=== PATIENT | female | born 1950 | race Caucasian/White ===

== ENCOUNTER 2018-01-14 08:15 | Day surgery (SDC) | payer MEDICARE, OTHER, SELFPAY ==
[2018-01-14 08:36] VITALS: BP 149/60; PULSE 51; RESP 16; TEMP 36.8; O2SAT 99; BMI 34.7
--- NOTE | 2018-01-14 09:30 | COLBX_PTH ---
PATIENT: GREG FELIX LOC: EN U#:[id number] AGE/SX: 67/F ROOM: RE01/14/[address]: Dr. Robert Tran MD : 1950 BED: DIS: 01/14/2018 SPEC #: [id number] RECD: 01/14/18 14:20 STATUS: ALICIA JAZZY #: [id number] HECTOR: 01/14/18 09:[address]: Robert Tran DEPT: SURGICAL PATHOLOGY RECD BY: Sigifredo Haque ENTERED: 01/14/18 14:47 SP TYPE: COLON BX OTHR DR: Dr. Terrence Rizo III, MD Tissues: POLYP Procedures: Surgery Specimen Level IV HEADER OPERATION: Colonoscopy (MAC) PRE-OP DIAGNOSIS: Personal history of colon polyps TISSUE SUBMITTED: Polyp at hepatic flexure MICROSCOPIC DIAGNOSIS Polyp at hepatic flexure, biopsy: Fragments of hyperplastic polyp. AM:lang 8/7/18 MICROSCOPIC DESCRIPTION Slides are reviewed. GROSS DESCRIPTION Received in fixative is one container labeled with the patient's name and designated polyp hepatic flexure. The specimen consists of two irregular fragments of light gardner soft tissue that in aggregate measure 1 x 0.7 x 0.1 cm. The specimen is totally submitted in one cassette. / AM:lang 01/14/18 TC:5 CPT: 94207
--- NOTE | 2018-01-14 09:53 | PCM.OPRPT ---
Problem List (1) Personal history of colonic polyps Status: Acute Report of Operation Date of Procedure: 01/14/18 Pre-Operative Diagnosis: Personal history of colonic polyps Post-Operative Diagnosis: Same Surgery/Procedure Performed:: Colonoscopy with snare polypectomy 11733 Type of Anesthesia:: MAC Anesthesiologist: Waqas Fox Description of Procedure: Patient brought in the endoscopy suite. Placed on the left lateral decubitus position. She was given graded anesthesia. Scope was inserted into the rectum and directed to the sigmoid colon, descending colon, transverse colon, ascending colon, to the cecum without difficulty operative findings: 1. Cecum: Normal appearance no mass lesions normal ileocecal valve. 2. Ascending colon: Normal appearance no mass lesions. 3. Transverse colon: Normal appearance no mass lesions. At the hepatic flexure a small polyp was identified was removed with snare cautery technique brought back to the channel of the scope. 4. Descending colon: Normal appearance no mass lesions. 5. Sigmoid colon: Normal appearance There is moderate amount of diverticular disease identified. 6. Rectum: Normal appearance no mass lesions internal hemorrhoids was identified. Patient will need another colonoscopy in 3 years - Admit VTE Documentation VTE Present on Admission: No VTE Mechan Device Prophylaxis: None VTE Pharm Prophylaxis ordered?: No Reason prophylaxis not ordered:: Treatment Not Indicated
[2018-01-14 09:56] VITALS: BP 108/67; BP 149/60; PULSE 72; RESP 18; TEMP 36.1; O2SAT 96
[2018-01-14 10:00] VITALS: BP 124/54; BP 149/60; PULSE 75; RESP 18; O2SAT 98
[2018-01-14 10:05] VITALS: BP 137/56; BP 149/60; PULSE 95; RESP 18; O2SAT 98
[2018-01-14 10:10] VITALS: BP 143/65; BP 149/60; PULSE 96; RESP 18; TEMP 36.1; O2SAT 96
[2018-01-14 10:46] VITALS: BP 149/60
== END 2018-01-14 10:50 | disposition home or self-care (01) ==
LOC: EN 08:16 → AC 08:18
PROVIDERS: Family Provider Family Medicine; PCP Family Medicine; Visit Provider Surgery
PROC: 0DJD8ZZ Inspection of Lower Intestinal Tract, Via Natural or Artificial Opening Endoscopic (ICD-10-PCS; CPT 45378; principal; 2018-01-14 09:25)
DX: K63.5 Polyp of colon (principal); K57.30 Diverticulosis of large intestine without perforation or abscess without bleeding; K64.8 Other hemorrhoids; I10 Essential (primary) hypertension; E78.5 Hyperlipidemia, unspecified; I25.10 Atherosclerotic heart disease of native coronary artery without angina pectoris; Z87.891 Personal history of nicotine dependence; Z93.1 Gastrostomy status; Z86.010 Personal history of colon polyps
CPT/HCPCS: 45385; 88305; J7120

== ENCOUNTER → 2018-02-02 09:15 | Outpatient (CLI) | payer MEDICARE, OTHER, SELFPAY ==
--- NOTE | 2018-02-02 | IMM_PTH ---
PATIENT: GREG FELIX LOC: [facility] U#:[id number] AGE/SX: 75/F ROOM: RE02/02/[address]: Dr. Robert Tran MD : 1950 BED: DIS: SPEC #: [id number] RECD: 02/05/18 12:57 STATUS: ALICIA REBerna #: [id number] HECTOR: 02/02/18 00:[address]: Robert Tran DEPT: IMMUNOHISTOCHEMISTRY RECD BY: Shelly Burns ENTERED: 02/05/18 13:00 SP TYPE: IMMUNO OTHR DR: Dr. Terrence Rizo III, MD Tissues: Skin of leg, NOS Procedures: Vimentin (add) MELAN-A (add) P40 (add) S-100 (add) PHYSICIAN & INSTITUTION [place] [id number] SPECIMEN INFORMATION: Tissue Source: Left leg skin lesion Clinical Info: Left leg skin lesion Specimen Number: [id number] #2 CPT code: 90379, 32738 x3 METHODOLOGY: Deparaffinized sections of prefer/formalin-fixed tissue or PAP/DQ stained slides are incubated with monoclonal/polyclonal antibodies/oligonucleotide probes. Localization is made via biotin free immunoperoxidase method. Appropriate controls are performed and reacted as expected. Results on target cell population are indicated in the following table: RESULTS: ANTIBODY / CLONE RESULT Block 2 S-100 (4C4.9) positive Melan A (A103) positive Vimentin (V9) positive P40 (BC28) negative These tests were developed and their performance characteristics determined by [facility]. They may not have been cleared or approved by the U.S. Food and Drug Administration. The FDA has determined that such clearance or approval is not necessary. INTERPRETATION: Left leg skin lesion, excision: Malignant melanoma, superficial spreading type. AM:lang 02/06/18
--- NOTE | 2018-02-02 09:15 | LES_PTH ---
PATIENT: GREG FELIX LOC: [facility] U#:[id number] AGE/SX: 75/F ROOM: RE02/02/[address]: Dr. Robert Tran MD : 1950 BED: DIS: SPEC #: [id number] RECD: 02/02/18 11:25 STATUS: ALICIA JAZZY #: [id number] HECTOR: 02/02/18 09:[address]: Robert Tran DEPT: SURGICAL PATHOLOGY RECD BY: Bereket Mejia ENTERED: 02/04/18 13:38 SP TYPE: Lesion OTHR DR: Dr. Terrence Rizo III, MD Tissues: Skin of leg, NOS Procedures: Gen Path Consultation (on slides) Surgery Specimen Level IV HEADER OPERATION: Excision of left leg skin lesion PRE-OP DIAGNOSIS: Neoplasm of uncertain behavior of skin TISSUE SUBMITTED: Left leg skin lesion MICROSCOPIC DIAGNOSIS Left leg skin lesion, excisional biopsy: Malignant melanoma, superficial spreading type. See Comment. AM:lang 02/08/18 COMMENT MALIGNANT MELANOMA SYNOPTIC REPORT: Histologic type ? superficial spreading type. Level of invasion ? Ifeanyi?s level II Tumor thickness ? 0.9mm. Mitotic rate ? 2/mm? Ulceration ? not present Regression ? not present Tumor infiltrating lymphocytes ? present, brisk Lymph-vascular invasion - not identified. Peripheral margins ? negative. Deep margin ? negative. Pathologic stage ? pT1a Nx Mx. Immunohistochemistry ([id number]) supports the diagnosis. This case was reviewed in consultation with Dr. Marco A Narvaez of [employer]. Please see the complete consultative report in EMR. MICROSCOPIC DESCRIPTION Slides are reviewed. GROSS DESCRIPTION Received in fixative is one container labeled with the patient's name and designated left leg skin lesion. The specimen consists of an ellipse of light gardner excised skin measuring 3.5 x 2.3 cm and a depth of excision measuring 1.5 cm. The cutaneous surface contains an irregular hyperpigmented lesion measuring 1 x 1 x 0.1 cm. No orientation is provided. The specimen is inked in black ink, serially sectioned and totally submitted in three cassettes. / AM:lang 02/04/18 TC:0 CPT: 71121
== END ==
PROVIDERS: Family Provider Family Medicine; PCP Family Medicine; Visit Provider Surgery
DX: L98.8 Other specified disorders of the skin and subcutaneous tissue (principal)
CPT/HCPCS: 88305; 88325; 88341

== ENCOUNTER 2019-07-09 12:32 | Emergency (ER) | payer MEDICARE, OTHER, SELFPAY ==
[2019-07-09 12:33] VITALS: BP 153/75; PULSE 63; RESP 16; TEMP 36.7; O2SAT 96; BMI 37.9
--- NOTE | 2019-07-09 12:47 | RAD_ITS ---
STUDY: X-RAY - LEFT HAND, ATTENTION LEFT THUMB. REASON FOR EXAM: Female, 69 years old. Stubbed left thumb against door; pain for 4 weeks TECHNIQUE: 3 view(s) of the finger were obtained. COMPARISON: None. FINDINGS: Normal metacarpal head. Normal metacarpophalangeal joint. Normal proximal phalanx. Normal distal phalanx. Normal distal interphalangeal joint. Soft tissue swelling. RAD/Finger(s) Min 2 Views IMPRESSION: Soft tissue swelling. Electronically Signed: Samson Montejo, at 13:50 EST , Service support ,
--- NOTE | 2019-07-09 14:03 | ED.VISSUMM ---
- ER Visit Summary Date of Service: 07/09/19 Chief Complaint: [Left thumb injury] History of Present Illness: The patient is a 69 F [presents the emergency department with pain in her left thumb that she has had for about 4 to 6 weeks. Patient states that she got up in the middle the night and accidentally stubbed the thumb into the door. Patient's had pain and discomfort ever since that time. Patient complains of pain with bending and flexing the thumb. Patient is right-hand dominant. Patient has history of GERD, hypertension, and high cholesterol.] Physical Examination: [Left hand-patient has tenderness to palpation over the IP joint of the left thumb as well as the MCP joint. Patient has popping when she tries to flex the IP joint. There is a grinding sensation noted. There is no obvious deformity. No erythema or warmth noted. Neurovascularly intact.] Test Results: [X-rays of the left thumb obtained showed some soft tissue swelling but no fractures. She had some degenerative changes noted.] Emergency Department Course and Treatment: [She was given a thumb spica splint.] Treatment Plan: [Patient will be referred to orthopedics for follow-up. Patient advised use ibuprofen or Tylenol for discomfort.] Disposition: [Discharged home in stable condition] Impression: [Left thumb sprain] This note was generated with [employer] dictation software. It may contain incorrect words, spelling, and punctuation that were not noted in review of the chart prior to signing ED Disposition - Plan for ED Patient: Referrals: Terrence Rizo III, MD [Primary Care Provider] -
--- NOTE | 2019-07-09 14:05 | ED.DEP ---
ED Disposition - Plan for ED Patient: Instructions: Sprain Finger Referrals: Terrence Rizo III, MD [Primary Care Provider] - Mayo Ramirez MD [STAFF PHYSICIAN] - 5-7 Days
[2019-07-09 14:22] VITALS: RESP 17
== END 2019-07-09 14:23 | disposition home or self-care (01) ==
LOC: ED 13:00
PROVIDERS: Emergency Provider Emergency Medicine; PCP Family Medicine
DX: S63.602A Unspecified sprain of left thumb, initial encounter (principal); W23.0XXA Caught, crushed, jammed, or pinched between moving objects, initial encounter; Y93.9 Activity, unspecified; Y92.89 Other specified places as the place of occurrence of the external cause; Y99.9 Unspecified external cause status; E78.00 Pure hypercholesterolemia, unspecified; I10 Essential (primary) hypertension; K21.9 Gastro-esophageal reflux disease without esophagitis
CPT/HCPCS: 73140; 99283

== ENCOUNTER 2019-10-15 12:33 | Emergency (ER) | payer MEDICARE, OTHER, SELFPAY ==
[2019-10-15 12:34] VITALS: BP 159/90; PULSE 58; RESP 17; TEMP 36.3; O2SAT 95; BMI 37.2
--- NOTE | 2019-10-15 13:02 | EKG12_ITS ---
Test Reason : Blood Pressure : / mmHG Vent. Rate : 050 BPM Atrial Rate : 050 BPM P-R Int : 200 ms QRS Dur : 096 ms QT Int : 530 ms P-R-T Axes : 027 026 032 degrees QTc Int : 483 ms Sinus bradycardia Otherwise normal ECG Confirmed by JESSICA STOKES ([id number]), general expeditor ADAM BARRERA ([id number]) on 10/20/2019 2:48:40 PM Referred By: VALE Confirmed By:JESSICA STOKES
--- NOTE | 2019-10-15 13:21 | NURSING ---
[facility] , DIPAK PNEUMONIA, HYPOXIA, COPD
[2019-10-15 13:22] LABS: Absolute Lymphocyte Count 1.07 X10^3/uL (0.83-4.51); Absolute Neutrophil Count 6.3 X10^3/uL (2.0-7.7); Basophil# 0.07 X10^3/uL; Basophil% 0.8 % (0-1); Eosinophil# 0.09 X10^3/uL; Eosinophils% 1.1 % (0-5); Hemoglobin 12.1 g/dL (12.0-15.0); Lymphocyte # 1.07 X10^3/ul (4.0); Lymphocyte % 12.8 % (19-41); Mean Corp Hgb Conc 32.7 g/dL (32-36); Mean Corpuscular Hgb 29.2 pg (27.0-32.0); Mean Corpuscular Volume 89.2 fL (81-99); Mean Platelet Vol. 10.1 fl (6.2-12.0); Monocyte# 0.78 X10^3/uL; Monocyte% 9.3 % (0-10); NRBC Flagged by Analyzer 0 % (0-5); Neutrophil # 6.32 X10^3/uL (2.7-7.7); Neutrophil % 75.6 % (47-70); Platelet Count 180 K/mm3 (150-450); RBC Distribution Width CV 12.5 % (11.6-14.6); RBC Distribution Width SD 41.1 fl (35.1-43.9); Red Blood Count 4.15 M/mm3 (4.2-5.4); White Blood Count 8.4 K/mm3 (4.4-11.0)
[2019-10-15] MEDS: 0.9% Normal Saline 1,000 ML 1000 ML IV (13:26)
[2019-10-15 13:35] VITALS: BP 119/56; BP 137/58; BP 143/92; PULSE 60; PULSE 89; PULSE 90
[2019-10-15 13:48] LABS: ALB/GLOB Ratio 0.9 RATIO (0.9-2.4); AST(SGOT) 15 U/L (15-37); Alanine Aminotransfer ALT/SGPT 15 U/L (13-56); Albumin, Serum 3.5 g/dL (3.2-5.0); Alkaline Phosphatase 138 U/L (45-117); Anion Gap 8 (5-15); BUN 19 mg/dL (7-18); BUN/Creat Ratio 14.4 RATIO (10-20); Calcium,Total 9.1 mg/dL (8.5-10.1); Chloride 106 mmol/L (98-107); Creatinine, Serum 1.32 mg/dL (0.55-1.02); EST Glomerular Filtration Rate 42 mL/min (>60); Est Glom Filt Rate - Afr Amer 51 mL/min (>60); Estimated Creatinine Clearance 32.34 ml/min; Globulin 4.1 g/dL (2.2-4.2); Glucose 116 mg/dL (74-106); Potassium 4.4 mmol/L (3.5-5.1); Protein, Total 7.6 g/dL (6.4-8.2); Sodium Level 138 mmol/L (136-145); Thyroid Stim Hormone (TSH) 0.85 uIU/mL (0.358-3.74)
[2019-10-15 15:23] LABS: Mucous, Urine 0 SEEN /hpf (<or=2+)
[2019-10-15 15:56] LABS: Color, Urine Yellow (Yellow); Glucose, Dipstick Normal (Normal); Ketone-Dipstick Negative (Negative); Leukocyte Esterase-Dipstick 500 /ul (Negative); Nitrite-Dipstick Negative (Negative); Occult Blood-Urine 150 /ul (Negative); Protein-Dipstick 30 mg/dl (Negative); Urine Bilirubin Dipstick Negative (Negative); Urine Clarity Sl. Cloudy (Clear); Urine Urobilinogen Normal (Normal)
[2019-10-15 16:05] VITALS: BP 157/41; PULSE 97; RESP 16; O2SAT 95
[2019-10-15 16:06] LABS: Bacteria RARE /hpf (None Seen); Red Blood Cells-Urine 0-5 SEEN /hpf (0-5); Renal Epithelial Cells 0-5 SEEN /hpf (0-5); Squamous Epithelial Cells - UA 0-5 SEEN /hpf (5-10); White Blood Cells 5-10 SEEN /hpf (0-5)
[2019-10-15] MEDS: Ondansetron 4 MG/2 ML Vial IV (16:08)
--- NOTE | 2019-10-15 16:13 | ED.DCSUM_ITS ---
- ER Visit Summary Date of Service: 10/15/19 Chief Complaint: Dehydration and weakness History of Present Illness: The patient is a [address] Terrence Rizo iii and Dr. Tran. Patient has a history of dementia and is a poor informant. Her reports that she has had diarrhea on and off for the past 2 weeks. She is had 1 episode today. No blood in her stools or black tarry stools. She has not been one sick. Has not been camping out of the country. No possible food exposure. They do drink well water, but he does as well and he is not ill. No recent antibiotics. also reports the patient had poor p.o. intake for the past 2 days and does not meet drink much fluids. She was seen by Dr. Terrence Rizo in the office this morning and her blood pressure and heart rate were low. He asked that they hold her amlodipine and carvedilol. Come to the emergency department to obtain IV fluids and a work-up. Patient denies any fever chills. She denies any abdominal pain, nausea, or vomiting. She does admit to generalized weakness. Physical Examination: Vitals: Stable. Afebrile. General: Well-nourished and well-developed. Head: Normocephalic atraumatic. Neck: Supple, no lymphadenopathy. No JVD. Nontender. Cardiovascular: Regular rate and rhythm. No murmurs. Respiratory: No respiratory distress. Clear to auscultation bilaterally. Abdominal: Soft, nontender, nondistended, normal bowel sounds. No guarding, rebound, or peritoneal signs. Back: Nontender. Extremities: Nontender, no edema. Skin: Normal color, no rash. Neurologic: Alert and oriented ?3. Cranial nerves II through XII are intact. Normal strength and sensation. Psych: Normal affect. Test Results: CBC shows segmented neutrophils 76 lymphocytes 13. Chem-7 shows a glucose of 116, BUN 19, creatinine 1.32. Her creatinine in 2016 was 0.53?1.44. LFTs show an alk phos of 138. TSH is normal. Troponin is negative. EKG is sinus bradycardia at [address] changes. Is unchanged from 2016. Urinalysis shows 5-10 white blood cells with 1+ bacteria. Emergency Department Course and Treatment: Patient was given a liter of normal saline. She was given Zofran IV and Cipro p.o. She is resting more comfortabl y. Treatment Plan: I did attempt to get a hold of Dr. Terrence Rizo without success. She will be instructed to hold her carvedilol as I do suspect that the bradycardia is causing some of the weakness and lightheadedness. She was discussed with Dr. Gt Rizo and he feels that she needs to have a full medical work-up that rules out an infectious cause of her diarrhea prior to seeing surgery. She is instructed to follow-up Dr. Tran in 1 week if not improving. The patient's urine was sent for culture. She will be placed on 3 days of Cipro in hopes that this also helps her diarrhea if it is infectious in etiology. Return to the emergency department for any worsening symptoms. Disposition: To home in improved and stable condition. Impression: 1. Dehydration. 2. Acute kidney injury. 3. Orthostatic hypotension. 4. Bradycardia on carvedilol. 5. UTI. This note was generated with [employer] dictation software. It may contain incorrect words, spelling, and punctuation that were not noted in review of the chart prior to signing ED Disposition - Plan for ED Patient: Instructions: ED Dehydration Adult, ED Vomiting and Diarrhea Nonspecific Adult Prescriptions: Ciprofloxacin [Cipro] 250 mg PO BID #6 tablet Ondansetron [Zofran Odt] 4 mg PO Q8H PRN PRN #10 tablet PRN Reason: Nausea Referrals: Terrence Rizo III, MD [Primary Care Provider] - 3-5 Days Robert Tran MD [STAFF PHYSICIAN] - 1-2 Weeks
[2019-10-15 16:19] VITALS: BP 161/65; PULSE 68; RESP 18; O2SAT 97
[2019-10-15] MEDS: Ciprofloxacin 250 MG Tablet PO (16:33)
== END 2019-10-15 16:51 | disposition home or self-care (01) ==
LOC: ED 13:56
PROVIDERS: Emergency Provider Emergency Medicine; PCP Family Medicine
DX: E86.0 Dehydration (principal); N17.9 Acute kidney failure, unspecified; N39.0 Urinary tract infection, site not specified; I95.1 Orthostatic hypotension; F03.90 Unspecified dementia, unspecified severity, without behavioral disturbance, psychotic disturbance, mood disturbance, and anxiety; R00.1 Bradycardia, unspecified
CPT/HCPCS: 80053; 81001; 84443; 84484; 85025; 87086; 87088; 93005; 96361; 96374; 99285; J7030; A4216; J2405

== ENCOUNTER 2021-01-16 16:08 | Emergency (ER) | payer MEDICARE, OTHER, SELFPAY ==
[2021-01-16 16:10] VITALS: BP 119/94; PULSE 72; RESP 16; TEMP 36.7; O2SAT 96; BMI 36.7
[2021-01-16 16:12] VITALS: BP 119/94; PULSE 73; RESP 16; O2SAT 96
--- NOTE | 2021-01-16 16:36 | EX.ED.DYSGE1 ---
HPI History of Present Illness Chief Complaint: General Illness Narrative Narrative: 70-year-old female presenting with concern for dehydration. She states that she has decreased p.o. intake which is chronic. She admits to not drinking as much as she should. When I asked why she does not she states she just does not feel like it. Patient does have dementia and her states that he tries to get her to drink more water however he cannot get her to do this. Patient does have a history of this as well as decreased p.o. intake and was previously seen by Dr. Darrius montenegro. Patient's states that she had a feeding tube at [facility] and recovered but has not followed up in some time. Patient states that she is not lightheaded, nauseous, dizzy. She denies abdominal pain but does admit to some diarrhea. The diarrhea started today. Patient's states that he called their daughter who is been a medical imaging specialist for 20 years and stated that she sounded dehydrated and that she should come to the ER. [facility] Medical History CAD (coronary artery disease) Celiac artery stenosis COPD (chronic obstructive pulmonary disease) Diverticulosis of colon Fatty liver Former smoker Hyperlipidemia Hypertension Osteoarthritis of knees, bilateral Thoracoabdominal aneurysm with rupture Home Medications omeprazole 20 mg PO BID 09/08/15 [History Last Taken 10/31/16 08:00] carvedilol 6.25 mg PO BIDCM 10/03/15 [History Last Taken 01/14/18 04:00] atorvastatin 40 mg PO DAILY 10/30/16 [History Last Taken Unknown] tiotropium bromide 2 puff INHALATION DAILY 10/30/16 [History Last Taken 10/31/16 08:00] albuterol sulfate 90 mcg/actuation breath activated powder inhaler 2 puff INHALATION Q6H PRN 01/11/18 [History Last Taken Unknown] cetirizine 10 mg capsule 10 mg PO DAILY 01/11/18 [History Last Taken Unknown] sertraline 50 mg PO DAILY 01/11/18 [History Last Taken Unknown] donepezil 5 mg PO QHS 07/09/19 [History Last Taken Unknown] ciprofloxacin HCl 250 mg PO BID #6 tab 10/15/19 [Rx Last Taken Unknown] ondansetron 4 mg PO Q8H PRN PRN #10 tab 10/15/19 [Rx Last Taken Unknown] amlodipine 5 mg PO DAILY 01/16/21 [History Last Taken Unknown] tiotropium bromide [Spiriva with HandiHaler] 1 cap INHALATION DAILY 01/16/21 [History Last Taken Unknown] Allergy/AdvReac Type Severity Reaction Status Date / Time No Known Allergies Allergy Verified 01/16/21 16:09 Family History Mother Liver disease Father Alzheimer disease Aunt Colon cancer Breast cancer Surgical History History of blepharoplasty History of colonoscopy (~10/2016) History of esophagogastroduodenoscopy (EGD) History of nasal septoplasty History of total bilateral knee replacement Status post insertion of percutaneous endoscopic gastrostomy (PEG) tube Social History Smoking Status: Former smoker ROS ROS ED Constitutional Constitutional ED: Denies fever(s), subjective or sweats Eyes Eyes: Denies blurry vision or diplopia ENT ENT ED: Denies rhinorrhea or sore throat Cardiovascular Cardiovascular: Denies chest pain or palpitations Respiratory/Chest Respiratory/Chest: Denies cough, dyspnea or dyspnea on exertion Gastrointestinal Gastrointestinal: Denies abdominal pain, nausea or vomiting Genitourinary Genitourinary ED: Denies dysuria or urinary frequency Musculoskeletal Musculoskeletal: Denies myalgias or neck pain Integumentary Denies Abrasions or rash Neurologic Neurologic: Denies headache(s) or paresthesias EXAM Physical Exam Const Vital Signs: 01/16/21 16:10 01/16/21 16:12 01/16/21 16:22 Temperature 98.1 F Temperature Source Temporal Pulse Rate 72 73 Respiratory Rate 16 16 Respiratory Effort Normal Non-Labored Blood Pressure 119/94 H 119/94 H Blood Pressure Mean 102 102 Pulse Ox 96 96 Oxygen Delivery Method Room Air Room Air 01/16/21 18:43 01/16/21 19:18 Temperature Temperature Source Pulse Rate 64 62 Respiratory Rate 18 16 Respiratory Effort Blood Pressure 177/56 H 163/60 H Blood Pressure Mean 96 Pulse Ox 97 97 Oxygen Delivery Method Room Air Positive well nourished General Appearance ED: NAD; Negative for pallor HEENT Reports moist mucous membranes Negative for trauma Eyes PERRL and EOMs intact bilaterally Resp normal respiratory effort and clear to auscultation bilaterally Cardio regular rate and regular rhythm GI normal to inspection, nondistended, normoactive bowel sounds Extremity normal to inspection General Extremety ED: Negative for edema or tenderness General Extremity: Negative for edema Neuro CN's II-XII intact bilaterally and no sensory deficits noted Sensorium / Orientation: alert Motor Exam: strength 5/5 throughout Psych mental status grossly normal Attitude: No agitated Mood & Affect: Negative for anxious Skin no rashes or lesions noted and no wounds General Skin Exam: Negative for jaundice or pallor MDM MDM MDM Narrative Medical decision making narrative: Patient's lab work is unremarkable. Her creatinine is 1.17 which is improved over her previous. Electrolytes are normal. Urinalysis is negative for infection. Patient was given IV fluids and feels comfortable at this time. I will discharge her home to follow-up with her PCP. Impression: 1. Generalized weakness 2. Decreased p.o. intake Lab Data Attestation: I reviewed the patient's lab results. Labs: Laboratory Results - last 24 hr 01/16/21 01/16/21 01/16/21 16:40 16:40 18:42 WBC 8.0 RBC 3.85 L Hgb 11.5 L Hct 34.9 L MCV 90.6 MCH 29.9 MCHC 33.0 RDW Std Deviation 41.8 RDW Coeff of [place] 12.7 Plt Count 196 MPV 10.1 Immature Gran % (Auto) 0.400 Neut % (Auto) 74.2 H Lymph % (Auto) 12.2 L Dickens % (Auto) 10.8 H Eos % (Auto) 1.6 Baso % (Auto) 0.8 Absolute Neuts (auto) 5.9 Absolute Lymphs (auto) 0.97 Nucleated RBC % 0 Sodium 138 Potassium 3.9 Chloride 106 Carbon Dioxide 24.0 Anion Gap 8 BUN 23 H Creatinine 1.17 H Estim Creat Clear Calc 35.95 Est GFR (MDRD) Af Amer 58 L Est GFR (MDRD) Non-Af 48 L BUN/Creatinine Ratio 19.7 Glucose 109 H Calcium 9.1 Urine Color Yellow Urine Clarity Sl. Cloudy Urine pH 5.0 Ur Specific [place] 1.020 Urine Protein 30 H Urine Glucose (UA) Normal Urine Ketones Negative Urine Occult Blood 250 H Urine Nitrite Negative Urine Bilirubin Negative Urine Urobilinogen Normal Ur Leukocyte Esterase 500 H Urine RBC 10-25 SEEN Urine WBC 50-100 SEEN Ur Squamous Epith Cells 0-5 SEEN Amorphous Sediment 1+ URATE Urine Bacteria 0 SEEN Urine Mucus 0 SEEN Radiography Diagnostic Testing: Radiology Impression Chest X-Ray 01/16/21 16:42 IMPRESSION: No acute radiographic abnormalities. Electronically Signed: Hank Eubanks MD at 17:08 EDT Tel , Service support , Discharge Plan Triage Chief Complaint: General Illness ED Provider: Keo Gandara Dx/Rx/DC Orders Instructions: ED Weakness (Uncertain Cause) Prescriptions: No Action cetirizine [All Day Allergy (cetirizine)] 10 mg capsule 10 mg PO DAILY RF: 0 albuterol sulfate 90 mcg/actuation aerosol powdr breath activated 2 puff INHALATION Q6H PRN (Reason: Sob &/Or Wheezing) RF: 0 omeprazole 10 MG capsule 20 mg PO BID RF: 0 carvedilol 12.5 MG tablet 6.25 mg PO BIDCM RF: 0 tiotropium bromide 1 PUFF inhaler 2 puff INHALATION DAILY RF: 0 atorvastatin 40 MG tablet 40 mg PO DAILY RF: 0 sertraline 50 MG tablet 50 mg PO DAILY RF: 0 donepezil 5 MG tablet 5 mg PO QHS RF: 0 ondansetron 4 MG tablet 4 mg PO Q8H PRN PRN (Reason: Nausea) Qty: 10 RF: 0 ciprofloxacin HCl 250 MG tablet 250 mg PO BID Qty: 6 RF: 0 amlodipine 5 mg tablet 5 mg PO DAILY RF: 0 Spiriva with HandiHaler 18 mcg Capsule, W/Inhalation Device 1 cap INHALATION DAILY RF: 0 Primary Care Provider: Palomo Garsia Referrals: Palomo Garsia MD [Primary Care Provider] - Disposition Disposition: Home, Self Care Discharge Date/Time: 01/16/21 19:19
--- NOTE | 2021-01-16 16:42 | RAD_ITS ---
INDICATION: weakness EXAMINATION/TECHNIQUE: X-RAY - XR Chest 1 View COMPARISON: 09/24/2015. FINDINGS: The lungs are clear. The cardiomediastinal silhouette is unremarkable. Multiple mediastinal clips. No pleural effusion or pneumothorax. Degenerative changes of the thoracic spine. RAD/Chest 1 View (Portable) IMPRESSION: No acute radiographic abnormalities. Electronically Signed: Hank Eubanks MD at 17:08 EDT Tel , Service support ,
[2021-01-16 16:50] LABS: Absolute Lymphocyte Count 0.97 X10^3/uL (0.83-4.51); Absolute Neutrophil Count 5.9 X10^3/uL (2.0-7.7); Basophil# 0.06 X10^3/uL; Basophil% 0.8 % (0-1); Eosinophil# 0.13 X10^3/uL; Eosinophils% 1.6 % (0-5); Hematocrit 34.9 % (37-47); Hemoglobin 11.5 g/dL (12.0-15.0); Lymphocyte # 0.97 X10^3/ul (0.83-4.51); Lymphocyte % 12.2 % (19-41); Mean Corpuscular Hgb 29.9 pg (27.0-32.0); Mean Corpuscular Volume 90.6 fL (81-99); Mean Platelet Vol. 10.1 fl (6.2-12.0); Monocyte# 0.86 X10^3/uL; Monocyte% 10.8 % (0-10); NRBC Flagged by Analyzer 0 % (0-5); Neutrophil # 5.93 X10^3/uL (2.7-7.7); Neutrophil % 74.2 % (47-70); Platelet Count 196 K/mm3 (150-450); RBC Distribution Width CV 12.7 % (11.6-14.6); RBC Distribution Width SD 41.8 fl (35.1-43.9); Red Blood Count 3.85 M/mm3 (4.2-5.4)
[2021-01-16] MEDS: 0.9% Normal Saline 1,000 ML 1000 ML IV (16:53)
[2021-01-16 17:05] LABS: Anion Gap 8 (5-15); BUN 23 mg/dL (7-18); BUN/Creat Ratio 19.7 RATIO (10-20); Calcium,Total 9.1 mg/dL (8.5-10.1); Chloride 106 mmol/L (98-107); Creatinine, Serum 1.17 mg/dL (0.55-1.02); EST Glomerular Filtration Rate 48 mL/min (>60); Est Glom Filt Rate - Afr Amer 58 mL/min (>60); Estimated Creatinine Clearance 35.95 ml/min; Glucose 109 mg/dL (74-106); Potassium 3.9 mmol/L (3.5-5.1); Sodium Level 138 mmol/L (136-145)
[2021-01-16 18:43] VITALS: BP 177/56; PULSE 64; RESP 18; O2SAT 97
[2021-01-16 18:49] LABS: Bacteria 0 SEEN /hpf (None Seen); Mucous, Urine 0 SEEN /hpf (<or=2+)
[2021-01-16 18:52] LABS: Color, Urine Yellow (Yellow); Glucose, Dipstick Normal (Normal); Ketone-Dipstick Negative (Negative); Leukocyte Esterase-Dipstick 500 /ul (Negative); Nitrite-Dipstick Negative (Negative); Occult Blood-Urine 250 /ul (Negative); Protein-Dipstick 30 mg/dl (Negative); Urine Bilirubin Dipstick Negative (Negative); Urine Clarity Sl. Cloudy (Clear); Urine Urobilinogen Normal (Normal)
[2021-01-16 18:58] LABS: Amorphous Sediment 1+ URATE; Red Blood Cells-Urine 10-25 SEEN /hpf (0-5); Squamous Epithelial Cells - UA 0-5 SEEN /hpf (5-10); White Blood Cells 50-100 SEEN /hpf (0-5)
[2021-01-16 19:18] VITALS: BP 163/60; PULSE 62; RESP 16; O2SAT 97
== END 2021-01-16 19:19 | disposition home or self-care (01) ==
PROVIDERS: Emergency Provider Student in an Organized Health Care Education/Training Program; PCP Family Medicine
DX: R53.1 Weakness (principal); F03.90 Unspecified dementia, unspecified severity, without behavioral disturbance, psychotic disturbance, mood disturbance, and anxiety; E78.5 Hyperlipidemia, unspecified; I10 Essential (primary) hypertension; I25.10 Atherosclerotic heart disease of native coronary artery without angina pectoris; J44.9 Chronic obstructive pulmonary disease, unspecified; I77.4 Celiac artery compression syndrome; K57.30 Diverticulosis of large intestine without perforation or abscess without bleeding; K76.0 Fatty (change of) liver, not elsewhere classified; M17.0 Bilateral primary osteoarthritis of knee; Z79.899 Other long term (current) drug therapy; Z87.891 Personal history of nicotine dependence
CPT/HCPCS: 71045; 80048; 81001; 85025; 99283; J7030; A4216

== ENCOUNTER 2022-01-18 10:28 | Inpatient (IN) | payer MEDICARE, OTHER, SELFPAY ==
[2022-01-18] VITALS (11 sets, daily range): BP systolic 110–184; BP diastolic 40–74; PULSE 67–76; RESP 18–28; TEMP 36.1–36.9; O2SAT 93–100; BMI 35.9; BMI 35.2
--- NOTE | 2022-01-18 10:46 | EKG12_ITS ---
Test Reason : SHORTNESS OF BREATH Blood Pressure : / mmHG Vent. Rate : 070 BPM Atrial Rate : 070 BPM P-R Int : 178 ms QRS Dur : 098 ms QT Int : 446 ms P-R-T Axes : 033 038 016 degrees QTc Int : 481 ms Normal sinus rhythm Nonspecific ST abnormality Abnormal ECG Confirmed by ELMER MOSQUERA, MOSHE ([id number]), greeting card editor KAMALA BAE ([id number]) on 01/20/2022 2:13:07 PM Referred By: MOHIT Confirmed By:CARLENE PAYNE MD
--- NOTE | 2022-01-18 10:47 | EX.ED.DYSGE1 ---
HPI History of Present Illness Chief Complaint: Shortness of Breath Informant: patient and spouse/S.O. Onset/Context/Timing Onset: Days Context: Gradual Onset Timing: Continuous Current Severity: Mild Maximum Severity: Mild Narrative Narrative: 71-year-old female extensive past medical history of CAD, COPD she had a surgery years ago for an aneurysm repair that was 10 hours involving both the abdomen and chest. She did develop a postop fistula. She had a long recovery. Basically 5+ days ago her primary care physician started on a new diet pill called Contrave. Patient had constipation. She has had nausea without vomiting. She denies any fever or chills. No dysuria no chest pain. The initially listed shortness of breath as her primary complaint she states she is always short of breath its not new or different. She has a history of COPD. She and her think she may be dehydrated. Prior similar symptoms: Yes Recent Illness/Hospitalization: No PFSH PFS Medical History (Updated 01/18/22 @ 12:[address] Viraj Abarca MD) CAD (coronary artery disease) Celiac artery stenosis COPD (chronic obstructive pulmonary disease) Diverticulosis of colon Fatty liver Former smoker Hyperlipidemia Hypertension Osteoarthritis of knees, bilateral Thoracoabdominal aneurysm with rupture Home Medications omeprazole 10 mg capsule,delayed release 20 mg PO BID 09/08/15 [History Last Taken 10/31/16 08:00] carvedilol 12.5 mg tablet 6.25 mg PO BIDCM 10/03/15 [History Last Taken 01/14/18 04:00] atorvastatin 40 mg tablet 40 mg PO DAILY 10/30/16 [History Last Taken Unknown] tiotropium bromide 18 mcg capsule with inhalation device 2 puff inhalation DAILY 10/30/16 [History Last Taken 10/31/16 08:00] albuterol sulfate 90 mcg/actuation breath activated powder inhaler 2 puff inhalation Q6H PRN Sob &/Or Wheezing 01/11/18 [History Last Taken Unknown] cetirizine 10 mg capsule (All Day Allergy (cetirizine)) 10 mg PO DAILY 01/11/18 [History Last Taken Unknown] sertraline 50 mg tablet 50 mg PO DAILY 01/11/18 [History Last Taken Unknown] donepezil 5 mg tablet 5 mg PO QHS 07/09/19 [History Last Taken Unknown] amlodipine 5 mg tablet 5 mg PO DAILY 01/16/21 [History Last Taken Unknown] tiotropium bromide 18 mcg capsule with inhalation device (Spiriva with HandiHaler) 1 cap inhalation DAILY 01/16/21 [History Last Taken Unknown] naltrexone 8 mg-bupropion 90 mg tablet,extended release (Contrave) 2 tab PO BID 01/18/22 [History Last Taken Unknown] Allergy/AdvReac Type Severity Reaction Status Date / Time No Known Allergies Allergy Verified 01/18/22 10:32 Family History Mother Liver disease Father Alzheimer disease Aunt Colon cancer Breast cancer Surgical History History of blepharoplasty History of colonoscopy (~10/2016) History of esophagogastroduodenoscopy (EGD) History of nasal septoplasty History of total bilateral knee replacement Status post insertion of percutaneous endoscopic gastrostomy (PEG) tube Social History Smoking Status: Former smoker ROS ROS ED ROS Narrative Constipation. Nausea. General malaise. Review of Systems ROS Unobtainable: Denies due to encephalopathy Constitutional Constitutional ED: Denies chills or fever(s) Eyes Eyes: Denies blurry vision ENT ENT ED: Denies ear pain Cardiovascular Cardiovascular: Denies chest pain Respiratory/Chest Respiratory/Chest: Denies cough Gastrointestinal Gastrointestinal: Reports abdominal pain, constipation and nausea; Denies diarrhea, melena or vomiting Genitourinary Genitourinary ED: Denies dysuria or hematuria Musculoskeletal Musculoskeletal: Denies arthralgias Integumentary Denies abscess Psychiatric Psychiatric: Denies anxiety Endocrine Endocrinology: Denies cold intolerance Hematologic/Lymphatic Hematologic/Lymphatic: Reports none Allergic/Immunologic Allergic/Immunologic ED: Denies mouth swelling or tongue swelling EXAM Physical Exam Narrative Exam Narrative: 71 female no acute distress. Vital signs are stable afebrile. Pulse ox 93% on room air no signs hypoxia. She is in no distress. at bedside. H EENT exam dry mucous membranes. Otherwise unremarkable. Neck nontender no JVD. No lymphadenopathy. Lungs clear to auscultation bilaterally. Heart regular rate and rhythm rate about 75 no murmur. Chest wall nontender. Abdomen soft nondistended normal bowel sounds no peritoneal signs. She is a well-healed prior scar that starts in her right lower abdomen spirals off around her left flank up into her left upper back. Moving all 4 extremities. Calves are nontender without edema. Back nontender. Neurologically she is awake and alert with no focal motor deficits. Const Vital Signs: 01/18/22 10:29 01/18/22 10:42 01/18/22 12:08 Temperature 96.9 F L Temperature Source Temporal Pulse Rate 76 74 Respiratory Rate 20 H 28 H Respiratory Effort Normal Respiratory Depth Normal Respiratory Pattern Normal Blood Pressure 110/56 L 153/58 H Blood Pressure Mean 74 89 Pulse Ox 93 98 Oxygen Delivery Method Room Air Room Air Room Air Positive well nourished, well developed and obese; Negative for cachectic, contractures or unkempt General Appearance ED: well developed and NAD; Negative for unkempt, cachectic, contractures, cyanotic or diaphoretic Nutritional Appearance: obese; Negative for cachectic HEENT Reports dry mucous membranes; Denies moist mucous membranes Negative for trauma Mouth ED: Yes dry mucous membranes Mouth: dry mucous membranes Eyes PERRL and EOMs intact bilaterally General Eye ED: Negative for pale conjunctiva or scleral icterus Neck no lymphadenopathy, supple and no JVD Lymph Lymphatic: Negative for other Chest Wall inspection of chest normal and palpation of chest normal Resp normal respiratory effort and clear to auscultation bilaterally Effort and Inspection: Negative for retractions Auscultation: Negative for rales, rhonchi or wheezes Cardio regular rate, regular rhythm, S1 normal heart sound, S2 normal heart sound and no murmurs Rate: Negative for bradycardia Rhythm: Negative for abnormal rhythm GI normal to inspection, nondistended, normoactive bowel sounds, non-tender, non-distended and no masses Inspection: Negative for abdominal distention Auscultation: normoactive bowel sounds Palpation: soft; Negative for tender or guarding Back/Spine no CVA tenderness General Back: Negative for CVA tenderness Cervical Spine: Negative for cervical spine tenderness Thoracic Spine / Upper Back: Negative for thoracic spinal tenderness Lumbar Spine / Lower Back: Negative for lumbar spinal tenderness Extremity normal to inspection General Extremety ED: Negative for edema or tenderness General Extremity: Negative for edema Neuro oriented x3 and CN's II-XII intact bilaterally Sensorium / Orientation: alert; Negative for orientation impaired, lethargic or stuporous Motor Exam: strength 5/5 throughout; Negative for general weakness Psych mental status grossly normal Appearance: Negative for unkempt Attitude: No agitated Mood & Affect: Negative for depressed Skin no rashes or lesions noted and no wounds Lesions: No lesion noted Rashes: No rashes noted Trauma: Negative for abrasion Wounds: Negative for wounds noted MDM MDM MDM Narrative Medical decision making narrative: 71-year-old who has not felt well since she started a new diet medication called Contrave. Her stopped it 3 days ago. She had constipation which they were able to get to resolve. They feel she may be dehydrated. Exam is consistent with dehydration. Screening labs are being obtained. Repeat exam patient is doing well. I think she is a combination of dehydration and a UTI with acute kidney injury. She will be started on IV Rocephin. Urine culture sent. She is received a liter of fluid and I will give her a second. I have the hospitalist on page for admission. Lab Data Attestation: I reviewed the patient's lab results. Lab results narrative: CBC shows a white count of 14.9. H&H of 13 and 40. Platelets 179. Chest x-ray unremarkable. Electrolytes show a gap of 12 BUN 37 creatinine 2.06 consistent with dehydration. Glucose of 187. Liver enzymes unremarkable. Lipase 11. Urinalysis consistent with UTI with 25-50 white cells, 25-50 red cells and 1+ bacteria. Culture be sent. She will be started on IV Rocephin. Labs: Laboratory Results - last 24 hr 01/18/22 01/18/22 01/18/22 10:40 10:40 12:04 WBC 14.9 H RBC 4.50 Hgb 13.3 Hct 40.3 MCV 89.6 MCH 29.6 MCHC 33.0 RDW Std Deviation 43.7 RDW Coeff of [place] 13.3 Plt Count 179 MPV 10.6 Immature Gran % (Auto) 0.700 Neut % (Auto) 86.3 H Lymph % (Auto) 5.7 L [place] % (Auto) 6.3 Eos % (Auto) 0.7 Baso % (Auto) 0.3 Absolute Neuts (auto) 12.9 H Absolute Lymphs (auto) 0.85 Nucleated RBC % 0 Sodium 136 Potassium 3.9 Chloride 104 Carbon Dioxide 20.0 L Anion Gap 12 BUN 37 H Creatinine 2.06 H Estim Creat Clear Calc 21.00 Est GFR (MDRD) Af Amer 30 L Est GFR (MDRD) Non-Af 25 L BUN/Creatinine Ratio 18.0 Glucose 187 H Calcium 9.9 Total Bilirubin 1.20 H AST 25 ALT 21 Alkaline Phosphatase 107 Total Protein 7.8 Albumin 3.3 Globulin 4.5 H Albumin/Globulin Ratio 0.7 L Lipase 11 L Urine Color Yellow Urine Clarity Sl. Cloudy Urine pH 5.0 Ur Specific [place] 1.025 Urine Protein 100 H Urine Glucose (UA) Normal Urine Ketones 5 H Urine Occult Blood 250 H Urine Nitrite Negative Urine Bilirubin 1 H Urine Urobilinogen Normal Ur Leukocyte Esterase 500 H Urine RBC 25-50 SEEN Urine WBC 25-50 SEEN Ur Squamous Epith Cells 0-5 SEEN Urine Bacteria 1+ Hyaline Casts 5-10 SEEN Fine Granular Casts 0-5 SEEN Urine Mucus 0 SEEN Radiography Chest X-Ray - ED: 1 View, Read by ED Physician, Heart, Lungs, Mediastinum, Bony Structures, No Acute Disease and Chronic Changes Diagnostic Testing: Clinical Impression(s) from Imaging Studies Chest X-Ray 01/18/22 11:00 IMPRESSION: Hiatal hernia. Stable examination. Electronically Signed: Samson Montejo MD at 11:12 EDT , X-ray, portable, single view interpreted by myself and radiologist shows no acute abnormality. OUnchanged from prior chest x-ray Rhythm Strip Rhythm Strip: Sinus Rhythm Rate: 70 Ectopy: None EKG Initial EKG: Attestation: I personally reviewed and interpreted this EKG as follows: Interpretation: Sinus Rhythm and No Acute Injury Pattern Comments: Normal sinus rhythm rate of 70. No acute signs of GA or ischemia. Discharge Plan Triage Chief Complaint: Shortness of Breath ED Provider: Viraj Abarca Dx/Rx/DC Orders Clinical Impression: Weakness, Acute dehydration, Acute kidney injury, Acute UTI, Leukocytosis Prescriptions: No Action cetirizine [All Day Allergy (cetirizine)] 10 mg capsule 10 mg PO DAILY albuterol sulfate 90 mcg/actuation aerosol powdr breath activated 2 puff INHALATION Q6H PRN (Reason: Sob &/Or Wheezing) omeprazole 10 MG capsule 20 mg PO BID Label Comments: PT DOES NOT HAVE A LIST AND CAN NOT VERIFY MEDS carvedilol 12.5 MG tablet 6.25 mg PO BIDCM tiotropium bromide 1 PUFF inhaler 2 puff INHALATION DAILY atorvastatin 40 MG tablet 40 mg PO DAILY Label Comments: sertraline 50 MG tablet 50 mg PO DAILY Label Comments: take 1 tablet by mouth once daily donepezil 5 MG tablet 5 mg PO QHS amlodipine 5 mg tablet 5 mg PO DAILY Label Comments: TAKE 1 TABLET BY MOUTH AT BEDTIME Spiriva with HandiHaler 18 mcg Capsule, W/Inhalation Device 1 cap INHALATION DAILY Contrave 8-90 mg Tablet Extended Release 2 tab PO BID Primary Care Provider: Palomo Garsia Referrals: Palomo Garsia MD [Primary Care Provider] - Disposition Disposition: Acute Care Hospital [facility]
[2022-01-18] MEDS: 0.9% Normal Saline 1,000 ML 1000 ML IV (10:59)
[2022-01-18] MEDS: Ondansetron 4 MG/2 ML Vial IV ×2 (10:59→16:58)
--- NOTE | 2022-01-18 11:00 | RAD_ITS ---
STUDY: X-RAY CHEST REASON FOR EXAM: Female, 71 years old. [place] TECHNIQUE: Single AP portable view of the chest. COMPARISON: Comparison is made with prior study dated 01/16/2021. FINDINGS: EKG electrodes are seen. The lungs are clear and expanded. There is no demonstrated pleural abnormality. There is borderline cardiomegaly. Normal mediastinum and pradip. Normal visualized pulmonary arteries. There is atherosclerotic calcification of the aortic arch with tortuosity. There are degenerative changes of the visualized thoracic spine. Healed left rib fractures. There is degenerative osteoarthritis of the bilateral shoulders. Hiatal hernia. Surgical clips are seen in the epigastric region. RAD/Chest 1 View (Portable) IMPRESSION: Hiatal hernia. Stable examination. Electronically Signed: Samson Montejo MD at 11:12 EDT ,
[2022-01-18 11:04] LABS: Absolute Lymphocyte Count 0.85 X10^3/uL (0.83-4.51); Absolute Neutrophil Count 12.9 X10^3/uL (2.0-7.7); Basophil# 0.05 X10^3/uL; Basophil% 0.3 % (0-1); Eosinophil# 0.11 X10^3/uL; Eosinophils% 0.7 % (0-5); Hematocrit 40.3 % (37-47); Hemoglobin 13.3 g/dL (12.0-15.0); Lymphocyte # 0.85 X10^3/ul (0.83-4.51); Lymphocyte % 5.7 % (19-41); Mean Corpuscular Hgb 29.6 pg (27.0-32.0); Mean Corpuscular Volume 89.6 fL (81-99); Mean Platelet Vol. 10.6 fl (6.2-12.0); Monocyte# 0.94 X10^3/uL; Monocyte% 6.3 % (0-10); NRBC Flagged by Analyzer 0 % (0-5); Neutrophil # 12.86 X10^3/uL (2.7-7.7); Neutrophil % 86.3 % (47-70); Platelet Count 179 K/mm3 (150-450); RBC Distribution Width CV 13.3 % (11.6-14.6); RBC Distribution Width SD 43.7 fl (35.1-43.9); White Blood Count 14.9 K/mm3 (4.4-11.0)
[2022-01-18 11:22] LABS: ALB/GLOB Ratio 0.7 RATIO (0.9-2.4); AST(SGOT) 25 U/L (15-37); Alanine Aminotransfer ALT/SGPT 21 U/L (13-56); Albumin, Serum 3.3 g/dL (3.2-5.0); Alkaline Phosphatase 107 U/L (45-117); Anion Gap 12 (5-15); BUN 37 mg/dL (7-18); Calcium,Total 9.9 mg/dL (8.5-10.1); Chloride 104 mmol/L (98-107); Creatinine, Serum 2.06 mg/dL (0.55-1.02); EST Glomerular Filtration Rate 25 mL/min (>60); Est Glom Filt Rate - Afr Amer 30 mL/min (>60); Globulin 4.5 g/dL (2.2-4.2); Glucose 187 mg/dL (74-106); Lipase 11 U/L (73-393); Potassium 3.9 mmol/L (3.5-5.1); Protein, Total 7.8 g/dL (6.4-8.2); Sodium Level 136 mmol/L (136-145)
[2022-01-18 12:09] LABS: Mucous, Urine 0 SEEN /hpf (<or=2+)
[2022-01-18 12:17] LABS: Color, Urine Yellow (Yellow); Glucose, Dipstick Normal (Normal); Ketone-Dipstick 5 mg/dl (Negative); Leukocyte Esterase-Dipstick 500 /ul (Negative); Nitrite-Dipstick Negative (Negative); Occult Blood-Urine 250 /ul (Negative); Protein-Dipstick 100 mg/dl (Negative); Specific Gravity, Urine 1.025 (1.002-1.030); Urine Clarity Sl. Cloudy (Clear); Urine Urobilinogen Normal (Normal)
[2022-01-18 12:18] LABS: Urine Bilirubin Dipstick 1 mg/dL (Negative)
[2022-01-18 12:27] LABS: Bacteria 1+ /hpf (None Seen); Red Blood Cells-Urine 25-50 SEEN /hpf (0-5); Squamous Epithelial Cells - UA 0-5 SEEN /hpf (5-10); White Blood Cells 25-50 SEEN /hpf (0-5)
[2022-01-18 12:28] LABS: Fine Granular Cast- Urine 0-5 SEEN /lpf (0-5); Hyaline Cast 5-10 SEEN /lpf (0-5)
[2022-01-18] MEDS: 0.9% Normal Saline 1,000 ML 999 ML IV (12:55)
[2022-01-18] MEDS: Ceftriaxone 1 GM/50 ML BAG IV (12:55)
--- NOTE | 2022-01-18 13:33 | PCM.HP.STD ---
HPI - General General Date of Admission: 01/18/22 Date of Service: 01/18/22 Chief Complaint: Generalized weakness HPI Narrative GREG FELIX, is a 71 F with past medical history signal for dyslipidemia hypertension who presented with progressive generalized weakness. History was mainly provided by the patient who was with her during the interview. Per patient's patient was recently started on weight loss medication Contrave (naltrexone?bupropion). Patient does have a gradually been increased. 3 days prior to the admission patient noticed increasing generalized weakness as well as patient being constipated he discontinued the medication. On the morning of her presentation patient could hardly move did complain of some abdominal discomfort and nausea but no vomiting. Was brought to the emergency department found to be dehydrated with acute kidney injury. Urinalysis also came back abnormal. Admitted to regular nursing floor for subsequent management [facility] Medical History CAD (coronary artery disease) Celiac artery stenosis COPD (chronic obstructive pulmonary disease) Diverticulosis of colon Fatty liver Former smoker Hyperlipidemia Hypertension Osteoarthritis of knees, bilateral Thoracoabdominal aneurysm with rupture Home Medications omeprazole 10 mg capsule,delayed release 20 mg PO BID 09/08/15 [History Last Taken 10/31/16 08:00] carvedilol 12.5 mg tablet 6.25 mg PO BIDCM 10/03/15 [History Last Taken 01/14/18 04:00] atorvastatin 40 mg tablet 40 mg PO DAILY 10/30/16 [History Last Taken Unknown] tiotropium bromide 18 mcg capsule with inhalation device 2 puff inhalation DAILY 10/30/16 [History Last Taken 10/31/16 08:00] albuterol sulfate 90 mcg/actuation breath activated powder inhaler 2 puff inhalation Q6H PRN Sob &/Or Wheezing 01/11/18 [History Last Taken Unknown] cetirizine 10 mg capsule (All Day Allergy (cetirizine)) 10 mg PO DAILY 01/11/18 [History Last Taken Unknown] sertraline 50 mg tablet 50 mg PO DAILY 01/11/18 [History Last Taken Unknown] donepezil 5 mg tablet 5 mg PO QHS 07/09/19 [History Last Taken Unknown] amlodipine 5 mg tablet 5 mg PO DAILY 01/16/21 [History Last Taken Unknown] tiotropium bromide 18 mcg capsule with inhalation device (Spiriva with HandiHaler) 1 cap inhalation DAILY 01/16/21 [History Last Taken Unknown] naltrexone 8 mg-bupropion 90 mg tablet,extended release (Contrave) 2 tab PO BID 01/18/22 [History Last Taken Unknown] Allergy/AdvReac Type Severity Reaction Status Date / Time No Known Allergies Allergy Verified 01/18/22 10:32 Family History Mother Liver disease Father Alzheimer disease Aunt Colon cancer Breast cancer Surgical History History of blepharoplasty History of colonoscopy (~10/2016) History of esophagogastroduodenoscopy (EGD) History of nasal septoplasty History of total bilateral knee replacement Status post insertion of percutaneous endoscopic gastrostomy (PEG) tube Social History Smoking Status: Former smoker ROS ROS Narrative GENERAL: Generalized weakness HEENT: denies headache, sinus congestion, RESPIRATORY: denies cough, sputum production, CARDIAC: denies chest pain, palpitations, orthopnea, PND GASTROINTESTINAL: Nausea and constipation GENITOURINARY: denies dysuria, urgency, frequency, heamaturia EXTREMITY: denies swelling MUSCULOSKELETAL: denies current joint pain or tenderness NEUROLOGIC: denies focal numbness, weakness, tingling HEMATOLOGIC: denies easy bruising and/or hemorrhage INTEGUMENT: denies rashes PSYCHIATRIC: denies suicidal or homicidal ideation Vital Signs Vital Signs Vital Signs: 01/18/22 10:29 01/18/22 10:42 01/18/22 12:08 Temperature 96.9 F L Temperature Source Temporal Pulse Rate 76 74 Respiratory Rate 20 H 28 H Respiratory Effort Normal Respiratory Depth Normal Respiratory Pattern Normal Blood Pressure 110/56 L 153/58 H Blood Pressure Mean 74 89 Pulse Ox 93 98 Oxygen Delivery Method Room Air Room Air Room Air 01/18/22 12:56 Temperature 98.1 F Temperature Source Oral Pulse Rate 67 Respiratory Rate 19 H Respiratory Effort Respiratory Depth Respiratory Pattern Blood Pressure 147/51 H Blood Pressure Mean 83 Pulse Ox 96 Oxygen Delivery Method Room Air Weight Weight: 94.8 kg Body Mass Index (BMI) 35.9 Physical Exam Narrative GENERAL: cooperative appears ill looking HEENT: Atraumatic; EYES; Anicteric, Normal Conjunctiva NECK; supple, normal thyroid, RESPIRATORY: Diminished to auscultation CARDIOVASCULAR: Regular S1 S2, GI: soft, normoactive bowel sounds, : No Renal angle tenderness; EXTREMITIES: No edema, no clubbing, MUSCULOSKELETAL: no muscle wasting NEURO: Awake; no lateralizing signs. SKIN: No Rash PSYCH; Flat affect Results Lab / Micro Data Result Diagrams: 01/18/22 10:40 01/18/22 10:40 Labs: Laboratory Results - last 24 hr 01/18/22 10:40: WBC 14.9 H, RBC 4.50, Hgb 13.3, Hct 40.3, MCV 89.6, MCH 29.6, MCHC 33.0, RDW Std Deviation 43.7, RDW Coeff of [place] 13.3, Plt Count 179, MPV 10.6, Immature Gran % (Auto) 0.700, Neut % (Auto) 86.3 H, Lymph % (Auto) 5.7 L, [place] % (Auto) 6.3, Eos % (Auto) 0.7, Baso % (Auto) 0.3, Absolute Neuts (auto) 12.9 H, Absolute Lymphs (auto) 0.85, Nucleated RBC % 0 01/18/22 10:40: Sodium 136, Potassium 3.9, Chloride 104, Carbon Dioxide 20.0 L, Anion Gap 12, BUN 37 H, Creatinine 2.06 H, Estim Creat Clear Calc 21.00, Est GFR (MDRD) Af Amer 30 L, Est GFR (MDRD) Non-Af 25 L, BUN/Creatinine Ratio 18.0, Glucose 187 H, Calcium 9.9, Total Bilirubin 1.20 H, AST 25, ALT 21, Alkaline Phosphatase 107, Total Protein 7.8, Albumin 3.3, Globulin 4.5 H, Albumin/Globulin Ratio 0.7 L, Lipase 11 L 01/18/22 12:04: Urine Color Yellow, Urine Clarity Sl. Cloudy, Urine pH 5.0, Ur Specific [place] 1.025, Urine Protein 100 H, Urine Glucose (UA) Normal, Urine Ketones 5 H, Urine Occult Blood 250 H, Urine Nitrite Negative, Urine Bilirubin 1 H, Urine Urobilinogen Normal, Ur Leukocyte Esterase 500 H, Urine RBC 25-50 SEEN, Urine WBC 25-50 SEEN, Ur Squamous Epith Cells 0-5 SEEN, Urine Bacteria 1+, Hyaline Casts 5-10 SEEN, Fine Granular Casts 0-5 SEEN, Urine Mucus 0 SEEN Rhythm Strip Rhythm Strip: Sinus Rhythm Rate: 70 Ectopy: None Radiology Impression Chest X-Ray 01/18/22 11:00 IMPRESSION: Hiatal hernia. Stable examination. Electronically Signed: Samson Montejo MD at 11:12 EDT , Assessment & Plan Assessment/Plan (1) Weakness: (2) Acute dehydration: (3) Acute kidney injury: (4) Acute UTI: PLAN: Plan Patient is a 71-year-old lady admitted with progressive generalized weakness 1. Acute cystitis ? Patient has been admitted to regular nursing floor started on Rocephin cultures sent with plans to adjust antibiotic therapy based on culture result 2. Acute kidney injury ? Secondary to dehydration from decreased oral intake. Creatinine from 01/16/2021 was 1.17 patient creatinine on admission was 2.06 started on IV fluids ordered renal duplex to rule out obstructive uropathy. Response to therapy being monitored with daily BMPs 3. Hypertension - Blood pressure controlled, home medications continued with dose adjustment as needed 4. Dyslipidemia -Patient is on statin therapy, continued at home dose 5. GERD ? Patient is on PPI 6. COPD from previous tobacco use ? Currently not in exacerbation did continue patient home bronchodilator regimen 7. Class I obesity with BMI of 35.3. Patient had recently been started on Contrave which she did not tolerate subsequently discontinued by patient's 8. Nonalcoholic fatty liver disease ? We will continue to monitor 9. History of thoracoabdominal aortic aneurysm ? Patient underwent repair at [facility] 10. DVT prophylaxis ? ID Lovenox Advance planning; did discuss with the patient and family regarding advanced directives as well as CODE STATUS. Did explain the various scenarios involved ( FULL CODE, DNR CCA, DNR CCA with no intubation, and DNR CC and what each meant) patient elected to be DNR CCA no intubation. Order was placed. Time spent on discussion 18 minutes. Charges/Coding Visit Charges Inpatient E&M: 59189 Init Hosp L3 Procedures Hospitalists Procedures: 44783 Advncd Care Plan 30 Min
[2022-01-18] MEDS: proMETHazine 25 MG/ML Syringe 12.5 MG IM (15:03)
[2022-01-18] MEDS: 0.9% Normal Saline 1,000 ML 150 ML IV ×2 (16:01→22:11)
[2022-01-18] MEDS: Pantoprazole Sodium 20 MG Tablet PO (22:06)
[2022-01-18] MEDS: Atorvastatin Calcium 40 MG Tablet PO (22:06)
[2022-01-18] MEDS: Donepezil HCl 5 MG Tablet PO (22:06)
[2022-01-18] MEDS: Metoclopramide 10 MG/2 ML Vial 5 MG IV (22:06)
[2022-01-18] MEDS: Carvedilol 6.25 MG Tablet PO (23:36)
[2022-01-19] VITALS (8 sets, daily range): BP systolic 147–165; BP diastolic 43–66; PULSE 66–99; RESP 16–20; TEMP 36.6–37.4; O2SAT 94–97
[2022-01-19] MEDS: 0.9% Normal Saline 1,000 ML 150 ML IV ×2 (04:56→12:24)
[2022-01-19 06:28] LABS: Anion Gap 8 (5-15); BUN 30 mg/dL (7-18); BUN/Creat Ratio 25.4 RATIO (10-20); Calcium,Total 8.5 mg/dL (8.5-10.1); Chloride 113 mmol/L (98-107); Creatinine, Serum 1.18 mg/dL (0.55-1.02); EST Glomerular Filtration Rate 48 mL/min (>60); Est Glom Filt Rate - Afr Amer 58 mL/min (>60); Estimated Creatinine Clearance 36.67 ml/min; Glucose 108 mg/dL (74-106); Magnesium 1.7 mg/dL (1.6-2.6); Potassium 3.6 mmol/L (3.5-5.1); Sodium Level 139 mmol/L (136-145)
[2022-01-19] MEDS: Ipratropium 0.5 MG/2.5 ML SOLUTION INHALATION ×3 (07:06→19:09)
[2022-01-19 07:24] LABS: Absolute Lymphocyte Count 0.64 X10^3/uL (0.83-4.51); Absolute Neutrophil Count 9.2 X10^3/uL (2.0-7.7); Basophil# 0.02 X10^3/uL; Basophil% 0.2 % (0-1); Eosinophil# 0.02 X10^3/uL; Eosinophils% 0.2 % (0-5); Hematocrit 34.6 % (37-47); Hemoglobin 11.2 g/dL (12.0-15.0); Lymphocyte # 0.64 X10^3/ul (0.83-4.51); Mean Corp Hgb Conc 32.4 g/dL (32-36); Mean Corpuscular Hgb 29.3 pg (27.0-32.0); Mean Corpuscular Volume 90.6 fL (81-99); Mean Platelet Vol. 10.1 fl (6.2-12.0); Monocyte# 0.57 X10^3/uL; Monocyte% 5.4 % (0-10); NRBC Flagged by Analyzer 0 % (0-5); Neutrophil # 9.22 X10^3/uL (2.7-7.7); Neutrophil % 86.5 % (47-70); Platelet Count 132 K/mm3 (150-450); RBC Distribution Width CV 13.4 % (11.6-14.6); Red Blood Count 3.82 M/mm3 (4.2-5.4); White Blood Count 10.7 K/mm3 (4.4-11.0)
--- NOTE | 2022-01-19 08:09 | PCM.PN.HOSP ---
Subjective Subjective And admitted with dehydration and acute cystitis. Started on broad-spectrum antibiotic therapy and IV fluids admitted to regular nursing floor. Seen this a.m. patient improving clinically Objective Data Objective Data Vital Signs: Vital Signs Temp Pulse Resp BP Pulse Ox O2 Del Method 97.9 F 69 16 152/66 H 97 Room Air 01/19/22 06:30 01/19/22 06:30 01/19/22 06:30 01/19/22 06:30 01/19/22 06:30 01/19/22 06:30 Oxygen Delivery Method Room Air Weight: 93.213 kg Body Mass Index (BMI) 35.2 Intake & Output: Intake and Output for Last 24 Hours 01/17/22 01/18/22 01/19/22 23:59 23:59 23:59 Intake Total 3000 / 3000 1000 / 1000 Balance 3000 / 3000 1000 / 1000 Lab / Micro Data Result Diagrams: 01/19/22 07:15 01/19/22 05:15 Labs: Laboratory Results - last 24 hr 01/18/22 10:40: WBC 14.9 H, RBC 4.50, Hgb 13.3, Hct 40.3, MCV 89.6, MCH 29.6, MCHC 33.0, RDW Std Deviation 43.7, RDW Coeff of Columba 13.3, Plt Count 179, MPV 10.6, Immature Gran % (Auto) 0.700, Neut % (Auto) 86.3 H, Lymph % (Auto) 5.7 L, [place] % (Auto) 6.3, Eos % (Auto) 0.7, Baso % (Auto) 0.3, Absolute Neuts (auto) 12.9 H, Absolute Lymphs (auto) 0.85, Nucleated RBC % 0 01/18/22 10:40: Sodium 136, Potassium 3.9, Chloride 104, Carbon Dioxide 20.0 L, Anion Gap 12, BUN 37 H, Creatinine 2.06 H, Estim Creat Clear Calc 21.00, Est GFR (MDRD) Af Amer 30 L, Est GFR (MDRD) Non-Af 25 L, BUN/Creatinine Ratio 18.0, Glucose 187 H, Calcium 9.9, Total Bilirubin 1.20 H, AST 25, ALT 21, Alkaline Phosphatase 107, Total Protein 7.8, Albumin 3.3, Globulin 4.5 H, Albumin/Globulin Ratio 0.7 L, Lipase 11 L 01/18/22 12:04: Urine Color Yellow, Urine Clarity Sl. Cloudy, Urine pH 5.0, Ur Specific [place] 1.025, Urine Protein 100 H, Urine Glucose (UA) Normal, Urine Ketones 5 H, Urine Occult Blood 250 H, Urine Nitrite Negative, Urine Bilirubin 1 H, Urine Urobilinogen Normal, Ur Leukocyte Esterase 500 H, Urine RBC 25-50 SEEN, Urine WBC 25-50 SEEN, Ur Squamous Epith Cells 0-5 SEEN, Urine Bacteria 1+, Hyaline Casts 5-10 SEEN, Fine Granular Casts 0-5 SEEN, Urine Mucus 0 SEEN 01/19/22 05:15: Sodium 139, Potassium 3.6, Chloride 113 H, Carbon Dioxide 18.0 L, Anion Gap 8, BUN 30 H, Creatinine 1.18 H, Estim Creat Clear Calc 36.67, Est GFR (MDRD) Af Amer 58 L, Est GFR (MDRD) Non-Af 48 L, BUN/Creatinine Ratio 25.4 H, Glucose 108 H, Calcium 8.5, Magnesium 1.7 01/19/22 07:15: WBC 10.7, RBC 3.82 L, Hgb 11.2 L, Hct 34.6 L, MCV 90.6, MCH 29.3, MCHC 32.4, RDW Std Deviation 45.0 H, RDW Coeff of Columba 13.4, Plt Count 132 L, MPV 10.1, Immature Gran % (Auto) 1.700 H, Neut % (Auto) 86.5 H, Lymph % (Auto) 6.0 L, Hamilton % (Auto) 5.4, Eos % (Auto) 0.2, Baso % (Auto) 0.2, Absolute Neuts (auto) 9.2 H, Absolute Lymphs (auto) 0.64 L, Nucleated RBC % 0 Radiography Diagnostic Testing: Radiology Impression Chest X-Ray 01/18/22 11:00 IMPRESSION: Hiatal hernia. Stable examination. Electronically Signed: Samson Montejo MD at 11:12 EDT , Rhythm Strip Rhythm Strip: Sinus Rhythm Rate: 70 Ectopy: None Physical Exam Narrative GENERAL: cooperative appears ill looking HEENT: Atraumatic; EYES; Anicteric, Normal Conjunctiva NECK; supple, normal thyroid, RESPIRATORY: Diminished to auscultation CARDIOVASCULAR: Regular S1 S2, GI: soft, normoactive bowel sounds, : No Renal angle tenderness; EXTREMITIES: No edema, no clubbing, MUSCULOSKELETAL: no muscle wasting NEURO: Awake; no lateralizing signs. SKIN: No Rash PSYCH; Flat affect Assessment & Plan Assessment/Plan (1) Weakness: (2) Acute dehydration: (3) Acute kidney injury: (4) Acute UTI: PLAN: Plan Patient is a 71-year-old lady admitted with progressive generalized weakness 1. Acute cystitis ? Patient has been admitted to regular nursing floor started on Rocephin cultures sent with plans to adjust antibiotic therapy based on culture result ? 01/19/2022 patient remains on Rocephin pending receipt of culture result 2. Acute kidney injury ? Secondary to dehydration from decreased oral intake. Creatinine from 01/16/2021 was 1.17 patient creatinine on admission was 2.06 started on IV fluids ordered renal duplex to rule out obstructive uropathy. Response to therapy being monitored with daily BMPs ? 01/19/2022 creatinine down to 1.18 3. Hypertension - Blood pressure controlled, home medications continued with dose adjustment as needed 4. Dyslipidemia -Patient is on statin therapy, continued at home dose 5. GERD ? Patient is on PPI 6. COPD from previous tobacco use ? Currently not in exacerbation did continue patient home bronchodilator regimen 7. Class I obesity with BMI of 35.3. ? Patient had recently been started on Contrave which she did not tolerate subsequently discontinued by patient's 8. Nonalcoholic fatty liver disease ? We will continue to monitor 9. History of thoracoabdominal aortic aneurysm ? Patient underwent repair at [facility] 10. DVT prophylaxis ? [place] Lovenox 11. Physical deconditioning - Requested for PT OT eval and clinical social work therapist to assist with discharge planning Charges/Coding Visit Charges Inpatient E&M: 98895 Subs Hosp L2
[2022-01-19] MEDS: Pantoprazole Sodium 20 MG Tablet PO ×2 (09:39→21:36)
[2022-01-19] MEDS: Sertraline 50 MG Tablet PO (09:39)
[2022-01-19] MEDS: amLODIPine 5 MG Tablet PO (09:39)
[2022-01-19] MEDS: Loratadine 10 MG Tablet PO (09:39)
[2022-01-19] MEDS: Ceftriaxone 1 GM/50 ML BAG IV (09:39)
[2022-01-19] MEDS: Enoxaparin 30 MG/0.3 ML Syringe SC (09:39)
[2022-01-19] MEDS: Carvedilol 6.25 MG Tablet PO ×2 (09:39→18:24)
[2022-01-19] MEDS: 0.9% Saline Lock 10 ML Syringe IV (10:31)
[2022-01-19] MEDS: Ondansetron 4 MG/2 ML Vial IV (10:31)
--- NOTE | 2022-01-19 10:55 | CASEMGMT ---
RN CM Face to Face with patient for initial transition planning/care coordination assessment. RN CM introduced self and role at [facility]. Patient lying in bed, alert and oriented, . Patient willing to participate in assessment and is able to answer all questions appropriately. Care providers, pharmacy, and demographics verified. Patient wishes to discharge home, denies need for home health at this time. Patient states she has no further needs or concerns at this time. CM to follow for discharge planning needs that may arise. PCP: Ady Specialists: none Preferred Pharmacy: [facility] Insurance: [facility] [place] Prescription Benefit: yes Living Will/HPOA: yes, Hermilo Suggs LNOK: , daughter Living Arrangements: Patient lives with in a mobile home with ramp to enter. Patient is independent with self care, assists with motel front desk clerk. Transportation: DME/HHC: Patient has shower chair, walker, wheelchair, and crutches at home. [place] has had HHC in the past but could not recall agency. Patient has been to [place] in the past. Disposition Plan: Patient to discharge home with family support and follow-up plans in place. Jacqui ARRIETA, RN, CM
[2022-01-19] MEDS: Atorvastatin Calcium 40 MG Tablet PO (21:36)
[2022-01-19] MEDS: Donepezil HCl 5 MG Tablet PO (21:36)
[2022-01-20 05:56] VITALS: BP 148/45; PULSE 66; RESP 18; TEMP 36.9; O2SAT 96
[2022-01-20 06:50] LABS: Absolute Lymphocyte Count 0.47 X10^3/uL (0.83-4.51); Absolute Neutrophil Count 7.6 X10^3/uL (2.0-7.7); Basophil# 0.03 X10^3/uL; Basophil% 0.3 % (0-1); Eosinophil# 0.07 X10^3/uL; Eosinophils% 0.8 % (0-5); Hematocrit 30.9 % (37-47); Hemoglobin 10.3 g/dL (12.0-15.0); Lymphocyte # 0.47 X10^3/ul (0.83-4.51); Lymphocyte % 5.3 % (19-41); Mean Corp Hgb Conc 33.3 g/dL (32-36); Mean Corpuscular Hgb 30.5 pg (27.0-32.0); Mean Corpuscular Volume 91.4 fL (81-99); Mean Platelet Vol. 10.7 fl (6.2-12.0); Monocyte# 0.47 X10^3/uL; Monocyte% 5.3 % (0-10); NRBC Flagged by Analyzer 0 % (0-5); Neutrophil % 86.3 % (47-70); POSITIVE DIFFERENTIAL YES; Platelet Count 142 K/mm3 (150-450); RBC Distribution Width CV 13.5 % (11.6-14.6); RBC Distribution Width SD 45.4 fl (35.1-43.9); Red Blood Count 3.38 M/mm3 (4.2-5.4); White Blood Count 8.8 K/mm3 (4.4-11.0)
[2022-01-20 06:53] LABS: Differential Indicated SCAN CRITERIA MET
[2022-01-20 07:13] VITALS: PULSE 61; RESP 20
[2022-01-20] MEDS: Ipratropium 0.5 MG/2.5 ML SOLUTION INHALATION ×2 (07:13→18:57)
[2022-01-20 07:14] LABS: Anion Gap 7 (5-15); BUN 19 mg/dL (7-18); BUN/Creat Ratio 19.1 RATIO (10-20); Calcium,Total 8.3 mg/dL (8.5-10.1); Chloride 111 mmol/L (98-107); EST Glomerular Filtration Rate 58 mL/min (>60); Est Glom Filt Rate - Afr Amer 70 mL/min (>60); Estimated Creatinine Clearance 43.27 ml/min; Glucose 106 mg/dL (74-106); Potassium 3.4 mmol/L (3.5-5.1); Sodium Level 139 mmol/L (136-145)
[2022-01-20 07:51] LABS: Red Cell Morphology NORM C+C NORMAL (NORM C&C)
[2022-01-20 07:52] LABS: Platelet Estimate SLT DEC (ADEQ)
--- NOTE | 2022-01-20 07:53 | PN.HOSP_ITS ---
Subjective Subjective Patient creatinine back to baseline. Urine cultures mixed organisms thought to be contaminant. Patient however complains of nausea this a.m. Plan is for possible assessment for discharge once nausea resolves Objective Data Objective Data Vital Signs: Vital Signs Temp Pulse Resp BP Pulse Ox O2 Del Method 98.5 F 66 18 148/45 H 96 Room Air 01/20/22 05:56 01/20/22 05:56 01/20/22 05:56 01/20/22 05:56 01/20/22 05:56 01/20/22 05:56 Oxygen Delivery Method Room Air Weight: 93.213 kg Body Mass Index (BMI) 35.2 Intake & Output: Intake and Output for Last 24 Hours 01/18/22 01/19/22 01/20/22 23:59 23:59 23:59 Intake Total 3000 / 3000 3450 / 3450 Balance 3000 / 3000 3450 / 3450 Lab / Micro Data Result Diagrams: 01/20/22 05:25 01/20/22 05:25 Labs: Laboratory Results - last 24 hr 01/20/22 05:25: WBC 8.8, RBC 3.38 L, Hgb 10.3 L, Hct 30.9 L, MCV 91.4, MCH 30.5, MCHC 33.3, RDW Std Deviation 45.4 H, RDW Coeff of Columba 13.5, Plt Count 142 L, MPV 10.7, Immature Gran % (Auto) 2.000 H, Neut % (Auto) 86.3 H, Lymph % (Auto) 5.3 L , [place] % (Auto) 5.3, Eos % (Auto) 0.8, Baso % (Auto) 0.3, Absolute Neuts (auto) 7.6, Absolute Lymphs (auto) 0.47 L, Nucleated RBC % 0, Differential Comment , Platelet Estimate SLT DEC, RBC Morphology NORM C+C 01/20/22 05:25: Sodium 139, Potassium 3.4 L, Chloride 111 H, Carbon Dioxide 21.0, Anion Gap 7, BUN 19 H, Creatinine 1.00, Estim Creat Clear Calc 43.27, Est GFR (MDRD) Af Amer 70, Est GFR (MDRD) Non-Af 58 L, BUN/Creatinine Ratio 19.1, Glucose 106, Calcium 8.3 L Micro: Microbiology 01/18/22 12:04 Urine, Clean Catch Urine Culture - Final Mixed Gram Pos & Gram Neg Org Rhythm Strip Rhythm Strip: Sinus Rhythm Rate: 70 Ectopy: None Physical Exam Narrative GENERAL: cooperative HEENT: Atraumatic; EYES; Anicteric, Normal Conjunctiva NECK; supple, normal thyroid, RESPIRATORY: Diminished to auscultation CARDIOVASCULAR: Regular S1 S2, GI: soft, normoactive bowel sounds, : No Renal angle tenderness; EXTREMITIES: No edema, no clubbing, MUSCULOSKELETAL: no muscle wasting NEURO: Awake; no lateralizing signs. SKIN: No Rash PSYCH; Flat affect Assessment & Plan Assessment/Plan (1) Weakness: (2) Acute dehydration: (3) Acute kidney injury: (4) Acute UTI: PLAN: Plan Patient is a 71-year-old lady admitted with progressive generalized weakness 1. Acute cystitis ? Patient has been admitted to regular nursing floor started on Rocephin cultures sent with plans to adjust antibiotic therapy based on culture result ? 01/19/2022 patient remains on Rocephin pending receipt of culture result -05/30/2022; urine cultures positive Mixed Gram Pos & Gram Neg Org. 2. Acute kidney injury ? Secondary to dehydration from decreased oral intake. Creatinine from 01/16/2021 was 1.17 patient creatinine on admission was 2.06 started on IV fluids ordered renal duplex to rule out obstructive uropathy. Response to therapy being monitored with daily BMPs ? 01/19/2022 creatinine down to 1.18 ? 01/20/2022; creatinine down to 1.0 3. Hypertension - Blood pressure controlled, home medications continued with dose adjustment as needed 4. Dyslipidemia -Patient is on statin therapy, continued at home dose 5. GERD ? Patient is on PPI 6. COPD from previous tobacco use ? Currently not in exacerbation did continue patient home bronchodilator regimen 7. Class I obesity with BMI of 35.3. ? Patient had recently been started on Contrave which she did not tolerate subs equently discontinued by patient's 8. Nonalcoholic fatty liver disease ? We will continue to monitor 9. History of thoracoabdominal aortic aneurysm ? Patient underwent repair at [facility] 10. DVT prophylaxis ? [place] Lovenox 11. Physical deconditioning - Requested for PT OT eval and social welfare research worker to assist with discharge planning 12. Hypokalemia ? Corrected per protocol Charges/Coding Visit Charges Inpatient E&M: 85208 Subs Hosp L2
[2022-01-20] MEDS: Pantoprazole Sodium 20 MG Tablet PO ×2 (08:33→20:20)
[2022-01-20] MEDS: Enoxaparin 30 MG/0.3 ML Syringe SC (08:33)
[2022-01-20] MEDS: Carvedilol 6.25 MG Tablet PO ×2 (08:33→16:42)
[2022-01-20] MEDS: Loratadine 10 MG Tablet PO (08:33)
[2022-01-20] MEDS: amLODIPine 5 MG Tablet PO (08:33)
[2022-01-20] MEDS: Sertraline 50 MG Tablet PO (08:34)
--- NOTE | 2022-01-20 09:37 | NURSING ---
pt out at desk and refusing to take pt home d/t shes very sick still and i cant take care of her at home like this cm aware and consult made with therapy to see if recommend ecf.
--- NOTE | 2022-01-20 09:44 | CASEMGMT ---
Discharge Suit Attendant Lena junior/c spoke to the . D/c administration assistant provided a list of SNF providers including quality and resource use data and consistent with the pt's preferred geographic region, medical needs, and insurance network. Lena Benavidez Discharge Suit Attendant
--- NOTE | 2022-01-20 10:07 | CASEMGMT ---
Per discharge rn patient's said he cannot care for patient at home. D/c capacity planning manager, Lena provided patient's with a list of SNF providers including quality and resource use data and consistent with the patient?s preferred geographic region, medical needs, and insurance network. Therapy was ordered and will evaluate patient. Carolina from PT said patient is weak and would benefit from SNF. SW went back to patient's room and spoke with both patient and her . They would like [facility]. SW notified Lena d/c capacity planning manager who has left a message for [facility]. Await return call. Marianela Barros CERTIFIED PESTICIDE APPLICATOR ECTOR
--- NOTE | 2022-01-20 10:46 | TREXTCAR_ITS ---
Diet Diet Order/Speech Therapy: 01/18/22 14:06 Diet: Regular - General Food consistency:: Regular Liquid Consistency:: Regular/Thin Therapies Physical Therapy: Eval and Treat Occupational Therapy: Eval and Treat Problem/Diagnosis (1) Weakness: Status: Acute Code(s): R53.1 - Weakness (2) Acute dehydration: Status: Acute Code(s): E86.0 - Dehydration (3) Acute kidney injury: Status: Acute Code(s): N17.9 - Acute kidney failure, unspecified (4) Acute UTI: Status: Acute Code(s): N39.0 - Urinary tract infection, site not specified Plan Patient is a 71-year-old lady admitted with progressive generalized weakness 1. Acute cystitis ? Patient has been admitted to regular nursing floor started on Rocephin cultures sent with plans to adjust antibiotic therapy based on culture result ? 01/19/2022 patient remains on Rocephin pending receipt of culture result -05/30/2022; urine cultures positive Mixed Gram Pos & Gram Neg Org. 2. Acute kidney injury ? Secondary to dehydration from decreased oral intake. Creatinine from 01/16/2021 was 1.17 patient creatinine on admission was 2.06 started on IV fluids ordered renal duplex to rule out obstructive uropathy. Response to therapy being monitored with daily BMPs ? 01/19/2022 creatinine down to 1.18 ? 01/20/2022; creatinine down to 1.0 3. Hypertension - Blood pressure controlled, home medications continued with dose adjustment as needed 4. Dyslipidemia -Patient is on statin therapy, continued at home dose 5. GERD ? Patient is on PPI 6. COPD from previous tobacco use ? Currently not in exacerbation did continue patient home bronchodilator regimen 7. Class I obesity with BMI of 35.3. ? Patient had recently been started on Contrave which she did not tolerate subsequently discontinued by patient's 8. Nonalcoholic fatty liver disease ? We will continue to monitor 9. History of thoracoabdominal aortic aneurysm ? Patient underwent repair at [facility] 10. DVT prophylaxis ? [place] Lovenox 11. Physical deconditioning - Requested for PT OT eval and elementary school social worker to assist with discharge planning 12. Hypokalemia ? Corrected per protocol Allergies/Procedures Done in Hospital Allergies No Known Allergies Allergy (Verified 01/18/22 10:32) Procedures: None Type of Care/Length of Stay Estimated LOS: Convalescent Care Less Than 30 days Type of Care Needed: Skilled Rehab Potential: Good Prognosis: Good Additional Orders/Day of Discharge Day of Discharge: 01/20/22 Dietary and Speech Recommendations Dietitian Recommendations/Changes: Continue Regular diet Discharge Plan Admission Admit Date/Time: 01/18/22 12:46 Attending Provider: Aniket Estrada Primary Care Provider: Palomo Garsia Discharge Orders/Prescriptions Prescriptions: Continued cetirizine [All Day Allergy (cetirizine)] 10 mg capsule 10 mg PO DAILY albuterol sulfate 90 mcg/actuation aerosol powdr breath activated 2 puff INHALATION Q6H PRN (Reason: Sob &/Or Wheezing) omeprazole 10 MG capsule 20 mg PO BID Label Comments: PT DOES NOT HAVE A LIST AND CAN NOT VERIFY MEDS carvedilol 12.5 MG tablet 6.25 mg PO BIDCM tiotropium bromide 1 PUFF inhaler 2 puff INHALATION DAILY atorvastatin 40 MG tablet 40 mg PO DAILY Label Comments: sertraline 50 MG tablet 50 mg PO DAILY Label Comments: take 1 tablet by mouth once daily donepezil 5 MG tablet 5 mg PO QHS amlodipine 5 mg tablet 5 mg PO DAILY Label Comments: TAKE 1 TABLET BY MOUTH AT BEDTIME Spiriva with HandiHaler 18 mcg Capsule, W/Inhalation Device 1 cap INHALATION DAILY Discontinued Contrave 8-90 mg Tablet Extended Release 2 tab PO BID Referrals / Follow Up: Palomo Garsia MD [Primary Care Provider] - Within 2 Weeks Disposition Disposition (needs filled in before D/C Order can be placed): Group Home Facility
--- NOTE | 2022-01-20 10:48 | CASEMGMT ---
Discharge Internal Affairs Commander Lena d/damion preschool assistant principal left a voicemail to Vickie. Lena sent referral via email to Vickie at [place]. Will follow up. Plan: [facility], Waiting acceptance. Lena Benavidez Discharge Internal Affairs Commander
[2022-01-20 10:50] VITALS: BP 138/54; PULSE 65; RESP 16; TEMP 37; O2SAT 96
[2022-01-20] MEDS: Ondansetron 4 MG/2 ML Vial IV (10:50)
[2022-01-20] MEDS: Ceftriaxone 1 GM/50 ML BAG IV (10:50)
[2022-01-20] MEDS: 0.9% Saline Lock 10 ML Syringe IV (10:50)
--- NOTE | 2022-01-20 10:55 | PCM.DC.SUM ---
Providers Date of Admission: 01/18/22 Date of Discharge: 01/20/22 Primary Care Physician: Dr. Palomo Garsia MD Reason For Visit: SUNSHINE, UTI Diagnosis Discharge Diagnosis (1) Weakness: Status: Acute Code(s): R53.1 - Weakness (2) Acute dehydration: Status: Acute Code(s): E86.0 - Dehydration (3) Acute kidney injury: Status: Acute Code(s): N17.9 - Acute kidney failure, unspecified (4) Acute UTI: Status: Acute Code(s): N39.0 - Urinary tract infection, site not specified Medications at Discharge Home Medications omeprazole 10 mg capsule,delayed release 20 mg PO BID 09/08/15 carvedilol 12.5 mg tablet 6.25 mg PO BIDCM 10/03/15 atorvastatin 40 mg tablet 40 mg PO DAILY 10/30/16 tiotropium bromide 18 mcg capsule with inhalation device 2 puff inhalation DAILY 10/30/16 albuterol sulfate 90 mcg/actuation breath activated powder inhaler 2 puff inhalation Q6H PRN Sob &/Or Wheezing 01/11/18 cetirizine 10 mg capsule (All Day Allergy (cetirizine)) 10 mg PO DAILY 01/11/18 sertraline 50 mg tablet 50 mg PO DAILY 01/11/18 donepezil 5 mg tablet 5 mg PO QHS 07/09/19 amlodipine 5 mg tablet 5 mg PO DAILY 01/16/21 tiotropium bromide 18 mcg capsule with inhalation device (Spiriva with HandiHaler) 1 cap inhalation DAILY 01/16/21 Hospital Course Summary of Care Provided Minutes Spent on Discharge: 35 Hospital Course: Patient is a 71-year-old lady admitted with progressive generalized weakness 1. Acute cystitis ? Patient has been admitted to regular nursing floor started on Rocephin cultures sent with plans to adjust antibiotic therapy based on culture result ? 01/19/2022 patient remains on Rocephin pending receipt of culture result -05/30/2022; urine cultures positive Mixed Gram Pos & Gram Neg Org. did receive a total of 3 days of IV Rocephin 2. Acute kidney injury ? Secondary to dehydration from decreased oral intake. Creatinine from 01/16/2021 was 1.17 patient creatinine on admission was 2.06 started on IV fluids ordered renal duplex to rule out obstructive uropathy. Response to therapy being monitored with daily BMPs ? 01/19/2022 creatinine down to 1.18 ? 01/20/2022; creatinine down to 1.0 3. Hypertension - Blood pressure controlled, home medications continued with dose adjustment as needed 4. Dyslipidemia -Patient is on statin therapy, continued at home dose 5. GERD ? Patient is on PPI 6. COPD from previous tobacco use ? Currently not in exacerbation did continue patient home bronchodilator regimen 7. Class I obesity with BMI of 35.3. ? Patient had recently been started on Contrave which she did not tolerate subsequently discontinued by patient's 8. Nonalcoholic fatty liver disease ? We will continue to monitor 9. History of thoracoabdominal aortic aneurysm ? Patient underwent repair at [facility] 10. DVT prophylaxis ? [place] Lovenox 11. Physical deconditioning - Requested for PT OT eval and elementary school social worker to assist with discharge planning 12. Hypokalemia ? Corrected per protocol Physical Exam Narrative GENERAL: cooperative HEENT: Atraumatic; EYES; Anicteric, Normal Conjunctiva NECK; supple, normal thyroid, RESPIRATORY: Diminished to auscultation CARDIOVASCULAR: Regular S1 S2, GI: soft, normoactive bowel sounds, : No Renal angle tenderness; EXTREMITIES: No edema, no clubbing, MUSCULOSKELETAL: no muscle wasting NEURO: Awake; no lateralizing signs. SKIN: No Rash PSYCH; Flat affect Weight / BMI Weight Weight: 93.213 kg Body Mass Index (BMI) 35.2 ABG / Lab / Microbiology Data Result Diagrams: 01/20/22 05:25 01/20/22 05:25 Laboratory: Laboratory Results - last 24 hr 01/20/22 05:25: WBC 8.8, RBC 3.38 L, Hgb 10.3 L, Hct 30.9 L, MCV 91.4, MCH 30.5, MCHC 33.3, RDW Std Deviation 45.4 H, RDW Coeff of [place]a 13.5, Plt Count 142 L, MPV 10.7, Immature Gran % (Auto) 2.000 H, Neut % (Auto) 86.3 H, Lymph % (Auto) 5.3 L, [place] % (Auto) 5.3, Eos % (Auto) 0.8, Baso % (Auto) 0.3, Absolute Neuts (auto) 7.6, Absolute Lymphs (auto) 0.47 L, Nucleated RBC % 0, Differential Comment , Platelet Estimate SLT DEC, RBC Morphology NORM C+C 01/20/22 05:25: Sodium 139, Potassium 3.4 L, Chloride 111 H, Carbon Dioxide 21.0, Anion Gap 7, BUN 19 H, Creatinine 1.00, Estim Creat Clear Calc 43.27, Est GFR (MDRD) Af Amer 70, Est GFR (MDRD) Non-Af 58 L, BUN/Creatinine Ratio 19.1, Glucose 106, Calcium 8.3 L Microbiology: Microbiology 01/18/22 12:04 Urine, Clean Catch Urine Culture - Final Mixed Gram Pos & Gram Neg Org D/C Instructions Discharge Diet: No restrictions Discharge Activity: Return to Normal Activity Call your doctor if you observe: Fever of 101 or Higher, Shortness of breath, Fainting spells and Chest pain Meaningful Use Info Meaningful Use Diagnoses (Choose all that apply): None applicable Discharge Plan Admission Admit Date/Time: 01/18/22 12:46 Attending Provider: Aniket Estrada Primary Care Provider: Palomo Garsia Discharge Orders/Prescriptions Prescriptions: Continued cetirizine [All Day Allergy (cetirizine)] 10 mg capsule 10 mg PO DAILY albuterol sulfate 90 mcg/actuation aerosol powdr breath activated 2 puff INHALATION Q6H PRN (Reason: Sob &/Or Wheezing) omeprazole 10 MG capsule 20 mg PO BID Label Comments: PT DOES NOT HAVE A LIST AND CAN NOT VERIFY MEDS carvedilol 12.5 MG tablet 6.25 mg PO BIDCM tiotropium bromide 1 PUFF inhaler 2 puff INHALATION DAILY atorvastatin 40 MG tablet 40 mg PO DAILY Label Comments: sertraline 50 MG tablet 50 mg PO DAILY Label Comments: take 1 tablet by mouth once daily donepezil 5 MG tablet 5 mg PO QHS amlodipine 5 mg tablet 5 mg PO DAILY Label Comments: TAKE 1 TABLET BY MOUTH AT BEDTIME Spiriva with HandiHaler 18 mcg Capsule, W/Inhalation Device 1 cap INHALATION DAILY Discontinued Contrave 8-90 mg Tablet Extended Release 2 tab PO BID Referrals / Follow Up: Palomo Garsia MD [Primary Care Provider] - Within 2 Weeks Disposition Disposition (needs filled in before D/C Order can be placed): Detention Facility Charges/Coding Visit Charges Inpatient E&M: 30875 Disch Hosp
--- NOTE | 2022-01-20 12:53 | CASEMGMT ---
Discharge Compliance Professional Lena reached out to Vickie at [place] in regards to referral. Vickie took my name and number and asked to call me back. Will continue to follow up. Plan: [facility], Waiting Acceptance Lena Benavidez Discharge Compliance Professional
--- NOTE | 2022-01-20 13:56 | CASEMGMT ---
Discharge Marine Electronics Technician Lena called Haylee at [facility]. Beds are available. Lena sent referral. Will follow up. Plan: [facility], Waiting Acceptance Lena Benavidez Discharge Marine Electronics Technician
[2022-01-20 14:00] VITALS: BP 149/45; PULSE 62; RESP 16; TEMP 36.7; O2SAT 97
[2022-01-20] MEDS: proMETHazine 25 MG/ML Syringe 12.5 MG IM (14:16)
--- NOTE | 2022-01-20 14:19 | CASEMGMT ---
Discharge Hot Oiler Lena reached out to Vickie again at [facility]. She is unavailable. Damian answered phone and took my name and number. Will keep following up. Plan: [facility], Waiting Acceptance Lena Benavidez Discharge Hot Oiler
--- NOTE | 2022-01-20 14:46 | CASEMGMT ---
Discharge Pharmaceutical Salesperson Maria Elena with [facility] called. [facility] can accept patient. Patient can go to [facility] when medically ready. LEELA Bear notified. Plan: [facility] Benavidez Discharge Pharmaceutical Salesperson
--- NOTE | 2022-01-20 15:06 | CASEMGMT ---
Addendum entered by Marianela Barros 01/20/22 15:37: Patient's discharge has been canceled. Lena d/c planning specialist notified [place]. LEELA also notified patient's . Marianela BARNEY Original Note: SW notified patient and her that [facility] an accept her today. LEELA sent orders to [place] [facility]. Await COVID test. LEELA completed a convalescent on [facility]. Plan: d/c to [place] [facility] under skilled level of care on a convalescent stay. Physicians will transport patient. Marianela BARNEY
--- NOTE | 2022-01-20 15:40 | CASEMGMT ---
Addendum entered by Lena Benavidez 01/20/22 15:42: Maria Elena reached out please send d/c orders when patient is medically ready to [phone] Maria Elena is requesting to Please include covid vaccination status and most recent test result Lena Benavidez Discharge Tetryl Dissolver Operator Original Note: Discharge Tetryl Dissolver Operator Haley reached out to Maria Elena with [facility] to notify her discharge was canceled and to get the best fax number for the weekend. Lena has not gotten an answer. Plan: [facility] Benav[facility]z Discharge Tetryl Dissolver Operator
[2022-01-20 18:58] VITALS: PULSE 59; RESP 18; O2SAT 94
[2022-01-20 20:20] VITALS: BP 136/62; PULSE 62; RESP 18; TEMP 36.6; O2SAT 97
[2022-01-20] MEDS: Atorvastatin Calcium 40 MG Tablet PO (20:20)
[2022-01-20] MEDS: Donepezil HCl 5 MG Tablet PO (20:20)
[2022-01-21 02:50] VITALS: BP 156/50; PULSE 65; RESP 18; TEMP 36.3; O2SAT 94
[2022-01-21 06:05] LABS: Absolute Lymphocyte Count 0.56 X10^3/uL (0.83-4.51); Absolute Neutrophil Count 7.4 X10^3/uL (2.0-7.7); Basophil# 0.02 X10^3/uL; Basophil% 0.2 % (0-1); Eosinophils% 1.1 % (0-5); Hematocrit 29.9 % (37-47); Lymphocyte # 0.56 X10^3/ul (0.83-4.51); Lymphocyte % 6.4 % (19-41); Mean Corp Hgb Conc 33.4 g/dL (32-36); Mean Corpuscular Hgb 30.2 pg (27.0-32.0); Mean Corpuscular Volume 90.3 fL (81-99); Mean Platelet Vol. 10.1 fl (6.2-12.0); NRBC Flagged by Analyzer 0.2 % (0-5); Neutrophil # 7.36 X10^3/uL (2.7-7.7); Neutrophil % 83.7 % (47-70); POSITIVE DIFFERENTIAL YES; Platelet Count 157 K/mm3 (150-450); RBC Distribution Width CV 13.2 % (11.6-14.6); RBC Distribution Width SD 43.6 fl (35.1-43.9); Red Blood Count 3.31 M/mm3 (4.2-5.4); White Blood Count 8.8 K/mm3 (4.4-11.0)
[2022-01-21 06:24] LABS: Differential Indicated SCAN CRITERIA MET
[2022-01-21 06:26] LABS: Differential Comment SCANNED
[2022-01-21 07:02] LABS: Anion Gap 5 (5-15); BUN 18 mg/dL (7-18); BUN/Creat Ratio 18.8 RATIO (10-20); Calcium,Total 8.7 mg/dL (8.5-10.1); Chloride 110 mmol/L (98-107); Creatinine, Serum 0.96 mg/dL (0.55-1.02); EST Glomerular Filtration Rate 60 mL/min (>60); Est Glom Filt Rate - Afr Amer 73 mL/min (>60); Estimated Creatinine Clearance 45.07 ml/min; Glucose 103 mg/dL (74-106); Potassium 3.2 mmol/L (3.5-5.1); Sodium Level 139 mmol/L (136-145)
[2022-01-21 07:25] VITALS: O2SAT 95
[2022-01-21 09:13] VITALS: BP 173/70; PULSE 60; RESP 16; TEMP 37.5; O2SAT 94
[2022-01-21] MEDS: Carvedilol 6.25 MG Tablet PO ×2 (09:28→17:18)
[2022-01-21] MEDS: amLODIPine 5 MG Tablet PO (09:28)
[2022-01-21] MEDS: Loratadine 10 MG Tablet PO (09:28)
[2022-01-21] MEDS: Pantoprazole Sodium 20 MG Tablet PO (09:28)
[2022-01-21] MEDS: Enoxaparin 30 MG/0.3 ML Syringe SC (09:29)
[2022-01-21] MEDS: Sertraline 50 MG Tablet PO (09:29)
[2022-01-21] MEDS: Ceftriaxone 1 GM/50 ML BAG IV (09:29)
[2022-01-21] MEDS: Ipratropium 0.5 MG/2.5 ML SOLUTION INHALATION (10:52)
[2022-01-21 11:12] VITALS: PULSE 61; RESP 19
[2022-01-21] MEDS: Potassium Chloride Oral Tablet 20 MEQ PO (11:41)
--- NOTE | 2022-01-21 15:10 | TREXTCAR_ITS ---
Diet Diet Order/Speech Therapy: 01/18/22 14:06 Diet: Regular - General Food consistency:: Regular Liquid Consistency:: Regular/Thin Routine Orders/Code Status Routine Lab Work: BMP (on 01/23/22) Code Status: DNRCC-A (no intubation) Therapies Weight Bearing: Full weight bearing Physical Therapy: Eval and Treat Occupational Therapy: Eval and Treat Problem/Diagnosis (1) Weakness: Status: Acute Code(s): R53.1 - Weakness (2) Acute dehydration: Status: Acute Code(s): E86.0 - Dehydration (3) Acute kidney injury: Status: Acute Code(s): N17.9 - Acute kidney failure, unspecified (4) Acute UTI: Status: Acute Code(s): N39.0 - Urinary tract infection, site not specified Comment: Culture grew out mixed gram-positive and gram-negative organisms (5) Hypertension: Status: Chronic Code(s): I10 - Essential (primary) hypertension (6) Hyperlipidemia: Status: Chronic Code(s): E78.5 - Hyperlipidemia, unspecified (7) CAD (coronary artery disease): Status: Chronic Code(s): I25.10 - Atherosclerotic heart disease of [place] coronary artery without angina pectoris (8) Hypokalemia: Status: Acute Code(s): E87.6 - Hypokalemia Allergies/Procedures Done in Hospital Allergies No Known Allergies Allergy (Verified 01/18/22 10:32) Procedures: None Type of Care/Length of Stay Estimated LOS: Convalescent Care Less Than 30 days Type of Care Needed: Skilled Rehab Potential: Good Prognosis: Good Additional Orders/Day of Discharge H&P will serve as current which was dated: 01/18/22 Day of Discharge: 01/21/22 Dietary and Speech Recommendations Dietitian Recommendations/Changes: Continue Regular diet Discharge Plan Admission Admit Date/Time: 01/18/22 12:46 Primary Reason for Your Visit: Acute kidney injury, acute cystitis Attending Provider: Palomo Brady Primary Care Provider: Palomo Garsia Consulting Providers: Aniket Estrada Discharge Orders/Prescriptions Prescriptions: New cephalexin 500 mg capsule 500 mg PO BID Qty: 6 0RF Rx Instructions: start 01/22/22-use for three days Continued cetirizine [All Day Allergy (cetirizine)] 10 mg capsule 10 mg PO DAILY albuterol sulfate 90 mcg/actuation aerosol powdr breath activated 2 puff INHALATION Q6H PRN (Reason: Sob &/Or Wheezing) omeprazole 10 MG capsule 20 mg PO BID Label Comments: PT DOES NOT HAVE A LIST AND CAN NOT VERIFY MEDS carvedilol 12.5 MG tablet 6.25 mg PO BIDCM tiotropium bromide 1 PUFF inhaler 2 puff INHALATION DAILY atorvastatin 40 MG tablet 40 mg PO DAILY Label Comments: sertraline 50 MG tablet 50 mg PO DAILY Label Comments: take 1 tablet by mouth once daily donepezil 5 MG tablet 5 mg PO QHS amlodipine 5 mg tablet 5 mg PO DAILY Label Comments: TAKE 1 TABLET BY MOUTH AT BEDTIME Spiriva with HandiHaler 18 mcg Capsule, W/Inhalation Device 1 cap INHALATION DAILY Discontinued Contrave 8-90 mg Tablet Extended Release 2 tab PO BID Referrals / Follow Up: Palomo Garsia MD [Primary Care Provider] - Within 2 Weeks Disposition Disposition (needs filled in before D/C Order can be placed[facility]
[2022-01-21 15:25] VITALS: BP 154/49; PULSE 56; RESP 16; TEMP 36.7; O2SAT 95
--- NOTE | 2022-01-21 15:25 | DS.PCM_ITS ---
Providers Date of Admission: 01/18/22 Date of Discharge: 01/21/22 Primary Care Physician: Dr. Palomo Garsia MD Reason For Visit: SUNSHINE, UTI Diagnosis Discharge Diagnosis (1) Weakness: Status: Acute Code(s): R53.1 - Weakness (2) Acute dehydration: Status: Acute Code(s): E86.0 - Dehydration (3) Acute kidney injury: Status: Acute Code(s): N17.9 - Acute kidney failure, unspecified (4) Acute UTI: Status: Acute Code(s): N39.0 - Urinary tract infection, site not specified (5) Hypertension: Status: Chronic Code(s): I10 - Essential (primary) hypertension (6) Hyperlipidemia: Status: Chronic Code(s): E78.5 - Hyperlipidemia, unspecified (7) CAD (coronary artery disease): Status: Chronic Code(s): I25.10 - Atherosclerotic heart disease of [place] coronary artery without angina pectoris (8) Hypokalemia: Status: Acute Code(s): E87.6 - Hypokalemia Plan Diagnosis: #1 acute cystitis #2 acute kidney injury #3 essential hypertension #4 hyperlipidemia #5 GERD #6 COPD Medications at Discharge Home Medications omeprazole 10 mg capsule,delayed release 20 mg PO BID 09/08/15 carvedilol 12.5 mg tablet 6.25 mg PO BIDCM 10/03/15 atorvastatin 40 mg tablet 40 mg PO DAILY 10/30/16 tiotropium bromide 18 mcg capsule with inhalation device 2 puff inhalation DAILY 10/30/16 albuterol sulfate 90 mcg/actuation breath activated powder inhaler 2 puff inha lation Q6H PRN Sob &/Or Wheezing 01/11/18 cetirizine 10 mg capsule (All Day Allergy (cetirizine)) 10 mg PO DAILY 01/11/18 sertraline 50 mg tablet 50 mg PO DAILY 01/11/18 donepezil 5 mg tablet 5 mg PO QHS 07/09/19 amlodipine 5 mg tablet 5 mg PO DAILY 01/16/21 tiotropium bromide 18 mcg capsule with inhalation device (Spiriva with HandiHaler) 1 cap inhalation DAILY 01/16/21 cephalexin 500 mg capsule 500 mg PO BID #6 caps 01/21/22 Hospital Course Operations None Procedures None Summary of Care Provided Minutes Spent on Discharge: 31 Hospital Course: This 71-year-old white female was seen in the emergency room at [facility] after being brought in by squad with chief complaint of generalized weakness and nausea. Patient has started a new medication for weight loss recently and felt that the medication had caused the nausea. Work- up in the emergency room included labs which showed an elevated white blood cell count of 14.9, BUN was elevated at 37 and creatinine was elevated at 2.6. Patient was felt to be dehydrated. Patient's urinalysis showed 25-50 white cells with +1 bacteria and 25-50 red cells. Patient was given IV Rocephin, IV fluid, and she was admitted to PCU. Patient was seen by PT and OT, urine culture resulted in showing mixed organisms of the exact cause of the cystitis was unknown. Patient was felt to benefit from short-term placement in a [place] [facility] facility and she agreed with the plan. On 01/21/2022, patient was seen and examined: On examination she appeared her stated age, she does not appear to be in any distress. Vital signs as documented. Skin warm and dry and without overt rashes. Neck without JVD, thyroid appears normal, trachea is midline, neck is supple. Lungs clear, normal air movement was noted. Heart exam notable for regular rhythm, normal sounds and absence of murmurs, rubs or gallops. Abdomen unremarkable and without evidence of organomegaly, masses, or abdominal aortic enlargement, bowel sounds are present in all 4 quadrants, no abdominal tenderness was noted. Extremities nonedematous, no cyanosis was noted, no clubbing was noted. Neuro: Cranial nerves II through XII are grossly intact, no focal motor deficits were noted, sensation to light touch and pinprick is intact, motor exam 5/5 throughout. Psych: Patient is alert and oriented x3, she does not appear anxious or depressed, she does not appear agitated. Patient appears stable condition for discharge to a [place] [facility] facility on 01/21/2022. Weight / BMI Weight Weight: 93.213 kg Body Mass Index (BMI) 35.2 ABG / Lab / Microbiology Data Result Diagrams: 01/21/22 05:40 01/21/22 05:40 Laboratory: Laboratory Results - last 24 hr 01/21/22 05:40: WBC 8.8, RBC 3.31 L, Hgb 10.0 L, Hct 29.9 L, MCV 90.3, MCH 30.2, MCHC 33.4, RDW Std Deviation 43.6, RDW Coeff of [place] 13.2, Plt Count 157, MPV 10.1, Immature Gran % (Auto) 0.600, Neut % (Auto) 83.7 H, Lymph % (Auto) 6.4 L, [place] % (Auto) 8.0, Eos % (Auto) 1.1, Baso % (Auto) 0.2, Absolute Neuts (auto) 7.4, Absolute Lymphs (auto) 0.56 L, Nucleated RBC % 0.2, Differential Comment SCANNED 01/21/22 05:40: Sodium 139, Potassium 3.2 L, Chloride 110 H, Carbon Dioxide 24.0, Anion Gap 5, BUN 18, Creatinine 0.96, Estim Creat Clear Calc 45.07, Est GFR (MDRD) Af Amer 73, Est GFR (MDRD) Non-Af 60, BUN/Creatinine Ratio 18.8, Glucose 103, Calcium 8.7 Microbiology: Microbiology 01/20/22 15:15 Nasal Secretion SARS-CoV-2 Antigen (Rapid) - Final 01/18/22 12:04 Urine, Clean Catch Urine Culture - Final Mixed Gram Pos & Gram Neg Org D/C Instructions Discharge Diet: No restrictions Call your doctor if you observe: Fever of 101 or Higher, Shortness of breath, Fainting spells and Chest pain Meaningful Use Info Meaningful Use Diagnoses (Choose all that apply): None applicable Discharge Plan Admission Admit Date/Time: 01/18/22 12:46 Primary Reason for Your Visit: Acute kidney injury, acute cystitis Attending Provider: Palomo Brady Primary Care Provider: Palomo Garsia Consulting Providers: Aniket Estrada Discharge Orders/Prescriptions Prescriptions: New cephalexin 500 mg capsule 500 mg PO BID Qty: 6 0RF Rx Instructions: start 01/22/22-use for three days Continued cetirizine [All Day Allergy (cetirizine)] 10 mg capsule 10 mg PO DAILY albuterol sulfate 90 mcg/actuation aerosol powdr breath activated 2 puff INHALATION Q6H PRN (Reason: Sob &/Or Wheezing) omeprazole 10 MG capsule 20 mg PO BID Label Comments: PT DOES NOT HAVE A LIST AND CAN NOT VERIFY MEDS carvedilol 12.5 MG tablet 6.25 mg PO BIDCM tiotropium bromide 1 PUFF inhaler 2 puff INHALATION DAILY atorvastatin 40 MG tablet 40 mg PO DAILY Label Comments: sertraline 50 MG tablet 50 mg PO DAILY Label Comments: take 1 tablet by mouth once daily donepezil 5 MG tablet 5 mg PO QHS amlodipine 5 mg tablet 5 mg PO DAILY Label Comments: TAKE 1 TABLET BY MOUTH AT BEDTIME Spiriva with HandiHaler 18 mcg Capsule, W/Inhalation Device 1 cap INHALATION DAILY Discontinued Contrave 8-90 mg Tablet Extended Release 2 tab PO BID Referrals / Follow Up: Palomo Garsia MD [Primary Care Provider] - Within 2 Weeks Disposition Disposition (needs filled in before D/C Order can be placed): [facility] Charges/Coding Visit Charges Inpatient E&M: 12359 Disch Hosp
--- NOTE | 2022-01-21 18:11 | NURSING ---
Report called to [facility].
--- NOTE | 2022-01-21 18:55 | CASEMGMT ---
Social Work Note Pt to discharge to [facility]. SW completed [facility] and faxed to [facility]. Jacqui Luna ANALYTICS ANALYST, LEAD TECHNOLOGIST IN CYTOGENETICS
== END 2022-01-21 20:10 | disposition skilled nursing facility (03) | DRG 683 ==
LOC: ED 12:59 → PCU 13:18
PROVIDERS: Admitting Provider Internal Medicine; Emergency Provider Emergency Medicine; PCP Family Medicine; Visit Provider Internal Medicine
DX: N17.9 Acute kidney failure, unspecified (principal); N30.00 Acute cystitis without hematuria; E66.9 Obesity, unspecified; K76.0 Fatty (change of) liver, not elsewhere classified; J44.9 Chronic obstructive pulmonary disease, unspecified; E78.5 Hyperlipidemia, unspecified; I10 Essential (primary) hypertension; E86.0 Dehydration; I25.10 Atherosclerotic heart disease of native coronary artery without angina pectoris; K21.9 Gastro-esophageal reflux disease without esophagitis; E87.6 Hypokalemia; Z87.891 Personal history of nicotine dependence; Z66 Do not resuscitate; Z51.5 Encounter for palliative care; Z68.35 Body mass index [BMI] 35.0-35.9, adult
CPT/HCPCS: 36415; 71045; 80048; 80053; 81001; 83690; 83735; 85025; 87086; 87088; 87426; 93005; 94640; 97162; 97530; 99285; J7030; A4216; J2405

== ENCOUNTER 2023-08-11 09:56 | Inpatient (IN) | payer MEDICARE, OTHER, SELFPAY ==
[2023-08-11] VITALS (9 sets, daily range): BP systolic 121–160; BP diastolic 34–60; PULSE 53–68; RESP 16–22; TEMP 36.7–37.7; O2SAT 94–96; BMI 30.9; BMI 36.7
--- NOTE | 2023-08-11 10:30 | EKG12_ITS ---
Test Reason : WEAKNESS Blood Pressure : / mmHG Vent. Rate : 061 BPM Atrial Rate : 061 BPM P-R Int : 178 ms QRS Dur : 108 ms QT Int : 496 ms P-R-T Axes : 058 062 031 degrees QTc Int : 499 ms Normal sinus rhythm Nonspecific ST abnormality Prolonged QT Abnormal ECG Confirmed by Pete Abdi ([id number]), industrial editor STEPHENIE ZARAGOZA ([id number]) on 08/13/2023 10:27:35 AM Referred By: Confirmed By:Pete Abdi
--- NOTE | 2023-08-11 10:32 | EDS_ITS ---
HPI History of Present Illness Chief Complaint: Weakness Informant: patient and spouse/S.O. Onset/Context/Timing Onset: Today and Yesterday Context: Gradual Onset Timing: Continuous Current Severity: Moderate Maximum Severity: Moderate Narrative Narrative: 73-year-old female history of dementia, CAD, hypertension, COPD with a prior AAA repair years ago. Has just had generalized weakness for the last 2 to 3 days. Today she had to get out of bed and was too weak and kind of slid to the floor. Denies any injuries or pain. said she had very little p.o. intake in the last 24 hours maybe 1 boost. Low-grade fever. No vomiting or diarrhea. No dysuria. No cough. Prior similar symptoms: No Recent Illness/Hospitalization: No PFSH PFS Medical History (Updated 08/11/23 @ 12:[address] Viraj Abarca MD) CAD (coronary artery disease) Celiac artery stenosis COPD (chronic obstructive pulmonary disease) Diverticulosis of colon Fatty liver Former smoker Hyperlipidemia Hypertension Osteoarthritis of knees, bilateral Thoracoabdominal aneurysm with rupture Home Medications atorvastatin 40 mg tablet 40 mg PO QHS CHOLESTEROL 10/30/16 [History Last Taken Unknown] albuterol sulfate 90 mcg/actuation breath activated powder inhaler 2 puff inhalation Q6H PRN Sob &/Or Wheezing 01/11/18 [History Last Taken Unknown] sertraline 50 mg tablet 50 mg PO DAILY 01/11/18 [History Last Taken Unknown] donepezil 5 mg tablet 5 mg PO QHS 07/09/19 [History Last Taken Unknown] amlodipine 5 mg tablet 5 mg PO QHS BLOOD PRESSURE 01/16/21 [History Last Taken Unknown] carvedilol 6.25 mg tablet 6.25 mg PO BID BLOOD PRESSURE 08/11/23 [History Last Taken Unknown] omeprazole 20 mg capsule,delayed release 20 mg PO BID ACID REFLUX 08/11/23 [History Last Taken Unknown] tiotropium bromide 2.5 mcg/actuation mist for inhalation (Spiriva Respimat) 2 inh inhalation DAILY SOB 08/11/23 [History Last Taken Unknown] Allergy/AdvReac Type Severity Reaction Status Date / Time No Known Allergies Allergy Verified 08/11/23 09:57 Family History Mother Liver disease Father Alzheimer disease Aunt Colon cancer Breast cancer Surgical History History of blepharoplasty History of colonoscopy (~10/2016) History of esophagogastroduodenoscopy (EGD) History of nasal septoplasty History of total bilateral knee replacement Status post insertion of percutaneous endoscopic gastrostomy (PEG) tube Social History Smoking Status: Former smoker ROS ROS ED ROS Narrative Low-grade fever. Generalized weakness. Review of Systems ROS Unobtainable: Denies due to encephalopathy Constitutional Constitutional ED: Reports fever(s) and subjective; Denies chills Eyes Eyes: Denies blurry vision ENT ENT ED: Denies ear pain Cardiovascular Cardiovascular: Denies chest pain Respiratory/Chest Respiratory/Chest: Denies cough, dyspnea or dyspnea on exertion Gastrointestinal Gastrointestinal: Denies abdominal pain, constipation, diarrhea, melena, nausea or vomiting Genitourinary Genitourinary ED: Denies dysuria or hematuria Musculoskeletal Musculoskeletal: Denies arthralgias Integumentary Denies abscess Neurologic Neurologic: Denies headache(s) Psychiatric Psychiatric: Denies anxiety Endocrine Endocrinology: Denies cold intolerance Hematologic/Lymphatic Hematologic/Lymphatic: Reports none Allergic/Immunologic Allergic/Immunologic ED: Denies mouth swelling, tongue swelling or urticaria EXAM Physical Exam Narrative Exam Narrative: Well-appearing 73-year-old female. Vital signs stable temperature 99.2 orally. Pulse ox 94% on room air no signs hypoxia. H EENT exam pupils round react to light. No trauma. No facial droop. Dry mucous membranes. Neck nontender no lymphadenopathy. Lungs clear to auscultation bilaterally. Heart regular rhythm rate about 70 no murmur. Chest wall nontender. Abdomen soft nontender. Back nontender. Moving all 4 extremities. Nontender no edema. She is awake and alert. Answering questions. Following commands. 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 Bilateral equal symmetrical dorsi and plantarflexion. present in room and gives most of the history due to her history of dementia. Const Vital Signs: 08/11/23 09:57 08/11/23 10:06 08/11/23 10:40 Temperature 99.2 F H Temperature Source Oral Pulse Rate 68 Respiratory Rate 16 Respiratory Effort Normal Non-Labored Respiratory Pattern Normal Blood Pressure 144/48 H Blood Pressure Mean 80 Pulse Ox 94 Oxygen Delivery Method Room Air Room Air 08/11/23 11:54 08/11/23 13:12 Temperature 98.3 F 99.8 F H Temperature Source Oral Oral Pulse Rate 68 62 Respiratory Rate 22 H 16 Respiratory Effort Respiratory Pattern Blood Pressure 160/50 H 153/60 H Blood Pressure Mean 86 91 Pulse Ox 94 Oxygen Delivery Method Room Air Positive well nourished and well developed; Negative for cachectic, contractures or unkempt General Appearance ED: well developed and NAD; Negative for unkempt, cachectic, contractures, cyanotic, diaphoretic or pallor Nutritional Appearance: Negative for cachectic HEENT Reports dry mucous membranes; Denies moist mucous membranes Negative for trauma or tenderness Mouth ED: Yes dry mucous membranes Mouth: dry mucous membranes Eyes PERRL and EOMs intact bilaterally General Eye ED: Negative for pale conjunctiva or scleral icterus Neck no lymphadenopathy, supple and no JVD General: Negative for tenderness Lymph Lymphatic: Negative for other Chest Wall inspection of chest normal and palpation of chest normal Chest: Negative for other Resp normal respiratory effort and clear to auscultation bilaterally Effort and Inspection: Negative for retractions Auscultation: Negative for rales, rhonchi or wheezes Cardio regular rate, regular rhythm, S1 normal heart sound, S2 normal heart sound and no murmurs Rate: Negative for bradycardia or tachycardic Rhythm: Negative for abnormal rhythm GI normal to inspection, nondistended, normoactive bowel sounds, non-tender, non- distended and no masses Inspection: Negative for abdominal distention Auscultation: normoactive bowel sounds Palpation: soft; Negative for tender, guarding or rebound tenderness present Back/Spine no CVA tenderness General Back: Negative for CVA tenderness Cervical Spine: Negative for cervical spine tenderness Thoracic Spine / Upper Back: Negative for thoracic spinal tenderness or paraspinal muscle tenderness Lumbar Spine / Lower Back: Negative for lumbar spinal tenderness Extremity normal to inspection General Extremety ED: Negative for edema or tenderness General Extremity: Negative for edema Neuro No oriented x3 and CN's II-XII intact bilaterally Sensorium / Orientation: alert and orientation impaired; Negative for lethargic or stuporous Motor Exam: strength 5/5 throughout Psych mental status grossly normal Appearance: Negative for unkempt Attitude: No agitated Mood & Affect: Negative for depressed, anxious or tearful Skin no rashes or lesions noted and no wounds General Skin Exam: Negative for jaundice or pallor Lesions: No lesion noted Rashes: No rashes noted Trauma: Negative for abrasion Wounds: Negative for wounds noted MDM MDM MDM Narrative Medical decision making narrative: 73-year-old female from home with generalized weakness. Today was too weak to stand and, lowered herself to the floor while getting out of bed. Clinically looks dehydrated. She has a low-grade fever of 99 to orally. Infectious workup. May also have dehydration and/or electrolyte abnormalities. Repeat exam unchanged. Patient is generally weak. Has trouble getting up. When she fell at home she could not get off the floor according her . She has had some nausea with treated with Zofran. Otherwise exam is unchanged. There is no signs of trauma to her head. I will speak to the hospitalist about admission. History & Record Review Discussion w/independent historian: Patient Additional record(s) reviewed:: Prior inpatient record, Prior outpatient record, Prior ED visit, Prior labs and No prior records Lab Data Attestation: I reviewed the patient's lab results. Lab results narrative: CBC shows a white count of 14.5. H&H 11.7 and 35.9. Platelets 192. Electrolytes show sodium 135. Gap 6. BUN of 23 and creatinine 1.3. Glucose 163. Lactic acid is normal at 1.2. Urinalysis shows no acute abnormality. No nitrates. No white cells. 5-10 red cells. No bacteria. COVID, flu and RSV all negative. Blood cultures pending. Labs: Laboratory Results - last 24 hr 08/11/23 08/11/23 10:35 10:49 WBC 14.5 H RBC 3.96 L Hgb 11.7 L Hct 35.9 L MCV 90.7 MCH 29.5 MCHC 32.6 RDW Std Deviation 42.5 RDW Coeff of [place] 12.9 Plt Count 192 MPV 10.0 Immature Gran % (Auto) 0.600 Neut % (Auto) 81.3 H Lymph % (Auto) 2.2 L [place] % (Auto) 8.6 Eos % (Auto) 7.0 H Baso % (Auto) 0.3 Absolute Neuts (auto) 11.8 H Absolute Lymphs (auto) 0.32 L Nucleated RBC % 0 Differential Comment SCANNED Sodium 135 L Potassium 4.2 Chloride 105 Carbon Dioxide 24.0 Anion Gap 6 BUN 23 H Creatinine 1.32 H Estim Creat Clear Calc 38.07 Est GFR (MDRD) Af Amer 50 L Est GFR (MDRD) Non-Af 42 L BUN/Creatinine Ratio 17.4 Glucose 163 H Lactic Acid 1.2 Calcium 9.2 Urine Color Yellow Urine Clarity Clear Urine pH 6.0 Ur Specific [place] 1.015 Urine Protein 500 H Urine Glucose (UA) Normal Urine Ketones 5 H Urine Occult Blood 150 H Urine Nitrite Negative Urine Bilirubin Negative Urine Urobilinogen 1 H Ur Leukocyte Esterase Negative Urine RBC 5-10 SEEN Urine WBC 0 SEEN Ur Squamous Epith Cells 0 SEEN Urine Bacteria 0 SEEN Urine Mucus 0 SEEN Radiography Chest X-Ray - ED: 1 View, Read by ED Physician, Normal, Heart, Lungs, Mediastinum, Bony Structures, No Acute Disease and Chronic Changes Diagnostic Testing: Clinical Impression(s) from Imaging Studies Chest X-Ray 08/11/23 11:05 IMPRESSION: No acute cardiopulmonary abnormality. Aneurysm of the aortic arch. Stable hiatal hernia. Electronically Signed: Tutu Ann MD at 11:40 EST , Chest x-ray, portable, single view interpreted by myself shows no acute abnormality. Normal cardiac silhouette. Normal lung galindo. Prominent aortic arch. Also read by the radiologist. Suspect aortic arch aneurysm. Rhythm Strip Rhythm Strip: Sinus Rhythm Rate: 61 Ectopy: None EKG Initial EKG: Attestation: I personally reviewed and interpreted this EKG as follows: Interpretation: Sinus Rhythm and No Acute Injury Pattern Comments: Normal sinus rhythm rate of 61 no acute signs of DE or ischemia. No dysrhythmia. Discharge Plan Dx/Rx/DC Orders Clinical Impression: Low grade fever, Generalized weakness, Fall, Leukocytosis Disposition Disposition: Acute Care [facility]
[2023-08-11 10:50] LABS: Absolute Lymphocyte Count 0.32 X10^3/uL (0.83-4.51); Absolute Neutrophil Count 11.8 X10^3/uL (2.0-7.7); Basophil# 0.05 X10^3/uL; Basophil% 0.3 % (0-1); Eosinophil# 1.01 X10^3/uL; Hematocrit 35.9 % (37-47); Hemoglobin 11.7 g/dL (12.0-15.0); Lymphocyte # 0.32 X10^3/ul (0.83-4.51); Lymphocyte % 2.2 % (19-41); Mean Corp Hgb Conc 32.6 g/dL (32-36); Mean Corpuscular Hgb 29.5 pg (27.0-32.0); Mean Corpuscular Volume 90.7 fL (81-99); Monocyte# 1.25 X10^3/uL; Monocyte% 8.6 % (0-10); NRBC Flagged by Analyzer 0 % (0-5); Neutrophil # 11.77 X10^3/uL (2.7-7.7); Neutrophil % 81.3 % (47-70); POSITIVE DIFFERENTIAL YES; POSITIVE MORPHOLOGY YES; Platelet Count 192 K/mm3 (150-450); RBC Distribution Width CV 12.9 % (11.6-14.6); RBC Distribution Width SD 42.5 fl (35.1-43.9); Red Blood Count 3.96 M/mm3 (4.2-5.4); White Blood Count 14.5 K/mm3 (4.4-11.0)
[2023-08-11 10:56] LABS: Differential Indicated SCAN CRITERIA MET
[2023-08-11] MEDS: 0.9% Normal Saline (1000mL) 1,000 ML 999 ML IV (10:57)
[2023-08-11 10:59] LABS: Bacteria 0 SEEN /hpf (None Seen); Mucous, Urine 0 SEEN /hpf (<or=2+); Squamous Epithelial Cells - UA 0 SEEN /hpf (5-10); White Blood Cells 0 SEEN /hpf (0-5)
--- NOTE | 2023-08-11 11:05 | RAD_ITS ---
EXAM: XR CHEST, 1 VIEW CLINICAL INDICATION: chest pain TECHNIQUE: Frontal view of the chest. COMPARISON: XR Chest dated 01/18/2022 FINDINGS: LUNGS AND PLEURAL SPACES: Normal. No consolidation or edema. No pneumothorax. No effusion. HEART: Normal heart size. MEDIASTINUM: Stable moderate size hiatal hernia. BONES/JOINTS: No acute abnormality. VASCULATURE: Prominence of the aortic knob again seen suggestive of underlying aneurysm. RAD/Chest 1 View (Portable) IMPRESSION: No acute cardiopulmonary abnormality. Aneurysm of the aortic arch. Stable hiatal hernia. Electronically Signed: Tutu Ann MD at 11:40 EST ,
[2023-08-11 11:06] LABS: Anion Gap 6 (5-15); BUN 23 mg/dL (7-18); BUN/Creat Ratio 17.4 RATIO (10-20); Calcium,Total 9.2 mg/dL (8.5-10.1); Chloride 105 mmol/L (98-107); Creatinine, Serum 1.32 mg/dL (0.55-1.02); EST Glomerular Filtration Rate 42 mL/min (>60); Est Glom Filt Rate - Afr Amer 50 mL/min (>60); Estimated Creatinine Clearance 38.07 ml/min; Glucose 163 mg/dL (74-106); Potassium 4.2 mmol/L (3.5-5.1); Sodium Level 135 mmol/L (136-145)
[2023-08-11 11:10] LABS: Lactic Acid 1.2 mmol/L (0.4-1.9)
[2023-08-11 11:10] LABS: Color, Urine Yellow (Yellow); Glucose, Dipstick Normal (Normal); Ketone-Dipstick 5 mg/dl (Negative); Leukocyte Esterase-Dipstick Negative /ul (Negative); Nitrite-Dipstick Negative (Negative); Occult Blood-Urine 150 /ul (Negative); Protein-Dipstick 500 mg/dl (Negative); Specific Gravity, Urine 1.015 (1.002-1.030); Urine Bilirubin Dipstick Negative (Negative); Urine Clarity Clear (Clear); Urine Urobilinogen 1 mg/dl (Normal)
[2023-08-11 11:20] LABS: Differential Comment SCANNED
[2023-08-11 11:25] LABS: Red Blood Cells-Urine 5-10 SEEN /hpf (0-5)
[2023-08-11] MEDS: Acetaminophen 500 MG Tablet 1000 MG PO (13:18)
[2023-08-11] MEDS: Ondansetron 4 MG/2 ML Vial IV (13:18)
--- OUTSIDE RECORDS SUMMARY | 2023-08-11 13:59 | XMS RPT_ITS | CCD ---
Author Name Unknown Address [address] [place] [address] Organization [facility] Care Team Providers Care Chief Crna Name Role Phone Den MOSQUERA, Devika Unavailable Katie Abdullahi MD Primary Care Provider KATIE ABDULLAHI Referring Unavailable KATIE ABDULLAHI Primary Care Unavailable KATIE ABDULLAHI Referring Unavailable KATIE ABDULLAHI Primary Care Unavailable KATIE ABDULLAHI Primary Care Unavailable AVEL BUSTOS Attending Unavailable KATIE ABDULLAHI Primary Care Unavailable SELF Referring Unavailable KATIE ABDULLAHI Attending Unavailable KATIE ABDULLAHI Primary Care Unavailable KATIE ABDULLAHI Primary Care Unavailable KATIE ABDULLAHI Primary Care Unavailable Medications Current Medications Medication Drug Class(es) Dates Sig (Normalized) Sig (Original) molnupiravir (LAGEVRIO, EUA,) 200 mg capsule (1 source) Start: 05-25-2023 End: 05-30-2023 take 4 capsules by mouth twice daily molnupiravir (LAGEVRIO, EUA,) 200 mg capsule Take 4 capsules by mouth two times a day for 5 days. 40 capsule 0 05/25/2023 05/30/2023 Active Completed/Discontinued Medications Medication Drug Class(es) Dates Sig (Normalized) Sig (Original) acetaminophen 325 mg oral tablet (12 sources) Start: 10-20-2015 End: 01-16-2023 take 325-650 mg by mouth every six hours as needed acetaminophen (TYLENOL) 325 mg tablet Take 1-2 tablets by mouth every 6 hours as needed for Pain. 0 10/20/2015 01/16/2023 Discontinued (Course of therapy completed) other (Uterine Cancer) Paternal Grandmother Diabetes Maternal Grandmother Breast Cancer Maternal Aunt Colon Cancer Paternal Aunt Patient Allergies ALLERGIES No Known Allergies Current Medications Current Outpatient Medications on File Prior to Visit Medication Sig amLODIPine (NORVASC) 5 mg tablet TAKE 1 TABLET BY MOUTH ONCE DAILY AT BEDTIME carvedilol (COREG) 6.25 mg tablet TAKE 1 TABLET BY MOUTH TWICE DAILY WITH MEALS tiotropium bromide (SPIRIVA RESPIMAT) 2.5 mcg/actuation inhaler INHALE 2 PUFFS INSTRUCTED ONCE DAILY omeprazole (PRILOSEC) 20 mg capsule Take 1 capsule by mouth twice daily. albuterol HFA (PROVENTIL HFA) 90 mcg/actuation inhaler Inhale 2 Puffs as instructed every 4 hours as needed (for shortness of breath and wheezing.). donepezil (ARICEPT) 5 mg tablet Take 1 tablet by mouth daily at bedtime. atorvastatin (LIPITOR) 40 mg tablet Take 1 tablet by mouth once daily. sertraline (ZOLOFT) 50 mg tablet Take 1 tablet by mouth once daily. naproxen (NAPROSYN) 500 mg tablet Take 1 tablet by mouth twice daily as needed. Take with food. triamcinolone (KENALOG) 0.025 % cream Apply 1 application to affected area twice daily. (Patient not taking: Reported on 06/27/2019 ) Cetirizine (ZYRTEC) 10 mg cap Take by mouth once daily. (Patient not taking: Reported on 12/22/2020 ) acetaminophen (TYLENOL) 325 mg tablet Take 1-2 tablets by mouth every 6 hours as needed for Pain. No current facility-administered medications on file prior to visit. Social History Social History Tobacco Use Smoking status: Former Smoker Packs/day: 1.00 Years: 44.00 Pack years: 44.00 Types: Cigarettes Smokeless tobacco: Never Used Tobacco comment: Quit smoking Substance Use Topics Alcohol use: No Comment: 4-5 beers per week - stopped as of 06/2015 Drug use: No EXAM: BP 126/62 (BP Site: Left Arm, BP Position: Sitting, BP Cuff Size: Large Adult) Pulse 64 Resp 16 Wt 96.6 kg (213 lb) BMI 37.14 kg/m General Appearance: Well appearing, alert, in no acute distress, well-hydrated, well nourished and Obese. Lungs: Lungs clear to auscultation. No wheezing, rhonchi, rales.. Heart: RRR without murmur, gallop, or rubs. No ectopy. Musculoskeletal: right sided rib/abdominal pain. Feel this is related to fall and bruised muscles. Health Maintenance List HEPATITIS C SCREENING Never done - Declined SHINGRIX VACCINE(2 of 3) due on 05/24/2016 DTAP,TDAP,TD(2 - Td or Tdap) due on 05/05/2019 ADVANCE DIRECTIVE DISCUSSION Never done - Scanned into chart COVID-19 VACCINE(4 - Booster for Moderna series) due on 10/02/2021 LDL CHOLESTEROL due on 12/22/2021 - Completed MAMMOGRAM due on 12/29/2021 - Ordered SERUM CREATININE due on 12/22/2021 HEMOGLOBIN/HEMATOCRIT due on 12/22/2021 ANNUAL PCP TEAM CHRONIC DISEASE VISIT due on 06/24/2022 BP CONTROLLED (<130/80) due on 06/24/2022 DIABETES SCREEN due on 12/23/2023 LIPID SCREEN due on 12/22/2025 BONE DENSITY Completed SPIROMETRY Completed INFLUENZA Completed PNEUMOCOCCAL: 65+ Completed COLORECTAL CANCER SCREENING Discontinued Data reviewed Appointment on 12/14/2021 Component Date Value Protein, Total 12/14/2021 7.1 Albumin 12/14/2021 4.2 Calcium, Total 12/14/2021 9.7 Bilirubin, Total 12/14/2021 0.4 Alkaline Phosphatase 12/14/2021 113 AST 12/14/2021 16 ALT 12/14/2021 14 Glucose 12/14/2021 111 (A) BUN 12/14/2021 20 Creatinine 12/14/2021 1.38 (A) Sodium 12/14/2021 135 (A) Potassium 12/14/2021 4.6 Chloride 12/14/2021 100 CO2 12/14/2021 22 Anion Gap 12/14/2021 13 Estimated Glomerular Joseph* 12/14/2021 40 (A) WBC 12/14/2021 6.59 RBC 12/14/2021 4.14 Hemoglobin 12/14/2021 12.3 Hematocrit 12/14/2021 37.4 MCV 12/14/2021 90.3 MCH 12/14/2021 29.7 MCHC 12/14/2021 32.9 RDW-CV 12/14/2021 13.3 Platelet Count 12/14/2021 209 MPV 12/14/2021 10.3 Neut% 12/14/2021 61.0 Abs Neut 12/14/2021 4.02 Lymph% 12/14/2021 23.8 Abs Lymph 12/14/2021 1.57 Benson% 12/14/2021 10.2 Abs Benson 12/14/2021 0.67 Eosin% 12/14/2021 3.3 Abs Eosin 12/14/2021 0.22 Baso% 12/14/2021 1.4 Abs Baso 12/14/2021 0.09 Immature Gran % 12/14/2021 0.3 Abs Immature Gran 12/14/2021 <0.03 NRBC 12/14/2021 0.0 Absolute nRBC 12/14/2021 <0.01 Diff Type 12/14/2021 Auto Cholesterol, Total 12/14/2021 179 Triglyceride 12/14/2021 121 HDL Cholesterol 12/14/2021 58 Non HDL Cholesterol 12/14/2021 121 Fasting Time 12/14/2021 12 VLDL Cholesterol 12/14/2021 24 TC:HDL Ratio 12/14/2021 3.09 LDL Cholesterol 12/14/2021 97 LDL:HDL Ratio 12/14/2021 1.67 ASSESSMENT/PLAN: 1. Essential hypertension with goal blood pressure less than 130/80 - ICD9: 401.9, ICD10: I10 (primary diagnosis) - good control - Continue current medication(s) - Recommended regular aerobic exercise. - Recommend home blood pressure monitoring, to bring results in on next visit - Goal of BP <130/80 2. Hyperlipidemia LDL goal <70 - ICD9: 272.4, ICD10: E78.5 - good control - Continue current medication. - ATORVASTATIN 40 MG TABLET 3. Hypertensive kidney disease with stage 3 chronic kidney disease, unspecified whether stage 3a or3b CKD (HCC) - ICD9: 403.90, 585.3, ICD10: I12.9, N18.30 - good control - Continue current medication(s) - Recommended regular aerobic exercise. - Recommend home blood pressure monitoring, to bring results in on next visit - Goal of BP <130/80 4. Recurrent major depressive disorder, in partial remission (HCC) - ICD9: 296.35, ICD10: F33.41 - Stable - Continue current medication regimen. - SERTRALINE 50 MG TABLET 5. Mild dementia (HCC) - ICD9: 294.20, ICD10: F03.90 - Stable - Continue current medication regimen. 6. GERD without esophagitis - ICD9: 530.81, ICD10: K21.9 7. Pulmonary emphysema, unspecified emphysema type (HCC) - ICD9: 492.8, ICD10: J43.9 - Stable - Continue current medication regimen. 8. Muscle cramps - ICD9: 729.82, ICD10: R25.2 - Use heating pad 9. Obesity, Class II, BMI 35-39.9 - ICD9: 278.00, ICD10: E66.9 - Start Contrave - F/u in 3 months - NALTREXONE 8 MG-BUPROPION 90 MG TABLET,EXTENDED RELEASE 10. Encounter for screening mammogram for malignant neoplasm of breast - ICD9: V76.12, ICD10: Z12.31 - Pt to schedule Mammogram - FRANKLIN SCREENING 3 mo f/u on weight. I agree with the Chief Complaint, ROS, and Past Histories independently gathered by the clinical office support specialist and the remaining scribed note accurately describes my personal service to the patient. Medical Decision Making: Problems: Moderate: 2+ stable chronic illnesses Risk: Moderate: Drug management Medical Decision Making Level: 4 - Moderate Katie Abdullahi MD The documentation for this note was completed by Doris Delgado Ma acting as scribe for Katie Abdullahi MD. December 22, 2021 9:44 AM. 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 Small right pleural effusion. 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 Rm. Assessment: on room air. CXR 10/17 - small left pleural effusion, Trace right pleural effusion is noted. mild bibasilar atelectasis. Plan: monitor. encourage ambulation. no diuresis as down 5.4 kg and post op Hypernatremia Severe protein-calorie malnutrition 10/14/2015 03/13/2016 Overview: History: Nutrition consult 10/12: weight loss >7.5% over 3 months; mild fat loss; moderate muscle loss; functional capacity regressed; potential micronutrient deficiency revealed in skin; wound dehiscence; ? surgical wound infection; anorexia; 10/13- poor oral intake, c/o nausea, abd pain/discomfort. KUB reviewed. possibly failure to thrive. Assessment: poor appetite since surgery in Jul per . appetite improved with addition of reglan with meals (has refused last 4 doses of reglan). B12 nml Plan: - continue regular diet for more food choices. supplements per patient preference; zone bar once daily; magic cup once daily; snacks higher in kcal and protein per patient preference; patient would likely benefit from enteral nutrition. Ensure clear added - continue bowel regimen, enc ambulation/oob - reglan tid with meals - labs ordered to check B levels as recom per Geriatric psych. Slow transit constipation 10/12/20152015 Overview: History: h/o constipation with nausea 10/13 c/o poor PO intake, nausea, abd pain/discomfort. + BS all 4 quads. KUB - multiple loops of nondilated air-filled bowel. Residual contrast is again seen throughout the colon and within several colonic diverticula. cottonseed enema given Assessment: + BS, +BM 10/19 Plan: - Bowel regimen - daily supp, colace, senna, miralax, prn lactulose. - cotton seed enema 10/14/2015 with results - encourage ambulation/oob Acute renal failure 10/11/2015 03/13/2016 Overview: History: Baseline 0.6-0.7 prior to recent admission Assessment: BUN 8, SCr 1.20 Plan: Renal evaluated. Renal dose meds. avoid nephrotoxic agents. Prevent hypotension. hold diuretics - was hypernatremic post op Wound dehiscence 10/06/2015 07/17/2016 Overview: History: 3 areas of wound dehiscence Wound culture growing GPCs - No Leukocytosis, tmax 37.1; Bld clt x1 possible contaminant. Treated with IV Zosyn and Vancomycin since 10/03. Assessment: s/p 10/15/15- by Plastic surgery: Excisional debridement left abdominal wound including skin and subcutaneous tissue 18cm x 6cm x 4cm Placement of negative pressure dressing abdomen 18cm x 6cm x 4cm Excisional debridement left lower quadrant wound 3cm x 1cm and 1cm x .5cm including skin and subcutaneous tissue\ 10/18/2015- wound VAC dsg changed by plastics today. Then dsg changes by floor RN. - tissue culture- no fungus; Anaerobe culture reviewed, negative at day 3; tissue clt & stain- Rare Staphylococcus epidermidis Plan: Plastic recom: LUQ - Cont NPWT at 75mmHg, bridge connection off the main wound, change M/W/F and irrigate with at least 1L NSS at change. LLQ/Groin - irrigate bid. Pack wet to moist bid with nss soaked amd gauze. dsd Nutrition following. F/u plastic surgery 3 weeks after d/c - Irene MOSQUERA ID signed off on 10/15 Troponin level elevated 09/15/2015 01/31/20 16 Overview: Have been higher in past marquez in Jul of this year No Chest pain and no sign of ischemia on EKG Last Trend 0.074 Cardiology consulted on 09/12, was seen by cardiothoracic surgery on 09/11, - no surgical intervention recommended 09/14/2015 ECHO - EF 65%.. No WMA. 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 10/19/2015- SBP 130s- 140s. 10/20/2015 BP 117- 140/50s- 60s Plan: - ASA, HR and BP control. Coreg 6.25 mg bid- uptitrate accordingly. - ECHO 10/10 - EF 55%, no pericardial effusion SUMMARY 08/12/2015 06/22/2021 Overview: Readmission on 10/05 for wound dehiscence LVEF: 55% RVF: Normal Cards: Den PMH/PSH: copd, ex-smoker, cad (60% RCA), htn, hpl, lung nodule Surgery: 08/03/2015 Repair of type 2 thoracoabdominal aortic aneurysm utilizing a 30-mm Gelweave graft along with a 28-mm Gelweave graft with a separate 10-mm branch to the left renal artery, cannulation of the left common femoral artery with an 8-mm graft, left atrial femoral bypass, moderate hypothermia, spinal drainage, intrathecal papaverine. Was discharged from [facility] on 08/14/15 to SNF. Was readmitted to from 09/12/15- 09/16/15 Surgery/Procedure Date: 10/15/2015 by Surgeon: Dr. Temi Bonilla Excisional debridement left abdominal wound including skin and subcutaneous tissue 18cm x 6cm x 4cm Placement of negative pressure dressing abdomen 18cm x 6cm x 4cm Excisional debridement left lower quadrant wound 3cm x 1cm and 1cm x .5cm including skin and subcutaneous tissue A/P: - s/p repair of TAAA - ASA, HR & BP management - Wound dehiscence - s/p 5/6 wound debridement & VAC. ID followed - No ATB at this time. - HTN SBP trending upwards (150s), continue Norvasc, Hydralazine weaned off, Coreg to 6.25 mg bid - SUNSHINE - SCr 1.20 - continue without diuretics. Renal evaluated post op. - Hypernatremia- Na 139- stable, D5W prn, monitor NA. improved oral intake - Pleural effusion- Chest was marked 10/11, no thoracentesis at that time per Dr Rm. monitor. CXR improved - Nausea- denies. po intake improving daily, reglan tid with meals. KUB 10/14- multiple loops of nondilated air-filled bowel, Residual contrast. +BS, +BM - Urinary retention, howard replaced 10/13. dc'd 10/17, voiding well. no residual urine after bladder scanned. + UTI- prelim UC +Ecoli, No ATBx tx indicated for positive urine culture, asymptomatic bacteriuria that likely represents colonization and not infection - mild cognitive impairment, no dementia- Eileen psych following. B12 wnl Dispo -from [place], [place]. PT recom SNF. CM following. DC to [facility] 10/20/2015- [facility] with wound VAC Hypervolemia 08/07/2015 01/31/2016 Overview: History: post-op FVO Assessment: up 3.4 Plan: increase to 40 IV TID, fluid restrict, monitor uop and renal function Thrombocytopenia 08/06/2015 08/07/2015 Overview: 08/06/2015 No signs of bleeding. Will need transfusion to discontinue spinal drain. Atelectasis 08/04/2015 07/17/2016 Overview: History: s/p TAAA repair Assessment: BIlateral atelectasis and pleural effusions requiring 2L O2, 3.4 kg above preop weight Plan: BPH & diuresis; u/s 3/2 with insufficient fluid for tap. Acute kidney injury 08/04/2015 01/31/2016 Overview: History: Pre-op creatinine normal though Epic shows intermittent elevations in her history Assessment: Postop creatinine peaked at 3.53, non-oliguric with excellent response to diuretics, nephrology following. BUN/creat 56/1.7 today Plan: Increase lasix to 40 IV TID and follow trends Pain, postoperative, acute 08/03/201501/30 Overview: History: s/p TAA repair Assessment: uncontrolled Plan: Add oxycontin 20 mg BID; Continue tylenol, prn oxycodone and ultram Q8 Postprocedural hypotension 08/03/201508/07 Overview: A/P: MAP goal 80-90 to preserve perfusion to spinal cord Pre-op testing 08/02/2015 08/10/2015 Overview: Images from the original note were not included. [facility] PRE[facility] CHECKLIST Surgeon: Luis Rm M.D. Informed Consent Completed: Yes STS Score: unsupported CAD: Yes - CAD on Problem List: Yes Is intended procedure a CABG: Yes - is a beta jeanette ordered? Yes H & P completed: Yes PA/LAT: Completed CT: Completed MRI: N/A LE US: N/A Cath: Yes - reviewed: Yes Echo:Completed EKG: Completed EF %: 71 PI's: N/A Carotid: N/A Mapping: N/A Dental: full dentures PFT's: Completed Recent Labs 08/02/15 1007 WBC 7.84 HB 12.5 HCT 37.7 PLT 218 INR 0.9 CREAT 1.04 UA: Neg 08/02/15 HCG:N/A ABO/ABO Confirmed: Yes Blood ordered: No SA Swab: Yes - results: Pending Last Dose of Anticoagulation: Aspirin 81 mg 07/27/15 Op Note: N/A Pacemaker Check: N/A Consults: pulmonary DM: No Cardiac Surgical prep: N/A SIGNATURE: Sydney Sandhu CNP CHECKED BY: martine DATE of SERVICE: 08/02/2015 TIME of SERVICE: 5:47 PM RE 08/02/15 Thoracoabdominal aortic aneurysm 07/31/2012 08/12/2015 Overview: 08/03/2015 TAAA repair, SA drain L4-5. SA drain removed 08/06/15 A/P: ASA daily Aortic aneurysm and dissection 07/02/2012 0 07/17/2016 Lung nodule 06/17/2012 08/12/2015 Osteoarthrosis, unspecified whether generalized or localized, lower leg 07/11/2011 09/05/2011 Knee pain 04/27/2011 05/27/2012 Abnormality of gait 04/27/2011 05/27/2012 Osteoarthritis, knee 04/19/2010 07/11/2011 Knee internal derangement 05/05/20092011 Pure hyperglyceridemia 04/29/2007 6 Overview: History: Home dose of lipitor is 40mg, ldl 79 preop Assessment: resumed postop Plan: continue same Tobacco use disorder 04/29/2007 02/06/2013 documented as of this encounter (statuses as of 12/22/2021) [facility] of Past illness Narrative* Problem Noted Date Resolved Date 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 Small right pleural effusion. 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 Rm. Assessment: on room air. CXR 10/17 - small left pleural effusion, Trace right pleural effusion is noted. mild bibasilar atelectasis. Plan: monitor. encourage ambulation. no diuresis as down 5.4 kg and post op Hypernatremia Severe protein-calorie malnutrition 10/14/2015 03/13/2016 Overview: History: Nutrition consult 10/12: weight loss >7.5% over 3 months; mild fat loss; moderate muscle loss; functional capacity regressed; potential micronutrient deficiency revealed in skin; wound dehiscence; ? surgical wound infection; anorexia; 10/13- poor oral intake, c/o nausea, abd pain/discomfort. KUB reviewed. possibly failure to thrive. Assessment: poor appetite since surgery in Jul per . appetite improved with addition of reglan with meals (has refused last 4 doses of reglan). B12 nml Plan: - continue regular diet for more food choices. supplements per patient preference; zone bar once daily; magic cup once daily; snacks higher in kcal and protein per patient preference; patient would likely benefit from enteral nutrition. Ensure clear added - continue bowel regimen, enc ambulation/oob - reglan tid with meals - labs ordered to check B levels as recom per Geriatric psych. Slow transit constipation 10/12/20152015 Overview: History: h/o constipation with nausea 10/13 c/o poor PO intake, nausea, abd pain/discomfort. + BS all 4 quads. KUB - multiple loops of nondilated air-filled bowel. Residual contrast is again seen throughout the colon and within several colonic diverticula. cottonseed enema given Assessment: + BS, +BM 10/19 Plan: - Bowel regimen - daily supp, colace, senna, miralax, prn lactulose. - cotton seed enema 10/14/2015 with results - encourage ambulation/oob Acute renal failure 10/11/2015 03/13/2016 Overview: History: Baseline 0.6-0.7 prior to recent admission Assessment: BUN 8, SCr 1.20 Plan: Renal evaluated. Renal dose meds. avoid nephrotoxic agents. Prevent hypotension. hold diuretics - was hypernatremic post op Wound dehiscence 10/06/2015 07/17/2016 Overview: History: 3 areas of wound dehiscence Wound culture growing GPCs - No Leukocytosis, tmax 37.1; Bld clt x1 possible contaminant. Treated with IV Zosyn and Vancomycin since 10/03. Assessment: s/p 10/15/15- by Plastic surgery: Excisional debridement left abdominal wound including skin and subcutaneous tissue 18cm x 6cm x 4cm Placement of negative pressure dressing abdomen 18cm x 6cm x 4cm Excisional debridement left lower quadrant wound 3cm x 1cm and 1cm x .5cm including skin and subcutaneous tissue\ 10/18/2015- wound VAC dsg changed by plastics today. Then dsg changes by floor RN. - tissue culture- no fungus; Anaerobe culture reviewed, negative at day 3; tissue clt & stain- Rare Staphylococcus epidermidis Plan: Plastic recom: LUQ - Cont NPWT at 75mmHg, bridge connection off the main wound, change M/W/F and irrigate with at least 1L NSS at change. LLQ/Groin - irrigate bid. Pack wet to moist bid with nss soaked amd gauze. dsd Nutrition following. F/u plastic surgery 3 weeks after d/c - Irene MOSQUERA ID signed off on 10/15 Troponin level elevated 09/15/2015 01/31/20 16 Overview: Have been higher in past marquez in Jul of this year No Chest pain and no sign of ischemia on EKG Last Trend 0.074 Cardiology consulted on 09/12, was seen by cardiothoracic surgery on 09/11, - no surgical intervention recommended 09/14/2015 ECHO - EF 65%.. No WMA. 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 10/19/2015- SBP 130s- 140s. 10/20/2015 BP 117- 140/50s- 60s Plan: - ASA, HR and BP control. Coreg 6.25 mg bid- uptitrate accordingly. - ECHO 10/10 - EF 55%, no pericardial effusion SUMMARY 08/12/2015 06/22/2021 Overview: Readmission on 10/05 for wound dehiscence LVEF: 55% RVF: Normal Cards: Den PMH/PSH: copd, ex-smoker, cad (60% RCA), htn, hpl, lung nodule Surgery: 08/03/2015 Repair of type 2 thoracoabdominal aortic aneurysm utilizing a 30-mm Gelweave graft along with a 28-mm Gelweave graft with a separate 10-mm branch to the left renal artery, cannulation of the left common femoral artery with an 8-mm graft, left atrial femoral bypass, moderate hypothermia, spinal drainage, intrathecal papaverine. Was discharged from [facility] on 08/14/15 to SNF. Was readmitted to from 09/12/15- 09/16/15 Surgery/Procedure Date: 10/15/2015 by Surgeon: Dr. Temi Bonilla Excisional debridement left abdominal wound including skin and subcutaneous tissue 18cm x 6cm x 4cm Placement of negative pressure dressing abdomen 18cm x 6cm x 4cm Excisional debridement left lower quadrant wound 3cm x 1cm and 1cm x .5cm including skin and subcutaneous tissue A/P: - s/p repair of TAAA - ASA, HR & BP management - Wound dehiscence - s/p 5/6 wound debridement & VAC. ID followed - No ATB at this time. - HTN SBP trending upwards (150s), continue Norvasc, Hydralazine weaned off, Coreg to 6.25 mg bid - SUNSHINE - SCr 1.20 - continue without diuretics. Renal evaluated post op. - Hypernatremia- Na 139- stable, D5W prn, monitor NA. improved oral intake - Pleural effusion- Chest was marked 10/11, no thoracentesis at that time per Dr Rm. monitor. CXR improved - Nausea- denies. po intake improving daily, reglan tid with meals. KUB 10/14- multiple loops of nondilated air-filled bowel, Residual contrast. +BS, +BM - Urinary retention, howard replaced 10/13. dc'd 10/17, voiding well. no residual urine after bladder scanned. + UTI- prelim UC +Ecoli, No ATBx tx indicated for positive urine culture, asymptomatic bacteriuria that likely represents colonization and not infection - mild cognitive impairment, no dementia- Eileen psych following. B12 wnl Dispo -from [place], [place]. PT recom SNF. CM following. DC to [facility] 10/20/2015- [facility] with wound VAC Hypervolemia 08/07/2015 01/31/2016 Overview: History: post-op FVO Assessment: up 3.4 Plan: increase to 40 IV TID, fluid restrict, monitor uop and renal function Thrombocytopenia 08/06/2015 08/07/2015 Overview: 08/06/2015 No signs of bleeding. Will need transfusion to discontinue spinal drain. Atelectasis 08/04/2015 07/17/2016 Overview: History: s/p TAAA repair Assessment: BIlateral atelectasis and pleural effusions requiring 2L O2, 3.4 kg above preop weight Plan: BPH & diuresis; u/s 3/2 with insufficient fluid for tap. Acute kidney injury 08/04/2015 01/31/2016 Overview: History: Pre-op creatinine normal though Epic shows intermittent elevations in her history Assessment: Postop creatinine peaked at 3.53, non-oliguric with excellent response to diuretics, nephrology following. BUN/creat 56/1.7 today Plan: Increase lasix to 40 IV TID and follow trends Pain, postoperative, acute 08/03/201501/30 Overview: History: s/p TAA repair Assessment: uncontrolled Plan: Add oxycontin 20 mg BID; Continue tylenol, prn oxycodone and ultram Q8 Postprocedural hypotension 08/03/201508/07 Overview: A/P: MAP goal 80-90 to preserve perfusion to spinal cord Pre-op testing 08/02/2015 08/10/2015 Overview: Images from the original note were not included. [facility] Surgeon: Luis Rm M.D. Informed Consent Completed: Yes STS Score: unsupported CAD: Yes - CAD on Problem List: Yes Is intended procedure a CABG: Yes - is a beta jeanette ordered? Yes H & P completed: Yes PA/LAT: Completed CT: Completed MRI: N/A LE US: N/A Cath: Yes - reviewed: Yes Echo:Completed EKG: Completed EF %: 71 PI's: N/A Carotid: N/A Mapping: N/A Dental: full dentures PFT's: Completed Recent Labs 08/02/15 1007 WBC 7.84 HB 12.5 HCT 37.7 PLT 218 INR 0.9 CREAT 1.04 UA: Neg 08/02/15 HCG:N/A ABO/ABO Confirmed: Yes Blood ordered: No SA Swab: Yes - results: Pending Last Dose of Anticoagulation: Aspirin 81 mg 07/27/15 Op Note: N/A Pacemaker Check: N/A Consults: pulmonary DM: No Cardiac Surgical prep: N/A SIGNATURE: Sydney Sandhu CNP CHECKED BY: martine DATE of SERVICE: 08/02/2015 TIME of SERVICE: 5:47 PM RE 08/02/15 Thoracoabdominal aortic aneurysm 07/31/2012 08/12/2015 Overview: 08/03/2015 TAAA repair, SA drain L4-5. SA drain removed 08/06/15 A/P: ASA daily Aortic aneurysm and dissection 07/02/2012 0 07/17/2016 Lung nodule 06/17/2012 08/12/2015 Osteoarthrosis, unspecified whether generalized or localized, lower leg 07/11/2011 09/05/2011 Knee pain 04/27/2011 05/27/2012 Abnormality of gait 04/27/2011 05/27/2012 Osteoarthritis, knee 04/19/2010 07/11/2011 Knee internal derangement 05/05/20092011 Pure hyperglyceridemia 04/29/2007 6 Overview: History: Home dose of lipitor is 40mg, ldl 79 preop Assessment: resumed postop Plan: continue same Tobacco use disorder 04/29/2007 02/06/2013 documented as of this encounter (statuses as of 01/18/2022) [facility]07-30-2018 History of Past illness Narrative* Problem Noted Date Resolved Date 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 Small right pleural effusion. 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 Rm. Assessment: on room air. CXR 10/17 - small left pleural effusion, Trace right pleural effusion is noted. mild bibasilar atelectasis. Plan: monitor. encourage ambulation. no diuresis as down 5.4 kg and post op Hypernatremia Severe protein-calorie malnutrition 10/14/2015 03/13/2016 Overview: History: Nutrition consult 10/12: weight loss >7.5% over 3 months; mild fat loss; moderate muscle loss; functional capacity regressed; potential micronutrient deficiency revealed in skin; wound dehiscence; ? surgical wound infection; anorexia; 10/13- poor oral intake, c/o nausea, abd pain/discomfort. KUB reviewed. possibly failure to thrive. Assessment: poor appetite since surgery in Jul per . appetite improved with addition of reglan with meals (has refused last 4 doses of reglan). B12 nml Plan: - continue regular diet for more food choices. supplements per patient preference; zone bar once daily; magic cup once daily; snacks higher in kcal and protein per patient preference; patient would likely benefit from enteral nutrition. Ensure clear added - continue bowel regimen, enc ambulation/oob - reglan tid with meals - labs ordered to check B levels as recom per Geriatric psych. Slow transit constipation 10/12/20152015 Overview: History: h/o constipation with nausea 10/13 c/o poor PO intake, nausea, abd pain/discomfort. + BS all 4 quads. KUB - multiple loops of nondilated air-filled bowel. Residual contrast is again seen throughout the colon and within several colonic diverticula. cottonseed enema given Assessment: + BS, +BM 10/19 Plan: - Bowel regimen - daily supp, colace, senna, miralax, prn lactulose. - cotton seed enema 10/14/2015 with results - encourage ambulation/oob Acute renal failure 10/11/2015 03/13/2016 Overview: History: Baseline 0.6-0.7 prior to recent admission Assessment: BUN 8, SCr 1.20 Plan: Renal evaluated. Renal dose meds. avoid nephrotoxic agents. Prevent hypotension. hold diuretics - was hypernatremic post op Wound dehiscence 10/06/2015 07/17/2016 Overview: History: 3 areas of wound dehiscence Wound culture growing GPCs - No Leukocytosis, tmax 37.1; Bld clt x1 possible contaminant. Treated with IV Zosyn and Vancomycin since 10/03. Assessment: s/p 10/15/15- by Plastic surgery: Excisional debridement left abdominal wound including skin and subcutaneous tissue 18cm x 6cm x 4cm Placement of negative pressure dressing abdomen 18cm x 6cm x 4cm Excisional debridement left lower quadrant wound 3cm x 1cm and 1cm x .5cm including skin and subcutaneous tissue\ 10/18/2015- wound VAC dsg changed by plastics today. Then dsg changes by floor RN. - tissue culture- no fungus; Anaerobe culture reviewed, negative at day 3; tissue clt & stain- Rare Staphylococcus epidermidis Plan: Plastic recom: LUQ - Cont NPWT at 75mmHg, bridge connection off the main wound, change M/W/F and irrigate with at least 1L NSS at change. LLQ/Groin - irrigate bid. Pack wet to moist bid with nss soaked amd gauze. dsd Nutrition following. F/u plastic surgery 3 weeks after d/c - Irene MOSQUERA ID signed off on 10/15 Troponin level elevated 09/15/2015 01/31/20 16 Overview: Have been higher in past marquez in Jul of this year No Chest pain and no sign of ischemia on EKG Last Trend 0.074 Cardiology consulted on 09/12, was seen by cardiothoracic surgery on 09/11, - no surgical intervention recommended 09/14/2015 ECHO - EF 65%.. No WMA. 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 10/19/2015- SBP 130s- 140s. 10/20/2015 BP 117- 140/50s- 60s Plan: - ASA, HR and BP control. Coreg 6.25 mg bid- uptitrate accordingly. - ECHO 10/10 - EF 55%, no pericardial effusion SUMMARY 08/12/2015 06/22/2021 Overview: Readmission on 10/05 for wound dehiscence LVEF: 55% RVF: Normal Cards: Den PMH/PSH: copd, ex-smoker, cad (60% RCA), htn, hpl, lung nodule Surgery: 08/03/2015 Repair of type 2 thoracoabdominal aortic aneurysm utilizing a 30-mm Gelweave graft along with a 28-mm Gelweave graft with a separate 10-mm branch to the left renal artery, cannulation of the left common femoral artery with an 8-mm graft, left atrial femoral bypass, moderate hypothermia, spinal drainage, intrathecal papaverine. Was discharged from [facility] on 08/14/15 to SNF. Was readmitted to from 09/12/15- 09/16/15 Surgery/Procedure Date: 10/15/2015 by Surgeon: Dr. Temi Bonilla Excisional debridement left abdominal wound including skin and subcutaneous tissue 18cm x 6cm x 4cm Placement of negative pressure dressing abdomen 18cm x 6cm x 4cm Excisional debridement left lower quadrant wound 3cm x 1cm and 1cm x .5cm including skin and subcutaneous tissue A/P: - s/p repair of TAAA - ASA, HR & BP management - Wound dehiscence - s/p 5/6 wound debridement & VAC. ID followed - No ATB at this time. - HTN SBP trending upwards (150s), continue Norvasc, Hydralazine weaned off, Coreg to 6.25 mg bid - SUNSHINE - SCr 1.20 - continue without diuretics. Renal evaluated post op. - Hypernatremia- Na 139- stable, D5W prn, monitor NA. improved oral intake - Pleural effusion- Chest was marked 10/11, no thoracentesis at that time per Dr Rm. monitor. CXR improved - Nausea- denies. po intake improving daily, reglan tid with meals. KUB 10/14- multiple loops of nondilated air-filled bowel, Residual contrast. +BS, +BM - Urinary retention, howard replaced 10/13. dc'd 10/17, voiding well. no residual urine after bladder scanned. + UTI- prelim UC +Ecoli, No ATBx tx indicated for positive urine culture, asymptomatic bacteriuria that likely represents colonization and not infection - mild cognitive impairment, no dementia- Eileen psych following. B12 wnl Dispo -from [place], [place]. PT recom SNF. CM following. DC to SNF 10/20/2015- [facility] with wound VAC Hypervolemia 08/07/2015 01/31/2016 Overview: History: post-op FVO Assessment: up 3.4 Plan: increase to 40 IV TID, fluid restrict, monitor uop and renal function Thrombocytopenia 08/06/2015 08/07/2015 Overview: 08/06/2015 No signs of bleeding. Will need transfusion to discontinue spinal drain. Atelectasis 08/04/2015 07/17/2016 Overview: History: s/p TAAA repair Assessment: BIlateral atelectasis and pleural effusions requiring 2L O2, 3.4 kg above preop weight Plan: BPH & diuresis; u/s 3/2 with insufficient fluid for tap. Acute kidney injury 08/04/2015 01/31/2016 Overview: History: Pre-op creatinine normal though Epic shows intermittent elevations in her history Assessment: Postop creatinine peaked at 3.53, non-oliguric with excellent response to diuretics, nephrology following. BUN/creat 56/1.7 today Plan: Increase lasix to 40 IV TID and follow trends Pain, postoperative, acute 08/03/201501/30 Overview: History: s/p TAA repair Assessment: uncontrolled Plan: Add oxycontin 20 mg BID; Continue tylenol, prn oxycodone and ultram Q8 Postprocedural hypotension 08/03/201508/07 Overview: A/P: MAP goal 80-90 to preserve perfusion to spinal cord Pre-op testing 08/02/2015 08/10/2015 Overview: Images from the original note were not included. [facility] Surgeon: Luis Rm M.D. Informed Consent Completed: Yes STS Score: unsupported CAD: Yes - CAD on Problem List: Yes Is intended procedure a CABG: Yes - is a beta jeanette ordered? Yes H & P completed: Yes PA/LAT: Completed CT: Completed MRI: N/A LE US: N/A Cath: Yes - reviewed: Yes Echo:Completed EKG: Completed EF %: 71 PI's: N/A Carotid: N/A Mapping: N/A Dental: full dentures PFT's: Completed Recent Labs 08/02/15 1007 WBC 7.84 HB 12.5 HCT 37.7 PLT 218 INR 0.9 CREAT 1.04 UA: Neg 08/02/15 HCG:N/A ABO/ABO Confirmed: Yes Blood ordered: No SA Swab: Yes - results: Pending Last Dose of Anticoagulation: Aspirin 81 mg 07/27/15 Op Note: N/A Pacemaker Check: N/A Consults: pulmonary DM: No Cardiac Surgical prep: N/A SIGNATURE: Sydney Sandhu CNP CHECKED BY: martine DATE of SERVICE: 08/02/2015 TIME of SERVICE: 5:47 PM RE 08/02/15 Thoracoabdominal aortic aneurysm 07/31/2012 08/12/2015 Overview: 08/03/2015 TAAA repair, SA drain L4-5. SA drain removed 08/06/15 A/P: ASA daily Aortic aneurysm and dissection 07/02/2012 0 07/17/2016 Lung nodule 06/17/2012 08/12/2015 Osteoarthrosis, unspecified whether generalized or localized, lower leg 07/11/2011 09/05/2011 Knee pain 04/27/2011 05/27/2012 Abnormality of gait 04/27/2011 05/27/2012 Osteoarthritis, knee 04/19/2010 07/11/2011 Knee internal derangement 05/05/20092011 Pure hyperglyceridemia 04/29/2007 6 Overview: History: Home dose of lipitor is 40mg, ldl 79 preop Assessment: resumed postop Plan: continue same Tobacco use disorder 04/29/2007 02/06/2013 documented as of this encounter (statuses as of 02/03/2022) [facility] History of Past illness Narrative* Problem Noted Date Resolved Date 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 Small right pleural effusion. 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 Rm. Assessment: on room air. CXR 10/17 - small left pleural effusion, Trace right pleural effusion is noted. mild bibasilar atelectasis. Plan: monitor. encourage ambulation. no diuresis as down 5.4 kg and post op Hypernatremia Severe protein-calorie malnutrition 10/14/2015 03/13/2016 Overview: History: Nutrition consult 10/12: weight loss >7.5% over 3 months; mild fat loss; moderate muscle loss; functional capacity regressed; potential micronutrient deficiency revealed in skin; wound dehiscence; ? surgical wound infection; anorexia; 10/13- poor oral intake, c/o nausea, abd pain/discomfort. KUB reviewed. possibly failure to thrive. Assessment: poor appetite since surgery in Jul per . appetite improved with addition of reglan with meals (has refused last 4 doses of reglan). B12 nml Plan: - continue regular diet for more food choices. supplements per patient preference; zone bar once daily; magic cup once daily; snacks higher in kcal and protein per patient preference; patient would likely benefit from enteral nutrition. Ensure clear added - continue bowel regimen, enc ambulation/oob - reglan tid with meals - labs ordered to check B levels as recom per Geriatric psych. Slow transit constipation 10/12/20152015 Overview: History: h/o constipation with nausea 10/13 c/o poor PO intake, nausea, abd pain/discomfort. + BS all 4 quads. KUB - multiple loops of nondilated air-filled bowel. Residual contrast is again seen throughout the colon and within several colonic diverticula. cottonseed enema given Assessment: + BS, +BM 10/19 Plan: - Bowel regimen - daily supp, colace, senna, miralax, prn lactulose. - cotton seed enema 10/14/2015 with results - encourage ambulation/oob Acute renal failure 10/11/2015 03/13/2016 Overview: History: Baseline 0.6-0.7 prior to recent admission Assessment: BUN 8, SCr 1.20 Plan: Renal evaluated. Renal dose meds. avoid nephrotoxic agents. Prevent hypotension. hold diuretics - was hypernatremic post op Wound dehiscence 10/06/2015 07/17/2016 Overview: History: 3 areas of wound dehiscence Wound culture growing GPCs - No Leukocytosis, tmax 37.1; Bld clt x1 possible contaminant. Treated with IV Zosyn and Vancomycin since 10/03. Assessment: s/p 10/15/15- by Plastic surgery: Excisional debridement left abdominal wound including skin and subcutaneous tissue 18cm x 6cm x 4cm Placement of negative pressure dressing abdomen 18cm x 6cm x 4cm Excisional debridement left lower quadrant wound 3cm x 1cm and 1cm x .5cm including skin and subcutaneous tissue\ 10/18/2015- wound VAC dsg changed by plastics today. Then dsg changes by floor RN. - tissue culture- no fungus; Anaerobe culture reviewed, negative at day 3; tissue clt & stain- Rare Staphylococcus epidermidis Plan: Plastic recom: LUQ - Cont NPWT at 75mmHg, bridge connection off the main wound, change M/W/F and irrigate with at least 1L NSS at change. LLQ/Groin - irrigate bid. Pack wet to moist bid with nss soaked amd gauze. dsd Nutrition following. F/u plastic surgery 3 weeks after d/c - Irene MOSQUERA ID signed off on 10/15 Troponin level elevated 09/15/2015 01/31/20 16 Overview: Have been higher in past marquez in Jul of this year No Chest pain and no sign of ischemia on EKG Last Trend 0.074 Cardiology consulted on 09/12, was seen by cardiothoracic surgery on 09/11, - no surgical intervention recommended 09/14/2015 ECHO - EF 65%.. No WMA. 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 10/19/2015- SBP 130s- 140s. 10/20/2015 BP 117- 140/50s- 60s Plan: - ASA, HR and BP control. Coreg 6.25 mg bid- uptitrate accordingly. - ECHO 10/10 - EF 55%, no pericardial effusion SUMMARY 08/12/2015 06/22/2021 Overview: Readmission on 10/05 for wound dehiscence LVEF: 55% RVF: Normal Cards: Den PMH/PSH: copd, ex-smoker, cad (60% RCA), htn, hpl, lung nodule Surgery: 08/03/2015 Repair of type 2 thoracoabdominal aortic aneurysm utilizing a 30-mm Gelweave graft along with a 28-mm Gelweave graft with a separate 10-mm branch to the left renal artery, cannulation of the left common femoral artery with an 8-mm graft, left atrial femoral bypass, moderate hypothermia, spinal drainage, intrathecal papaverine. Was discharged from [facility] on 08/14/15 to SNF. Was readmitted to from 09/12/15- 09/16/15 Surgery/Procedure Date: 10/15/2015 by Surgeon: Dr. Temi Bonilla Excisional debridement left abdominal wound including skin and subcutaneous tissue 18cm x 6cm x 4cm Placement of negative pressure dressing abdomen 18cm x 6cm x 4cm Excisional debridement left lower quadrant wound 3cm x 1cm and 1cm x .5cm including skin and subcutaneous tissue A/P: - s/p repair of TAAA - ASA, HR & BP management - Wound dehiscence - s/p 5/6 wound debridement & VAC. ID followed - No ATB at this time. - HTN SBP trending upwards (150s), continue Norvasc, Hydralazine weaned off, Coreg to 6.25 mg bid - SUNSHINE - SCr 1.20 - continue without diuretics. Renal evaluated post op. - Hypernatremia- Na 139- stable, D5W prn, monitor NA. improved oral intake - Pleural effusion- Chest was marked 10/11, no thoracentesis at that time per Dr Rm. monitor. CXR improved - Nausea- denies. po intake improving daily, reglan tid with meals. KUB 10/14- multiple loops of nondilated air-filled bowel, Residual contrast. +BS, +BM - Urinary retention, howard replaced 10/13. dc'd 10/17, voiding well. no residual urine after bladder scanned. + UTI- prelim UC +Ecoli, No ATBx tx indicated for positive urine culture, asymptomatic bacteriuria that likely represents colonization and not infection - mild cognitive impairment, no dementia- Eileen psych following. B12 wnl Dispo -from [place], [place]. PT recom SNF. CM following. DC to [facility] 10/20/2015- [facility] with wound VAC Hypervolemia 08/07/2015 01/31/2016 Overview: History: post-op FVO Assessment: up 3.4 Plan: increase to 40 IV TID, fluid restrict, monitor uop and renal function Thrombocytopenia 08/06/2015 08/07/2015 Overview: 08/06/2015 No signs of bleeding. Will need transfusion to discontinue spinal drain. Atelectasis 08/04/2015 07/17/2016 Overview: History: s/p TAAA repair Assessment: BIlateral atelectasis and pleural effusions requiring 2L O2, 3.4 kg above preop weight Plan: BPH & diuresis; u/s 3/2 with insufficient fluid for tap. Acute kidney injury 08/04/2015 01/31/2016 Overview: History: Pre-op creatinine normal though Epic shows intermittent elevations in her history Assessment: Postop creatinine peaked at 3.53, non-oliguric with excellent response to diuretics, nephrology following. BUN/creat 56/1.7 today Plan: Increase lasix to 40 IV TID and follow trends Pain, postoperative, acute 08/03/201501/30 Overview: History: s/p TAA repair Assessment: uncontrolled Plan: Add oxycontin 20 mg BID; Continue tylenol, prn oxycodone and ultram Q8 Postprocedural hypotension 08/03/201508/07 Overview: A/P: MAP goal 80-90 to preserve perfusion to spinal cord Pre-op testing 08/02/2015 08/10/2015 Overview: Images from the original note were not included. [facility] Surgeon: Luis Rm M.D. Informed Consent Completed: Yes STS Score: unsupported CAD: Yes - CAD on Problem List: Yes Is intended procedure a CABG: Yes - is a beta jeanette ordered? Yes H & P completed: Yes PA/LAT: Completed CT: Completed MRI: N/A LE US: N/A Cath: Yes - reviewed: Yes Echo:Completed EKG: Completed EF %: 71 PI's: N/A Carotid: N/A Mapping: N/A Dental: full dentures PFT's: Completed Recent Labs 08/02/15 1007 WBC 7.84 HB 12.5 HCT 37.7 PLT 218 INR 0.9 CREAT 1.04 UA: Neg 08/02/15 HCG:N/A ABO/ABO Confirmed: Yes Blood ordered: No SA Swab: Yes - results: Pending Last Dose of Anticoagulation: Aspirin 81 mg 07/27/15 Op Note: N/A Pacemaker Check: N/A Consults: pulmonary DM: No Cardiac Surgical prep: N/A SIGNATURE: Sydney Sandhu CNP CHECKED BY: martine DATE of SERVICE: 08/02/2015 TIME of SERVICE: 5:47 PM RE 08/02/15 Thoracoabdominal aortic aneurysm 07/31/2012 08/12/2015 Overview: 08/03/2015 TAAA repair, SA drain L4-5. SA drain removed 08/06/15 A/P: ASA daily Aortic aneurysm and dissection 07/02/2012 0 07/17/2016 Lung nodule 06/17/2012 08/12/2015 Osteoarthrosis, unspecified whether generalized or localized, lower leg 07/11/2011 09/05/2011 Knee pain 04/27/2011 05/27/2012 Abnormality of gait 04/27/2011 05/27/2012 Osteoarthritis, knee 04/19/2010 07/11/2011 Knee internal derangement 05/05/20092011 Pure hyperglyceridemia 04/29/2007 6 Overview: History: Home dose of lipitor is 40mg, ldl 79 preop Assessment: resumed postop Plan: continue same Tobacco use disorder 04/29/2007 02/06/2013 documented as of this encounter (statuses as of 02/27/2022) [facility]2018 History of Past illness Narrative* Problem Noted Date Resolved Date 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 Small right pleural effusion. 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 Rm. Assessment: on room air. CXR 10/17 - small left pleural effusion, Trace right pleural effusion is noted. mild bibasilar atelectasis. Plan: monitor. encourage ambulation. no diuresis as down 5.4 kg and post op Hypernatremia Severe protein-calorie malnutrition 10/14/2015 03/13/2016 Overview: History: Nutrition consult 10/12: weight loss >7.5% over 3 months; mild fat loss; moderate muscle loss; functional capacity regressed; potential micronutrient deficiency revealed in skin; wound dehiscence; ? surgical wound infection; anorexia; 10/13- poor oral intake, c/o nausea, abd pain/discomfort. KUB reviewed. possibly failure to thrive. Assessment: poor appetite since surgery in Jul per . appetite improved with addition of reglan with meals (has refused last 4 doses of reglan). B12 nml Plan: - continue regular diet for more food choices. supplements per patient preference; zone bar once daily; magic cup once daily; snacks higher in kcal and protein per patient preference; patient would likely benefit from enteral nutrition. Ensure clear added - continue bowel regimen, enc ambulation/oob - reglan tid with meals - labs ordered to check B levels as recom per Geriatric psych. Slow transit constipation 10/12/20152015 Overview: History: h/o constipation with nausea 10/13 c/o poor PO intake, nausea, abd pain/discomfort. + BS all 4 quads. KUB - multiple loops of nondilated air-filled bowel. Residual contrast is again seen throughout the colon and within several colonic diverticula. cottonseed enema given Assessment: + BS, +BM 10/19 Plan: - Bowel regimen - daily supp, colace, senna, miralax, prn lactulose. - cotton seed enema 10/14/2015 with results - encourage ambulation/oob Acute renal failure 10/11/2015 03/13/2016 Overview: History: Baseline 0.6-0.7 prior to recent admission Assessment: BUN 8, SCr 1.20 Plan: Renal evaluated. Renal dose meds. avoid nephrotoxic agents. Prevent hypotension. hold diuretics - was hypernatremic post op Wound dehiscence 10/06/2015 07/17/2016 Overview: History: 3 areas of wound dehiscence Wound culture growing GPCs - No Leukocytosis, tmax 37.1; Bld clt x1 possible contaminant. Treated with IV Zosyn and Vancomycin since 10/03. Assessment: s/p 10/15/15- by Plastic surgery: Excisional debridement left abdominal wound including skin and subcutaneous tissue 18cm x 6cm x 4cm Placement of negative pressure dressing abdomen 18cm x 6cm x 4cm Excisional debridement left lower quadrant wound 3cm x 1cm and 1cm x .5cm including skin and subcutaneous tissue\ 10/18/2015- wound VAC dsg changed by plastics today. Then dsg changes by floor RN. - tissue culture- no fungus; Anaerobe culture reviewed, negative at day 3; tissue clt & stain- Rare Staphylococcus epidermidis Plan: Plastic recom: LUQ - Cont NPWT at 75mmHg, bridge connection off the main wound, change M/W/F and irrigate with at least 1L NSS at change. LLQ/Groin - irrigate bid. Pack wet to moist bid with nss soaked amd gauze. dsd Nutrition following. F/u plastic surgery 3 weeks after d/c - Irene MOSQUERA ID signed off on 10/15 Troponin level elevated 09/15/2015 01/31/20 16 Overview: Have been higher in past marquez in Jul of this year No Chest pain and no sign of ischemia on EKG Last Trend 0.074 Cardiology consulted on 09/12, was seen by cardiothoracic surgery on 09/11, - no surgical intervention recommended 09/14/2015 ECHO - EF 65%.. No WMA. 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 10/19/2015- SBP 130s- 140s. 10/20/2015 BP 117- 140/50s- 60s Plan: - ASA, HR and BP control. Coreg 6.25 mg bid- uptitrate accordingly. - ECHO 10/10 - EF 55%, no pericardial effusion SUMMARY 08/12/2015 06/22/2021 Overview: Readmission on 10/05 for wound dehiscence LVEF: 55% RVF: Normal Cards: Den PMH/PSH: copd, ex-smoker, cad (60% RCA), htn, hpl, lung nodule Surgery: 08/03/2015 Repair of type 2 thoracoabdominal aortic aneurysm utilizing a 30-mm Gelweave graft along with a 28-mm Gelweave graft with a separate 10-mm branch to the left renal artery, cannulation of the left common femoral artery with an 8-mm graft, left atrial femoral bypass, moderate hypothermia, spinal drainage, intrathecal papaverine. Was discharged from [facility] 08/14/15 to SNF. Was readmitted to from 09/12/15- 09/16/15 Surgery/Procedure Date: 10/15/2015 by Surgeon: Dr. Temi Bonilla Excisional debridement left abdominal wound including skin and subcutaneous tissue 18cm x 6cm x 4cm Placement of negative pressure dressing abdomen 18cm x 6cm x 4cm Excisional debridement left lower quadrant wound 3cm x 1cm and 1cm x .5cm including skin and subcutaneous tissue A/P: - s/p repair of TAAA - ASA, HR & BP management - Wound dehiscence - s/p 5/6 wound debridement & VAC. ID followed - No ATB at this time. - HTN SBP trending upwards (150s), continue Norvasc, Hydralazine weaned off, Coreg to 6.25 mg bid - SUNSHINE - SCr 1.20 - continue without diuretics. Renal evaluated post op. - Hypernatremia- Na 139- stable, D5W prn, monitor NA. improved oral intake - Pleural effusion- Chest was marked 10/11, no thoracentesis at that time per Dr Rm. monitor. CXR improved - Nausea- denies. po intake improving daily, reglan tid with meals. KUB 10/14- multiple loops of nondilated air-filled bowel, Residual contrast. +BS, +BM - Urinary retention, howard replaced 10/13. dc'd 10/17, voiding well. no residual urine after bladder scanned. + UTI- prelim UC +Ecoli, No ATBx tx indicated for positive urine culture, asymptomatic bacteriuria that likely represents colonization and not infection - mild cognitive impairment, no dementia- Eileen psych following. B12 wnl Dispo -from [place], [place]. PT recom SNF. CM following. DC to SNF 10/20/2015- [facility] with wound VAC Hypervolemia 08/07/2015 01/31/2016 Overview: History: post-op FVO Assessment: up 3.4 Plan: increase to 40 IV TID, fluid restrict, monitor uop and renal function Thrombocytopenia 08/06/2015 08/07/2015 Overview: 08/06/2015 No signs of bleeding. Will need transfusion to discontinue spinal drain. Atelectasis 08/04/2015 07/17/2016 Overview: History: s/p TAAA repair Assessment: BIlateral atelectasis and pleural effusions requiring 2L O2, 3.4 kg above preop weight Plan: BPH & diuresis; u/s 3/ with insufficient fluid for tap. Acute kidney injury 08/04/2015 01/31/2016 Overview: History: Pre-op creatinine normal though Epic shows intermittent elevations in her history Assessment: Postop creatinine peaked at 3.53, non-oliguric with excellent response to diuretics, nephrology following. BUN/creat 56/1.7 today Plan: Increase lasix to 40 IV TID and follow trends Pain, postoperative, acute 08/03/201501/30 Overview: History: s/p TAA repair Assessment: uncontrolled Plan: Add oxycontin 20 mg BID; Continue tylenol, prn oxycodone and ultram Q8 Postprocedural hypotension 08/03/201508/07 Overview: A/P: MAP goal 80-90 to preserve perfusion to spinal cord Pre-op testing 08/02/2015 08/10/2015 Overview: Images from the original note were not included. [facility] Surgeon: Luis Rm M.D. Informed Consent Completed: Yes STS Score: unsupported CAD: Yes - CAD on Problem List: Yes Is intended procedure a CABG: Yes - is a beta jeanette ordered? Yes H & P completed: Yes PA/LAT: Completed CT: Completed MRI: N/A LE US: N/A Cath: Yes - reviewed: Yes Echo:Completed EKG: Completed EF %: 71 PI's: N/A Carotid: N/A Mapping: N/A Dental: full dentures PFT's: Completed Recent Labs 08/02/15 1007 WBC 7.84 HB 12.5 HCT 37.7 PLT 218 INR 0.9 CREAT 1.04 UA: Neg 08/02/15 HCG:N/A ABO/ABO Confirmed: Yes Blood ordered: No SA Swab: Yes - results: Pending Last Dose of Anticoagulation: Aspirin 81 mg 07/27/15 Op Note: N/A Pacemaker Check: N/A Consults: pulmonary DM: No Cardiac Surgical prep: N/A SIGNATURE: Sydney Sandhu CNP CHECKED BY: martine DATE of SERVICE: 08/02/2015 TIME of SERVICE: 5:47 PM RE 2/22/16 Thoracoabdominal aortic aneurysm 07/31/2012 08/12/2015 Overview: 08/03/2015 TAAA repair, SA drain L4-5. SA drain removed 08/06/15 A/P: ASA daily Aortic aneurysm and dissection 07/02/2012 0 07/17/2016 Lung nodule 06/17/2012 08/12/2015 Osteoarthrosis, unspecified whether generalized or localized, lower leg 07/11/2011 09/05/2011 Knee pain 04/27/2011 05/27/2012 Abnormality of gait 04/27/2011 05/27/2012 Osteoarthritis, knee 04/19/2010 07/11/2011 Knee internal derangement 05/05/20092011 Pure hyperglyceridemia 04/29/2007 6 Overview: History: Home dose of lipitor is 40mg, ldl 79 preop Assessment: resumed postop Plan: continue same Tobacco use disorder 04/29/2007 02/06/2013 documented as of this encounter (statuses as of 02/27/2022) [facility]2018 History of Past illness Narrative* Problem Noted Date Resolved Date 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 Small right pleural effusion. 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 Rm. Assessment: on room air. CXR 10/17 - small left pleural effusion, Trace right pleural effusion is noted. mild bibasilar atelectasis. Plan: monitor. encourage ambulation. no diuresis as down 5.4 kg and post op Hypernatremia Severe protein-calorie malnutrition 10/14/2015 03/13/2016 Overview: History: Nutrition consult 10/12: weight loss >7.5% over 3 months; mild fat loss; moderate muscle loss; functional capacity regressed; potential micronutrient deficiency revealed in skin; wound dehiscence; ? surgical wound infection; anorexia; 10/13- poor oral intake, c/o nausea, abd pain/discomfort. KUB reviewed. possibly failure to thrive. Assessment: poor appetite since surgery in Jul per . appetite improved with addition of reglan with meals (has refused last 4 doses of reglan). B12 nml Plan: - continue regular diet for more food choices. supplements per patient preference; zone bar once daily; magic cup once daily; snacks higher in kcal and protein per patient preference; patient would likely benefit from enteral nutrition. Ensure clear added - continue bowel regimen, enc ambulation/oob - reglan tid with meals - labs ordered to check B levels as recom per Geriatric psych. Slow transit constipation 10/12/20152015 Overview: History: h/o constipation with nausea 10/13 c/o poor PO intake, nausea, abd pain/discomfort. + BS all 4 quads. KUB - multiple loops of nondilated air-filled bowel. Residual contrast is again seen throughout the colon and within several colonic diverticula. cottonseed enema given Assessment: + BS, +BM 10/19 Plan: - Bowel regimen - daily supp, colace, senna, miralax, prn lactulose. - cotton seed enema 10/14/2015 with results - encourage ambulation/oob Acute renal failure 10/11/2015 03/13/2016 Overview: History: Baseline 0.6-0.7 prior to recent admission Assessment: BUN 8, SCr 1.20 Plan: Renal evaluated. Renal dose meds. avoid nephrotoxic agents. Prevent hypotension. hold diuretics - was hypernatremic post op Wound dehiscence 10/06/2015 07/17/2016 Overview: History: 3 areas of wound dehiscence Wound culture growing GPCs - No Leukocytosis, tmax 37.1; Bld clt x1 possible contaminant. Treated with IV Zosyn and Vancomycin since 10/03. Assessment: s/p 10/15/15- by Plastic surgery: Excisional debridement left abdominal wound including skin and subcutaneous tissue 18cm x 6cm x 4cm Placement of negative pressure dressing abdomen 18cm x 6cm x 4cm Excisional debridement left lower quadrant wound 3cm x 1cm and 1cm x .5cm including skin and subcutaneous tissue\ 10/18/2015- wound VAC dsg changed by plastics today. Then dsg changes by floor RN. - tissue culture- no fungus; Anaerobe culture reviewed, negative at day 3; tissue clt & stain- Rare Staphylococcus epidermidis Plan: Plastic recom: LUQ - Cont NPWT at 75mmHg, bridge connection off the main wound, change M/W/F and irrigate with at least 1L NSS at change. LLQ/Groin - irrigate bid. Pack wet to moist bid with nss soaked amd gauze. dsd Nutrition following. F/u plastic surgery 3 weeks after d/c - Irene MOSQUERA ID signed off on 10/15 Troponin level elevated 09/15/2015 01/31/20 16 Overview: Have been higher in past marquez in Jul of this year No Chest pain and no sign of ischemia on EKG Last Trend 0.074 Cardiology consulted on 09/12, was seen by cardiothoracic surgery on 09/11, - no surgical intervention recommended 09/14/2015 ECHO - EF 65%.. No WMA. 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 10/19/2015- SBP 130s- 140s. 10/20/2015 BP 117- 140/50s- 60s Plan: - ASA, HR and BP control. Coreg 6.25 mg bid- uptitrate accordingly. - ECHO 10/10 - EF 55%, no pericardial effusion SUMMARY 08/12/2015 06/22/2021 Overview: Readmission on 10/05 for wound dehiscence LVEF: 55% RVF: Normal Cards: Den PMH/PSH: copd, ex-smoker, cad (60% RCA), htn, hpl, lung nodule Surgery: 08/03/2015 Repair of type 2 thoracoabdominal aortic aneurysm utilizing a 30-mm Gelweave graft along with a 28-mm Gelweave graft with a separate 10-mm branch to the left renal artery, cannulation of the left common femoral artery with an 8-mm graft, left atrial femoral bypass, moderate hypothermia, spinal drainage, intrathecal papaverine. Was discharged from [facility] on 08/14/15 to SNF. Was readmitted to from 09/12/15- 09/16/15 Surgery/Procedure Date: 10/15/2015 by Surgeon: Dr. Temi Bonilla Excisional debridement left abdominal wound including skin and subcutaneous tissue 18cm x 6cm x 4cm Placement of negative pressure dressing abdomen 18cm x 6cm x 4cm Excisional debridement left lower quadrant wound 3cm x 1cm and 1cm x .5cm including skin and subcutaneous tissue A/P: - s/p repair of TAAA - ASA, HR & BP management - Wound dehiscence - s/p 5/6 wound debridement & VAC. ID followed - No ATB at this time. - HTN SBP trending upwards (150s), continue Norvasc, Hydralazine weaned off, Coreg to 6.25 mg bid - SUNSHINE - SCr 1.20 - continue without diuretics. Renal evaluated post op. - Hypernatremia- Na 139- stable, D5W prn, monitor NA. improved oral intake - Pleural effusion- Chest was marked 10/11, no thoracentesis at that time per Dr Rm. monitor. CXR improved - Nausea- denies. po intake improving daily, reglan tid with meals. KUB 10/14- multiple loops of nondilated air-filled bowel, Residual contrast. +BS, +BM - Urinary retention, howard replaced 10/13. dc'd 10/17, voiding well. no residual urine after bladder scanned. + UTI- prelim UC +Ecoli, No ATBx tx indicated for positive urine culture, asymptomatic bacteriuria that likely represents colonization and not infection - mild cognitive impairment, no dementia- Eileen psych following. B12 wnl Dispo -from [place], [place]. PT recom SNF. CM following. DC to [facility] 10/20/2015- [facility] with wound VAC Hypervolemia 08/07/2015 01/31/2016 Overview: History: post-op FVO Assessment: up 3.4 Plan: increase to 40 IV TID, fluid restrict, monitor uop and renal function Thrombocytopenia 08/06/2015 08/07/2015 Overview: 08/06/2015 No signs of bleeding. Will need transfusion to discontinue spinal drain. Atelectasis 08/04/2015 07/17/2016 Overview: History: s/p TAAA repair Assessment: BIlateral atelectasis and pleural effusions requiring 2L O2, 3.4 kg above preop weight Plan: BPH & diuresis; u/s 3/2 with insufficient fluid for tap. Acute kidney injury 08/04/2015 01/31/2016 Overview: History: Pre-op creatinine normal though Epic shows intermittent elevations in her history Assessment: Postop creatinine peaked at 3.53, non-oliguric with excellent response to diuretics, nephrology following. BUN/creat 56/1.7 today Plan: Increase lasix to 40 IV TID and follow trends Pain, postoperative, acute 08/03/201501/30 Overview: History: s/p TAA repair Assessment: uncontrolled Plan: Add oxycontin 20 mg BID; Continue tylenol, prn oxycodone and ultram Q8 Postprocedural hypotension 08/03/201508/07 Overview: A/P: MAP goal 80-90 to preserve perfusion to spinal cord Pre-op testing 08/02/2015 08/10/2015 Overview: Images from the original note were not included. [facility] Surgeon: Luis Rm M.D. Informed Consent Completed: Yes STS Score: unsupported CAD: Yes - CAD on Problem List: Yes Is intended procedure a CABG: Yes - is a beta jeanette ordered? Yes H & P completed: Yes PA/LAT: Completed CT: Completed MRI: N/A LE US: N/A Cath: Yes - reviewed: Yes Echo:Completed EKG: Completed EF %: 71 PI's: N/A Carotid: N/A Mapping: N/A Dental: full dentures PFT's: Completed Recent Labs 08/02/15 1007 WBC 7.84 HB 12.5 HCT 37.7 PLT 218 INR 0.9 CREAT 1.04 UA: Neg 08/02/15 HCG:N/A ABO/ABO Confirmed: Yes Blood ordered: No SA Swab: Yes - results: Pending Last Dose of Anticoagulation: Aspirin 81 mg 07/27/15 Op Note: N/A Pacemaker Check: N/A Consults: pulmonary DM: No Cardiac Surgical prep: N/A SIGNATURE: Sydney Sandhu CNP CHECKED BY: martine DATE of SERVICE: 08/02/2015 TIME of SERVICE: 5:47 PM RE 08/02/15 Thoracoabdominal aortic aneurysm 07/31/2012 08/12/2015 Overview: 08/03/2015 TAAA repair, SA drain L4-5. SA drain removed 08/06/15 A/P: ASA daily Aortic aneurysm and dissection 07/02/2012 0 07/17/2016 Lung nodule 06/17/2012 08/12/2015 Osteoarthrosis, unspecified whether generalized or localized, lower leg 07/11/2011 09/05/2011 Knee pain 04/27/2011 05/27/2012 Abnormality of gait 04/27/2011 05/27/2012 Osteoarthritis, knee 04/19/2010 07/11/2011 Knee internal derangement 05/05/20092011 Pure hyperglyceridemia 04/29/2007 6 Overview: History: Home dose of lipitor is 40mg, ldl 79 preop Assessment: resumed postop Plan: continue same Tobacco use disorder 04/29/2007 02/06/2013 documented as of this encounter (statuses as of 04/21/2022) [facility] History of Past illness Narrative* Problem Noted Date Resolved Date 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 Small right pleural effusion. 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 Rm. Assessment: on room air. CXR 10/17 - small left pleural effusion, Trace right pleural effusion is noted. mild bibasilar atelectasis. Plan: monitor. encourage ambulation. no diuresis as down 5.4 kg and post op Hypernatremia Severe protein-calorie malnutrition 10/14/2015 03/13/2016 Overview: History: Nutrition consult 10/12: weight loss >7.5% over 3 months; mild fat loss; moderate muscle loss; functional capacity regressed; potential micronutrient deficiency revealed in skin; wound dehiscence; ? surgical wound infection; anorexia; 10/13- poor oral intake, c/o nausea, abd pain/discomfort. KUB reviewed. possibly failure to thrive. Assessment: poor appetite since surgery in Jul per . appetite improved with addition of reglan with meals (has refused last 4 doses of reglan). B12 nml Plan: - continue regular diet for more food choices. supplements per patient preference; zone bar once daily; magic cup once daily; snacks higher in kcal and protein per patient preference; patient would likely benefit from enteral nutrition. Ensure clear added - continue bowel regimen, enc ambulation/oob - reglan tid with meals - labs ordered to check B levels as recom per Geriatric psych. Slow transit constipation 10/12/20152015 Overview: History: h/o constipation with nausea 10/13 c/o poor PO intake, nausea, abd pain/discomfort. + BS all 4 quads. KUB - multiple loops of nondilated air-filled bowel. Residual contrast is again seen throughout the colon and within several colonic diverticula. cottonseed enema given Assessment: + BS, +BM 10/19 Plan: - Bowel regimen - daily supp, colace, senna, miralax, prn lactulose. - cotton seed enema 10/14/2015 with results - encourage ambulation/oob Acute renal failure 10/11/2015 03/13/2016 Overview: History: Baseline 0.6-0.7 prior to recent admission Assessment: BUN 8, SCr 1.20 Plan: Renal evaluated. Renal dose meds. avoid nephrotoxic agents. Prevent hypotension. hold diuretics - was hypernatremic post op Wound dehiscence 10/06/2015 07/17/2016 Overview: History: 3 areas of wound dehiscence Wound culture growing GPCs - No Leukocytosis, tmax 37.1; Bld clt x1 possible contaminant. Treated with IV Zosyn and Vancomycin since 10/03. Assessment: s/p 10/15/15- by Plastic surgery: Excisional debridement left abdominal wound including skin and subcutaneous tissue 18cm x 6cm x 4cm Placement of negative pressure dressing abdomen 18cm x 6cm x 4cm Excisional debridement left lower quadrant wound 3cm x 1cm and 1cm x .5cm including skin and subcutaneous tissue\ 10/18/2015- wound VAC dsg changed by plastics today. Then dsg changes by floor RN. - tissue culture- no fungus; Anaerobe culture reviewed, negative at day 3; tissue clt & stain- Rare Staphylococcus epidermidis Plan: Plastic recom: LUQ - Cont NPWT at 75mmHg, bridge connection off the main wound, change M/W/F and irrigate with at least 1L NSS at change. LLQ/Groin - irrigate bid. Pack wet to moist bid with nss soaked amd gauze. dsd Nutrition following. F/u plastic surgery 3 weeks after d/c - Irene MOSQUERA ID signed off on 10/15 Troponin level elevated 09/15/2015 01/31/20 16 Overview: Have been higher in past marquez in Jul of this year No Chest pain and no sign of ischemia on EKG Last Trend 0.074 Cardiology consulted on 09/12, was seen by cardiothoracic surgery on 09/11, - no surgical intervention recommended 09/14/2015 ECHO - EF 65%.. No WMA. 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 10/19/2015- SBP 130s- 140s. 10/20/2015 BP 117- 140/50s- 60s Plan: - ASA, HR and BP control. Coreg 6.25 mg bid- uptitrate accordingly. - ECHO 10/10 - EF 55%, no pericardial effusion SUMMARY 08/12/2015 06/22/2021 Overview: Readmission on 10/05 for wound dehiscence LVEF: 55% RVF: Normal Cards: Den PMH/PSH: copd, ex-smoker, cad (60% RCA), htn, hpl, lung nodule Surgery: 08/03/2015 Repair of type 2 thoracoabdominal aortic aneurysm utilizing a 30-mm Gelweave graft along with a 28-mm Gelweave graft with a separate 10-mm branch to the left renal artery, cannulation of the left common femoral artery with an 8-mm graft, left atrial femoral bypass, moderate hypothermia, spinal drainage, intrathecal papaverine. Was discharged from [facility] on 08/14/15 to SNF. Was readmitted to from 09/12/15- 09/16/15 Surgery/Procedure Date: 10/15/2015 by Surgeon: Dr. Temi Bonilla Excisional debridement left abdominal wound including skin and subcutaneous tissue 18cm x 6cm x 4cm Placement of negative pressure dressing abdomen 18cm x 6cm x 4cm Excisional debridement left lower quadrant wound 3cm x 1cm and 1cm x .5cm including skin and subcutaneous tissue A/P: - s/p repair of TAAA - ASA, HR & BP management - Wound dehiscence - s/p 5/6 wound debridement & VAC. ID followed - No ATB at this time. - HTN SBP trending upwards (150s), continue Norvasc, Hydralazine weaned off, Coreg to 6.25 mg bid - SUNSHINE - SCr 1.20 - continue without diuretics. Renal evaluated post op. - Hypernatremia- Na 139- stable, D5W prn, monitor NA. improved oral intake - Pleural effusion- Chest was marked 10/11, no thoracentesis at that time per Dr Rm. monitor. CXR improved - Nausea- denies. po intake improving daily, reglan tid with meals. KUB 10/14- multiple loops of nondilated air-filled bowel, Residual contrast. +BS, +BM - Urinary retention, howard replaced 10/13. dc'd 10/17, voiding well. no residual urine after bladder scanned. + UTI- prelim UC +Ecoli, No ATBx tx indicated for positive urine culture, asymptomatic bacteriuria that likely represents colonization and not infection - mild cognitive impairment, no dementia- Eileen psych following. B12 wnl Dispo -from [place], [place]. PT recom SNF. CM following. DC to SNF 10/20/2015- [facility] with wound VAC Hypervolemia 08/07/2015 01/31/2016 Overview: History: post-op FVO Assessment: up 3.4 Plan: increase to 40 IV TID, fluid restrict, monitor uop and renal function Thrombocytopenia 08/06/2015 08/07/2015 Overview: 08/06/2015 No signs of bleeding. Will need transfusion to discontinue spinal drain. Atelectasis 08/04/2015 07/17/2016 Overview: History: s/p TAAA repair Assessment: BIlateral atelectasis and pleural effusions requiring 2L O2, 3.4 kg above preop weight Plan: BPH & diuresis; u/s 3/2 with insufficient fluid for tap. Acute kidney injury 08/04/2015 01/31/2016 Overview: History: Pre-op creatinine normal though Epic shows intermittent elevations in her history Assessment: Postop creatinine peaked at 3.53, non-oliguric with excellent response to diuretics, nephrology following. BUN/creat 56/1.7 today Plan: Increase lasix to 40 IV TID and follow trends Pain, postoperative, acute 08/03/201501/30 Overview: History: s/p TAA repair Assessment: uncontrolled Plan: Add oxycontin 20 mg BID; Continue tylenol, prn oxycodone and ultram Q8 Postprocedural hypotension 08/03/201508/07 Overview: A/P: MAP goal 80-90 to preserve perfusion to spinal cord Pre-op testing 08/02/2015 08/10/2015 Overview: Images from the original note were not included. [facility] Surgeon: Luis Rm M.D. Informed Consent Completed: Yes STS Score: unsupported CAD: Yes - CAD on Problem List: Yes Is intended procedure a CABG: Yes - is a beta jeanette ordered? Yes H & P completed: Yes PA/LAT: Completed CT: Completed MRI: N/A LE US: N/A Cath: Yes - reviewed: Yes Echo:Completed EKG: Completed EF %: 71 PI's: N/A Carotid: N/A Mapping: N/A Dental: full dentures PFT's: Completed Recent Labs 08/02/15 1007 WBC 7.84 HB 12.5 HCT 37.7 PLT 218 INR 0.9 CREAT 1.04 UA: Neg 08/02/15 HCG:N/A ABO/ABO Confirmed: Yes Blood ordered: No SA Swab: Yes - results: Pending Last Dose of Anticoagulation: Aspirin 81 mg 07/27/15 Op Note: N/A Pacemaker Check: N/A Consults: pulmonary DM: No Cardiac Surgical prep: N/A SIGNATURE: Sydney Sandhu CNP CHECKED BY: martine DATE of SERVICE: 08/02/2015 TIME of SERVICE: 5:47 PM RE 08/02/15 Thoracoabdominal aortic aneurysm 07/31/2012 08/12/2015 Overview: 08/03/2015 TAAA repair, SA drain L4-5. SA drain removed 08/06/15 A/P: ASA daily Aortic aneurysm and dissection 07/02/2012 0 07/17/2016 Lung nodule 06/17/2012 08/12/2015 Osteoarthrosis, unspecified whether generalized or localized, lower leg 07/11/2011 09/05/2011 Knee pain 04/27/2011 05/27/2012 Abnormality of gait 04/27/2011 05/27/2012 Osteoarthritis, knee 04/19/2010 07/11/2011 Knee internal derangement 05/05/20092011 Pure hyperglyceridemia 04/29/2007 6 Overview: History: Home dose of lipitor is 40mg, ldl 79 preop Assessment: resumed postop Plan: continue same Tobacco use disorder 04/29/2007 02/06/2013 documented as of this encounter (statuses as of 07/07/2022) [facility]07-30-2018 History of Past illness Narrative* Problem Noted Date Resolved Date 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 Small right pleural effusion. 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 Rm. Assessment: on room air. CXR 10/17 - small left pleural effusion, Trace right pleural effusion is noted. mild bibasilar atelectasis. Plan: monitor. encourage ambulation. no diuresis as down 5.4 kg and post op Hypernatremia Severe protein-calorie malnutrition 10/14/2015 03/13/2016 Overview: History: Nutrition consult 10/12: weight loss >7.5% over 3 months; mild fat loss; moderate muscle loss; functional capacity regressed; potential micronutrient deficiency revealed in skin; wound dehiscence; ? surgical wound infection; anorexia; 10/13- poor oral intake, c/o nausea, abd pain/discomfort. KUB reviewed. possibly failure to thrive. Assessment: poor appetite since surgery in Jul per . appetite improved with addition of reglan with meals (has refused last 4 doses of reglan). B12 nml Plan: - continue regular diet for more food choices. supplements per patient preference; zone bar once daily; magic cup once daily; snacks higher in kcal and protein per patient preference; patient would likely benefit from enteral nutrition. Ensure clear added - continue bowel regimen, enc ambulation/oob - reglan tid with meals - labs ordered to check B levels as recom per Geriatric psych. Slow transit constipation 10/12/20152015 Overview: History: h/o constipation with nausea 10/13 c/o poor PO intake, nausea, abd pain/discomfort. + BS all 4 quads. KUB - multiple loops of nondilated air-filled bowel. Residual contrast is again seen throughout the colon and within several colonic diverticula. cottonseed enema given Assessment: + BS, +BM 10/19 Plan: - Bowel regimen - daily supp, colace, senna, miralax, prn lactulose. - cotton seed enema 10/14/2015 with results - encourage ambulation/oob Acute renal failure 10/11/2015 03/13/2016 Overview: History: Baseline 0.6-0.7 prior to recent admission Assessment: BUN 8, SCr 1.20 Plan: Renal evaluated. Renal dose meds. avoid nephrotoxic agents. Prevent hypotension. hold diuretics - was hypernatremic post op Wound dehiscence 10/06/2015 07/17/2016 Overview: History: 3 areas of wound dehiscence Wound culture growing GPCs - No Leukocytosis, tmax 37.1; Bld clt x1 possible contaminant. Treated with IV Zosyn and Vancomycin since 10/03. Assessment: s/p 10/15/15- by Plastic surgery: Excisional debridement left abdominal wound including skin and subcutaneous tissue 18cm x 6cm x 4cm Placement of negative pressure dressing abdomen 18cm x 6cm x 4cm Excisional debridement left lower quadrant wound 3cm x 1cm and 1cm x .5cm including skin and subcutaneous tissue\ 10/18/2015- wound VAC dsg changed by plastics today. Then dsg changes by floor RN. - tissue culture- no fungus; Anaerobe culture reviewed, negative at day 3; tissue clt & stain- Rare Staphylococcus epidermidis Plan: Plastic recom: LUQ - Cont NPWT at 75mmHg, bridge connection off the main wound, change M/W/F and irrigate with at least 1L NSS at change. LLQ/Groin - irrigate bid. Pack wet to moist bid with nss soaked amd gauze. dsd Nutrition following. F/u plastic surgery 3 weeks after d/c - Irene MOSQUERA ID signed off on 10/15 Troponin level elevated 09/15/2015 01/31/20 16 Overview: Have been higher in past marquez in Feb of this year No Chest pain and no sign of ischemia on EKG Last Trend 0.074 Cardiology consulted on 09/12, was seen by cardiothoracic surgery on 09/11, - no surgical intervention recommended 09/14/2015 ECHO - EF 65%.. No WMA. 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 10/19/2015- SBP 130s- 140s. 10/20/2015 BP 117- 140/50s- 60s Plan: - ASA, HR and BP control. Coreg 6.25 mg bid- uptitrate accordingly. - ECHO 10/10 - EF 55%, no pericardial effusion SUMMARY 08/12/2015 06/22/2021 Overview: Readmission on 10/05 for wound dehiscence LVEF: 55% RVF: Normal Cards: Den PMH/PSH: copd, ex-smoker, cad (60% RCA), htn, hpl, lung nodule Surgery: 08/03/2015 Repair of type 2 thoracoabdominal aortic aneurysm utilizing a 30-mm Gelweave graft along with a 28-mm Gelweave graft with a separate 10-mm branch to the left renal artery, cannulation of the left common femoral artery with an 8-mm graft, left atrial femoral bypass, moderate hypothermia, spinal drainage, intrathecal papaverine. Was discharged from [facility] on 08/14/15 to SNF. Was readmitted to from 09/12/15- 09/16/15 Surgery/Procedure Date: 10/15/2015 by Surgeon: Dr. Temi Bonilla Excisional debridement left abdominal wound including skin and subcutaneous tissue 18cm x 6cm x 4cm Placement of negative pressure dressing abdomen 18cm x 6cm x 4cm Excisional debridement left lower quadrant wound 3cm x 1cm and 1cm x .5cm including skin and subcutaneous tissue A/P: - s/p repair of TAAA - ASA, HR & BP management - Wound dehiscence - s/p 5/6 wound debridement & VAC. ID followed - No ATB at this time. - HTN SBP trending upwards (150s), continue Norvasc, Hydralazine weaned off, Coreg to 6.25 mg bid - SUNSHINE - SCr 1.20 - continue without diuretics. Renal evaluated post op. - Hypernatremia- Na 139- stable, D5W prn, monitor NA. improved oral intake - Pleural effusion- Chest was marked 10/11, no thoracentesis at that time per Dr Rm. monitor. CXR improved - Nausea- denies. po intake improving daily, reglan tid with meals. KUB 10/14- multiple loops of nondilated air-filled bowel, Residual contrast. +BS, +BM - Urinary retention, howard replaced 10/13. dc'd 10/17, voiding well. no residual urine after bladder scanned. + UTI- prelim UC +Ecoli, No ATBx tx indicated for positive urine culture, asymptomatic bacteriuria that likely represents colonization and not infection - mild cognitive impairment, no dementia- Eileen psych following. B12 wnl Dispo -from [place], [place]. PT recom SNF. CM following. DC to SNF 10/20/2015- [facility] with wound VAC Hypervolemia 08/07/2015 01/31/2016 Overview: History: post-op FVO Assessment: up 3.4 Plan: increase to 40 IV TID, fluid restrict, monitor uop and renal function Thrombocytopenia 08/06/2015 08/07/2015 Overview: 08/06/2015 No signs of bleeding. Will need transfusion to discontinue spinal drain. Atelectasis 08/04/2015 07/17/2016 Overview: History: s/p TAAA repair Assessment: BIlateral atelectasis and pleural effusions requiring 2L O2, 3.4 kg above preop weight Plan: BPH & diuresis; u/s / with insufficient fluid for tap. Acute kidney injury 08/04/2015 01/31/2016 Overview: History: Pre-op creatinine normal though Epic shows intermittent elevations in her history Assessment: Postop creatinine peaked at 3.53, non-oliguric with excellent response to diuretics, nephrology following. BUN/creat 56/1.7 today Plan: Increase lasix to 40 IV TID and follow trends Pain, postoperative, acute 08/03/201501/30 Overview: History: s/p TAA repair Assessment: uncontrolled Plan: Add oxycontin 20 mg BID; Continue tylenol, prn oxycodone and ultram Q8 Postprocedural hypotension 08/03/201508/07 Overview: A/P: MAP goal 80-90 to preserve perfusion to spinal cord Pre-op testing 08/02/2015 08/10/2015 Overview: Images from the original note were not included. [facility] Surgeon: Luis Rm M.D. Informed Consent Completed: Yes STS Score: unsupported CAD: Yes - CAD on Problem List: Yes Is intended procedure a CABG: Yes - is a beta jeanette ordered? Yes H & P completed: Yes PA/LAT: Completed CT: Completed MRI: N/A LE US: N/A Cath: Yes - reviewed: Yes Echo:Completed EKG: Completed EF %: 71 PI's: N/A Carotid: N/A Mapping: N/A Dental: full dentures PFT's: Completed Recent Labs 08/02/15 1007 WBC 7.84 HB 12.5 HCT 37.7 PLT 218 INR 0.9 CREAT 1.04 UA: Neg 08/02/15 HCG:N/A ABO/ABO Confirmed: Yes Blood ordered: No SA Swab: Yes - results: Pending Last Dose of Anticoagulation: Aspirin 81 mg 07/27/15 Op Note: N/A Pacemaker Check: N/A Consults: pulmonary DM: No Cardiac Surgical prep: N/A SIGNATURE: Sydney Sandhu CNP CHECKED BY: martine DATE of SERVICE: 08/02/2015 TIME of SERVICE: 5:47 PM RE 08/02/15 Thoracoabdominal aortic aneurysm 07/31/2012 08/12/2015 Overview: 08/03/2015 TAAA repair, SA drain L4-5. SA drain removed 08/06/15 A/P: ASA daily Aortic aneurysm and dissection 07/02/2012 0 07/17/2016 Lung nodule 06/17/2012 08/12/2015 Osteoarthrosis, unspecified whether generalized or localized, lower leg 07/11/2011 09/05/2011 Knee pain 04/27/2011 05/27/2012 Abnormality of gait 04/27/2011 05/27/2012 Osteoarthritis, knee 04/19/2010 07/11/2011 Knee internal derangement 05/05/20092011 Pure hyperglyceridemia 04/29/2007 6 Overview: History: Home dose of lipitor is 40mg, ldl 79 preop Assessment: resumed postop Plan: continue same Tobacco use disorder 04/29/2007 02/06/2013 documented as of this encounter (statuses as of 11/23/2022) [facility]-30-[facility] History of Past illness Narrative* Problem Noted Date Resolved Date 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 Small right pleural effusion. 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 Rm. Assessment: on room air. CXR 10/17 - small left pleural effusion, Trace right pleural effusion is noted. mild bibasilar atelectasis. Plan: monitor. encourage ambulation. no diuresis as down 5.4 kg and post op Hypernatremia Severe protein-calorie malnutrition 10/14/2015 03/13/2016 Overview: History: Nutrition consult 10/12: weight loss >7.5% over 3 months; mild fat loss; moderate muscle loss; functional capacity regressed; potential micronutrient deficiency revealed in skin; wound dehiscence; ? surgical wound infection; anorexia; 10/13- poor oral intake, c/o nausea, abd pain/discomfort. KUB reviewed. possibly failure to thrive. Assessment: poor appetite since surgery in Jul per . appetite improved with addition of reglan with meals (has refused last 4 doses of reglan). B12 nml Plan: - continue regular diet for more food choices. supplements per patient preference; zone bar once daily; magic cup once daily; snacks higher in kcal and protein per patient preference; patient would likely benefit from enteral nutrition. Ensure clear added - continue bowel regimen, enc ambulation/oob - reglan tid with meals - labs ordered to check B levels as recom per Geriatric psych. Slow transit constipation 10/12/20152015 Overview: History: h/o constipation with nausea 10/13 c/o poor PO intake, nausea, abd pain/discomfort. + BS all 4 quads. KUB - multiple loops of nondilated air-filled bowel. Residual contrast is again seen throughout the colon and within several colonic diverticula. cottonseed enema given Assessment: + BS, +BM 10/19 Plan: - Bowel regimen - daily supp, colace, senna, miralax, prn lactulose. - cotton seed enema 10/14/2015 with results - encourage ambulation/oob Acute renal failure 10/11/2015 03/13/2016 Overview: History: Baseline 0.6-0.7 prior to recent admission Assessment: BUN 8, SCr 1.20 Plan: Renal evaluated. Renal dose meds. avoid nephrotoxic agents. Prevent hypotension. hold diuretics - was hypernatremic post op Wound dehiscence 10/06/2015 07/17/2016 Overview: History: 3 areas of wound dehiscence Wound culture growing GPCs - No Leukocytosis, tmax 37.1; Bld clt x1 possible contaminant. Treated with IV Zosyn and Vancomycin since 10/03. Assessment: s/p 10/15/15- by Plastic surgery: Excisional debridement left abdominal wound including skin and subcutaneous tissue 18cm x 6cm x 4cm Placement of negative pressure dressing abdomen 18cm x 6cm x 4cm Excisional debridement left lower quadrant wound 3cm x 1cm and 1cm x .5cm including skin and subcutaneous tissue\ 10/18/2015- wound VAC dsg changed by plastics today. Then dsg changes by floor RN. - tissue culture- no fungus; Anaerobe culture reviewed, negative at day 3; tissue clt & stain- Rare Staphylococcus epidermidis Plan: Plastic recom: LUQ - Cont NPWT at 75mmHg, bridge connection off the main wound, change M/W/F and irrigate with at least 1L NSS at change. LLQ/Groin - irrigate bid. Pack wet to moist bid with nss soaked amd gauze. dsd Nutrition following. F/u plastic surgery 3 weeks after d/c - Irene MOSQUERA ID signed off on 10/15 Troponin level elevated 09/15/2015 01/31/20 16 Overview: Have been higher in past marquez in Jul of this year No Chest pain and no sign of ischemia on EKG Last Trend 0.074 Cardiology consulted on 09/12, was seen by cardiothoracic surgery on 09/11, - no surgical intervention recommended 09/14/2015 ECHO - EF 65%.. No WMA. 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 10/19/2015- SBP 130s- 140s. 10/20/2015 BP 117- 140/50s- 60s Plan: - ASA, HR and BP control. Coreg 6.25 mg bid- uptitrate accordingly. - ECHO 10/10 - EF 55%, no pericardial effusion SUMMARY 08/12/2015 06/22/2021 Overview: Readmission on 10/05 for wound dehiscence LVEF: 55% RVF: Normal Cards: Den PMH/PSH: copd, ex-smoker, cad (60% RCA), htn, hpl, lung nodule Surgery: 08/03/2015 Repair of type 2 thoracoabdominal aortic aneurysm utilizing a 30-mm Gelweave graft along with a 28-mm Gelweave graft with a separate 10-mm branch to the left renal artery, cannulation of the left common femoral artery with an 8-mm graft, left atrial femoral bypass, moderate hypothermia, spinal drainage, intrathecal papaverine. Was discharged from [facility] on 08/14/15 to SNF. Was readmitted to from 09/12/15- 09/16/15 Surgery/Procedure Date: 10/15/2015 by Surgeon: Dr. Temi Bonilla Excisional debridement left abdominal wound including skin and subcutaneous tissue 18cm x 6cm x 4cm Placement of negative pressure dressing abdomen 18cm x 6cm x 4cm Excisional debridement left lower quadrant wound 3cm x 1cm and 1cm x .5cm including skin and subcutaneous tissue A/P: - s/p repair of TAAA - ASA, HR & BP management - Wound dehiscence - s/p 5/6 wound debridement & VAC. ID followed - No ATB at this time. - HTN SBP trending upwards (150s), continue Norvasc, Hydralazine weaned off, Coreg to 6.25 mg bid - SUNSHINE - SCr 1.20 - continue without diuretics. Renal evaluated post op. - Hypernatremia- Na 139- stable, D5W prn, monitor NA. improved oral intake - Pleural effusion- Chest was marked 10/11, no thoracentesis at that time per Dr Rm. monitor. CXR improved - Nausea- denies. po intake improving daily, reglan tid with meals. KUB 10/14- multiple loops of nondilated air-filled bowel, Residual contrast. +BS, +BM - Urinary retention, howard replaced 10/13. dc'd 10/17, voiding well. no residual urine after bladder scanned. + UTI- prelim UC +Ecoli, No ATBx tx indicated for positive urine culture, asymptomatic bacteriuria that likely represents colonization and not infection - mild cognitive impairment, no dementia- Eileen psych following. B12 wnl Dispo -from [place], [place]. PT recom SNF. CM following. DC to [facility] 10/20/2015- [facility] with wound VAC Hypervolemia 08/07/2015 01/31/2016 Overview: History: post-op FVO Assessment: up 3.4 Plan: increase to 40 IV TID, fluid restrict, monitor uop and renal function Thrombocytopenia 08/06/2015 08/07/2015 Overview: 08/06/2015 No signs of bleeding. Will need transfusion to discontinue spinal drain. Atelectasis 08/04/2015 07/17/2016 Overview: History: s/p TAAA repair Assessment: BIlateral atelectasis and pleural effusions requiring 2L O2, 3.4 kg above preop weight Plan: BPH & diuresis; u/s 3 with insufficient fluid for tap. Acute kidney injury 08/04/2015 01/31/2016 Overview: History: Pre-op creatinine normal though Epic shows intermittent elevations in her history Assessment: Postop creatinine peaked at 3.53, non-oliguric with excellent response to diuretics, nephrology following. BUN/creat 56/1.7 today Plan: Increase lasix to 40 IV TID and follow trends Pain, postoperative, acute 08/03/201501/30 Overview: History: s/p TAA repair Assessment: uncontrolled Plan: Add oxycontin 20 mg BID; Continue tylenol, prn oxycodone and ultram Q8 Postprocedural hypotension 08/03/201508/07 Overview: A/P: MAP goal 80-90 to preserve perfusion to spinal cord Pre-op testing 08/02/2015 08/10/2015 Overview: Images from the original note were not included. [facility] Surgeon: Luis Rm M.D. Informed Consent Completed: Yes STS Score: unsupported CAD: Yes - CAD on Problem List: Yes Is intended procedure a CABG: Yes - is a beta jeanette ordered? Yes H & P completed: Yes PA/LAT: Completed CT: Completed MRI: N/A LE US: N/A Cath: Yes - reviewed: Yes Echo:Completed EKG: Completed EF %: 71 PI's: N/A Carotid: N/A Mapping: N/A Dental: full dentures PFT's: Completed Recent Labs 08/02/15 1007 WBC 7.84 HB 12.5 HCT 37.7 PLT 218 INR 0.9 CREAT 1.04 UA: Neg 08/02/15 HCG:N/A ABO/ABO Confirmed: Yes Blood ordered: No SA Swab: Yes - results: Pending Last Dose of Anticoagulation: Aspirin 81 mg 07/27/15 Op Note: N/A Pacemaker Check: N/A Consults: pulmonary DM: No Cardiac Surgical prep: N/A SIGNATURE: Sydney Sandhu CNP CHECKED BY: martine DATE of SERVICE: 08/02/2015 TIME of SERVICE: 5:47 PM RE 08/02/15 Thoracoabdominal aortic aneurysm 07/31/2012 08/12/2015 Overview: 08/03/2015 TAAA repair, SA drain L4-5. SA drain removed 08/06/15 A/P: ASA daily Aortic aneurysm and dissection 07/02/2012 0 07/17/2016 Lung nodule 06/17/2012 08/12/2015 Osteoarthrosis, unspecified whether generalized or localized, lower leg 07/11/2011 09/05/2011 Knee pain 04/27/2011 05/27/2012 Abnormality of gait 04/27/2011 05/27/2012 Osteoarthritis, knee 04/19/2010 07/11/2011 Knee internal derangement 05/05/20092011 Pure hyperglyceridemia 04/29/2007 6 Overview: History: Home dose of lipitor is 40mg, ldl 79 preop Assessment: resumed postop Plan: continue same Tobacco use disorder 04/29/2007 02/06/2013 documented as of this encounter (statuses as of 12/04/2022) [facility]07-[facility]-2018 History of Past illness Narrative* Problem Noted Date Diagnosed Date Resolved Date 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 Small right pleural effusion. 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 Rm. Assessment: on room air. CXR 10/17 - small left pleural effusion, Trace right pleural effusion is noted. mild bibasilar atelectasis. Plan: monitor. encourage ambulation. no diuresis as down 5.4 kg and post op Hypernatremia Severe protein-calorie malnutrition 10/14/2015 03/13/2016 Overview: History: Nutrition consult 10/12: weight loss >7.5% over 3 months; mild fat loss; moderate muscle loss; functional capacity regressed; potential micronutrient deficiency revealed in skin; wound dehiscence; ? surgical wound infection; anorexia; 10/13- poor oral intake, c/o nausea, abd pain/discomfort. KUB reviewed. possibly failure to thrive. Assessment: poor appetite since surgery in Jul per . appetite improved with addition of reglan with meals (has refused last 4 doses of reglan). B12 nml Plan: - continue regular diet for more food choices. supplements per patient preference; zone bar once daily; magic cup once daily; snacks higher in kcal and protein per patient preference; patient would likely benefit from enteral nutrition. Ensure clear added - continue bowel regimen, enc ambulation/oob - reglan tid with meals - labs ordered to check B levels as recom per Geriatric psych. Slow transit constipation 10/12/2015 Overview: History: h/o constipation with nausea 10/13 c/o poor PO intake, nausea, abd pain/discomfort. + BS all 4 quads. KUB - multiple loops of nondilated air-filled bowel. Residual contrast is again seen throughout the colon and within several colonic diverticula. cottonseed enema given Assessment: + BS, +BM 10/19 Plan: - Bowel regimen - daily supp, colace, senna, miralax, prn lactulose. - cotton seed enema 10/14/2015 with results - encourage ambulation/oob Acute renal failure 10/11/2015 03/13/20 16 Overview: History: Baseline 0.6-0.7 prior to recent admission Assessment: BUN 8, SCr 1.20 Plan: Renal evaluated. Renal dose meds. avoid nephrotoxic agents. Prevent hypotension. hold diuretics - was hypernatremic post op Wound dehiscence 10/06/2015 07/17/2016 Overview: History: 3 areas of wound dehiscence Wound culture growing GPCs - No Leukocytosis, tmax 37.1; Bld clt x1 possible contaminant. Treated with IV Zosyn and Vancomycin since 10/03. Assessment: s/p 10/15/15- by Plastic surgery: Excisional debridement left abdominal wound including skin and subcutaneous tissue 18cm x 6cm x 4cm Placement of negative pressure dressing abdomen 18cm x 6cm x 4cm Excisional debridement left lower quadrant wound 3cm x 1cm and 1cm x .5cm including skin and subcutaneous tissue\ 10/18/2015- wound VAC dsg changed by plastics today. Then dsg changes by floor RN. - tissue culture- no fungus; Anaerobe culture reviewed, negative at day 3; tissue clt & stain- Rare Staphylococcus epidermidis Plan: Plastic recom: LUQ - Cont NPWT at 75mmHg, bridge connection off the main wound, change M/W/F and irrigate with at least 1L NSS at change. LLQ/Groin - irrigate bid. Pack wet to moist bid with nss soaked amd gauze. dsd Nutrition following. F/u plastic surgery 3 weeks after d/c - Irene MOSQUERA ID signed off on 10/15 Troponin level elevated 09/15/201501/10 Overview: Have been higher in past marquez in Jul of this year No Chest pain and no sign of ischemia on EKG Last Trend 0.074 Cardiology consulted on 09/12, was seen by cardiothoracic surgery on 09/11, - no surgical intervention recommended 09/14/2015 ECHO - EF 65%.. No WMA. Follow clinically 09/14/2015 SOB (shortness of breath) 09/13/2015 Overview: Improved Anorexia 09/12/2015 01/31/2016 Overview: - Likely secondary to deconditioning - No overt e/o infection - UA, urine culture, blood culture- negative - No significant metabolic derangements or significant anemia; - TSH normal 0.834 - Minimize polypharmacy, use of opioids - Nutrition consult, Supplements ordered - Depression screening -ve - Modified diet to 4gram NA healthy heart to increase dietary options Thoracoabdominal aortic aneu rysm, without rupture 09/12/2015 07/17/2016 Overview: History: Type 2 thoracoabdominal aneurysm Assessment: s/p 08/03/15 Repair of type 2 thoracoabdominal aortic aneurysm utilizing a 30-mm Gelweave graft along with a 28-mm Gelweave graft with a separate 10-mm branch to the left renal artery, cannulation of the left common femoral artery with an 8-mm graft, left atrial femoral bypass, moderate hypothermia, spinal drainage, intrathecal papaverine. 10/19/2015- SBP 130s- 140s. 10/20/2015 BP 117- 140/50s- 60s Plan: - ASA, HR and BP control. Coreg 6.25 mg bid- uptitrate accordingly. - ECHO 10/10 - EF 55%, no pericardial effusion SUMMARY 08/12/2015 06/22/2021 Overview: Readmission on 10/05 for wound dehiscence LVEF: 55% RVF: Normal Cards: Den PMH/PSH: copd, ex-smoker, cad (60% RCA), htn, hpl, lung nodule Surgery: 08/03/2015 Repair of type 2 thoracoabdominal aortic aneurysm utilizing a 30-mm Gelweave graft along with a 28-mm Gelweave graft with a separate 10-mm branch to the left renal artery, cannulation of the left common femoral artery with an 8-mm graft, left atrial femoral bypass, moderate hypothermia, spinal drainage, intrathecal papaverine. Was discharged from [facility] on 08/14/15 to SNF. Was readmitted to from 09/12/15- 09/16/15 Surgery/Procedure Date: 10/15/2015 by Surgeon: Dr. Temi Bonilla Excisional debridement left abdominal wound including skin and subcutaneous tissue 18cm x 6cm x 4cm Placement of negative pressure dressing abdomen 18cm x 6cm x 4cm Excisional debridement left lower quadrant wound 3cm x 1cm and 1cm x .5cm including skin and subcutaneous tissue A/P: - s/p repair of TAAA - ASA, HR & BP management - Wound dehiscence - s/p 5/6 wound debridement & VAC. ID followed - No ATB at this time. - HTN SBP trending upwards (150s), continue Norvasc, Hydralazine weaned off, Coreg to 6.25 mg bid - SUNSHINE - SCr 1.20 - continue without diuretics. Renal evaluated post op. - Hypernatremia- Na 139- stable, D5W prn, monitor NA. improved oral intake - Pleural effusion- Chest was marked 10/11, no thoracentesis at that time per Dr Rm. monitor. CXR improved - Nausea- denies. po intake improving daily, reglan tid with meals. KUB 10/14- multiple loops of nondilated air-filled bowel, Residual contrast. +BS, +BM - Urinary retention, howard replaced 10/13. dc'd 10/17, voiding well. no residual urine after bladder scanned. + UTI- prelim UC +Ecoli, No ATBx tx indicated for positive urine culture, asymptomatic bacteriuria that likely represents colonization and not infection - mild cognitive impairment, no dementia- Eileen psych following. B12 wnl Dispo -from [place], [place]. PT recom SNF. CM following. DC to SNF 10/20/2015- [facility] with wound VAC Hypervolemia 08/07/2015 01/31/2016 Overview: History: post-op FVO Assessment: up 3.4 Plan: increase to 40 IV TID, fluid restrict, monitor uop and renal function Thrombocytopenia 08/06/2015 08/07/2015 Overview: 08/06/2015 No signs of bleeding. Will need transfusion to discontinue spinal drain. Atelectasis 08/04/2015 07/17/2016 Overview: History: s/p TAAA repair Assessment: BIlateral atelectasis and pleural effusions requiring 2L O2, 3.4 kg above preop weight Plan: BPH & diuresis; u/s 3/2 with insufficient fluid for tap. Acute kidney injury 08/04/2015 01/31/20 16 Overview: History: Pre-op creatinine normal though Epic shows intermittent elevations in her history Assessment: Postop creatinine peaked at 3.53, non-oliguric with excellent response to diuretics, nephrology following. BUN/creat 56/1.7 today Plan: Increase lasix to 40 IV TID and follow trends Pain, postoperative, acute 08/03/2015 0 01/31/2016 Overview: History: s/p TAA repair Assessment: uncontrolled Plan: Add oxycontin 20 mg BID; Continue tylenol, prn oxycodone and ultram Q8 Postprocedural hypotension 08/03/2015 0 08/07/2015 Overview: A/P: MAP goal 80-90 to preserve perfusion to spinal cord Pre-op testing 08/02/2015 08/10/2015 Overview: Images from the original note were not included. [facility] Surgeon: Luis Rm M.D. Informed Consent Completed: Yes STS Score: unsupported CAD: Yes - CAD on Problem List: Yes Is intended procedure a CABG: Yes - is a beta jeanette ordered? Yes H & P completed: Yes PA/LAT: Completed CT: Completed MRI: N/A LE US: N/A Cath: Yes - reviewed: Yes Echo:Completed EKG: Completed EF %: 71 PI's: N/A Carotid: N/A Mapping: N/A Dental: full dentures PFT's: Completed Recent Labs 08/02/15 1007 WBC 7.84 HB 12.5 HCT 37.7 PLT 218 INR 0.9 CREAT 1.04 UA: Neg 08/02/15 HCG:N/A ABO/ABO Confirmed: Yes Blood ordered: No SA Swab: Yes - results: Pending Last Dose of Anticoagulation: Aspirin 81 mg 07/27/15 Op Note: N/A Pacemaker Check: N/A Consults: pulmonary DM: No Cardiac Surgical prep: N/A SIGNATURE: Sydney Sandhu CNP CHECKED BY: martine DATE of SERVICE: 08/02/2015 TIME of SERVICE: 5:47 PM RE 08/02/15 Thoracoabdominal aortic aneurysm 07/31/2012 08/12/2015 Overview: 08/03/2015 TAAA repair, SA drain L4-5. SA drain removed 08/06/15 A/P: ASA daily Aortic aneurysm and dissection 07/02/2012 07/17/2016 Lung nodule 06/17/2012 08/12/2015 Osteoarthrosis, unspecified whether generalized or localized, lower leg 07/11/201108/10 Knee pain 04/27/2011 05/27/2012 Abnormality of gait 04/27/2011 05/27/20 12 Osteoarthritis, knee 04/19/2010 012 Knee internal derangement 05/05/2009 Pure hyperglyceridemia 04/29/200708/11 Overview: History: Home dose of lipitor is 40mg, ldl 79 preop Assessment: resumed postop Plan: continue same Tobacco use disorder 04/29/2007 013 documented as of this encounter (statuses as of 01/05/2023) [facility]-2018 History of Past illness Narrative* Problem Noted Date Diagnosed Date Resolved Date 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 Small right pleural effusion. 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 Rm. Assessment: on room air. CXR 10/17 - small left pleural effusion, Trace right pleural effusion is noted. mild bibasilar atelectasis. Plan: monitor. encourage ambulation. no diuresis as down 5.4 kg and post op Hypernatremia Severe protein-calorie malnutrition 10/14/2015 03/13/2016 Overview: History: Nutrition consult 10/12: weight loss >7.5% over 3 months; mild fat loss; moderate muscle loss; functional capacity regressed; potential micronutrient deficiency revealed in skin; wound dehiscence; ? surgical wound infection; anorexia; 10/13- poor oral intake, c/o nausea, abd pain/discomfort. KUB reviewed. possibly failure to thrive. Assessment: poor appetite since surgery in Jul per . appetite improved with addition of reglan with meals (has refused last 4 doses of reglan). B12 nml Plan: - continue regular diet for more food choices. supplements per patient preference; zone bar once daily; magic cup once daily; snacks higher in kcal and protein per patient preference; patient would likely benefit from enteral nutrition. Ensure clear added - continue bowel regimen, enc ambulation/oob - reglan tid with meals - labs ordered to check B levels as recom per Geriatric psych. Slow transit constipation 10/12/2015 Overview: History: h/o constipation with nausea 10/13 c/o poor PO intake, nausea, abd pain/discomfort. + BS all 4 quads. KUB - multiple loops of nondilated air-filled bowel. Residual contrast is again seen throughout the colon and within several colonic diverticula. cottonseed enema given Assessment: + BS, +BM 10/19 Plan: - Bowel regimen - daily supp, colace, senna, miralax, prn lactulose. - cotton seed enema 10/14/2015 with results - encourage ambulation/oob Acute renal failure 10/11/2015 03/13/20 16 Overview: History: Baseline 0.6-0.7 prior to recent admission Assessment: BUN 8, SCr 1.20 Plan: Renal evaluated. Renal dose meds. avoid nephrotoxic agents. Prevent hypotension. hold diuretics - was hypernatremic post op Wound dehiscence 10/06/2015 07/17/2016 Overview: History: 3 areas of wound dehiscence Wound culture growing GPCs - No Leukocytosis, tmax 37.1; Bld clt x1 possible contaminant. Treated with IV Zosyn and Vancomycin since 10/03. Assessment: s/p 10/15/15- by Plastic surgery: Excisional debridement left abdominal wound including skin and subcutaneous tissue 18cm x 6cm x 4cm Placement of negative pressure dressing abdomen 18cm x 6cm x 4cm Excisional debridement left lower quadrant wound 3cm x 1cm and 1cm x .5cm including skin and subcutaneous tissue\ 10/18/2015- wound VAC dsg changed by plastics today. Then dsg changes by floor RN. - tissue culture- no fungus; Anaerobe culture reviewed, negative at day 3; tissue clt & stain- Rare Staphylococcus epidermidis Plan: Plastic recom: LUQ - Cont NPWT at 75mmHg, bridge connection off the main wound, change M/W/F and irrigate with at least 1L NSS at change. LLQ/Groin - irrigate bid. Pack wet to moist bid with nss soaked amd gauze. dsd Nutrition following. F/u plastic surgery 3 weeks after d/c - Irene MOSQUERA ID signed off on 10/15 Troponin level elevated 09/15/201501/10 Overview: Have been higher in past marquez in Jul of this year No Chest pain and no sign of ischemia on EKG Last Trend 0.074 Cardiology consulted on 09/12, was seen by cardiothoracic surgery on 09/11, - no surgical intervention recommended 09/14/2015 ECHO - EF 65%.. No WMA. Follow clinically 09/14/2015 SOB (shortness of breath) 09/13/2015 Overview: Improved Anorexia 09/12/2015 01/31/2016 Overview: - Likely secondary to deconditioning - No overt e/o infection - UA, urine culture, blood culture- negative - No significant metabolic derangements or significant anemia; - TSH normal 0.834 - Minimize polypharmacy, use of opioids - Nutrition consult, Supplements ordered - Depression screening -ve - Modified diet to 4gram NA healthy heart to increase dietary options Thoracoabdominal aortic aneu rysm, without rupture 09/12/2015 07/17/2016 Overview: History: Type 2 thoracoabdominal aneurysm Assessment: s/p 08/03/15 Repair of type 2 thoracoabdominal aortic aneurysm utilizing a 30-mm Gelweave graft along with a 28-mm Gelweave graft with a separate 10-mm branch to the left renal artery, cannulation of the left common femoral artery with an 8-mm graft, left atrial femoral bypass, moderate hypothermia, spinal drainage, intrathecal papaverine. 10/19/2015- SBP 130s- 140s. 10/20/2015 BP 117- 140/50s- 60s Plan: - ASA, HR and BP control. Coreg 6.25 mg bid- uptitrate accordingly. - ECHO 10/10 - EF 55%, no pericardial effusion SUMMARY 08/12/2015 06/22/2021 Overview: Readmission on 10/05 for wound dehiscence LVEF: 55% RVF: Normal Cards: Den PMH/PSH: copd, ex-smoker, cad (60% RCA), htn, hpl, lung nodule Surgery: 08/03/2015 Repair of type 2 thoracoabdominal aortic aneurysm utilizing a 30-mm Gelweave graft along with a 28-mm Gelweave graft with a separate 10-mm branch to the left renal artery, cannulation of the left common femoral artery with an 8-mm graft, left atrial femoral bypass, moderate hypothermia, spinal drainage, intrathecal papaverine. Was discharged from [facility] on 08/14/15 to SNF. Was readmitted to from 09/12/15- 09/16/15 Surgery/Procedure Date: 10/15/2015 by Surgeon: Dr. Temi Bonilla Excisional debridement left abdominal wound including skin and subcutaneous tissue 18cm x 6cm x 4cm Placement of negative pressure dressing abdomen 18cm x 6cm x 4cm Excisional debridement left lower quadrant wound 3cm x 1cm and 1cm x .5cm including skin and subcutaneous tissue A/P: - s/p repair of TAAA - ASA, HR & BP management - Wound dehiscence - s/p / wound debridement & VAC. ID followed - No ATB at this time. - HTN SBP trending upwards (150s), continue Norvasc, Hydralazine weaned off, Coreg to 6.25 mg bid - SUNSHINE - SCr 1.20 - continue without diuretics. Renal evaluated post op. - Hypernatremia- Na 139- stable, D5W prn, monitor NA. improved oral intake - Pleural effusion- Chest was marked 10/11, no thoracentesis at that time per Dr Rm. monitor. CXR improved - Nausea- denies. po intake improving daily, reglan tid with meals. KUB 10/14- multiple loops of nondilated air-filled bowel, Residual contrast. +BS, +BM - Urinary retention, howard replaced 10/13. dc'd 10/17, voiding well. no residual urine after bladder scanned. + UTI- prelim UC +Ecoli, No ATBx tx indicated for positive urine culture, asymptomatic bacteriuria that likely represents colonization and not infection - mild cognitive impairment, no dementia- Eileen psych following. B12 wnl Dispo -from [place], [place]. PT recom SNF. CM following. DC to SNF 10/20/2015- [facility] with wound VAC Hypervolemia 08/07/2015 01/31/2016 Overview: History: post-op FVO Assessment: up 3.4 Plan: increase to 40 IV TID, fluid restrict, monitor uop and renal function Thrombocytopenia 08/06/2015 08/07/2015 Overview: 08/06/2015 No signs of bleeding. Will need transfusion to discontinue spinal drain. Atelectasis 08/04/2015 07/17/2016 Overview: History: s/p TAAA repair Assessment: BIlateral atelectasis and pleural effusions requiring 2L O2, 3.4 kg above preop weight Plan: BPH & diuresis; u/s 3/2 with insufficient fluid for tap. Acute kidney injury 08/04/2015 01/31/20 16 Overview: History: Pre-op creatinine normal though Epic shows intermittent elevations in her history Assessment: Postop creatinine peaked at 3.53, non-oliguric with excellent response to diuretics, nephrology following. BUN/creat 56/1.7 today Plan: Increase lasix to 40 IV TID and follow trends Pain, postoperative, acute 08/03/2015 0 01/31/2016 Overview: History: s/p TAA repair Assessment: uncontrolled Plan: Add oxycontin 20 mg BID; Continue tylenol, prn oxycodone and ultram Q8 Postprocedural hypotension 08/03/2015 0 08/07/2015 Overview: A/P: MAP goal 80-90 to preserve perfusion to spinal cord Pre-op testing 08/02/2015 08/10/2015 Overview: Images from the original note were not included. [facility] Surgeon: Luis Rm M.D. Informed Consent Completed: Yes STS Score: unsupported CAD: Yes - CAD on Problem List: Yes Is intended procedure a CABG: Yes - is a beta jeanette ordered? Yes H & P completed: Yes PA/LAT: Completed CT: Completed MRI: N/A LE US: N/A Cath: Yes - reviewed: Yes Echo:Completed EKG: Completed EF %: 71 PI's: N/A Carotid: N/A Mapping: N/A Dental: full dentures PFT's: Completed Recent Labs 08/02/15 1007 WBC 7.84 HB 12.5 HCT 37.7 PLT 218 INR 0.9 CREAT 1.04 UA: Neg 08/02/15 HCG:N/A ABO/ABO Confirmed: Yes Blood ordered: No SA Swab: Yes - results: Pending Last Dose of Anticoagulation: Aspirin 81 mg 07/27/15 Op Note: N/A Pacemaker Check: N/A Consults: pulmonary DM: No Cardiac Surgical prep: N/A SIGNATURE: Sydney Sandhu CNP CHECKED BY: martine DATE of SERVICE: 08/02/2015 TIME of SERVICE: 5:47 PM RE 08/02/15 Thoracoabdominal aortic aneurysm 07/31/2012 08/12/2015 Overview: 08/03/2015 TAAA repair, SA drain L4-5. SA drain removed 08/06/15 A/P: ASA daily Aortic aneurysm and dissection 07/02/2012 07/17/2016 Lung nodule 06/17/2012 08/12/2015 Osteoarthrosis, unspecified whether generalized or localized, lower leg 07/11/201108/10 Knee pain 04/27/2011 05/27/2012 Abnormality of gait 04/27/2011 05/27/20 12 Osteoarthritis, knee 04/19/2010 012 Knee internal derangement 05/05/2009 Pure hyperglyceridemia 04/29/200708/11 Overview: History: Home dose of lipitor is 40mg, ldl 79 preop Assessment: resumed postop Plan: continue same Tobacco use disorder 04/29/2007 013 documented as of this encounter (statuses as of 01/16/2023) [facility] History of Past illness Narrative* Problem Noted Date Diagnosed Date Resolved Date 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 Small right pleural effusion. 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 Rm. Assessment: on room air. CXR 10/17 - small left pleural effusion, Trace right pleural effusion is noted. mild bibasilar atelectasis. Plan: monitor. encourage ambulation. no diuresis as down 5.4 kg and post op Hypernatremia Severe protein-calorie malnutrition 10/14/2015 03/13/2016 Overview: History: Nutrition consult 10/12: weight loss >7.5% over 3 months; mild fat loss; moderate muscle loss; functional capacity regressed; potential micronutrient deficiency revealed in skin; wound dehiscence; ? surgical wound infection; anorexia; 10/13- poor oral intake, c/o nausea, abd pain/discomfort. KUB reviewed. possibly failure to thrive. Assessment: poor appetite since surgery in Jul per . appetite improved with addition of reglan with meals (has refused last 4 doses of reglan). B12 nml Plan: - continue regular diet for more food choices. supplements per patient preference; zone bar once daily; magic cup once daily; snacks higher in kcal and protein per patient preference; patient would likely benefit from enteral nutrition. Ensure clear added - continue bowel regimen, enc ambulation/oob - reglan tid with meals - labs ordered to check B levels as recom per Geriatric psych. Slow transit constipation 10/12/2015 Overview: History: h/o constipation with nausea 10/13 c/o poor PO intake, nausea, abd pain/discomfort. + BS all 4 quads. KUB - multiple loops of nondilated air-filled bowel. Residual contrast is again seen throughout the colon and within several colonic diverticula. cottonseed enema given Assessment: + BS, +BM 10/19 Plan: - Bowel regimen - daily supp, colace, senna, miralax, prn lactulose. - cotton seed enema 10/14/2015 with results - encourage ambulation/oob Acute renal failure 10/11/2015 03/13/20 16 Overview: History: Baseline 0.6-0.7 prior to recent admission Assessment: BUN 8, SCr 1.20 Plan: Renal evaluated. Renal dose meds. avoid nephrotoxic agents. Prevent hypotension. hold diuretics - was hypernatremic post op Wound dehiscence 10/06/2015 07/17/2016 Overview: History: 3 areas of wound dehiscence Wound culture growing GPCs - No Leukocytosis, tmax 37.1; Bld clt x1 possible contaminant. Treated with IV Zosyn and Vancomycin since 10/03. Assessment: s/p 10/15/15- by Plastic surgery: Excisional debridement left abdominal wound including skin and subcutaneous tissue 18cm x 6cm x 4cm Placement of negative pressure dressing abdomen 18cm x 6cm x 4cm Excisional debridement left lower quadrant wound 3cm x 1cm and 1cm x .5cm including skin and subcutaneous tissue\ 10/18/2015- wound VAC dsg changed by plastics today. Then dsg changes by floor RN. - tissue culture- no fungus; Anaerobe culture reviewed, negative at day 3; tissue clt & stain- Rare Staphylococcus epidermidis Plan: Plastic recom: LUQ - Cont NPWT at 75mmHg, bridge connection off the main wound, change M/W/F and irrigate with at least 1L NSS at change. LLQ/Groin - irrigate bid. Pack wet to moist bid with nss soaked amd gauze. dsd Nutrition following. F/u plastic surgery 3 weeks after d/c - Irene MOSQUERA ID signed off on 10/15 Troponin level elevated 09/15/201501/10 Overview: Have been higher in past marquez in Jul of this year No Chest pain and no sign of ischemia on EKG Last Trend 0.074 Cardiology consulted on 09/12, was seen by cardiothoracic surgery on 09/11, - no surgical intervention recommended 09/14/2015 ECHO - EF 65%.. No WMA. Follow clinically 09/14/2015 SOB (shortness of breath) 09/13/2015 Overview: Improved Anorexia 09/12/2015 01/31/2016 Overview: - Likely secondary to deconditioning - No overt e/o infection - UA, urine culture, blood culture- negative - No significant metabolic derangements or significant anemia; - TSH normal 0.834 - Minimize polypharmacy, use of opioids - Nutrition consult, Supplements ordered - Depression screening -ve - Modified diet to 4gram NA healthy heart to increase dietary options Thoracoabdominal aortic aneu rysm, without rupture 09/12/2015 07/17/2016 Overview: History: Type 2 thoracoabdominal aneurysm Assessment: s/p 08/03/15 Repair of type 2 thoracoabdominal aortic aneurysm utilizing a 30-mm Gelweave graft along with a 28-mm Gelweave graft with a separate 10-mm branch to the left renal artery, cannulation of the left common femoral artery with an 8-mm graft, left atrial femoral bypass, moderate hypothermia, spinal drainage, intrathecal papaverine. 10/19/2015- SBP 130s- 140s. 10/20/2015 BP 117- 140/50s- 60s Plan: - ASA, HR and BP control. Coreg 6.25 mg bid- uptitrate accordingly. - ECHO 10/10 - EF 55%, no pericardial effusion SUMMARY 08/12/2015 06/22/2021 Overview: Readmission on 10/05 for wound dehiscence LVEF: 55% RVF: Normal Cards: Den PMH/PSH: copd, ex-smoker, cad (60% RCA), htn, hpl, lung nodule Surgery: 08/03/2015 Repair of type 2 thoracoabdominal aortic aneurysm utilizing a 30-mm Gelweave graft along with a 28-mm Gelweave graft with a separate 10-mm branch to the left renal artery, cannulation of the left common femoral artery with an 8-mm graft, left atrial femoral bypass, moderate hypothermia, spinal drainage, intrathecal papaverine. Was discharged from [facility] on 08/14/15 to SNF. Was readmitted to from 09/12/15- 09/16/15 Surgery/Procedure Date: 10/15/2015 by Surgeon: Dr. Temi Bonilla Excisional debridement left abdominal wound including skin and subcutaneous tissue 18cm x 6cm x 4cm Placement of negative pressure dressing abdomen 18cm x 6cm x 4cm Excisional debridement left lower quadrant wound 3cm x 1cm and 1cm x .5cm including skin and subcutaneous tissue A/P: - s/p repair of TAAA - ASA, HR & BP management - Wound dehiscence - s/p 5/6 wound debridement & VAC. ID followed - No ATB at this time. - HTN SBP trending upwards (150s), continue Norvasc, Hydralazine weaned off, Coreg to 6.25 mg bid - SUNSHINE - SCr 1.20 - continue without diuretics. Renal evaluated post op. - Hypernatremia- Na 139- stable, D5W prn, monitor NA. improved oral intake - Pleural effusion- Chest was marked 10/11, no thoracentesis at that time per Dr Rm. monitor. CXR improved - Nausea- denies. po intake improving daily, reglan tid with meals. KUB 10/14- multiple loops of nondilated air-filled bowel, Residual contrast. +BS, +BM - Urinary retention, howard replaced 10/13. dc'd 10/17, voiding well. no residual urine after bladder scanned. + UTI- prelim UC +Ecoli, No ATBx tx indicated for positive urine culture, asymptomatic bacteriuria that likely represents colonization and not infection - mild cognitive impairment, no dementia- Eileen psych following. B12 wnl Dispo -from [place], [place]. PT recom SNF. CM following. DC to SNF 10/20/2015- [facility] with wound VAC Hypervolemia 08/07/2015 01/31/2016 Overview: History: post-op FVO Assessment: up 3.4 Plan: increase to 40 IV TID, fluid restrict, monitor uop and renal function Thrombocytopenia 08/06/2015 08/07/2015 Overview: 08/06/2015 No signs of bleeding. Will need transfusion to discontinue spinal drain. Atelectasis 08/04/2015 07/17/2016 Overview: History: s/p TAAA repair Assessment: BIlateral atelectasis and pleural effusions requiring 2L O2, 3.4 kg above preop weight Plan: BPH & diuresis; u/s 3/ with insufficient fluid for tap. Acute kidney injury 08/04/2015 01/31/20 16 Overview: History: Pre-op creatinine normal though Epic shows intermittent elevations in her history Assessment: Postop creatinine peaked at 3.53, non-oliguric with excellent response to diuretics, nephrology following. BUN/creat 56/1.7 today Plan: Increase lasix to 40 IV TID and follow trends Pain, postoperative, acute 08/03/2015 0 01/31/2016 Overview: History: s/p TAA repair Assessment: uncontrolled Plan: Add oxycontin 20 mg BID; Continue tylenol, prn oxycodone and ultram Q8 Postprocedural hypotension 08/03/2015 0 08/07/2015 Overview: A/P: MAP goal 80-90 to preserve perfusion to spinal cord Pre-op testing 08/02/2015 08/10/2015 Overview: Images from the original note were not included. [facility] PRE[facility] Surgeon: Luis Rm M.D. Informed Consent Completed: Yes STS Score: unsupported CAD: Yes - CAD on Problem List: Yes Is intended procedure a CABG: Yes - is a beta jeanette ordered? Yes H & P completed: Yes PA/LAT: Completed CT: Completed MRI: N/A LE US: N/A Cath: Yes - reviewed: Yes Echo:Completed EKG: Completed EF %: 71 PI's: N/A Carotid: N/A Mapping: N/A Dental: full dentures PFT's: Completed Recent Labs 08/02/15 1007 WBC 7.84 HB 12.5 HCT 37.7 PLT 218 INR 0.9 CREAT 1.04 UA: Neg 08/02/15 HCG:N/A ABO/ABO Confirmed: Yes Blood ordered: No SA Swab: Yes - results: Pending Last Dose of Anticoagulation: Aspirin 81 mg 07/27/15 Op Note: N/A Pacemaker Check: N/A Consults: pulmonary DM: No Cardiac Surgical prep: N/A SIGNATURE: Sydney Sandhu CNP CHECKED BY: martine DATE of SERVICE: 08/02/2015 TIME of SERVICE: 5:47 PM RE 08/02/15 Thoracoabdominal aortic aneurysm 07/31/2012 08/12/2015 Overview: 08/03/2015 TAAA repair, SA drain L4-5. SA drain removed 08/06/15 A/P: ASA daily Aortic aneurysm and dissection 07/02/2012 07/17/2016 Lung nodule 06/17/2012 08/12/2015 Osteoarthrosis, unspecified whether generalized or localized, lower leg 07/11/201108/10 Knee pain 04/27/2011 05/27/2012 Abnormality of gait 04/27/2011 05/27/20 12 Osteoarthritis, knee 04/19/2010 012 Knee internal derangement 05/05/2009 Pure hyperglyceridemia 04/29/200708/11 Overview: History: Home dose of lipitor is 40mg, ldl 79 preop Assessment: resumed postop Plan: continue same Tobacco use disorder 04/29/2007 013 documented as of this encounter (statuses as of 01/23/2023) [facility]07-30-2018 History of Past illness Narrative* Problem Noted Date Diagnosed Date Resolved Date 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 Small right pleural effusion. 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 Rm. Assessment: on room air. CXR 10/17 - small left pleural effusion, Trace right pleural effusion is noted. mild bibasilar atelectasis. Plan: monitor. encourage ambulation. no diuresis as down 5.4 kg and post op Hypernatremia Severe protein-calorie malnutrition 10/14/2015 03/13/2016 Overview: History: Nutrition consult 10/12: weight loss >7.5% over 3 months; mild fat loss; moderate muscle loss; functional capacity regressed; potential micronutrient deficiency revealed in skin; wound dehiscence; ? surgical wound infection; anorexia; 10/13- poor oral intake, c/o nausea, abd pain/discomfort. KUB reviewed. possibly failure to thrive. Assessment: poor appetite since surgery in Jul per . appetite improved with addition of reglan with meals (has refused last 4 doses of reglan). B12 nml Plan: - continue regular diet for more food choices. supplements per patient preference; zone bar once daily; magic cup once daily; snacks higher in kcal and protein per patient preference; patient would likely benefit from enteral nutrition. Ensure clear added - continue bowel regimen, enc ambulation/oob - reglan tid with meals - labs ordered to check B levels as recom per Geriatric psych. Slow transit constipation 10/12/2015 Overview: History: h/o constipation with nausea 10/13 c/o poor PO intake, nausea, abd pain/discomfort. + BS all 4 quads. KUB - multiple loops of nondilated air-filled bowel. Residual contrast is again seen throughout the colon and within several colonic diverticula. cottonseed enema given Assessment: + BS, +BM 10/19 Plan: - Bowel regimen - daily supp, colace, senna, miralax, prn lactulose. - cotton seed enema 10/14/2015 with results - encourage ambulation/oob Acute renal failure 10/11/2015 03/13/20 16 Overview: History: Baseline 0.6-0.7 prior to recent admission Assessment: BUN 8, SCr 1.20 Plan: Renal evaluated. Renal dose meds. avoid nephrotoxic agents. Prevent hypotension. hold diuretics - was hypernatremic post op Wound dehiscence 10/06/2015 07/17/2016 Overview: History: 3 areas of wound dehiscence Wound culture growing GPCs - No Leukocytosis, tmax 37.1; Bld clt x1 possible contaminant. Treated with IV Zosyn and Vancomycin since 10/03. Assessment: s/p 10/15/15- by Plastic surgery: Excisional debridement left abdominal wound including skin and subcutaneous tissue 18cm x 6cm x 4cm Placement of negative pressure dressing abdomen 18cm x 6cm x 4cm Excisional debridement left lower quadrant wound 3cm x 1cm and 1cm x .5cm including skin and subcutaneous tissue\ 10/18/2015- wound VAC dsg changed by plastics today. Then dsg changes by floor RN. - tissue culture- no fungus; Anaerobe culture reviewed, negative at day 3; tissue clt & stain- Rare Staphylococcus epidermidis Plan: Plastic recom: LUQ - Cont NPWT at 75mmHg, bridge connection off the main wound, change M/W/F and irrigate with at least 1L NSS at change. LLQ/Groin - irrigate bid. Pack wet to moist bid with nss soaked amd gauze. dsd Nutrition following. F/u plastic surgery 3 weeks after d/c - Irene MOSQUERA ID signed off on 10/15 Troponin level elevated 09/15/201501/10 Overview: Have been higher in past marquez in Jul of this year No Chest pain and no sign of ischemia on EKG Last Trend 0.074 Cardiology consulted on 09/12, was seen by cardiothoracic surgery on 09/11, - no surgical intervention recommended 09/14/2015 ECHO - EF 65%.. No WMA. Follow clinically 09/14/2015 SOB (shortness of breath) 09/13/2015 Overview: Improved Anorexia 09/12/2015 01/31/2016 Overview: - Likely secondary to deconditioning - No overt e/o infection - UA, urine culture, blood culture- negative - No significant metabolic derangements or significant anemia; - TSH normal 0.834 - Minimize polypharmacy, use of opioids - Nutrition consult, Supplements ordered - Depression screening -ve - Modified diet to 4gram NA healthy heart to increase dietary options Thoracoabdominal aortic aneu rysm, without rupture 09/12/2015 07/17/2016 Overview: History: Type 2 thoracoabdominal aneurysm Assessment: s/p 08/03/15 Repair of type 2 thoracoabdominal aortic aneurysm utilizing a 30-mm Gelweave graft along with a 28-mm Gelweave graft with a separate 10-mm branch to the left renal artery, cannulation of the left common femoral artery with an 8-mm graft, left atrial femoral bypass, moderate hypothermia, spinal drainage, intrathecal papaverine. 10/19/2015- SBP 130s- 140s. 10/20/2015 BP 117- 140/50s- 60s Plan: - ASA, HR and BP control. Coreg 6.25 mg bid- uptitrate accordingly. - ECHO 10/10 - EF 55%, no pericardial effusion SUMMARY 08/12/2015 06/22/2021 Overview: Readmission on 10/05 for wound dehiscence LVEF: 55% RVF: Normal Cards: Den PMH/PSH: copd, ex-smoker, cad (60% RCA), htn, hpl, lung nodule Surgery: 08/03/2015 Repair of type 2 thoracoabdominal aortic aneurysm utilizing a 30-mm Gelweave graft along with a 28-mm Gelweave graft with a separate 10-mm branch to the left renal artery, cannulation of the left common femoral artery with an 8-mm graft, left atrial femoral bypass, moderate hypothermia, spinal drainage, intrathecal papaverine. Was discharged from [facility] 08/[facility]/15 to SNF. Was readmitted to from 09/12/15- 09/16/15 Surgery/Procedure Date: 10/15/2015 by Surgeon: Dr. Temi Bonilla Excisional debridement left abdominal wound including skin and subcutaneous tissue 18cm x 6cm x 4cm Placement of negative pressure dressing abdomen 18cm x 6cm x 4cm Excisional debridement left lower quadrant wound 3cm x 1cm and 1cm x .5cm including skin and subcutaneous tissue A/P: - s/p repair of TAAA - ASA, HR & BP management - Wound dehiscence - s/p 5/6 wound debridement & VAC. ID followed - No ATB at this time. - HTN SBP trending upwards (150s), continue Norvasc, Hydralazine weaned off, Coreg to 6.25 mg bid - SUNSHINE - SCr 1.20 - continue without diuretics. Renal evaluated post op. - Hypernatremia- Na 139- stable, D5W prn, monitor NA. improved oral intake - Pleural effusion- Chest was marked 10/11, no thoracentesis at that time per Dr Rm. monitor. CXR improved - Nausea- denies. po intake improving daily, reglan tid with meals. KUB 10/14- multiple loops of nondilated air-filled bowel, Residual contrast. +BS, +BM - Urinary retention, howard replaced 10/13. dc'd 10/17, voiding well. no residual urine after bladder scanned. + UTI- prelim UC +Ecoli, No ATBx tx indicated for positive urine culture, asymptomatic bacteriuria that likely represents colonization and not infection - mild cognitive impairment, no dementia- Eileen psych following. B12 wnl Dispo -from [place], [place]. PT recom SNF. CM following. DC to [facility] 10/20/2015- [facility] with wound VAC Hypervolemia 08/07/2015 01/31/2016 Overview: History: post-op FVO Assessment: up 3.4 Plan: increase to 40 IV TID, fluid restrict, monitor uop and renal function Thrombocytopenia 08/06/2015 08/07/2015 Overview: 08/06/2015 No signs of bleeding. Will need transfusion to discontinue spinal drain. Atelectasis 08/04/2015 07/17/2016 Overview: History: s/p TAAA repair Assessment: BIlateral atelectasis and pleural effusions requiring 2L O2, 3.4 kg above preop weight Plan: BPH & diuresis; u/s 3/2 with insufficient fluid for tap. Acute kidney injury 08/04/2015 01/31/20 Overview: History: Pre-op creatinine normal though Epic shows intermittent elevations in her history Assessment: Postop creatinine peaked at 3.53, non-oliguric with excellent response to diuretics, nephrology following. BUN/creat 56/1.7 today Plan: Increase lasix to 40 IV TID and follow trends Pain, postoperative, acute 08/03/2015 0 01/31/2016 Overview: History: s/p TAA repair Assessment: uncontrolled Plan: Add oxycontin 20 mg BID; Continue tylenol, prn oxycodone and ultram Q8 Postprocedural hypotension 08/03/2015 0 08/07/2015 Overview: A/P: MAP goal 80-90 to preserve perfusion to spinal cord Pre-op testing 08/02/2015 08/10/2015 Overview: Images from the original note were not included. [facility] PRE-[facility] Surgeon: Luis Rm M.D. Informed Consent Completed: Yes STS Score: unsupported CAD: Yes - CAD on Problem List: Yes Is intended procedure a CABG: Yes - is a beta jeanette ordered? Yes H & P completed: Yes PA/LAT: Completed CT: Completed MRI: N/A LE US: N/A Cath: Yes - reviewed: Yes Echo:Completed EKG: Completed EF %: 71 PI's: N/A Carotid: N/A Mapping: N/A Dental: full dentures PFT's: Completed Recent Labs 08/02/15 1007 WBC 7.84 HB 12.5 HCT 37.7 PLT 218 INR 0.9 CREAT 1.04 UA: Neg 08/02/15 HCG:N/A ABO/ABO Confirmed: Yes Blood ordered: No SA Swab: Yes - results: Pending Last Dose of Anticoagulation: Aspirin 81 mg 07/27/15 Op Note: N/A Pacemaker Check: N/A Consults: pulmonary DM: No Cardiac Surgical prep: N/A SIGNATURE: Sydney Sandhu CNP CHECKED BY: martine DATE of SERVICE: 08/02/2015 TIME of SERVICE: 5:47 PM RE 08/02/15 Thoracoabdominal aortic aneurysm 07/31/2012 08/12/2015 Overview: 08/03/2015 TAAA repair, SA drain L4-5. SA drain removed 08/06/15 A/P: ASA daily Aortic aneurysm and dissection 07/02/2012 07/17/2016 Lung nodule 06/17/2012 08/12/2015 Osteoarthrosis, unspecified whether generalized or localized, lower leg 07/11/201108/10 Knee pain 04/27/2011 05/27/2012 Abnormality of gait 04/27/2011 05/27/20 12 Osteoarthritis, knee 04/19/2010 012 Knee internal derangement 05/05/2009 Pure hyperglyceridemia 04/29/200708/11 Overview: History: Home dose of lipitor is 40mg, ldl 79 preop Assessment: resumed postop Plan: continue same Tobacco use disorder 04/29/2007 013 documented as of this encounter (statuses as of 02/28/2023) [facility]07-30-2018 History of Past illness Narrative* Problem Noted Date Diagnosed Date Resolved Date 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 Small right pleural effusion. 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 Rm. Assessment: on room air. CXR 10/17 - small left pleural effusion, Trace right pleural effusion is noted. mild bibasilar atelectasis. Plan: monitor. encourage ambulation. no diuresis as down 5.4 kg and post op Hypernatremia Severe protein-calorie malnutrition 10/14/2015 03/13/2016 Overview: History: Nutrition consult 10/12: weight loss >7.5% over 3 months; mild fat loss; moderate muscle loss; functional capacity regressed; potential micronutrient deficiency revealed in skin; wound dehiscence; ? surgical wound infection; anorexia; 10/13- poor oral intake, c/o nausea, abd pain/discomfort. KUB reviewed. possibly failure to thrive. Assessment: poor appetite since surgery in Jul per . appetite improved with addition of reglan with meals (has refused last 4 doses of reglan). B12 nml Plan: - continue regular diet for more food choices. supplements per patient preference; zone bar once daily; magic cup once daily; snacks higher in kcal and protein per patient preference; patient would likely benefit from enteral nutrition. Ensure clear added - continue bowel regimen, enc ambulation/oob - reglan tid with meals - labs ordered to check B levels as recom per Geriatric psych. Slow transit constipation 10/12/2015 Overview: History: h/o constipation with nausea 10/13 c/o poor PO intake, nausea, abd pain/discomfort. + BS all 4 quads. KUB - multiple loops of nondilated air-filled bowel. Residual contrast is again seen throughout the colon and within several colonic diverticula. cottonseed enema given Assessment: + BS, +BM 10/19 Plan: - Bowel regimen - daily supp, colace, senna, miralax, prn lactulose. - cotton seed enema 10/14/2015 with results - encourage ambulation/oob Acute renal failure 10/11/2015 03/13/20 16 Overview: History: Baseline 0.6-0.7 prior to recent admission Assessment: BUN 8, SCr 1.20 Plan: Renal evaluated. Renal dose meds. avoid nephrotoxic agents. Prevent hypotension. hold diuretics - was hypernatremic post op Wound dehiscence 10/06/2015 07/17/2016 Overview: History: 3 areas of wound dehiscence Wound culture growing GPCs - No Leukocytosis, tmax 37.1; Bld clt x1 possible contaminant. Treated with IV Zosyn and Vancomycin since 10/03. Assessment: s/p 10/15/15- by Plastic surgery: Excisional debridement left abdominal wound including skin and subcutaneous tissue 18cm x 6cm x 4cm Placement of negative pressure dressing abdomen 18cm x 6cm x 4cm Excisional debridement left lower quadrant wound 3cm x 1cm and 1cm x .5cm including skin and subcutaneous tissue\ 10/18/2015- wound VAC dsg changed by plastics today. Then dsg changes by floor RN. - tissue culture- no fungus; Anaerobe culture reviewed, negative at day 3; tissue clt & stain- Rare Staphylococcus epidermidis Plan: Plastic recom: LUQ - Cont NPWT at 75mmHg, bridge connection off the main wound, change M/W/F and irrigate with at least 1L NSS at change. LLQ/Groin - irrigate bid. Pack wet to moist bid with nss soaked amd gauze. dsd Nutrition following. F/u plastic surgery 3 weeks after d/c - Irene MOSQUERA ID signed off on 10/15 Troponin level elevated 09/15/201501/10 Overview: Have been higher in past marquez in Jul of this year No Chest pain and no sign of ischemia on EKG Last Trend 0.074 Cardiology consulted on 09/12, was seen by cardiothoracic surgery on 09/11, - no surgical intervention recommended 09/14/2015 ECHO - EF 65%.. No WMA. Follow clinically 09/14/2015 SOB (shortness of breath) 09/13/2015 Overview: Improved Anorexia 09/12/2015 01/31/2016 Overview: - Likely secondary to deconditioning - No overt e/o infection - UA, urine culture, blood culture- negative - No significant metabolic derangements or significant anemia; - TSH normal 0.834 - Minimize polypharmacy, use of opioids - Nutrition consult, Supplements ordered - Depression screening -ve - Modified diet to 4gram NA healthy heart to increase dietary options Thoracoabdominal aortic aneu rysm, without rupture 09/12/2015 07/17/2016 Overview: History: Type 2 thoracoabdominal aneurysm Assessment: s/p 08/03/15 Repair of type 2 thoracoabdominal aortic aneurysm utilizing a 30-mm Gelweave graft along with a 28-mm Gelweave graft with a separate 10-mm branch to the left renal artery, cannulation of the left common femoral artery with an 8-mm graft, left atrial femoral bypass, moderate hypothermia, spinal drainage, intrathecal papaverine. 10/19/2015- SBP 130s- 140s. 10/20/2015 BP 117- 140/50s- 60s Plan: - ASA, HR and BP control. Coreg 6.25 mg bid- uptitrate accordingly. - ECHO 10/10 - EF 55%, no pericardial effusion SUMMARY 08/12/2015 06/22/2021 Overview: Readmission on 10/05 for wound dehiscence LVEF: 55% RVF: Normal Cards: Den PMH/PSH: copd, ex-smoker, cad (60% RCA), htn, hpl, lung nodule Surgery: 08/03/2015 Repair of type 2 thoracoabdominal aortic aneurysm utilizing a 30-mm Gelweave graft along with a 28-mm Gelweave graft with a separate 10-mm branch to the left renal artery, cannulation of the left common femoral artery with an 8-mm graft, left atrial femoral bypass, moderate hypothermia, spinal drainage, intrathecal papaverine. Was discharged from [facility] on 08/14/15 to SNF. Was readmitted to from 09/12/15- 09/16/15 Surgery/Procedure Date: 10/15/2015 by Surgeon: Dr. Temi Bonilla Excisional debridement left abdominal wound including skin and subcutaneous tissue 18cm x 6cm x 4cm Placement of negative pressure dressing abdomen 18cm x 6cm x 4cm Excisional debridement left lower quadrant wound 3cm x 1cm and 1cm x .5cm including skin and subcutaneous tissue A/P: - s/p repair of TAAA - ASA, HR & BP management - Wound dehiscence - s/p 5/6 wound debridement & VAC. ID followed - No ATB at this time. - HTN SBP trending upwards (150s), continue Norvasc, Hydralazine weaned off, Coreg to 6.25 mg bid - SUNSHINE - SCr 1.20 - continue without diuretics. Renal evaluated post op. - Hypernatremia- Na 139- stable, D5W prn, monitor NA. improved oral intake - Pleural effusion- Chest was marked 10/11, no thoracentesis at that time per Dr Rm. monitor. CXR improved - Nausea- denies. po intake improving daily, reglan tid with meals. KUB 10/14- multiple loops of nondilated air-filled bowel, Residual contrast. +BS, +BM - Urinary retention, howard replaced 10/13. dc'd 10/17, voiding well. no residual urine after bladder scanned. + UTI- prelim UC +Ecoli, No ATBx tx indicated for positive urine culture, asymptomatic bacteriuria that likely represents colonization and not infection - mild cognitive impairment, no dementia- Eileen psych following. B12 wnl Dispo -from [place], [place]. PT recom SNF. CM following. DC to [facility] 10/20/2015- [facility] with wound VAC Hypervolemia 08/07/2015 01/31/2016 Overview: History: post-op FVO Assessment: up 3.4 Plan: increase to 40 IV TID, fluid restrict, monitor uop and renal function Thrombocytopenia 08/06/2015 08/07/2015 Overview: 08/06/2015 No signs of bleeding. Will need transfusion to discontinue spinal drain. Atelectasis 08/04/2015 07/17/2016 Overview: History: s/p TAAA repair Assessment: BIlateral atelectasis and pleural effusions requiring 2L O2, 3.4 kg above preop weight Plan: BPH & diuresis; u/s 3/2 with insufficient fluid for tap. Acute kidney injury 08/04/2015 01/31/20 16 Overview: History: Pre-op creatinine normal though Epic shows intermittent elevations in her history Assessment: Postop creatinine peaked at 3.53, non-oliguric with excellent response to diuretics, nephrology following. BUN/creat 56/1.7 today Plan: Increase lasix to 40 IV TID and follow trends Pain, postoperative, acute 08/03/2015 0 01/31/2016 Overview: History: s/p TAA repair Assessment: uncontrolled Plan: Add oxycontin 20 mg BID; Continue tylenol, prn oxycodone and ultram Q8 Postprocedural hypotension 08/03/2015 0 08/07/2015 Overview: A/P: MAP goal 80-90 to preserve perfusion to spinal cord Pre-op testing 08/02/2015 08/10/2015 Overview: Images from the original note were not included. [facility] Surgeon: Luis Rm M.D. Informed Consent Completed: Yes STS Score: unsupported CAD: Yes - CAD on Problem List: Yes Is intended procedure a CABG: Yes - is a beta jeanette ordered? Yes H & P completed: Yes PA/LAT: Completed CT: Completed MRI: N/A LE US: N/A Cath: Yes - reviewed: Yes Echo:Completed EKG: Completed EF %: 71 PI's: N/A Carotid: N/A Mapping: N/A Dental: full dentures PFT's: Completed Recent Labs 08/02/15 1007 WBC 7.84 HB 12.5 HCT 37.7 PLT 218 INR 0.9 CREAT 1.04 UA: Neg 08/02/15 HCG:N/A ABO/ABO Confirmed: Yes Blood ordered: No SA Swab: Yes - results: Pending Last Dose of Anticoagulation: Aspirin 81 mg 07/27/15 Op Note: N/A Pacemaker Check: N/A Consults: pulmonary DM: No Cardiac Surgical prep: N/A SIGNATURE: Sydney Sandhu CNP CHECKED BY: martine DATE of SERVICE: 08/02/2015 TIME of SERVICE: 5:47 PM RE 08/02/15 Thoracoabdominal aortic aneurysm 07/31/2012 08/12/2015 Overview: 08/03/2015 TAAA repair, SA drain L4-5. SA drain removed 08/06/15 A/P: ASA daily Aortic aneurysm and dissection 07/02/2012 07/17/2016 Lung nodule 06/17/2012 08/12/2015 Osteoarthrosis, unspecified whether generalized or localized, lower leg 07/11/201108/10 Knee pain 04/27/2011 05/27/2012 Abnormality of gait 04/27/2011 05/27/20 12 Osteoarthritis, knee 04/19/2010 012 Knee internal derangement 05/05/2009 Pure hyperglyceridemia 04/29/200708/11 Overview: History: Home dose of lipitor is 40mg, ldl 79 preop Assessment: resumed postop Plan: continue same Tobacco use disorder 04/29/2007 013 documented as of this encounter (statuses as of 04/13/2023) [facility]07-30-2018 History of Past illness Narrative* Problem Noted Date Diagnosed Date Resolved Date 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 Small right pleural effusion. 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 Rm. Assessment: on room air. CXR 10/17 - small left pleural effusion, Trace right pleural effusion is noted. mild bibasilar atelectasis. Plan: monitor. encourage ambulation. no diuresis as down 5.4 kg and post op Hypernatremia Severe protein-calorie malnutrition 10/14/2015 03/13/2016 Overview: History: Nutrition consult 10/12: weight loss >7.5% over 3 months; mild fat loss; moderate muscle loss; functional capacity regressed; potential micronutrient deficiency revealed in skin; wound dehiscence; ? surgical wound infection; anorexia; 10/13- poor oral intake, c/o nausea, abd pain/discomfort. KUB reviewed. possibly failure to thrive. Assessment: poor appetite since surgery in Jul per . appetite improved with addition of reglan with meals (has refused last 4 doses of reglan). B12 nml Plan: - continue regular diet for more food choices. supplements per patient preference; zone bar once daily; magic cup once daily; snacks higher in kcal and protein per patient preference; patient would likely benefit from enteral nutrition. Ensure clear added - continue bowel regimen, enc ambulation/oob - reglan tid with meals - labs ordered to check B levels as recom per Geriatric psych. Slow transit constipation 10/12/2015 Overview: History: h/o constipation with nausea 10/13 c/o poor PO intake, nausea, abd pain/discomfort. + BS all 4 quads. KUB - multiple loops of nondilated air-filled bowel. Residual contrast is again seen throughout the colon and within several colonic diverticula. cottonseed enema given Assessment: + BS, +BM 10/19 Plan: - Bowel regimen - daily supp, colace, senna, miralax, prn lactulose. - cotton seed enema 10/14/2015 with results - encourage ambulation/oob Acute renal failure 10/11/2015 03/13/20 16 Overview: History: Baseline 0.6-0.7 prior to recent admission Assessment: BUN 8, SCr 1.20 Plan: Renal evaluated. Renal dose meds. avoid nephrotoxic agents. Prevent hypotension. hold diuretics - was hypernatremic post op Wound dehiscence 10/06/2015 07/17/2016 Overview: History: 3 areas of wound dehiscence Wound culture growing GPCs - No Leukocytosis, tmax 37.1; Bld clt x1 possible contaminant. Treated with IV Zosyn and Vancomycin since 10/03. Assessment: s/p 10/15/15- by Plastic surgery: Excisional debridement left abdominal wound including skin and subcutaneous tissue 18cm x 6cm x 4cm Placement of negative pressure dressing abdomen 18cm x 6cm x 4cm Excisional debridement left lower quadrant wound 3cm x 1cm and 1cm x .5cm including skin and subcutaneous tissue\ 10/18/2015- wound VAC dsg changed by plastics today. Then dsg changes by floor RN. - tissue culture- no fungus; Anaerobe culture reviewed, negative at day 3; tissue clt & stain- Rare Staphylococcus epidermidis Plan: Plastic recom: LUQ - Cont NPWT at 75mmHg, bridge connection off the main wound, change M/W/F and irrigate with at least 1L NSS at change. LLQ/Groin - irrigate bid. Pack wet to moist bid with nss soaked amd gauze. dsd Nutrition following. F/u plastic surgery 3 weeks after d/c - Irene MOSQUERA ID signed off on 10/15 Troponin level elevated 09/15/201501/10 Overview: Have been higher in past marquez in Jul of this year No Chest pain and no sign of ischemia on EKG Last Trend 0.074 Cardiology consulted on 09/12, was seen by cardiothoracic surgery on 09/11, - no surgical intervention recommended 09/14/2015 ECHO - EF 65%.. No WMA. Follow clinically 09/14/2015 SOB (shortness of breath) 09/13/2015 Overview: Improved Anorexia 09/12/2015 01/31/2016 Overview: - Likely secondary to deconditioning - No overt e/o infection - UA, urine culture, blood culture- negative - No significant metabolic derangements or significant anemia; - TSH normal 0.834 - Minimize polypharmacy, use of opioids - Nutrition consult, Supplements ordered - Depression screening -ve - Modified diet to 4gram NA healthy heart to increase dietary options Thoracoabdominal aortic aneu rysm, without rupture 09/12/2015 07/17/2016 Overview: History: Type 2 thoracoabdominal aneurysm Assessment: s/p 08/03/15 Repair of type 2 thoracoabdominal aortic aneurysm utilizing a 30-mm Gelweave graft along with a 28-mm Gelweave graft with a separate 10-mm branch to the left renal artery, cannulation of the left common femoral artery with an 8-mm graft, left atrial femoral bypass, moderate hypothermia, spinal drainage, intrathecal papaverine. 10/19/2015- SBP 130s- 140s. 10/20/2015 BP 117- 140/50s- 60s Plan: - ASA, HR and BP control. Coreg 6.25 mg bid- uptitrate accordingly. - ECHO 10/10 - EF 55%, no pericardial effusion SUMMARY 08/12/2015 06/22/2021 Overview: Readmission on 10/05 for wound dehiscence LVEF: 55% RVF: Normal Cards: Den PMH/PSH: copd, ex-smoker, cad (60% RCA), htn, hpl, lung nodule Surgery: 08/03/2015 Repair of type 2 thoracoabdominal aortic aneurysm utilizing a 30-mm Gelweave graft along with a 28-mm Gelweave graft with a separate 10-mm branch to the left renal artery, cannulation of the left common femoral artery with an 8-mm graft, left atrial femoral bypass, moderate hypothermia, spinal drainage, intrathecal papaverine. Was discharged from [facility] 08/14/15 to SNF. Was readmitted to from 09/12/15- 09/16/15 Surgery/Procedure Date: 10/15/2015 by Surgeon: Dr. Temi Bonilla Excisional debridement left abdominal wound including skin and subcutaneous tissue 18cm x 6cm x 4cm Placement of negative pressure dressing abdomen 18cm x 6cm x 4cm Excisional debridement left lower quadrant wound 3cm x 1cm and 1cm x .5cm including skin and subcutaneous tissue A/P: - s/p repair of TAAA - ASA, HR & BP management - Wound dehiscence - s/p 5/6 wound debridement & VAC. ID followed - No ATB at this time. - HTN SBP trending upwards (150s), continue Norvasc, Hydralazine weaned off, Coreg to 6.25 mg bid - SUNSHINE - SCr 1.20 - continue without diuretics. Renal evaluated post op. - Hypernatremia- Na 139- stable, D5W prn, monitor NA. improved oral intake - Pleural effusion- Chest was marked 10/11, no thoracentesis at that time per Dr Rm. monitor. CXR improved - Nausea- denies. po intake improving daily, reglan tid with meals. KUB /6- multiple loops of nondilated air-filled bowel, Residual contrast. +BS, +BM - Urinary retention, howard replaced 10/13. dc'd 10/17, voiding well. no residual urine after bladder scanned. + UTI- prelim UC +Ecoli, No ATBx tx indicated for positive urine culture, asymptomatic bacteriuria that likely represents colonization and not infection - mild cognitive impairment, no dementia- Eileen psych following. B12 wnl Dispo -from [place], [place]. PT recom SNF. CM following. DC to [facility] 10/20/2015- [facility] with wound VAC Hypervolemia 08/07/2015 01/31/2016 Overview: History: post-op FVO Assessment: up 3.4 Plan: increase to 40 IV TID, fluid restrict, monitor uop and renal function Thrombocytopenia 08/06/2015 08/07/2015 Overview: 08/06/2015 No signs of bleeding. Will need transfusion to discontinue spinal drain. Atelectasis 08/04/2015 07/17/2016 Overview: History: s/p TAAA repair Assessment: BIlateral atelectasis and pleural effusions requiring 2L O2, 3.4 kg above preop weight Plan: BPH & diuresis; u/s 3/ with insufficient fluid for tap. Acute kidney injury 08/04/2015 01/31/20 16 Overview: History: Pre-op creatinine normal though Epic shows intermittent elevations in her history Assessment: Postop creatinine peaked at 3.53, non-oliguric with excellent response to diuretics, nephrology following. BUN/creat 56/1.7 today Plan: Increase lasix to 40 IV TID and follow trends Pain, postoperative, acute 08/03/2015 0 01/31/2016 Overview: History: s/p TAA repair Assessment: uncontrolled Plan: Add oxycontin 20 mg BID; Continue tylenol, prn oxycodone and ultram Q8 Postprocedural hypotension 08/03/2015 0 08/07/2015 Overview: A/P: MAP goal 80-90 to preserve perfusion to spinal cord Pre-op testing 08/02/2015 08/10/2015 Overview: Images from the original note were not included. [facility] Surgeon: Luis Rm M.D. Informed Consent Completed: Yes STS Score: unsupported CAD: Yes - CAD on Problem List: Yes Is intended procedure a CABG: Yes - is a beta jeanette ordered? Yes H & P completed: Yes PA/LAT: Completed CT: Completed MRI: N/A LE US: N/A Cath: Yes - reviewed: Yes Echo:Completed EKG: Completed EF %: 71 PI's: N/A Carotid: N/A Mapping: N/A Dental: full dentures PFT's: Completed Recent Labs 08/02/15 1007 WBC 7.84 HB 12.5 HCT 37.7 PLT 218 INR 0.9 CREAT 1.04 UA: Neg 08/02/15 HCG:N/A ABO/ABO Confirmed: Yes Blood ordered: No SA Swab: Yes - results: Pending Last Dose of Anticoagulation: Aspirin 81 mg 07/27/15 Op Note: N/A Pacemaker Check: N/A Consults: pulmonary DM: No Cardiac Surgical prep: N/A SIGNATURE: Sydney Sandhu CNP CHECKED BY: martine DATE of SERVICE: 08/02/2015 TIME of SERVICE: 5:47 PM RE 08/02/15 Thoracoabdominal aortic aneurysm 07/31/2012 08/12/2015 Overview: 08/03/2015 TAAA repair, SA drain L4-5. SA drain removed 08/06/15 A/P: ASA daily Aortic aneurysm and dissection 07/02/2012 07/17/2016 Lung nodule 06/17/2012 08/12/2015 Osteoarthrosis, unspecified whether generalized or localized, lower leg 07/11/201108/10 Knee pain 04/27/2011 05/27/2012 Abnormality of gait 04/27/2011 05/27/20 12 Osteoarthritis, knee 04/19/2010 012 Knee internal derangement 05/05/2009 Pure hyperglyceridemia 04/29/200708/11 Overview: History: Home dose of lipitor is 40mg, ldl 79 preop Assessment: resumed postop Plan: continue same Tobacco use disorder 04/29/2007 013 documented as of this encounter (statuses as of 05/26/2023) [facility]07-[facility]-2018 History of Past illness Narrative* Problem Noted Date Diagnosed Date Resolved Date 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 Small right pleural effusion. 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 Rm. Assessment: on room air. CXR 10/17 - small left pleural effusion, Trace right pleural effusion is noted. mild bibasilar atelectasis. Plan: monitor. encourage ambulation. no diuresis as down 5.4 kg and post op Hypernatremia Severe protein-calorie malnutrition 10/14/2015 03/13/2016 Overview: History: Nutrition consult 10/12: weight loss >7.5% over 3 months; mild fat loss; moderate muscle loss; functional capacity regressed; potential micronutrient deficiency revealed in skin; wound dehiscence; ? surgical wound infection; anorexia; 10/13- poor oral intake, c/o nausea, abd pain/discomfort. KUB reviewed. possibly failure to thrive. Assessment: poor appetite since surgery in Jul per . appetite improved with addition of reglan with meals (has refused last 4 doses of reglan). B12 nml Plan: - continue regular diet for more food choices. supplements per patient preference; zone bar once daily; magic cup once daily; snacks higher in kcal and protein per patient preference; patient would likely benefit from enteral nutrition. Ensure clear added - continue bowel regimen, enc ambulation/oob - reglan tid with meals - labs ordered to check B levels as recom per Geriatric psych. Slow transit constipation 10/12/2015 Overview: History: h/o constipation with nausea 10/13 c/o poor PO intake, nausea, abd pain/discomfort. + BS all 4 quads. KUB - multiple loops of nondilated air-filled bowel. Residual contrast is again seen throughout the colon and within several colonic diverticula. cottonseed enema given Assessment: + BS, +BM 10/19 Plan: - Bowel regimen - daily supp, colace, senna, miralax, prn lactulose. - cotton seed enema 10/14/2015 with results - encourage ambulation/oob Acute renal failure 10/11/2015 03/13/20 16 Overview: History: Baseline 0.6-0.7 prior to recent admission Assessment: BUN 8, SCr 1.20 Plan: Renal evaluated. Renal dose meds. avoid nephrotoxic agents. Prevent hypotension. hold diuretics - was hypernatremic post op Wound dehiscence 10/06/2015 07/17/2016 Overview: History: 3 areas of wound dehiscence Wound culture growing GPCs - No Leukocytosis, tmax 37.1; Bld clt x1 possible contaminant. Treated with IV Zosyn and Vancomycin since 10/03. Assessment: s/p 10/15/15- by Plastic surgery: Excisional debridement left abdominal wound including skin and subcutaneous tissue 18cm x 6cm x 4cm Placement of negative pressure dressing abdomen 18cm x 6cm x 4cm Excisional debridement left lower quadrant wound 3cm x 1cm and 1cm x .5cm including skin and subcutaneous tissue\ 10/18/2015- wound VAC dsg changed by plastics today. Then dsg changes by floor RN. - tissue culture- no fungus; Anaerobe culture reviewed, negative at day 3; tissue clt & stain- Rare Staphylococcus epidermidis Plan: Plastic recom: LUQ - Cont NPWT at 75mmHg, bridge connection off the main wound, change M/W/F and irrigate with at least 1L NSS at change. LLQ/Groin - irrigate bid. Pack wet to moist bid with nss soaked amd gauze. dsd Nutrition following. F/u plastic surgery 3 weeks after d/c - Irene MOSQUERA ID signed off on 10/15 Troponin level elevated 09/15/201501/10 Overview: Have been higher in past marquez in Jul of this year No Chest pain and no sign of ischemia on EKG Last Trend 0.074 Cardiology consulted on 09/12, was seen by cardiothoracic surgery on 09/11, - no surgical intervention recommended 09/14/2015 ECHO - EF 65%.. No WMA. Follow clinically 09/14/2015 SOB (shortness of breath) 09/13/2015 Overview: Improved Anorexia 09/12/2015 01/31/2016 Overview: - Likely secondary to deconditioning - No overt e/o infection - UA, urine culture, blood culture- negative - No significant metabolic derangements or significant anemia; - TSH normal 0.834 - Minimize polypharmacy, use of opioids - Nutrition consult, Supplements ordered - Depression screening -ve - Modified diet to 4gram NA healthy heart to increase dietary options Thoracoabdominal aortic aneu rysm, without rupture 09/12/2015 07/17/2016 Overview: History: Type 2 thoracoabdominal aneurysm Assessment: s/p 08/03/15 Repair of type 2 thoracoabdominal aortic aneurysm utilizing a 30-mm Gelweave graft along with a 28-mm Gelweave graft with a separate 10-mm branch to the left renal artery, cannulation of the left common femoral artery with an 8-mm graft, left atrial femoral bypass, moderate hypothermia, spinal drainage, intrathecal papaverine. 10/19/2015- SBP 130s- 140s. 10/20/2015 BP 117- 140/50s- 60s Plan: - ASA, HR and BP control. Coreg 6.25 mg bid- uptitrate accordingly. - ECHO 10/10 - EF 55%, no pericardial effusion SUMMARY 08/12/2015 06/22/2021 Overview: Readmission on 10/05 for wound dehiscence LVEF: 55% RVF: Normal Cards: Thamilarasan PMH/PSH: copd, ex-smoker, cad (60% RCA), htn, hpl, lung nodule Surgery: 08/03/2015 Repair of type 2 thoracoabdominal aortic aneurysm utilizing a 30-mm Gelweave graft along with a 28-mm Gelweave graft with a separate 10-mm branch to the left renal artery, cannulation of the left common femoral artery with an 8-mm graft, left atrial femoral bypass, moderate hypothermia, spinal drainage, intrathecal papaverine. Was discharged from [facility] on 08/14/15 to SNF. Was readmitted to from 09/12/15- 09/16/15 Surgery/Procedure Date: 10/15/2015 by Surgeon: Dr. Temi Bonilla Excisional debridement left abdominal wound including skin and subcutaneous tissue 18cm x 6cm x 4cm Placement of negative pressure dressing abdomen 18cm x 6cm x 4cm Excisional debridement left lower quadrant wound 3cm x 1cm and 1cm x .5cm including skin and subcutaneous tissue A/P: - s/p repair of TAAA - ASA, HR & BP management - Wound dehiscence - s/p 5/6 wound debridement & VAC. ID followed - No ATB at this time. - HTN SBP trending upwards (150s), continue Norvasc, Hydralazine weaned off, Coreg to 6.25 mg bid - SUNSHINE - SCr 1.20 - continue without diuretics. Renal evaluated post op. - Hypernatremia- Na 139- stable, D5W prn, monitor NA. improved oral intake - Pleural effusion- Chest was marked 10/11, no thoracentesis at that time per Dr Rm. monitor. CXR improved - Nausea- denies. po intake improving daily, reglan tid with meals. KUB 10/14- multiple loops of nondilated air-filled bowel, Residual contrast. +BS, +BM - Urinary retention, howard replaced 10/13. dc'd 10/17, voiding well. no residual urine after bladder scanned. + UTI- prelim UC +Ecoli, No ATBx tx indicated for positive urine culture, asymptomatic bacteriuria that likely represents colonization and not infection - mild cognitive impairment, no dementia- Eileen psych following. B12 wnl Dispo -from [place], [place]. PT recom SNF. CM following. DC to SNF 10/20/2015- [facility] with wound VAC Hypervolemia 08/07/2015 01/31/2016 Overview: History: post-op FVO Assessment: up 3.4 Plan: increase to 40 IV TID, fluid restrict, monitor uop and renal function Thrombocytopenia 08/06/2015 08/07/2015 Overview: 08/06/2015 No signs of bleeding. Will need transfusion to discontinue spinal drain. Atelectasis 08/04/2015 07/17/2016 Overview: History: s/p TAAA repair Assessment: BIlateral atelectasis and pleural effusions requiring 2L O2, 3.4 kg above preop weight Plan: BPH & diuresis; u/s 3/ with insufficient fluid for tap. Acute kidney injury 08/04/2015 01/31/20 16 Overview: History: Pre-op creatinine normal though Epic shows intermittent elevations in her history Assessment: Postop creatinine peaked at 3.53, non-oliguric with excellent response to diuretics, nephrology following. BUN/creat 56/1.7 today Plan: Increase lasix to 40 IV TID and follow trends Pain, postoperative, acute 08/03/2015 0 01/31/2016 Overview: History: s/p TAA repair Assessment: uncontrolled Plan: Add oxycontin 20 mg BID; Continue tylenol, prn oxycodone and ultram Q8 Postprocedural hypotension 08/03/2015 0 08/07/2015 Overview: A/P: MAP goal 80-90 to preserve perfusion to spinal cord Pre-op testing 08/02/2015 08/10/2015 Overview: Images from the original note were not included. [facility] Surgeon: Luis Rm M.D. Informed Consent Completed: Yes STS Score: unsupported CAD: Yes - CAD on Problem List: Yes Is intended procedure a CABG: Yes - is a beta jeanette ordered? Yes H & P completed: Yes PA/LAT: Completed CT: Completed MRI: N/A LE US: N/A Cath: Yes - reviewed: Yes Echo:Completed EKG: Completed EF %: 71 PI's: N/A Carotid: N/A Mapping: N/A Dental: full dentures PFT's: Completed Recent Labs 08/02/15 1007 WBC 7.84 HB 12.5 HCT 37.7 PLT 218 INR 0.9 CREAT 1.04 UA: Neg 08/02/15 HCG:N/A ABO/ABO Confirmed: Yes Blood ordered: No SA Swab: Yes - results: Pending Last Dose of Anticoagulation: Aspirin 81 mg 07/27/15 Op Note: N/A Pacemaker Check: N/A Consults: pulmonary DM: No Cardiac Surgical prep: N/A SIGNATURE: Sydney Sandhu CNP CHECKED BY: martine DATE of SERVICE: 08/02/2015 TIME of SERVICE: 5:47 PM RE 08/02/15 Thoracoabdominal aortic aneurysm 07/31/2012 08/12/2015 Overview: 08/03/2015 TAAA repair, SA drain L4-5. SA drain removed 08/06/15 A/P: ASA daily Aortic aneurysm and dissection 07/02/2012 07/17/2016 Lung nodule 06/17/2012 08/12/2015 Osteoarthrosis, unspecified whether generalized or localized, lower leg 07/11/201108/10 Knee pain 04/27/2011 05/27/2012 Abnormality of gait 04/27/2011 05/27/20 12 Osteoarthritis, knee 04/19/2010 012 Knee internal derangement 05/05/2009 Pure hyperglyceridemia 04/29/200708/11 Overview: History: Home dose of lipitor is 40mg, ldl 79 preop Assessment: resumed postop Plan: continue same Tobacco use disorder 04/29/2007 013 documented as of this encounter (statuses as of 07/20/2023) [facility] History of Past illness Narrative* Problem Noted Date Diagnosed Date Resolved Date 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 Small right pleural effusion. 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 Rm. Assessment: on room air. CXR 10/17 - small left pleural effusion, Trace right pleural effusion is noted. mild bibasilar atelectasis. Plan: monitor. encourage ambulation. no diuresis as down 5.4 kg and post op Hypernatremia Severe protein-calorie malnutrition 10/14/2015 03/13/2016 Overview: History: Nutrition consult 10/12: weight loss >7.5% over 3 months; mild fat loss; moderate muscle loss; functional capacity regressed; potential micronutrient deficiency revealed in skin; wound dehiscence; ? surgical wound infection; anorexia; 10/13- poor oral intake, c/o nausea, abd pain/discomfort. KUB reviewed. possibly failure to thrive. Assessment: poor appetite since surgery in Jul per . appetite improved with addition of reglan with meals (has refused last 4 doses of reglan). B12 nml Plan: - continue regular diet for more food choices. supplements per patient preference; zone bar once daily; magic cup once daily; snacks higher in kcal and protein per patient preference; patient would likely benefit from enteral nutrition. Ensure clear added - continue bowel regimen, enc ambulation/oob - reglan tid with meals - labs ordered to check B levels as recom per Geriatric psych. Slow transit constipation 10/12/2015 Overview: History: h/o constipation with nausea 10/13 c/o poor PO intake, nausea, abd pain/discomfort. + BS all 4 quads. KUB - multiple loops of nondilated air-filled bowel. Residual contrast is again seen throughout the colon and within several colonic diverticula. cottonseed enema given Assessment: + BS, +BM 10/19 Plan: - Bowel regimen - daily supp, colace, senna, miralax, prn lactulose. - cotton seed enema 10/14/2015 with results - encourage ambulation/oob Acute renal failure 10/11/2015 03/13/20 16 Overview: History: Baseline 0.6-0.7 prior to recent admission Assessment: BUN 8, SCr 1.20 Plan: Renal evaluated. Renal dose meds. avoid nephrotoxic agents. Prevent hypotension. hold diuretics - was hypernatremic post op Wound dehiscence 10/06/2015 07/17/2016 Overview: History: 3 areas of wound dehiscence Wound culture growing GPCs - No Leukocytosis, tmax 37.1; Bld clt x1 possible contaminant. Treated with IV Zosyn and Vancomycin since 10/03. Assessment: s/p 10/15/15- by Plastic surgery: Excisional debridement left abdominal wound including skin and subcutaneous tissue 18cm x 6cm x 4cm Placement of negative pressure dressing abdomen 18cm x 6cm x 4cm Excisional debridement left lower quadrant wound 3cm x 1cm and 1cm x .5cm including skin and subcutaneous tissue\ 10/18/2015- wound VAC dsg changed by plastics today. Then dsg changes by floor RN. - tissue culture- no fungus; Anaerobe culture reviewed, negative at day 3; tissue clt & stain- Rare Staphylococcus epidermidis Plan: Plastic recom: LUQ - Cont NPWT at 75mmHg, bridge connection off the main wound, change M/W/F and irrigate with at least 1L NSS at change. LLQ/Groin - irrigate bid. Pack wet to moist bid with nss soaked amd gauze. dsd Nutrition following. F/u plastic surgery 3 weeks after d/c - Irene MOSQUERA ID signed off on 10/15 Troponin level elevated 09/15/2015 08/07/2015 Overview: Have been higher in past marquez in Jul of this year No Chest pain and no sign of ischemia on EKG Last Trend 0.074 Cardiology consulted on 09/12, was seen by cardiothoracic surgery on 09/11, - no surgical intervention recommended 09/14/2015 ECHO - EF 65%.. No WMA. Follow clinically 09/14/2015 SOB (shortness of breath) 09/13/2015 Overview: Improved Anorexia 09/12/2015 01/31/2016 Overview: - Likely secondary to deconditioning - No overt e/o infection - UA, urine culture, blood culture- negative - No significant metabolic derangements or significant anemia; - TSH normal 0.834 - Minimize polypharmacy, use of opioids - Nutrition consult, Supplements ordered - Depression screening -ve - Modified diet to 4gram NA healthy heart to increase dietary options Thoracoabdominal aortic aneu rysm, without rupture 09/12/2015 07/17/2016 Overview: History: Type 2 thoracoabdominal aneurysm Assessment: s/p 08/03/15 Repair of type 2 thoracoabdominal aortic aneurysm utilizing a 30-mm Gelweave graft along with a 28-mm Gelweave graft with a separate 10-mm branch to the left renal artery, cannulation of the left common femoral artery with an 8-mm graft, left atrial femoral bypass, moderate hypothermia, spinal drainage, intrathecal papaverine. 10/19/2015- SBP 130s- 140s. 10/20/2015 BP 117- 140/50s- 60s Plan: - ASA, HR and BP control. Coreg 6.25 mg bid- uptitrate accordingly. - ECHO 10/10 - EF 55%, no pericardial effusion SUMMARY 08/12/2015 06/22/2021 Overview: Readmission on 10/05 for wound dehiscence LVEF: 55% RVF: Normal Cards: Den PMH/PSH: copd, ex-smoker, cad (60% RCA), htn, hpl, lung nodule Surgery: 08/03/2015 Repair of type 2 thoracoabdominal aortic aneurysm utilizing a 30-mm Gelweave graft along with a 28-mm Gelweave graft with a separate 10-mm branch to the left renal artery, cannulation of the left common femoral artery with an 8-mm graft, left atrial femoral bypass, moderate hypothermia, spinal drainage, intrathecal papaverine. Was discharged from [facility] on 08/14/15 to SNF. Was readmitted to from 09/12/15- 09/16/15 Surgery/Procedure Date: 10/15/2015 by Surgeon: Dr. Temi Bonilla Excisional debridement left abdominal wound including skin and subcutaneous tissue 18cm x 6cm x 4cm Placement of negative pressure dressing abdomen 18cm x 6cm x 4cm Excisional debridement left lower quadrant wound 3cm x 1cm and 1cm x .5cm including skin and subcutaneous tissue A/P: - s/p repair of TAAA - ASA, HR & BP management - Wound dehiscence - s/p 5/6 wound debridement & VAC. ID followed - No ATB at this time. - HTN SBP trending upwards (150s), continue Norvasc, Hydralazine weaned off, Coreg to 6.25 mg bid - SUNSHINE - SCr 1.20 - continue without diuretics. Renal evaluated post op. - Hypernatremia- Na 139- stable, D5W prn, monitor NA. improved oral intake - Pleural effusion- Chest was marked 10/11, no thoracentesis at that time per Dr Rm. monitor. CXR improved - Nausea- denies. po intake improving daily, reglan tid with meals. KUB 10/14- multiple loops of nondilated air-filled bowel, Residual contrast. +BS, +BM - Urinary retention, howard replaced 10/13. dc'd 10/17, voiding well. no residual urine after bladder scanned. + UTI- prelim UC +Ecoli, No ATBx tx indicated for positive urine culture, asymptomatic bacteriuria that likely represents colonization and not infection - mild cognitive impairment, no dementia- Eileen psych following. B12 wnl Dispo -from [place], [place]. PT recom SNF. CM following. DC to [facility] 10/20/2015- [facility] with wound VAC Hypervolemia 08/07/2015 01/31/2016 Overview: History: post-op FVO Assessment: up 3.4 Plan: increase to 40 IV TID, fluid restrict, monitor uop and renal function Thrombocytopenia 08/06/2015 08/07/2015 Overview: 08/06/2015 No signs of bleeding. Will need transfusion to discontinue spinal drain. Atelectasis 08/04/2015 07/17/2016 Overview: History: s/p TAAA repair Assessment: BIlateral atelectasis and pleural effusions requiring 2L O2, 3.4 kg above preop weight Plan: BPH & diuresis; u/s 3/ with insufficient fluid for tap. Acute kidney injury 08/04/2015 01/31/20 16 Overview: History: Pre-op creatinine normal though Epic shows intermittent elevations in her history Assessment: Postop creatinine peaked at 3.53, non-oliguric with excellent response to diuretics, nephrology following. BUN/creat 56/1.7 today Plan: Increase lasix to 40 IV TID and follow trends Pain, postoperative, acute 08/03/2015 0 01/31/2016 Overview: History: s/p TAA repair Assessment: uncontrolled Plan: Add oxycontin 20 mg BID; Continue tylenol, prn oxycodone and ultram Q8 Postprocedural hypotension 08/03/2015 0 08/07/2015 Overview: A/P: MAP goal 80-90 to preserve perfusion to spinal cord Pre-op testing 08/02/2015 08/10/2015 Overview: Images from the original note were not included. [facility] PRE[facility]OP CHECKLIST Surgeon: Luis Rm M.D. Informed Consent Completed: Yes STS Score: unsupported CAD: Yes - CAD on Problem List: Yes Is intended procedure a CABG: Yes - is a beta jeanette ordered? Yes H & P completed: Yes PA/LAT: Completed CT: Completed MRI: N/A LE US: N/A Cath: Yes - reviewed: Yes Echo:Completed EKG: Completed EF %: 71 PI's: N/A Carotid: N/A Mapping: N/A Dental: full dentures PFT's: Completed Recent Labs 08/02/15 1007 WBC 7.84 HB 12.5 HCT 37.7 PLT 218 INR 0.9 CREAT 1.04 UA: Neg 08/02/15 HCG:N/A ABO/ABO Confirmed: Yes Blood ordered: No SA Swab: Yes - results: Pending Last Dose of Anticoagulation: Aspirin 81 mg 07/27/15 Op Note: N/A Pacemaker Check: N/A Consults: pulmonary DM: No Cardiac Surgical prep: N/A SIGNATURE: Sydney Sandhu CNP CHECKED BY: martine DATE of SERVICE: 08/02/2015 TIME of SERVICE: 5:47 PM RE 08/02/15 Thoracoabdominal aortic aneurysm 07/31/2012 08/12/2015 Overview: 08/03/2015 TAAA repair, SA drain L4-5. SA drain removed 08/06/15 A/P: ASA daily Aortic aneurysm and dissection 07/02/2012 07/17/2016 Lung nodule 06/17/2012 08/12/2015 Osteoarthrosis, unspecified whether generalized or localized, lower leg 07/11/201108/10 Knee pain 04/27/2011 05/27/2012 Abnormality of gait 04/27/2011 05/27/20 12 Osteoarthritis, knee 04/19/2010 012 Knee internal derangement 05/05/2009 Pure hyperglyceridemia 04/29/200708/11 Overview: History: Home dose of lipitor is 40mg, ldl 79 preop Assessment: resumed postop Plan: continue same Tobacco use disorder 04/29/2007 013 documented as of this encounter (statuses as of 07/28/2023) [facility] Diagnosis Essential hypertension with goal blood pressure less than 130/80- Primary Hyperlipidemia LDL goal <70 Other and unspecified hyperlipidemia Hypertensive kidney disease with stage 3 chronic kidney disease, unspecified whether stage 3a or 3b CKD (HCC) Recurrent major depressive disorder, in partial remission (HCC) Mild dementia (HCC) Dementia, unspecified, without behavioral disturbance GERD without esophagitis Esophageal reflux Pulmonary emphysema, unspecified emphysema type (HCC) Muscle cramps Cramp of limb Obesity, Class II, BMI 35-39.9 Obesity, unspecified Encounter for screening mammogram for malignant neoplasm of breast Other screening mammogram [facility]* Diagnosis GERD without esophagitis Esophageal reflux documented in this encounter [facility] note* Diagnosis Pulmonary emphysema, unspecified emphysema type (HCC) documented in this encounter [facility] note* Diagnosis Encounter for screening mammogram for breast cancer documented in this encounter [facility] note* Diagnosis Recurrent major depressive disorder, in partial remission (HCC) Hyperlipidemia LDL goal <70 Other and unspecified hyperlipidemia documented in this encounter [facility] note* Diagnosis Medicare annual wellness visit, subsequent- Primary Routine general medical examination at a health care facility Recurrent major depressive disorder, in partial remission (HCC) Hyperlipidemia LDL goal <70 Other and unspecified hyperlipidemia Pulmonary emphysema, unspecified emphysema type (HCC) Essential hypertension with goal blood pressure less than 130/80 Hypertensive kidney disease with stage 3 chronic kidney disease, unspecified whether stage 3a or 3b CKD (HCC) GERD without esophagitis Esophageal reflux Mild dementia, unspecified dementia type, unspecified whether behavioral, psychotic, or mood disturbance or anxiety (HCC) documented in this encounter [facility] note* Diagnosis Encounter for screening mammogram for breast cancer documented in this encounter [facility] note* Diagnosis 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 [facility] Diagnostic Procedure Only (Routine) - Pending Review Specialty Diagnoses / Procedures Referred By Devon suarez Referred To Contact [facility] Diagnoses Encounter for screening mammogram for malignant neoplasm of breast Procedures FRANKLIN SCREENING SCREENING MAMMOGRAPHY BI 2-VIEW BREAST INC Katie Flor MD [address] [place] [address] [facility] [address] [place] [address] Referral ID Status Reason Start Date Expiration Date Visits Requested Visits Authorized [id number] Pending Review Auto-Generat ed Referral 12/22/2021 01/21/2023 1 1 [facility] Diagnostic Procedure Only (Routine) - Pending Review Specialty Diagnoses / Procedures Referred By Devon suarez Referred To Contact [facility] Diagnoses Encounter for screening mammogram for breast cancer Procedures FRANKLIN SCREENING SCREENING MAMMOGRAPHY BI 2-VIEW BREAST INC Katie Flor MD [address] [place] [address] [facility] [address] [place] [address] Referral ID Status Reason Start Date Expiration Date Visits Requested Visits Authorized [id number] Pending Review Auto-Generat ed Referral 11/29/2022 12/29/2023 1 1 [facility] for referral (narrative)* Diagnostic Procedure Only (Routine) - Closed Specialty Diagnoses / Procedures Referred By Contac t Referred To Contact [facility] Diagnoses Encounter for screening mammogram for breast cancer Procedures FRANKLIN SCREENING SCREENING MAMMOGRAPHY BI 2-VIEW BREAST INC Katie Flor MD [address] [place] [address] [facility] [address] [place] [address] Referral ID Status Reason Start Date Expiration Date V isits Requested Visits Authorized [id number] Closed Auto-Generate d Referral 11/29/2022 12/29/2023 1 1 [facility] for visit Narrative* Diagnostic Procedure Only (Routine) - Closed Specialty Diagnoses / Procedures Referred By Contsherlyn t Referred To Contact [facility] Diagnoses Encounter for screening mammogram for breast cancer Procedures FRANKLIN SCREENING SCREENING MAMMOGRAPHY BI 2-VIEW BREAST INC Katie Flor MD [address] [place] [address] [facility] [address] [place] [address] Referral ID Status Reason Start Date Expiration Date V isits Requested Visits Authorized [id number] Closed Auto-Generate d Referral 11/29/2022 12/29/2023 1 1 [facility] Advance Directives No Advanced Directives Records FoundDocuments on File Type Date Recorded Patient Channel Opener Outsoles Expl anation Advance Directive(s) Advance Directive(s) 08/14/2016 1:55 PM Advance Directive(s) 10/06/2015 1:12 PM Advance Directive(s) 09/25/2015 4:39 PM Advance Directive(s) 09/12/2015 1:01 PM Advance Directive(s) 08/06/2015 4:45 PM Advance Directive(s) 05/31/2012 9:01 PM Documents on File Type Date Recorded Patient Channel Opener Outsoles Expl anation Advance Directive(s) 05/31/2012 9:01 PM Documents on File Type Date Recorded Patient Channel Opener Outsoles Expl anation Advance Directive(s) 05/31/2012 9:01 PM Health Concerns Infection Onset Date Last Indicated Resolved Time COVID-19 Confirmed 05/25/2023 05/25/2023 Summary Purpose Family History No Family History Records Found Additional Source Comments Source Comments (unrecognize d section and content) In the event this informatio n is protected by the Federal Confidentiality of Alcohol and Drug Abuse Patient Records regulations: The Federal rules restrict any use of the information to criminally investigate or prosecute any alcohol or drug abuse patient.[facility] the event this information is protected by the Federal Confidentiality of Alcohol and Drug Abuse Patient Records regulations: The Federal rules restrict any use of the information to criminally investigate or prosecute any alcohol or drug abuse patient.[facility] the event this information is protected by the Federal Confidentiality of Alcohol and Drug Abuse Patient Records regulations: The Federal rules restrict any use of the information to criminally investigate or prosecute any alcohol or drug abuse patient.[facility] the event this information is protected by the Federal Confidentiality of Alcohol and Drug Abuse Patient Records regulations: The Federal rules restrict any use of the information to criminally investigate or prosecute any alcohol or drug abuse patient.[facility] the event this information is protected by the Federal Confidentiality of Alcohol and Drug Abuse Patient Records regulations: The Federal rules restrict any use of the information to criminally investigate or prosecute any alcohol or drug abuse patient.[facility] the event this information is protected by the Federal Confidentiality of Alcohol and Drug Abuse Patient Records regulations: The Federal rules restrict any use of the information to criminally investigate or prosecute any alcohol or drug abuse patient.[facility] Hospital[facility] the event this information is protected by the Federal Confidentiality of Alcohol and Drug Abuse Patient Records regulations: The Federal rules restrict any use of the information to criminally investigate or prosecute any alcohol or drug abuse patient.[facility] the event this information is protected by the Federal Confidentiality of Alcohol and Drug Abuse Patient Records regulations: The Federal rules restrict any use of the information to criminally investigate or prosecute any alcohol or drug abuse patient.[facility] the event this information is protected by the Federal Confidentiality of Alcohol and Drug Abuse Patient Records regulations: The Federal rules restrict any use of the information to criminally investigate or prosecute any alcohol or drug abuse patient.[facility] the event this information is protected by the Federal Confidentiality of Alcohol and Drug Abuse Patient Records regulations: The Federal rules restrict any use of the information to criminally investigate or prosecute any alcohol or drug abuse patient.[facility] Hospital[facility] the event this information is protected by the Federal Confidentiality of Alcohol and Drug Abuse Patient Records regulations: The Federal rules restrict any use of the information to criminally investigate or prosecute any alcohol or drug abuse patient.[facility] Hospital[facility] the event this information is protected by the Federal Confidentiality of Alcohol and Drug Abuse Patient Records regulations: The Federal rules restrict any use of the information to criminally investigate or prosecute any alcohol or drug abuse patient.[facility] Hospital[facility] the event this information is protected by the Federal Confidentiality of Alcohol and Drug Abuse Patient Records regulations: The Federal rules restrict any use of the information to criminally investigate or prosecute any alcohol or drug abuse patient.[facility] Hospital[facility] the event this information is protected by the Federal Confidentiality of Alcohol and Drug Abuse Patient Records regulations: The Federal rules restrict any use of the information to criminally investigate or prosecute any alcohol or drug abuse patient.[facility] Hospital[facility] the event this information is protected by the Federal Confidentiality of Alcohol and Drug Abuse Patient Records regulations: The Federal rules restrict any use of the information to criminally investigate or prosecute any alcohol or drug abuse patient.[facility] Hospital[facility] the event this information is protected by the Federal Confidentiality of Alcohol and Drug Abuse Patient Records regulations: The Federal rules restrict any use of the information to criminally investigate or prosecute any alcohol or drug abuse patient.[facility] Hospital[facility] the event this information is protected by the Federal Confidentiality of Alcohol and Drug Abuse Patient Records regulations: The Federal rules restrict any use of the information to criminally investigate or prosecute any alcohol or drug abuse patient.[facility] Hospital[facility] the event this information is protected by the Federal Confidentiality of Alcohol and Drug Abuse Patient Records regulations: The Federal rules restrict any use of the information to criminally investigate or prosecute any alcohol or drug abuse patient.[facility] Reason for Visit (unrecogniz ed section and content) Reason Comments External doc Reason Comments Patient Update FYI Reason Onset Date Comments Refill Request 02/27/2022 Reason Comments Medication Problem Reason Comments Home Health Update Reason Onset Date Comments Refill Request 04/21/2022 Reason Onset Date Comments Refill Request 07/07/2022 Reason Onset Date Comments Population Health Navigation Outreach 11/23/2022 HCC Gaps Reason Onset Date Comments Refill Request 01/05/2023 Reason Comments Medicare Wellness Exam Reason Comments Results Reason Comments F/U 6 Month Reason Comments Trauma Part of tick embedde d in right arm x 2 weeks Care Teams (unrecognized sec tion and content) Chief Crna Relationship Specialty Start Date End Date Katie Abdullahi MD [address] [place] [address] PCP - General Family Practice 01/27/21 Devika Crenshaw MD [address] [place] [address] Primary Staff Physician Cardiology 08/27/18 Chief Crna Relationship Specialty Start Date End Date Katie Abdullahi MD [address] [place] [address] PCP - General Family Practice 01/27/21 Devika Crenshaw MD [address] [place] [address] Primary Staff Physician Cardiology 08/27/18 Chief Crna Relationship Specialty Start Date End Date Katie Abdullahi MD [address] [place] [address] PCP - General Family Practice 01/27/21 Devika Crenshaw MD [address] [facility] [place] [address] Primary Staff Physician Cardiology 08/27/18 Chief Crna Relationship Specialty Start Date End Date Katie Abdullahi MD [address] [place] [address] PCP - General Family Medicine 01/27/21 Devika Crenshaw MD [address] [place] [address] Primary Staff Physician Cardiology 08/27/18 Chief Crna Relationship Specialty Start Date End Date Katie Abdullahi MD [address] [place] [address] PCP - General Family Medicine 01/27/21 Devika Crenshaw MD [address] [place], [place] [address] Primary Staff Physician Cardiology 08/27/18 Chief Crna Relationship Specialty Start Date End Date Katie Abdullahi MD [address] [place] [address] PCP - General Family Medicine 01/27/21 Devika Crenshaw MD [address] [place] [address] Primary Staff Physician Cardiology 08/27/18 Chief Crna Relationship Specialty Start Date End Date Katie Abdullahi MD [address] [place] [address] PCP - General Family Medicine 01/27/21 Devika Crenshaw MD [address] [place] [address] Primary Staff Physician Cardiology 08/27/18 Chief Crna Relationship Specialty Start Date End Date aKtie Abdullahi MD [address] [place] [address] PCP - General Family Medicine 01/27/21 Devika Crenshaw MD [address] [place] [address] Primary Staff Physician Cardiology 08/27/18 Chief Crna Relationship Specialty Start Date End Date Katie Abdullahi MD [address] [place] [address] PCP - General Family Medicine 01/27/21 Devika Crenshaw MD [address] [facility] [place], [place] [id number] Primary Staff Physician Cardiology 08/27/18 Chief Crna Relationship Specialty Start Date End Date Katie Abdullahi MD [address] [place] [address] PCP - General Family Medicine 01/27/21 Devika Crenshaw MD [address] [facility] [place] [address] Primary Staff Physician Cardiology 08/27/18 Chief Crna Relationship Specialty Start Date End Date Katie Abdullahi MD [address] [place], [place] [address] PCP - General Family Medicine 01/27/21 Devika Crenshaw MD [address] [facility] [place] [address] Primary Staff Physician Cardiology 08/27/18 Chief Crna Relationship Specialty Start Date End Date Katie Abdullahi MD [address] [place] [address] PCP - General Family Medicine 01/27/21 Devika Crenshaw MD [address] [place] [address] Primary Staff Physician Cardiology 08/27/18 Chief Crna Relationship Specialty Start Date End Date Katie Abdullahi MD [address] [place], [place] [id number] PCP - General Family Medicine 01/27/21 Devika Crenshaw MD [address] [facility] [place], [place] [id number] Primary Staff Physician Cardiology 08/27/18 Chief Crna Relationship Specialty Start Date End Date Katie Abdullahi MD [address] [place], [place] [id number] PCP - General Family Medicine 01/27/21 Devika Crenshaw MD [address] [facility] [place], [place] [id number] Primary Staff Physician Cardiology 08/27/18 INFORMATION SOURCE (unrecogn ized section and content) FOR RECORDS PERTAINING TO PATIENTS WHO ARE OR HAVE BEEN ENROLLED IN A CHEMICAL DEPENDENCY/SUBSTANCEABUSE PROGRAM, SOME INFORMATION MAY BE OMITTED. This clinical summary was aggregated from multiple sources. Caution should be exercised in using it in the provision of clinical care. This summary normalizes information from multiple sources, and as a consequence, information in this document may materially change the coding, format and clinical context of patient data. In addition, data may be omitted in some cases. CLINICAL DECISIONS SHOULD BE BASED ON THE PRIMARY CLINICAL RECORDS. [facility] [employer] [facility]. provides no warranty or guarantee of the accuracy or completeness of information in this document.
--- NOTE | 2023-08-11 14:00 | HP.PCM.HOS_ITS ---
[facility] - General General Date of Admission: 08/11/23 Date of Service: 08/11/23 Chief Complaint: weakness. HPI Narrative GREG FELIX, is a 73 F who presents presents with weakness. Over the past 2 days, patient has not been feeling well, fatigued, having vomiting, decreased oral intake. She was requiring assistance getting up yesterday and then today patient was just on the floor. was unable to get her up. states at baseline, she is normally independent though he does help with IADLs. Patient presented emergency room and had a workup that was remarkable for a white count of 14.5 but otherwise unremarkable. Patient does complain of bilateral ear pain. [facility] Medical History CAD (coronary artery disease) Celiac artery stenosis COPD (chronic obstructive pulmonary disease) Diverticulosis of colon Fatty liver Former smoker Hyperlipidemia Hypertension Osteoarthritis of knees, bilateral Thoracoabdominal aneurysm with rupture Home Medications atorvastatin 40 mg tablet 40 mg PO QHS CHOLESTEROL 10/30/16 [History Last Taken Unknown] albuterol sulfate 90 mcg/actuation breath activated powder inhaler 2 puff inhalation Q6H PRN Sob &/Or Wheezing 01/11/18 [History Last Taken Unknown] sertraline 50 mg tablet 50 mg PO DAILY 01/11/18 [History Last Taken Unknown] donepezil 5 mg tablet 5 mg PO QHS 07/09/19 [History Last Taken Unknown] amlodipine 5 mg tablet 5 mg PO QHS BLOOD PRESSURE 01/16/21 [History Last Taken Unknown] carvedilol 6.25 mg tablet 6.25 mg PO BID BLOOD PRESSURE 08/11/23 [History Last Taken Unknown] omeprazole 20 mg capsule,delayed release 20 mg PO BID ACID REFLUX 08/11/23 [History Last Taken Unknown] tiotropium bromide 2.5 mcg/actuation mist for inhalation (Spiriva Respimat) 2 inh inhalation DAILY SOB 08/11/23 [History Last Taken Unknown] Allergy/AdvReac Type Severity Reaction Status Date / Time No Known Allergies Allergy Verified 08/11/23 09:57 Family History Mother Liver disease Father Alzheimer disease Aunt Colon cancer Breast cancer Surgical History History of blepharoplasty History of colonoscopy (~10/2016) History of esophagogastroduodenoscopy (EGD) History of nasal septoplasty History of total bilateral knee replacement Status post insertion of percutaneous endoscopic gastrostomy (PEG) tube Social History Smoking Status: Former smoker ROS ROS Narrative All review of systems were negative except as mentioned above in the history of present illness and the other review of systems. Vital Signs Vital Signs Vital Signs: 08/11/23 09:57 08/11/23 10:06 08/11/23 10:40 Temperature 37.3 C H Temperature Source Oral Pulse Rate 68 Respiratory Rate 16 Respiratory Effort Normal Non-Labored Respiratory Pattern Normal Blood Pressure 144/48 H Blood Pressure Mean 80 Pulse Ox 94 Oxygen Delivery Method Room Air Room Air 08/11/23 11:54 08/11/23 13:12 08/11/23 13:21 Temperature 36.8 C 37.7 C H 37.7 C H Temperature Source Oral Oral Pulse Rate 68 62 62 Respiratory Rate 22 H 16 16 Respiratory Effort Respiratory Pattern Blood Pressure 160/50 H 153/60 H 153/60 H Blood Pressure Mean 86 91 91 Pulse Ox 94 94 Oxygen Delivery Method Room Air Weight Weight: 81.647 kg Body Mass Index (BMI) 30.9 Physical Exam Const alert and no apparent distress Constitutional Narrative: Pleasant. Nontoxic. Afebrile. HEENT normocephalic, head/scalp atraumatic and hearing grossly normal bilaterally HEENT Narrative: Patient had bilateral wax in both ear canals and unable to evaluate tympanic membranes. Mucous membranes dry. No frontal sinus tenderness. No mastoid tenderness. Neck Neck Narrative: No lymphadenopathy. No thyromegaly. Resp normal respiratory effort, no retractions, no use of accessory muscles and clear to auscultation bilaterally Cardio regular rate, regular rhythm, S1 normal heart sound and S2 normal heart sound GI normal to inspection, nondistended, normoactive bowel sounds, soft to palpation, non-tender and non-distended Extremity normal to inspection Neuro Sensorium / Orientation: awake and alert Results Lab / Micro Data Attestation: I reviewed the patient's lab results. 08/11/23 10:35 08/11/23 10:35 Labs: Laboratory Results - last 24 hr 08/11/23 10:35: WBC 14.5 H, RBC 3.96 L, Hgb 11.7 L, Hct 35.9 L, MCV 90.7, MCH 29.5, MCHC 32.6, RDW Std Deviation 42.5, RDW Coeff of [place] 12.9, Plt Count 192, MPV 10.0, Immature Gran % (Auto) 0.600, Neut % (Auto) 81.3 H, Lymph % (Auto) 2.2 L, [place] % (Auto) 8.6, Eos % (Auto) 7.0 H, Baso % (Auto) 0.3, Absolute Neuts (auto) 11.8 H, Absolute Lymphs (auto) 0.32 L, Nucleated RBC % 0, Differential Comment SCANNED, Sodium 135 L, Potassium 4.2, Chloride 105, Carbon Dioxide 24.0, Anion Gap 6, BUN 23 H, Creatinine 1.32 H, Estim Creat Clear Calc 38.07, Est GFR (MDRD) Af Amer 50 L, Est GFR (MDRD) Non-Af 42 L, BUN/Creatinine Ratio 17.4, Glucose 163 H, Lactic Acid 1.2, Calcium 9.2 08/11/23 10:49: Urine Color Yellow, Urine Clarity Clear, Urine pH 6.0, Ur Specific [place] 1.015, Urine Protein 500 H, Urine Glucose (UA) Normal, Urine Ketones 5 H, Urine Occult Blood 150 H, Urine Nitrite Negative, Urine Bilirubin Negative, Urine Urobilinogen 1 H, Ur Leukocyte Esterase Negative, Urine RBC 5-10 SEEN, Urine WBC 0 SEEN, Ur Squamous Epith Cells 0 SEEN, Urine Bacteria 0 SEEN, Urine Mucus 0 SEEN Micro: Microbiology 08/11/23 10:45 Mucosa - Nose SARS-CoV-2, Influenza & RSV (PCR) - Final Rhythm Strip Rhythm Strip: Sinus Rhythm Rate: 61 Ectopy: None Imaging Radiology Impression Chest X-Ray 08/11/23 11:05 IMPRESSION: No acute cardiopulmonary abnormality. Aneurysm of the aortic arch. Stable hiatal hernia. Electronically Signed: Tutu Ann MD at 11:40 EST , Assessment & Plan Assessment/Plan (1) Weakness: PLAN: Plan Weakness * patient been acutely weak over the past acute couple days. * Workup in the emergency room was unremarkable with exception of a leukocytosis. COVID, influenza and RSV were negative * Is possible the patient may have had a viral gastroenteritis. * Patient at risk for returning home and requires further intervention with IV fluids, therapy evaluation. Patient is at risk for further falls and's severe injury if not adequately assessed therefore patient will be admitted. * Additionally, patient does appear to be dehydrated. Creatinine is up slightly but not to the point of acute kidney injury. IV fluids * PT OT evaluate and treat. Case management to assist on evaluation for [facility] facility. Leukocytosis * No clear source of infection at this time though she does complain of ear pain. * Unable to visualize her tympanic membranes due to wax. Will give patient Debrox for years and then recheck to see if there is any evidence of otitis media Chronic conditions * CAD/PAD: Stable. * Cognitive impairment: Unclear type. Patient was started empirically on donezepil without formal diagnosis of dementia. Continue with donezepil for now. * Hypertension: Stable continue with amlodipine VTE prophylaxis with enoxaparin CODE STATUS: Addressed with the patient and her . Patient is to be full code. Disposition: To be determined. Patient be evaluated therapy services and will receive IV fluids. Not sure the patient will get strong enough to be able to go home safely without intervention or if she may require [facility] facility. Charges/Coding Visit Charges Inpatient E&M: 63801 Init Hosp L3
--- OUTSIDE RECORDS SUMMARY | 2023-08-11 14:12 | XMS RPT_ITS | CCD ---
Author Name Unknown Address [address] [place] [address] Organization [facility] Care Team Providers Care Supervisor Fabrication Name Role Phone Den MOSQUERA, Devika Unavailable Katie Abdullahi MD Primary Care Provider KATIE ABDULLAHI Referring Unavailable KATIE ABDULLAHI Primary Care Unavailable KATIE ABDULLAHI Referring Unavailable KATIE ABDLULAHI Primary Care Unavailable KATIE ABDULLAHI Primary Care [...] 10/20/2015 01/16/2023 Discontinued (Course of therapy completed) Problems Active Problems Problem Classification Problem Date Documented Date Episodic/Chronic Chronic kidney disease (19 sources) Chronic kidney disease stage 3; Translations: [CKD (chronic kidney disease), stage III] Onset: 12-31-2019 12-31-2019 Chronic Chronic obstructive pulmonary disease and bronchiectasis (20 sources) Pulmonary emphysema; Translations: [Emphysema, unspecified] Onset: 08-12-2015 Chronic Coronary atherosclerosis and other heart disease (18 sources) Coronary arteriosclerosis; Translations: [Atherosclerotic heart disease of [place] coronary artery without angina pectoris] Onset: 05-27-2012 06-06-2021 Chronic Delirium, dementia, and amnestic and other cognitive disorders (20 sources) Mild dementia; Translations: [Unspecified dementia without behavioral disturbance] Onset: 06-27-2019 Chronic Diabetes mellitus without complication (1 source) Increased glucose level; Translations: [Other abnormal glucose] 07-20-2023 Episodic Disorders of lipid metabolism (20 sources) Hyperlipidemia; Translations: [Hyperlipidemia, unspecified] Onset: 08-12-2015 Chronic Diverticulosis and diverticulitis (18 sources) Diverticulosis of large intestine; Translations: [Diverticulosis of large intestine without perforation or abscess without bleeding] Onset: 01-07-2018 01-07-2018 Chronic Esophageal disorders (20 sources) Gastroesophageal reflux disease without esophagitis; Translations: [Gastro-esophageal reflux disease without esophagitis] Onset: 05-13-2018 Chronic Essential hypertension (20 sources) Essential hypertension; Translations: [Essential (primary) hypertension] Onset: 08-12-2015 Chronic Hypertension with complications and secondary hypertension (20 sources) Chronic kidney disease stage 3 due to hypertension; Translations: [Hypertensive chronic kidney disease with stage 1 through stage 4 chronic kidney disease, or unspecified chronic kidney disease] Onset: 06-22-2021 Chronic Mood disorders (20 sources) Recurrent major depression in partial remission; Translations: [Major depressive disorder, recurrent, in partial remission] Onset: 10-09-2019 Chronic Other connective tissue disease (1 source) Cramp; Translations: [Cramp and spasm] Episodic Other liver diseases (18 sources) Steatosis of liver; Translations: [Fatty (change of) liver, not elsewhere classified] Onset: 01-07-2018 01-07-2018 Chronic Other nutritional; endocrine; and metabolic disorders (19 sources) Obese class II; Translations: [Obesity, unspecified] Onset: 11-21-2017 Chronic Other skin disorders (1 source) Disorder of skin; Translations: [Disorder of the skin and subcutaneous tissue, unspecified] 07-28-2023 Episodic Past or Other Problems Problem Classification Problem Date Documented Da te Episodic/Chronic Melanomas of skin (18 sources) H/O Malignant melanoma; Translations: [Personal history of malignant melanoma of skin] Onset: 05-13-2018 06-22-2021 Episodic Other and unspecified benign neoplasm (18 sources) Tubular adenoma of colon; Translations: [Benign neoplasm of colon, unspecified] Onset: 01-02-2018 01-02-2018 Episodic Other and unspecified benign neoplasm (18 sources) History of polyp of colon; Translations: [Personal history of colonic polyps] Onset: 05-13-2018 05-13-2018 Episodic Other screening for suspected conditions (not mental disorders or infectious disease) (4 sources) Patient encounter status; Translations: [Encounter for screening mammogram for malignant neoplasm of breast] Onset: 02-23-2023 Episodic Results Test Name Value Interpretation Reference Range Facil ity Vital Signs Date Time Vital Sign Value Performing Clinician Faci lity 07-28-2023 12:32-0500 Body temperature 97.7 [degF] Kecia Arita APRN.DISHTANK OPERATOR Work Phone: [facility] 07-28-2023 12:32-0500 Body weight 98.61 kg Kecia Arita APRN.DISHTANK OPERATOR Work Phone: [facility] 07-28-2023 12:32-0500 Diastolic blood pressure 50 mm[Hg] Kecia Arita APRN.DISHTANK OPERATOR Work Phone: [facility] 07-28-2023 12:32-0500 Heart rate 58 /min Kecia Arita APRN.DISHTANK OPERATOR Work Phone: [facility] 07-28-2023 12:32-0500 Respiratory rate 20 /min Kecia Arita APRN.DISHTANK OPERATOR Work Phone: [facility] 07-28-2023 12:32-0500 SaO2% (BldA) [Mass fraction] 97 % Kecia Arita APRN.DISHTANK OPERATOR Work Phone: [facility] 07-28-2023 12:32-0500 Systolic blood pressure 160 mm[Hg] Kecia Arita APRN.DISHTANK OPERATOR Work Phone: [facility] 07-20-2023 10:36-0500 Body weight 95.98 kg Katie Abdullahi MD Work Phone: [facility] 07-20-2023 10:36-0500 Diastolic blood pressure 64 mm[Hg] Katie Abdullahi MD Work Phone: [facility] 07-20-2023 10:36-0500 Heart rate 64 /min Katie Abdullahi MD Work Phone: [facility] 07-20-2023 10:36-0500 Respiratory rate 18 /min Katie Abdullahi MD Work Phone: [facility] 07-20-2023 10:36-0500 Systolic blood pressure 136 mm[Hg] Katie Abdullahi MD Work Phone: [facility] 01-16-2023 11:17-0400 Body height 161.3 cm Avel Surinder HOOP ROLLS OPERATOR.DISHTANK OPERATOR Work Phone: [facility] 01-16-2023 11:17-0400 Body temperature 97.7 [degF] Avel Surinder HOOP ROLLS OPERATOR.DISHTANK OPERATOR Work Phone: [facility] 01-16-2023 11:17-0400 Body weight 94.35 kg Avel Surinder HOOP ROLLS OPERATOR.DISHTANK OPERATOR Work Phone: [facility] 01-16-2023 11:17-0400 Diastolic blood pressure 78 mm[Hg] Avel Surinder HOOP ROLLS OPERATOR.DISHTANK OPERATOR Work Phone: [facility] 01-16-2023 11:17-0400 Heart rate 58 /min Avel Surinder HOOP ROLLS OPERATOR.DISHTANK OPERATOR Work Phone: [facility] 01-16-2023 11:17-0400 Respiratory rate 16 /min Avel Surinder HOOP ROLLS OPERATOR.DISHTANK OPERATOR Work Phone: [facility] 01-16-2023 11:17-0400 SaO2% (BldA) [Mass fraction] 96 % Avel Surinder HOOP ROLLS OPERATOR.DISHTANK OPERATOR Work Phone: [facility] 01-16-2023 11:17-0400 Systolic blood pressure 132 mm[Hg] Avel Bustos APRN.DISHTANK OPERATOR Work Phone: [facility] 12-22-2021 09:41-0400 Body weight 96.62 kg Katie Abdullahi MD Work Phone: [facility] 12-22-2021 09:41-0400 Diastolic blood pressure 62 mm[Hg] Katie Abdullahi MD Work Phone: [facility] 12-22-2021 09:41-0400 Heart rate 64 /min Katie Abdullahi MD Work Phone: [facility] 12-22-2021 09:41-0400 Respiratory rate 16 /min Katie Abdullahi MD Work Phone: [facility] 12-22-2021 09:41-0400 Systolic blood pressure 126 mm[Hg] Katie Abdullahi MD Work Phone: [facility] Encounters Encounter Date Encounter Type Care Provider Facility Start: 07-28-2023 End: 07-28-2023 ambulatory KATIE ABDULLAHI Facility:[facility] Start: 07-28-2023 End: 07-28-2023 Patient encounter procedure Kecia Arita APRN.DISHTANK OPERATOR Work Phone: [facility] Procedures Date Procedure Procedure Detail Performing Clinician Start: 02-23-2023 Screening mammograph y bi 2-view breast inc cad Bulk Order Provider Start: 01-17-2023 Lipid 1996 panel - S brandie or Plasma Mammography Coordinator Start: 12-29-2020 Mammography Katie davis MD Work Phone: Start: 01-14-2018 Colonoscopy Katie davis MD Work Phone: Plan of Treatment Date Care Activity Detail Author Start: 01-18-2028 Lipid 1996 panel - S brandie or Plasma Lipid Screening [facility] Start: 01-18-2028 Lipid panel Lipid Screening [facility] Start: 01-18-2028 LIPID SCREEN LIPID SCREEN [facility] Start: 12-14-2026 LIPID SCREEN LIPID SCREEN [facility] Start: 01-17-2026 DIABETES SCREEN DIABETES SCREEN [facility] Start: 01-17-2026 Diabetes Screening Diabetes Screenin g [facility] Start: 12-14-2024 DIABETES SCREEN DIABETES SCREEN [facility] Start: 07-20-2024 Annual PCP Team Bi Tester dieudonne Disease Visit Annual PCP Team Chronic Disease Visit [facility] Start: 07-20-2024 Covid-19 Vaccine ( season) Covid-19 Vaccine () [facility] Immunizations Immunization Date Immunization Notes Care Provider Fa cili 03-28-2021 influenza virus vaccine, unspecified formulation Mammography Coordinator [facility] 09-23-2020 COVID-19 vaccine, fu ll dose (MODERNA) Katie Abdullahi MD Work Phone: [facility] Work Phone: 08-26-2020 COVID-19 vaccine, fu ll dose (MODERNA) Katie Abdullahi MD Work Phone: [facility] Work Phone: 03-18-2020 influenza, high dose seasonal, preservative-free Katie Abdullahi MD Work Phone: [facility] 07-01-2019 pneumococcal polysaccharide vaccine, 23 valent Katie Abdullahi MD Work Phone: [facility] 02-25-2018 influenza, high dose seasonal, preservative-free Katie Abdullahi MD Work Phone: [facility] 03-29-2016 zoster vaccine, live Katie rollins MD Work Phone: [facility] 03-13-2016 pneumococcal conjuga te vaccine, 13 valent Katie Abdullahi MD Work Phone: [facility] 08-16-2015 pneumococcal polysaccharide vaccine, 23 valent Katie Abdullahi MD Work Phone: [facility] 03-25-2015 influenza, seasonal, injectable Katie Abdullahi MD Work Phone: [facility] 03-11-2015 influenza, high dose seasonal, preservative-free Katie Abdullahi MD Work Phone: [facility] 11-17-2013 pneumococcal polysaccharide vaccine, 23 valent Katie Abdullahi MD Work Phone: [facility] 03-10-2012 influenza virus vaccine, unspecified formulation Katie Abdullahi MD Work Phone: [facility] 02-09-2011 influenza virus vaccine, unspecified formulation Katie Abdullahi MD Work Phone: [facility] 05-05-2009 tetanus toxoid, redu cyrus diphtheria toxoid, and acellular pertussis vaccine, adsorbed Katie Abdullahi MD Work Phone: [facility] 02-10-2008 influenza virus vaccine, unspecified formulation Katie Abdullahi MD Work Phone: [facility] Payers Date Payer Category Payer Medicare MEDICARE MEDICAR E A AND B [id number] 2013-Present [phone] [place] [address] Medicare [id number] 2013 Medicare MEDICARE MEDICAR E A AND B [id number] 2013-Present [phone] [place] [address] Medicare [id number] 2013 Medicare [id number] 2013 Private Health Insurance [facility] AARP SUPPLEMENT [id number] 2013-Present [phone] [address] [place] [address] Indemnity [id number] 2013 Private Health Insurance [facility] AARP SUPPLEMENT [id number] 2013-Present [phone] [address] [place] [address] Indemnity [id number] 2013 Unknown [id number] Social History Date Type Detail Facility Start: 07-31-2012 End: 01-16-2023 Tobacco smoking status NHIS Ex-smoker [facility] History of tobacco use Cigarette Smoker C [facility] Start: 07-31-2012 End: 01-16-2023 Cigarettes smoked current (pack per day) - Reported 1 [facility] Start: 07-31-2012 End: 01-16-2023 Tobacco use and exposure Smokeless tobacco non-user [facility] Start: 12-22-2021 End: 07-28-2023 Alcohol intake Current non-drinker of alcohol (finding) [facility] Start: 12-19-2021 History SDOH Alcohol Frequency 5 [facility] Start: 12-19-2021 History SDOH Alcohol Std Drinks 1 [facility] Start: 11-11-2015 History SDOH Alcohol Comment 4-5 beers per week - stopped as of 06/2015 [facility] Start: 12-19-2021 History SDOH Social Connections Phone 2 [facility] Start: 12-19-2021 History SDOH Social Connections Get Together 3 [facility] Start: 12-19-2021 History SDOH Social Connections Meetings 98 [facility] Start: 12-19-2021 History SDOH Physical Activity DPW 0 [facility] Start: 06-15-2015 End: 01-16-2023 Tobacco Comment Quit smoking [facility] Start: 1950 Sex Assigned At Female [facility] Start: 12-12-2021 End: 12-22-2021 Exposure to SARS-CoV-2 (event) Not sure [facility] History of tobacco use Current smoker [facility] Work Phone: Start: 12-19-2021 End: 01-16-2023 Social connection and isolation panel [facility] Do you belong to any clubs or organizations such as pentecostal groups, unions, fraternal or athletic groups, or school groups? No [facility] How often do you att end meetings of the clubs or organizations you belong to? Patient refused [facility] Are you now , , , , never or living with a partner? [facility] How often to you hav e a drink containing alcohol? 4 or more times a week [facility] How many standard dr inks containing alcohol do you have on a typical day? 1 or 2 [facility] How often do you hav e 6 or more drinks on 1 occasion? Never [facility] Do you feel stress - tense, restless, nervous, or anxious, or unable to sleep at night because your mind is troubled all the time - these days [OSQ] Not at all [facility] (I/We) worried wheth er (my/our) food would run out before (I/we) got money to buy more. Never true [facility] Start: 12-28-2020 Gender identity Identifies as female gender (finding) [facility] Start: 12-28-2020 Sexual orientation Heterosexual (finding) [facility] Medical Equipment Procedure Code Equipment Code Equipment Origin al Text Equipment Identifier Dates Efrain Bn Endur Sst 40gm [facility] - [id number] Start: 04-17-2011 Clinical Notes 01-07-2018 to 07-28-2023 Kecia Arita APRN.DISHTANK OPERATOR - 07/28/2023 12:37 PM Katie Tomas MD - 07/20/2023 10:40 AM EST Note Date & Type Note Facility 07-28-2023 Note HNO ID: [id number] Author: KECIA ARITA APRN.DISHTANK OPERATOR Service: ? Author Type: Nurse Practitioner Type: Progress Notes Filed: 07/28/2023 12:40 Note Text: Subjective Came in with complaints of black dot on right forearm. Patient thinks it is part of the tick that she had a couple weeks ago. Patient denies any redness or swelling or pain in the area. Trauma Review of Systems Constitutional: Negative. Skin: Negative. Objective Physical Exam Constitutional: Appearance: Normal appearance. Pulmonary: Effort: Pulmonary effort is normal. Skin: Comments: Small black pinpoint area consistent with tick head. No signs of infection. Unable to remove without creating an opening on the arm due to being mostly under the skin. Neurological: Mental Status: She is alert. PAST MEDICAL HISTORY Diagnosis Date Abnormal ECG ASHD (arteriosclerotic heart disease) 05/27/2012 Celiac artery stenosis (HCC) Diverticulosis of sigmoid colon Essential hypertension, benign Fatty liver GERD without esophagitis 05/13/2018 History of tobacco use Hyperlipemia Hyperplastic polyp of transverse colon 2018 Lung nodule 06/17/2012 Malignant melanoma (HCC) 02/12/2018 left thigh Obesity, Class II, BMI 35-39.9 11/21/2017 Osteoarthritis, knee 04/19/2010 Other severe protein-calorie malnutrition Personal history of colonic polyps Reactive depression 12/08/2015 Stricture of artery (HCC) 01/07/2018 celiac artery stenosis 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 Tubular adenoma of colon 01/02/2018 hepatic flexure Upper back pain 01/02/2018 PAST SURGICAL HISTORY Procedure Laterality Date ARTHRP KNE CONDYLEANDPLATU MEDIALANDLAT COMPARTMENTS 04/17/2011 Knee replacement, total right ARTHRP KNE CONDYLEANDPLATU MEDIALANDLAT COMPARTMENTS 05/29/2011 Knee replacement, total left BLEPHAROPLASTY EXTENSIVE 2011 bilateral COLSC FLX W/REMOVAL LESION BY HOT BX FORCEPS 08/14/2016 COLSC FLX W/RMVL OF TUMOR POLYP LESION SNARE TQ N/A 01/14/2018 [facility]2021 CORONARY ARTERY ANGIO CASA 07/19/15 EXCISION GANGLION WRIST DORSAL/VOLAR PRIMARY HEART SURGERY HX NOSE SURGERY HX 1985/1986 Deviated septum PAST SURGICAL HISTORY OF 2007 right knee meniscus repair PAST SURGICAL HISTORY OF 08/02/[address] repair PL[address] GASTROSTOMY TUBE,PERCUTAN 11/15/2015 ALLERGIES Patient has no known allergies. MEDICATIONS tiotropium bromide (SPIRIVA RESPIMAT) 2.5 mcg/actuation inhaler INHALE 2 PUFFS INSTRUCTED ONCE DAILY albuterol HFA (PROVENTIL HFA) 90 mcg/actuation inhaler Inhale 2 Puffs as instructed every 4 hours as needed (for shortness of breath and wheezing.). sertraline (ZOLOFT) 50 mg tablet Take 1 tablet by mouth once daily. atorvastatin (LIPITOR) 40 mg tablet Take 1 tablet by mouth once daily. omeprazole (PRILOSEC) 20 mg capsule Take 1 capsule by mouth twice daily. carvedilol (COREG) 6.25 mg tablet Take 1 tablet by mouth twice daily with meals. amLODIPine (NORVASC) 5 mg tablet Take 1 tablet by mouth once daily. donepezil (ARICEPT) 10 mg tablet Take 1 tablet by mouth daily at bedtime. FAMILY HISTORY Problem Relation Age of Onset other (liver disease) Mother Alzheimer's Disease Father other (Uterine Cancer) Paternal Grandmother Diabetes Maternal Grandmother Breast Cancer Maternal Aunt Colon Cancer Paternal Aunt Social History Tobacco Use Smoking status: Former Packs/day: 1.00 Years: 44.00 Additional pack years: 0.00 Total pack years: 44.00 Types: Cigarettes Smokeless tobacco: Never Tobacco comments: Quit smoking Substance Use Topics Alcohol use: No Comment: 4-5 beers per week - stopped as of 06/2015 Drug use: No ASSESSMENT/PLAN: 1. Skin abnormality - ICD9: 757.9, ICD10: L98.9 Instructed patient to keep an eye on it monitor for signs of infection such as redness swelling or pain. Patient was instructed to follow-up in another week or so if symptoms do not seem to be improving. Patient was okay with this care plan. Kecia Arita APRN.[facility] 07-28-2023 History of Present illness Narrative Images from the original note were not included. Subjective Came in with complaints of black dot on right forearm. Patient thinks it is part of the tick that she had a couple weeks ago. Patient denies any redness or swelling or pain in the area. Trauma Review of Systems Constitutional: Negative. Skin: Negative. Objective Physical Exam Constitutional: Appearance: Normal appearance. Pulmonary: Effort: Pulmonary effort is normal. Skin: Comments: Small black pinpoint area consistent with tick head. No signs of infection. Unable to remove without creating an opening on the arm due to being mostly under the skin. Neurological: Mental Status: She is alert. PAST MEDICAL HISTORY Diagnosis Date Abnormal ECG ASHD (arteriosclerotic heart disease) 05/27/2012 Celiac artery stenosis (HCC) Diverticulosis of sigmoid colon Essential hypertension, benign Fatty liver GERD without esophagitis 05/13/2018 History of tobacco use Hyperlipemia Hyperplastic polyp of transverse colon 2018 Lung nodule 06/17/2012 Malignant melanoma (HCC) 02/12/2018 left thigh Obesity, Class II, BMI 35-39.9 11/21/2017 Osteoarthritis, knee 04/19/2010 Other severe protein-calorie malnutrition Personal history of colonic polyps Reactive depression 12/08/2015 Stricture of artery (HCC) 01/07/2018 celiac artery stenosis 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 Tubular adenoma of colon 01/02/2018 hepatic flexure Upper back pain 01/02/2018 PAST SURGICAL HISTORY Procedure Laterality Date ARTHRP KNE CONDYLE&PLATU MEDIAL&LAT COMPARTMENTS 04/17/2011 Knee replacement, total right ARTHRP KNE CONDYLE&PLATU MEDIAL&LAT COMPARTMENTS 05/29/2011 Knee replacement, total left BLEPHAROPLASTY EXTENSIVE 2011 bilateral COLSC FLX W/REMOVAL LESION BY HOT BX FORCEPS 08/14/2016 COLSC FLX W/RMVL OF TUMOR POLYP LESION SNARE TQ N/A 01/14/2018 [facility]-01/2021 CORONARY ARTERY ANGIO S&I 07/19/15 EXCISION GANGLION WRIST DORSAL/VOLAR PRIMARY HEART SURGERY HX NOSE SURGERY HX 1985/1986 Deviated septum PAST SURGICAL HISTORY OF 2007 right knee meniscus repair PAST SURGICAL HISTORY OF 08/02/[address] repair [address] GASTROSTOMY TUBE,PERCUTAN 11/15/2015 ALLERGIES Patient has no known allergies. MEDICATIONS tiotropium bromide (SPIRIVA RESPIMAT) 2.5 mcg/actuation inhaler INHALE 2 PUFFS INSTRUCTED ONCE DAILY albuterol HFA (PROVENTIL HFA) 90 mcg/actuation inhaler Inhale 2 Puffs as instructed every 4 hours as needed (for shortness of breath and wheezing.). sertraline (ZOLOFT) 50 mg tablet Take 1 tablet by mouth once daily. atorvastatin (LIPITOR) 40 mg tablet Take 1 tablet by mouth once daily. omeprazole (PRILOSEC) 20 mg capsule Take 1 capsule by mouth twice daily. carvedilol (COREG) 6.25 mg tablet Take 1 tablet by mouth twice daily with meals. amLODIPine (NORVASC) 5 mg tablet Take 1 tablet by mouth once daily. donepezil (ARICEPT) 10 mg tablet Take 1 tablet by mouth daily at bedtime. FAMILY HISTORY Problem Relation Age of Onset other (liver disease) Mother Alzheimer's Disease Father other (Uterine Cancer) Paternal Grandmother Diabetes Maternal Grandmother Breast Cancer Maternal Aunt Colon Cancer Paternal Aunt Social History Tobacco Use Smoking status: Former Packs/day: 1.00 Years: 44.00 Additional pack years: 0.00 Total pack years: 44.00 Types: Cigarettes Smokeless tobacco: Never Tobacco comments: Quit smoking Substance Use Topics Alcohol use: No Comment: 4-5 beers per week - stopped as of 06/2015 Drug use: No ASSESSMENT/PLAN: 1. Skin abnormality - ICD9: 757.9, ICD10: L98.9 Instructed patient to keep an eye on it monitor for signs of infection such as redness swelling or pain. Patient was instructed to follow-up in another week or so if symptoms do not seem to be improving. Patient was okay with this care plan. Kecia Arita APRN.DISHTANK OPERATOR documented in this encounter [facility] 07-20-2023 Note HNO ID: [id number] Author: KATIE ABDULLAHI MD Service: ? Author Type: Physician Type: Progress Notes Filed: 07/20/2023 11:03 Note Text: Chief Complaint Patient presents with: F/U 6 Month HPI Greg Felix is a 73 year old female who presents here today for a 6 month follow up. Pt here today for a 6 month follow up. Was seen in on 07/13/23 for an embedded tick. GERD - Stable with use of Prilosec 20 mg 1 tab po bid. HTN - Denies checking BP at home or have symptoms of chest pain, sob or dizziness. On current regimen of Coreg 6.25 mg 1 tab po bid and Amlodipine 5 mg once daily. Lipids - States that she needs to watch her diet. Has been eating more when reading in bed and she needs to quit this. Denies much exercise, needs to start walking. On current regimen of Lipitor 40 mg once daily. Glucose - Elevated glucose on labs, currently on no medications. Monitoring through routine labs. Pulm - Hx of emphysema. Breathing overall doing pretty good. Does get sob with walking longer distances. On current regimen of Spiriva 2.5 mcg 2 puffs once daily and Proventil 90 mcg 2 puffs every 4 hours prn. CKD - Monitored through routine labs. Depression - Moods overall doing well with use of Zoloft 50 mg once daily. Dementia - Mild. Pt states at this time overall stable, but probably could be better. Still driving, denies getting lost. cooks her meals. On current regimen of Aricept 10 mg once daily. HM - Has Adv Dir/Living Will scanned into chart. Receives Moderna Covid vaccine, would like to wait on Covid vaccine at this time. With Medicare Insurance needs to receive Shingles and RSV vaccine through Pharmacy. Past medical history, appointments, medications, allergies reviewed. Previous Medical History PAST MEDICAL HISTORY Diagnosis Date Abnormal ECG ASHD (arteriosclerotic heart disease) 05/27/2012 Celiac artery stenosis (HCC) Diverticulosis of sigmoid colon Essential hypertension, benign Fatty liver GERD without esophagitis 05/13/2018 History of tobacco use Hyperlipemia Hyperplastic polyp of transverse colon 2018 Lung nodule 06/17/2012 Malignant melanoma (HCC) 02/12/2018 left thigh Obesity, Class II, BMI 35-39.9 11/21/2017 Osteoarthritis, knee 04/19/2010 Other severe protein-calorie malnutrition Personal history of colonic polyps Reactive depression 12/08/2015 Stricture of artery (HCC) 01/07/2018 celiac artery stenosis 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 Tubular adenoma of colon 01/02/2018 hepatic flexure Upper back pain 01/02/2018 Previous Surgical History PAST SURGICAL HISTORY Procedure Laterality Date ARTHRP KNE CONDYLEANDPLATU MEDIALANDLAT COMPARTMENTS 04/17/2011 Knee replacement, total right ARTHRP KNE CONDYLEANDPLATU MEDIALANDLAT COMPARTMENTS 05/29/2011 Knee replacement, total left BLEPHAROPLASTY EXTENSIVE 2011 bilateral COLSC FLX W/REMOVAL LESION BY HOT BX FORCEPS 08/14/2016 COLSC FLX W/RMVL OF TUMOR POLYP LESION SNARE TQ N/A 01/14/2018 [facility] Tran-next colonoscopy 3 years-01/2021 CORONARY ARTERY ANGIO CASA 07/19/15 EXCISION GANGLION WRIST DORSAL/VOLAR PRIMARY HEART SURGERY HX NOSE SURGERY HX 1985/1986 Deviated septum PAST SURGICAL HISTORY OF 2007 right knee meniscus repair PAST SURGICAL HISTORY OF 08/02/[address] repair PL[address] GASTROSTOMY TUBE,PERCUTAN 11/15/2015 Family History FAMILY HISTORY Problem Relation Age of Onset other (liver disease) Mother Alzheimer's Disease Father other (Uterine Cancer) Paternal Grandmother Diabetes Maternal Grandmother Breast Cancer Maternal Aunt Colon Cancer Paternal Aunt Patient Allergies ALLERGIES No Known Allergies Current Medications Current Outpatient Medications on File Prior to Visit Medication Sig benzonatate (TESSALON PERLES) 100 mg capsule Take 1 capsule by mouth three times a day as needed for cough. sertraline (ZOLOFT) 50 mg tablet Take 1 tablet by mouth once daily. atorvastatin (LIPITOR) 40 mg tablet Take 1 tablet by mouth once daily. omeprazole (PRILOSEC) 20 mg capsule Take 1 capsule by mouth twice daily. carvedilol (COREG) 6.25 mg tablet Take 1 tablet by mouth twice daily with meals. amLODIPine (NORVASC) 5 mg tablet Take 1 tablet by mouth once daily. donepezil (ARICEPT) 10 mg tablet Take 1 tablet by mouth daily at bedtime. tiotropium bromide (SPIRIVA RESPIMAT) 2.5 mcg/actuation inhaler INHALE 2 PUFFS INSTRUCTED ONCE DAILY albuterol HFA (PROVENTIL HFA) 90 mcg/actuation inhaler Inhale 2 Puffs as instructed every 4 hours as needed (for shortness of breath and wheezing.). No current facility-administered medications on file prior to visit. Social History Social History Tobacco Use Smoking status: Former Packs/day: 1.00 Years: 44.00 Additional pack years: 0.00 Total pack years: 44.00 Types: Cigarettes Smokeless tobacco: Never Tobacco comments: Quit smoking Substance Use Topics A (more content not included)... [facility] 07-20-2023 History of Present illness Narrative Chief Complaint Patient presents with: F/U 6 Month HPI Greg Felix is a 73 year old female who presents here today for a 6 month follow up. Pt here today for a 6 month follow up. Was seen in on 07/13/23 for an embedded tick. GERD - Stable with use of Prilosec 20 mg 1 tab po bid. HTN - Denies checking BP at home or have symptoms of chest pain, sob or dizziness. On current regimen of Coreg 6.25 mg 1 tab po bid and Amlodipine 5 mg once daily. Lipids - States that she needs to watch her diet. Has been eating more when reading in bed and she needs to quit this. Denies much exercise, needs to start walking. On current regimen of Lipitor 40 mg once daily. Glucose - Elevated glucose on labs, currently on no medications. Monitoring through routine labs. Pulm - Hx of emphysema. Breathing overall doing pretty good. Does get sob with walking longer distances. On current regimen of Spiriva 2.5 mcg 2 puffs once daily and Proventil 90 mcg 2 puffs every 4 hours prn. CKD - Monitored through routine labs. Depression - Moods overall doing well with use of Zoloft 50 mg once daily. Dementia - Mild. Pt states at this time overall stable, but probably could be better. Still driving, denies getting lost. cooks her meals. On current regimen of Aricept 10 mg once daily. HM - Has Adv Dir/Living Will scanned into chart. Receives Moderna Covid vaccine, would like to wait on Covid vaccine at this time. With Medicare Insurance needs to receive Shingles and RSV vaccine through Pharmacy. Past medical history, appointments, medications, allergies reviewed. Previous Medical History PAST MEDICAL HISTORY Diagnosis Date Abnormal ECG ASHD (arteriosclerotic heart disease) 05/27/2012 Celiac artery stenosis (HCC) Diverticulosis of sigmoid colon Essential hypertension, benign Fatty liver GERD without esophagitis 05/13/2018 History of tobacco use Hyperlipemia Hyperplastic polyp of transverse colon 2017 Lung nodule 06/17/2012 Malignant melanoma (HCC) 02/12/2018 left thigh Obesity, Class II, BMI 35-39.9 11/21/2017 Osteoarthritis, knee 04/19/2010 Other severe protein-calorie malnutrition Personal history of colonic polyps Reactive depression 12/08/2015 Stricture of artery (HCC) 01/07/2018 celiac artery stenosis 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 Tubular adenoma of colon 01/02/2018 hepatic flexure Upper back pain 01/02/2018 Previous Surgical History PAST SURGICAL HISTORY Procedure Laterality Date ARTHRP KNE CONDYLE&PLATU MEDIAL&LAT COMPARTMENTS 04/17/2011 Knee replacement, total right ARTHRP KNE CONDYLE&PLATU MEDIAL&LAT COMPARTMENTS 05/29/2011 Knee replacement, total left BLEPHAROPLASTY EXTENSIVE 2011 bilateral COLSC FLX W/REMOVAL LESION BY HOT BX FORCEPS 08/14/2016 COLSC FLX W/RMVL OF TUMOR POLYP LESION SNARE TQ N/A 01/14/2018 [facility]-next colonoscopy 3 years-01/2021 CORONARY ARTERY ANGIO S&I 07/19/15 EXCISION GANGLION WRIST DORSAL/VOLAR PRIMARY HEART SURGERY HX NOSE SURGERY HX 1985/1986 Deviated septum PAST SURGICAL HISTORY OF 2007 right knee meniscus repair PAST SURGICAL HISTORY OF 08/02/[address] GASTROSTOMY TUBE,PERCUTAN 11/15/2015 Family History FAMILY HISTORY Problem Relation Age of Onset other (liver disease) Mother Alzheimer's Disease Father other (Uterine Cancer) Paternal Grandmother Diabetes Maternal Grandmother Breast Cancer Maternal Aunt Colon Cancer Paternal Aunt Patient Allergies ALLERGIES No Known Allergies Current Medications Current Outpatient Medications on File Prior to Visit Medication Sig benzonatate (TESSALON PERLES) 100 mg capsule Take 1 capsule by mouth three times a day as needed for cough. sertraline (ZOLOFT) 50 mg tablet Take 1 tablet by mouth once daily. atorvastatin (LIPITOR) 40 mg tablet Take 1 tablet by mouth once daily. omeprazole (PRILOSEC) 20 mg capsule Take 1 capsule by mouth twice daily. carvedilol (COREG) 6.25 mg tablet Take 1 tablet by mouth twice daily with meals. amLODIPine (NORVASC) 5 mg tablet Take 1 tablet by mouth once daily. donepezil (ARICEPT) 10 mg tablet Take 1 tablet by mouth daily at bedtime. tiotropium bromide (SPIRIVA RESPIMAT) 2.5 mcg/actuation inhaler INHALE 2 PUFFS INSTRUCTED ONCE DAILY albuterol HFA (PROVENTIL HFA) 90 mcg/actuation inhaler Inhale 2 Puffs as instructed every 4 hours as needed (for shortness of breath and wheezing.). No current facility-administered medications on file prior to visit. Social History Social History Tobacco Use Smoking status: Former Packs/day: 1.00 Years: 44.00 Additional pack years: 0.00 Total pack years: 44.00 Types: Cigarettes Smokeless tobacco: Never Tobacco comments: Quit smoking Substance Use Topics Alcohol use: No Comment: 4-5 beers per week - stopped as of 06/2015 Drug use: No EXAM: BP 136/64 (BP Site: Left Arm, BP Position: Sitting, BP Cuff Size: Large Adult) Pulse 64 Resp 18 Wt 96 kg (211 lb 9.6 oz) BMI 36.90 kg/m General Appearance: Well appearing, alert, in no acute distress, well-hydrated, well nourished. and using a cane. Lungs: Lungs clear to auscultation. No wheezing, rhonchi, rales.. Heart: RRR without murmur, gallop, or rubs. No ectopy. Health Maintenance List BP Controlled (<130/80) Never done Alpha-1 Antitrypsin Deficiency Screening Never done RSV Vaccine(1 - 1-dose 60+ series) Never done Shingrix Vaccine(2 of 3) due on 05/24/2016 DTaP,Tdap,Td Vaccine(2 - Td or Tdap) due on 05/05/2019 Covid-19 Vaccine( - season) due on 02/09/2023 Advance Directive Discussion due on 06/11/2023 Annual PCP Team Chronic Disease Visit due on 01/17/2024 LDL Cholesterol due on 01/18/2024 Serum Creatinine due on 01/18/2024 Hemoglobin/Hematocrit due on 01/18/2024 Diabetes Screening due on 01/17/2026 Lipid Screening due on 01/18/2028 Bone Density Screening Completed Spirometry Completed Influenza Vaccine Completed Pneumococcal Vaccine: 65+ Completed Mammogram Screening Discontinued Colorectal Cancer Screening Discontinued Hepatitis C Screening Discontinued Data reviewed No recent labs ASSESSMENT/PLAN: 1. Hypertension, unspecified type - ICD9: 401.9, ICD10: I10 (primary diagnosis) - Controlled - Continue current medications - Recommend home blood pressure monitoring, to bring results to next visit - Encouraged sodium restriction, DASH or Mediterranean diet - Recommend regular aerobic exercise - COMP METABOLIC PANEL - LIPID PANEL BASIC - CBC + DIFF 2. Hypertensive kidney disease with stage 3 chronic kidney disease, unspecified whether stage 3a or 3b CKD (HCC) - ICD9: 403.90, 585.3, ICD10: I12.9, N18.30 - check labs in 6 months - Continue current medication regimen. - COMP METABOLIC PANEL - LIPID PANEL BASIC 3. Hyperlipidemia LDL goal <70 - ICD9: 272.4, ICD10: E78.5 - check labs in 6 months - Continue current medications - Counseled on healthy diet and regular exercise - COMP METABOLIC PANEL - LIPID PANEL BASIC 4. Recurrent major depressive disorder, in partial remission (HCC) - ICD9: 296.35, ICD10: F33.41 - Stable on current regimen 5. Pulmonary emphysema, unspecified emphysema type (HCC) - ICD9: 492.8, ICD10: J43.9 - Continue current medication regimen. - SPIRIVA RESPIMAT 2.5 MCG/ACTUATION SOLUTION FOR INHALATION - ALBUTEROL SULFATE HFA 90 MCG/ACTUATION AEROSOL INHALER 6. GERD without esophagitis - ICD9: 530.81, ICD10: K21.9 - Continue current medication regimen. 7. Mild dementia, unspecified dementia type, unspecified whether behavioral, psychotic, or mood disturbance or anxiety (HCC) - ICD9: 294.20, ICD10: F03.A0 - Continue current medication regimen. - CBC + DIFF 8. Elevated glucose - ICD9: 790.29, ICD10: R73.09 - Check labs - COMP METABOLIC PANEL - LIPID PANEL BASIC - HGB A1C 9. Medicare annual wellness visit, subsequent - ICD9: V70.0, ICD10: Z00.00 - Check labs prior to visit - COMP METABOLIC PANEL - LIPID PANEL BASIC - CBC + DIFF - HGB A1C 6 mo f/u for Medicare Wellness with fasting labs. I agree with the Chief Complaint, ROS, and Past Histories independently gathered by the clinical customer support executive and the remaining scribed note accurately describes my personal service to the patient. Medical Decision Making: Problems: Moderate: 2+ stable chronic illnesses Data: Unique test(s) ordered: 3+ Risk: Moderate: Drug management Medical Decision Making Level: 4 - Moderate Katie Abdullahi MD The documentation for this note was completed by Doris Delgado Ma acting as scribe for Katie Abdullahi MD. July 20, 2023 10:43 AM. Doris Delgado Ma documented in this encounter [facility] documented in this encounter [facility]02-02-2024 NoteHNO ID: [id number] Author: GARY ROLLINS MD Service: ? Author Type: Physician Type: Progress Notes Filed: 07/13/2023 17:46 Note Text: Patient presents with: dog bite right arm: Playing with their tiny dog and got her skin x 2-3 days HPI: Accidentally bitten by her dog a few days ago while playing tug of war with a towel. Noticed a katie on her right forearm yesterday and thinks it may have been where he caught her. Increasing redness. No fever, chills, drainage, numbness, pain with ROM. MEDICATIONS: benzonatate (TESSALON PERLES) 100 mg capsule Take 1 capsule by mouth three times a day as needed for cough. sertraline (ZOLOFT) 50 mg tablet Take 1 tablet by mouth once daily. atorvastatin (LIPITOR) 40 mg tablet Take 1 tablet by mouth once daily. omeprazole (PRILOSEC) 20 mg capsule Take 1 capsule by mouth twice daily. carvedilol (COREG) 6.25 mg tablet Take 1 tablet by mouth twice daily with meals. amLODIPine (NORVASC) 5 mg tablet Take 1 tablet by mouth once daily. donepezil (ARICEPT) 10 mg tablet Take 1 tablet by mouth daily at bedtime. tiotropium bromide (SPIRIVA RESPIMAT) 2.5 mcg/actuation inhaler INHALE 2 PUFFS INSTRUCTED ONCE DAILY albuterol HFA (PROVENTIL HFA) 90 mcg/actuation inhaler Inhale 2 Puffs as instructed every 4 hours as needed (for shortness of breath and wheezing.). ALLERGIES: ALLERGIES No Known Allergies VITALS: BP 128/64 Pulse 68 Temp 36.4 ?C (97.5 ?F) (Tympanic) Resp 18 Wt 98.2 kg (216 lb 6.4 oz) SpO2 98% BMI 37.73 kg/m? PE: Pleasant, in no acute distress. Accompanied by her Arm: right. Non-engorged dog tick on the forearm distal to the antecubital fossa. There is a 2cm area of erythema and edema at the site. Normal elbow, hand and wrist ROM. No epitrochlear lymphadenopathy. ASSESSMENT/PLAN: 1. Tick bite of right forearm, initial encounter - ICD9: 913.4, E906.4, ICD10: S50.861A, W57.XXXA (primary diagnosis) 2. Cellulitis of right forearm - ICD9: 682.3, ICD10: L03.113 Dog tick - no risk for Lyme disease. Start - DOXYCYCLINE MONOHYDRATE 100 MG CAPSULE for cellulitis vs local inflammatory reaction. Follow up if worsening or not improving. Gary Rollins, [facility]12-16-2023 Miscellaneous Notes* Telephone Encounter - Zulema Palmer LPN - 05/26/2023 11:18 AM EST Patient notified. Verbalized understanding. * Telephone Encounter - Rosi Weinberg PA-C - 05/26/2023 11:02 AM EST Patient know that she did test positive for COVID. She should take the molnupiravir that was prescribed yesterday. [facility]23 NoteHNO ID: [id number] Author: Beryl De Dios APRN.LEXIS Service: ? Author Type: Nurse Practitioner Type: Progress Notes Filed: 05/25/2023 9:53 AM Note Text: This note was created using NoteWriter. Subjective Greg Felix is a 73 year old female. 73 year old female with PMH HTN, hyperlipidemia, COPD, acid reflux, kidney disease presents for illness. Acute onset this morning. +ear pressure +nasal congestion +cough, dry +nausea +fatigue Denies emesis. Denies diarrhea accompanies patient. Patient tested POSITIVE for COVID yesterday (he had onset of sx this past Sunday) Former tobacco smoker. The history is provided by the patient. No language instructor was used. URI She complains of cough. There is no chest tightness, difficulty breathing, frequent throat clearing, hemoptysis, hoarse voice, shortness of breath, sputum production or wheezing. This is a new problem. The current episode started today. The problem occurs constantly. The problem has been unchanged. The cough is non-productive. Associated symptoms include ear congestion, headaches, malaise/fatigue, myalgias, nasal congestion, rhinorrhea, sneezing and a sore throat. Pertinent negatives include no appetite change, chest pain, dyspnea on exertion, ear pain, fever, heartburn, orthopnea, PND, postnasal drip, sweats, trouble swallowing or weight loss. Her symptoms are aggravated by nothing. Her symptoms are alleviated by nothing. She reports no improvement on treatment. There are no known risk factors for lung disease. Her past medical history is significant for COPD. There is no history of asthma, bronchiectasis, bronchitis, emphysema or pneumonia. PAST MEDICAL HISTORY Diagnosis Date Abnormal ECG ASHD (arteriosclerotic heart disease) 05/27/2012 Celiac artery stenosis (HCC) Diverticulosis of sigmoid colon Essential hypertension, benign Fatty liver GERD without esophagitis 05/13/2018 History of tobacco use Hyperlipemia Hyperplastic polyp of transverse colon 2018 Lung nodule 06/17/2012 Malignant melanoma (HCC) 02/12/2018 left thigh Obesity, Class II, BMI 35-39.9 11/21/2017 Osteoarthritis, knee 04/19/2010 Other severe protein-calorie malnutrition Personal history of colonic polyps Reactive depression 12/08/2015 Stricture of artery (HCC) 01/07/2018 celiac artery stenosis 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 Tubular adenoma of colon 01/02/2018 hepatic flexure Upper back pain 01/02/2018 PAST SURGICAL HISTORY Procedure Laterality Date ARTHRP KNE CONDYLEANDPLATU MEDIALANDLAT COMPARTMENTS 04/17/2011 Knee replacement, total right ARTHRP KNE CONDYLEANDPLATU MEDIALANDLAT COMPARTMENTS 05/29/2011 Knee replacement, total left BLEPHAROPLASTY EXTENSIVE 2011 bilateral COLSC FLX W/REMOVAL LESION BY HOT BX FORCEPS 08/14/2016 COLSC FLX W/RMVL OF TUMOR POLYP LESION SNARE TQ N/A 01/14/2018 [facility] CORONARY ARTERY ANGIO CASA 07/19/15 EXCISION GANGLION WRIST DORSAL/VOLAR PRIMARY HEART SURGERY HX NOSE SURGERY HX 1985/1986 Deviated septum PAST SURGICAL HISTORY OF 2007 right knee meniscus repair PAST SURGICAL HISTORY OF 08/02/[address] GASTROSTOMY TUBE,PERCUTAN 11/15/2015 ALLERGIES Patient has no known allergies. MEDICATIONS sertraline (ZOLOFT) 50 mg tablet Take 1 tablet by mouth once daily. atorvastatin (LIPITOR) 40 mg tablet Take 1 tablet by mouth once daily. omeprazole (PRILOSEC) 20 mg capsule Take 1 capsule by mouth twice daily. carvedilol (COREG) 6.25 mg tablet Take 1 tablet by mouth twice daily with meals. amLODIPine (NORVASC) 5 mg tablet Take 1 tablet by mouth once daily. donepezil (ARICEPT) 10 mg tablet Take 1 tablet by mouth daily at bedtime. tiotropium bromide (SPIRIVA RESPIMAT) 2.5 mcg/actuation inhaler INHALE 2 PUFFS INSTRUCTED ONCE DAILY albuterol HFA (PROVENTIL HFA) 90 mcg/actuation inhaler Inhale 2 Puffs as instructed every 4 hours as needed (for shortness of breath and wheezing.). benzonatate (TESSALON PERLES) 100 mg capsule Take 1 capsule by mouth three times a day as needed for cough. molnupiravir (LAGEVRIO, EUA,) 200 mg capsule Take 4 capsules by mouth two times a day for 5 days. FAMILY HISTORY Problem Relation Age of Onset other (liver disease) Mother Alzheimer's Disease Father other (Uterine Cancer) Paternal Grandmother Diabetes Maternal Grandmother Breast Cancer Maternal Aunt Colon Cancer Paternal Aunt Social History Tobacco Use Smoking status: Former Packs/day: 1.00 Years: 44.00 Additional pack years: 0.00 Total pack years: 44.00 Types: Cigarettes Smokeless tobacco: Never Tobacco comments: Quit smoking Substance Use Topics Alcohol use: No Comment: 4-5 beers per week - stopped as of 06/2015 Drug use: No Review of Systems Constitutional: Positive for fatigue and malaise/fatigue. Negative for appetite change, fever (more content not included)...[facility] 02-26-2023 Miscellaneous Notes* Letter - Coordinator, Mammography - 02/26/2023 8:11 AM EDT February 26, 2023 PID: [id number] Greg BrendaUriel Felix [address] [place] [address] Dear Ms. Felix, We are pleased to inform you that the results of your recent breast imaging exam on 02/23/2023 are normal. Early detection of cancer is very important. We also understand recommendations regarding breast cancer screening are controversial. Please discuss with your primary care provider which strategy is best for you and whether a mammogram is right for you. Your imaging studies and report will be kept on file at [facility] as part of your permanent medical record and are available for your continuing care. Thank you for allowing us to help in meeting your health care needs. Sincerely, Dr. Robles Interpreting Radiologist [facility] (Normal over 40) documented in this encounterKind[facility]09-15-2023 NoteHNO ID: [id number] Author: Che Barber Mammo Maye Service: ? Author Type: Central Office Mechanic Type: Progress Notes Filed: 02/23/2023 8:46 AM Note Text: Radiology Service Progress Note PATIENT NAME: Greg Felix DATE OF SERVICE: February 23, 2023 TIME: 8:26 AM PATIENT IDENTITY VERIFICATION COMPLETED USING TWO (2) IDENTIFIERS: Name and Date of confirmed by patient verbally. FALL SCREENING: Has the patient had 2 falls in the last year or 1 fall with injury or currently using an Ambulatory Assistive Device (Walker, Cane, Wheelchair, Crutches, etc.)? No PATIENT GENDER DATA: Female. status: : No status: NO. PATIENT RELEVANT IMPLANT DATA REVIEWED: Not Applicable RADIOLOGY DEPARTMENT: Mammography PERIPHERAL IV DATA: Not applicable SIGNED BY: Aniket Mukherjee February 23, 2023 8:26 [facility]09-15-2023 History of Present illness Narrative* Che Barber Mammo Tech - 02/23/2023 8:30 AM EDT Radiology Service Progress Note PATIENT NAME: Greg Felix DATE OF SERVICE: February 23, 2023 TIME: 8:26 AM PATIENT IDENTITY VERIFICATION COMPLETED USING TWO (2) IDENTIFIERS: Name and Date of confirmedby patient verbally. FALL SCREENING: Has the patient had 2 falls in the last year or 1 fall with injury or currently using an Ambulatory Assistive Device (Walker, Cane, Wheelchair, Crutches, etc.)? No PATIENT GENDER DATA: Female. status: : No status: NO. PATIENT RELEVANT IMPLANT DATA REVIEWED: Not Applicable RADIOLOGY DEPARTMENT: Mammography PERIPHERAL IV DATA: Not applicable SIGNED BY: Aniket Mukherjee February 23, 2023 8:26 AM documented in [facility]08-[facility]23 Miscellaneous Notes* Telephone Encounter - Corbin Shanks OCCA - 01/22/2023 1:22 PM EDT TC to spouse, Hermilo, as listed in phone notes. Hermilo verbalized understanding of providers message with no questions at this time. ROQUE Cain * Telephone Encounter - Avel Bustos APRN.CNP - 01/22/2023 12:41 PM EDT Please let the patient know that her cholesterol panel looks good. Kidney function is stable. Otherlabs are okay. No changes to her medications. Avel Bustos APRN.LEXIS documented in this [facility]08-[facility]-2023 NoteHNO ID: [id number] Author: Avel Bustos APRN.CNP Service: ? Author Type: Nurse Practitioner Type: Progress Notes Filed: 01/16/2023 12:06 PM Note Text: Chief Complaint Patient presents with: Follow up medication HPI Greg Felix is a 72 year old female who presents here today for Chronic Medical Conditions. Due for labs, they have been ordered. Will get after this visit. Here with her , Daniel. Patient has a history of dementia. Has been donepezil 5 mg for many years. does believe that patient is becoming more forgetful. Will ask multiple times for him to repeat things that he previously said during the day. Is open to increasing the medication. Patient is taking Zoloft at this time. No complaints. No side effects. Moods feel stable. No self-harm thoughts. Patient using her Spiriva as prescribed. Very infrequent use of albuterol. Does not feel short of breath at rest. Some long distances can induce some shortness of breath. Outside environmental allergies can also increase her symptoms. GERD: Patient is taking her omeprazole as prescribed. Very infrequent breakthrough. No tarry stools. Does not check blood pressure at home. Denies any chest pain, shortness of breath, syncope. Taking medication as prescribed without side effects. Past medical history, appointments, medications, allergies reviewed. EXAM: BP 132/78 Pulse (!) 58 Temp 36.5 ?C (97.7 ?F) (Left Tympanic) Resp 16 Ht 161.3 cm (5' 3.5 ) Wt 94.3 kg (208 lb) SpO2 96% BMI 36.27 kg/m? General Appearance: Well appearing, alert, in no acute distress, well-hydrated, well nourished. and Overweight. Head: Normocephalic, no masses, lesions, tenderness or abnormalities. Eyes: Anicteric sclera. Pupils are equally round and reactive to light. Extraocular movements are intact. . Ears: External ears normal, canals clear. Nose/Sinuses: Nares normal, septum midline, mucosa normal, no drainage or sinus tenderness. Oropharynx: Lips, mucosa, and tongue normal, teeth and gums normal, oropharynx normal. Neck: Supple, no adenopathy; thyroid symmetric, normal size Lungs: Lungs clear to auscultation. No wheezing, rhonchi, rales.. Heart: RRR without murmur, gallop, or rubs. No ectopy. Abdomen: Normal abdominal exam, Abdomen soft, non-tender. Bowel sounds normal. No masses, organomegaly. Extremities: No deformities, edema Lymph Nodes: No cervical lymphadenopathy and No supraclavicular lymphadenopathy. ASSESSMENT/PLAN: 1. Recurrent major depressive disorder, in partial remission (HCC) - ICD9: 296.35, ICD10: F33.41 -Stable, continue current medication. - SERTRALINE 50 MG TABLET 2. Hyperlipidemia LDL goal <70 - ICD9: 272.4, ICD10: E78.5 - Control undetermined, due for labs - Continue current medications - Counseled on healthy diet and regular exercise - ATORVASTATIN 40 MG TABLET 3. Pulmonary emphysema, unspecified emphysema type (HCC) - ICD9: 492.8, ICD10: J43.9 -Stable, continue inhalers as prescribed. 4. Essential hypertension with goal blood pressure less than 130/80 - ICD9: 401.9, ICD10: I10 - Controlled - Continue current medications - Recommend home blood pressure monitoring, to bring results to next visit - Encouraged sodium restriction, DASH or Mediterranean diet - Recommend regular aerobic exercise - CARVEDILOL 6.25 MG TABLET - AMLODIPINE 5 MG TABLET 5. Hypertensive kidney disease with stage 3 chronic kidney disease, unspecified whether stage 3a or 3b CKD (HCC) - ICD9: 403.90, 585.3, ICD10: I12.9, N18.30 -To be determined, continue medications. Check CMP. 6. GERD without esophagitis - ICD9: 530.81, ICD10: K21.9 -Stable continue current medication - OMEPRAZOLE 20 MG CAPSULE,DELAYED RELEASE 7. Mild dementia, unspecified dementia type, unspecified whether behavioral, psychotic, or mood disturbance or anxiety (HCC) - ICD9: 294.20, ICD10: F03.A0 -Some perceived worsening of cognition. This has been a slow progression. Has been like to try Aricept being increased to 10 mg. We will see her back in 6 months to follow progress. - DONEPEZIL 10 MG TABLET Avel Bustos APRN.LEXIS Schedule mammogram, get labs. See us back in 6 months. This note was partly generated using [employer] voice recognition dictation and may contain some misspelled or inaccurate words missed on review.[facility]08-08-2023 NoteHNO ID: [id number] Author: Avel Bustos APRN.LEXIS Service: ? Author Type: Nurse Practitioner Type: Progress Notes Filed: 01/16/2023 12:06 PM Note Text: Greg Felix is a 72 year old female here for a Medicare Subsequent Annual Wellness Visit Health Risk Assessment In general, health is: Good Concerns with balance:Not at all Concerns with teeth or dentures:Not at all Concerns with sexual function:Not at all [place] anxious, stressed, angry, irritable, lonely, isolated, or had thoughts of hurting themself: Not at all Has little interest or pleasure in doing things: Not at all Bothered by feeling down, depressed, or hopeless: Not at all Needs help with grocery shopping, cooking, housework, bathing, grooming, dressing, eating, sitting or standing, walking, using the toilet, handling finances, taking medications, using the telephone, or driving: Yes Following safety precautions in the home environment and vehicle: removed throw rugs from floors, installed grab bars in the bathroom, handrails in stairwells, having adequate lighting, wearing seatbelt at all times?: Yes Smokes cigarettes, vapes, or chew tobacco: No Eats healthy foods including fruits, vegetables, whole grains, and fiber-rich foods: Several days Number of days per week engages in exercise: 0 days Average alcohol consumption: Never Current Providers Specialists: I have reviewed specialist-related care of the patient in the medical record. Medical/Family history review Reviewed and updated problem list, medical/surgical/family/social history, medications, and allergies. Opioid use review Patient is not currently using opioids. Depression screening Depression Screening PHQ-2 Score PHQ-9 Score 01/02/2018 0 - Depression screening tool completed and reviewed. Based on score and interview, patient is not at risk for depression. Screening tool discussed with patient, and I recommended no further intervention at this time. Cognitive screening Mini Cog Score: Mild dementia baseline, some worsening. Functional Observation Was the patient's timed Up AND Go test unsteady or ? 12 seconds? No Advance Care Planning End of Life planning discussed, including patient's advanced directive wishes: Yes Measurements BP 132/78 Pulse 58 Temp (Src) 97.7 (Left Tympanic) Resp 16 Ht 5' 3.5 (1.61m) Wt 208 lb (94.3kg) SpO2 96% BMI 36.26 kg/(m2). Visual acuity (required for Welcome to Medicare): follows with optometry/ophthalmology Hearing Evaluation: hard of hearing Assessment/Plan Counseling - Counseled on healthy diet and regular exercise - Fall avoidance - Mammogram recommended and ordered Avel Bustos APRN.[facility]08-08-2023 History of Present illness Narrative* Avel Bustos APRN.[facility] - 01/16/2023 11:24 AM EDT Chief Complaint Patient presents with: Follow up medication HPI Greg Felix is a 72 year old female who presents here today for Chronic Medical Conditions. Due for labs, they have been ordered. Will get after this visit. Here with her , Daniel. Patient has a history of dementia. Has been donepezil 5 mg for many years. does believe that patient is becoming more forgetful. Will ask multiple times for him to repeat things that he previously said during the day. Is open to increasing the medication. Patient is taking Zoloft at this time. No complaints. No side effects. Moods feel stable. No self-harm thoughts. Patient using her Spiriva as prescribed. Very infrequent use of albuterol. Does not feel short of breath at rest. Some long distances can induce some shortness of breath. Outside environmental allergies can also increase her symptoms. GERD: Patient is taking her omeprazole as prescribed. Very infrequent breakthrough. No tarry stools. Does not check blood pressure at home. Denies any chest pain, shortness of breath, syncope. Taking medication as prescribed without side effects. Past medical history, appointments, medications, allergies reviewed. EXAM: BP 132/78 Pulse (!) 58 Temp 36.5 C (97.7 F) (Left Tympanic) Resp 16 Ht 161.3 cm (5' 3.5 ) Wt 94.3 kg (208 lb) SpO2 96% BMI 36.27 kg/m General Appearance: Well appearing, alert, in no acute distress, well-hydrated, well nourished. andOverweight. Head: Normocephalic, no masses, lesions, tenderness or abnormalities. Eyes: Anicteric sclera. Pupils are equally round and reactive to light. Extraocular movements are intact. . Ears: External ears normal, canals clear. Nose/Sinuses: Nares normal, septum midline, mucosa normal, no drainage or sinus tenderness. Oropharynx: Lips, mucosa, and tongue normal, teeth and gums normal, oropharynx normal. Neck: Supple, no adenopathy; thyroid symmetric, normal size Lungs: Lungs clear to auscultation. No wheezing, rhonchi, rales.. Heart: RRR without murmur, gallop, or rubs. No ectopy. Abdomen: Normal abdominal exam, Abdomen soft, non-tender. Bowel sounds normal. No masses, organomegaly. Extremities: No deformities, edema Lymph Nodes: No cervical lymphadenopathy and No supraclavicular lymphadenopathy. ASSESSMENT/PLAN: 1. Recurrent major depressive disorder, in partial remission (HCC) - ICD9: 296.35, ICD10: F33.41 -Stable, continue current medication. - SERTRALINE 50 MG TABLET 2. Hyperlipidemia LDL goal <70 - ICD9: 272.4, ICD10: E78.5 - Control undetermined, due for labs - Continue current medications - Counseled on healthy diet and regular exercise - ATORVASTATIN 40 MG TABLET 3. Pulmonary emphysema, unspecified emphysema type (HCC) - ICD9: 492.8, ICD10: J43.9 -Stable, continue inhalers as prescribed. 4. Essential hypertension with goal blood pressure less than 130/80 - ICD9: 401.9, ICD10: I10 - Controlled - Continue current medications - Recommend home blood pressure monitoring, to bring results to next visit - Encouraged sodium restriction, DASH or Mediterranean diet - Recommend regular aerobic exercise - CARVEDILOL 6.25 MG TABLET - AMLODIPINE 5 MG TABLET 5. Hypertensive kidney disease with stage 3 chronic kidney disease, unspecified whether stage 3a or3b CKD (HCC) - ICD9: 403.90, 585.3, ICD10: I12.9, N18.30 -To be determined, continue medications. Check CMP. 6. GERD without esophagitis - ICD9: 530.81, ICD10: K21.9 -Stable continue current medication - OMEPRAZOLE 20 MG CAPSULE,DELAYED RELEASE 7. Mild dementia, unspecified dementia type, unspecified whether behavioral, psychotic, or mood disturbance or anxiety (HCC) - ICD9: 294.20, ICD10: F03.A0 -Some perceived worsening of cognition. This has been a slow progression. Has been like to try Aricept being increased to 10 mg. We will see her back in 6 months to follow progress. - DONEPEZIL 10 MG TABLET Avel Bustos APRN.CNP Schedule mammogram, get labs. See us back in 6 months. This note was partly generated using [employer] voice recognition dictation and may contain some misspelled or inaccurate words missed on review. * Avel Bustos APRN.CNP - 01/16/2023 11:20 AM EDT Greg Felix is a 72 year old female here for a Medicare Subsequent Annual Wellness Visit Health Risk Assessment In general, health is: Good Concerns with balance:Not at all Concerns with teeth or dentures:Not at all Concerns with sexual function:Not at all [place] anxious, stressed, angry, irritable, lonely, isolated, or had thoughts of hurting themself: Not at all Has little interest or pleasure in doing things: Not at all Bothered by feeling down, depressed, or hopeless: Not at all Needs help with grocery shopping, cooking, housework, bathing, grooming, dressing, eating, sitting or standing, walking, using the toilet, handling finances, taking medications, using the telephone, or driving: Yes Following safety precautions in the home environment and vehicle: removed throw rugs from floors, installed grab bars in the bathroom, handrails in stairwells, having adequate lighting, wearing seatbelt at all times?: Yes Smokes cigarettes, vapes, or chew tobacco: No Eats healthy foods including fruits, vegetables, whole grains, and fiber-rich foods: Several days Number of days per week engages in exercise: 0 days Average alcohol consumption: Never Current Providers Specialists: I have reviewed specialist-related care of the patient in the medical record. Medical/Family history review Reviewed and updated problem list, medical/surgical/family/social history, medications, and allergies. Opioid use review Patient is not currently using opioids. Depression screening Depression Screening PHQ-2 Score PHQ-9 Score 01/02/2018 0 - Depression screening tool completed and reviewed. Based on score and interview, patient is not at risk for depression. Screening tool discussed with patient, and I recommended no further interventionat this time. Cognitive screening Mini Cog Score: Mild dementia baseline, some worsening. Functional Observation Was the patient's timed Up & Go test unsteady or ? 12 seconds? No Advance Care Planning End of Life planning discussed, including patient's advanced directive wishes: Yes Measurements BP 132/78 Pulse 58 Temp (Src) 97.7 (Left Tympanic) Resp 16 Ht 5' 3.5 (1.61m) Wt 208 lb (94.3kg) SpO2 96% BMI 36.26 kg/(m^2). Visual acuity (required for Welcome to Medicare): follows with optometry/ophthalmology Hearing Evaluation: hard of hearing Assessment/Plan Counseling - Counseled on healthy diet and regular exercise - Fall avoidance - Mammogram recommended and ordered Avel Bustos APRN.CNP [facility] Instructions* Patient Instructions* Avel Bustos APRN.CNP - 01/16/2023 11:23 AM EDT Schedule mammogram Get blood work completed. Increase donepezil 10 mg daily. See us back in 6 months, sooner if needed. Avel Bustos APRN.CNP documented [facility]07[facility]28-2023 Miscellaneous Notes* Telephone Encounter - Marti Bhagat Ma - 01/05/2023 3:03 PM EDT [facility] [place] notified. He will call back to schedule, he is driving. Marti Bhagat Ma * Telephone Encounter - Avel Bustos APRN.CNP - 01/05/2023 2:12 PM EDT Due for yearly exam and blood work. 3 months sent The following approved medication requests have been transmitted electronically. Requested Prescriptions Signed Prescriptions Disp Refills sertraline (ZOLOFT) 50 mg tablet 90 tablet 0 Sig: Take 1 tablet by mouth once daily. Authorizing Provider: AVEL BUSTOS atorvastatin (LIPITOR) 40 mg tablet 90 tablet 0 Sig: Take 1 tablet by mouth once daily. Authorizing Provider: AVEL BUSTOS Refused Prescriptions Disp Refills carvedilol (COREG) 6.25 mg tablet 180 tablet 3 Sig: Take 1 tablet by mouth twice daily with meals. Refused By: CORBIN SHANKS Reason for Refusal: Patient has requested refill too soon amLODIPine (NORVASC) 5 mg tablet 90 tablet 3 Sig: Take 1 tablet by mouth once daily. Refused By: CORBIN SHANKS Reason for Refusal: Patient has requested refill too soon Avel Bustos APRN.CNP * Telephone Encounter - Corbin Shanks OCCA - 01/05/2023 12:39 PM EDT [facility] 12/22/21 NOV not scheduled Please review and advise. Thank you. ROQUE Cain * Telephone Encounter - Mei Almaraz - 01/05/2023 12:33 PM EDT [facility] Patient has been identified by name and date of : Yes Patient aware RX will be sent to pharmacy. No need to notify patient. Spouse phones for refill(s): Requested Prescriptions Pending Prescriptions Disp Refills sertraline (ZOLOFT) 50 mg tablet 90 tablet 3 Sig: Take 1 tablet by mouth once daily. carvedilol (COREG) 6.25 mg tablet 180 tablet 3 Sig: Take 1 tablet by mouth twice daily with meals. atorvastatin (LIPITOR) 40 mg tablet 90 tablet 3 Sig: Take 1 tablet by mouth once daily. amLODIPine (NORVASC) 5 mg tablet 90 tablet 3 Sig: Take 1 tablet by mouth once daily. Date of last office visit : 12/22/2021 Date of next office visit : Visit date not found Last 2 Encounter Wt Readings: Date: Wt: 12/22/2021 96.6 kg (213 lb) 06/24/2021 97.5 kg (215 lb) Not applicable Please advise. Mei Corbett documented in this encounterKind[facility]06-[facility]-2023 NotePatient Outreach (INTMMN) GREG FELIX ([id number]) 1950 F Date Time Provider Department 11/29/22 KATIE ABDULLAHI INTMMBrock During your visit today, we recorded the following information about you: Allergies As of Date: 11/29/2022 (No Known Allergies) Date Reviewed: 12/22/2021 Reviewed by: Doris Delgado Ma - Fully Assessed Visit Diagnosis:Encounter for screening mammogram for breast cancer [Z12.31] Order(s):[facility] SCREENING [[id number]] Order #: [id number] FUTURE Prescriptions as of 12/04/2022 - tiotropium bromide (SPIRIVA RESPIMAT) 2.5 mcg/actuation inhaler INHALE 2 PUFFS INSTRUCTED ONCE DAILY - donepezil (ARICEPT) 5 mg tablet Take 1 tablet by mouth daily at bedtime. - omeprazole (PRILOSEC) 20 mg capsule Take 1 capsule by mouth twice daily. - carvedilol (COREG) 6.25 mg tablet Take 1 tablet by mouth twice daily with meals. - amLODIPine (NORVASC) 5 mg tablet Take 1 tablet by mouth once daily. - sertraline (ZOLOFT) 50 mg tablet Take 1 tablet by mouth once daily. - atorvastatin (LIPITOR) 40 mg tablet Take 1 tablet by mouth once daily. - naltrexone-bupropion (CONTRAVE) 8-90 mg ER tablet Take one pill daily for 7 days, then take one pill twice a day for 7 days, then take 2 pills in AM and one in PM for 7 days, then take 2 pills twice daily - albuterol HFA (PROVENTIL HFA) 90 mcg/actuation inhaler Inhale 2 Puffs as instructed every 4 hours as needed (for shortness of breath and wheezing.). - naproxen (NAPROSYN) 500 mg tablet Take 1 tablet by mouth twice daily as needed. Take with food. - acetaminophen (TYLENOL) 325 mg tablet Take 1-2 tablets by mouth every 6 hours as needed for Pain. Problem List As Of Date 11/29/2022 Noted Resolved Pure hyperglyceridemia [E78.1] 04/29/2007 08/12/2015 Tobacco use disorder [F17.200] 04/29/2007 02/06/2013 Knee internal derangement [M23.90] 05/05/2009 07/11/2011 Osteoarthritis, knee [M17.9] 04/19/2010 07/11/2011 Knee pain [M25.569] 04/27/2011 05/27/2012 Abnormality of gait [R26.9] 04/27/2011 05/27/2012 Osteoarth NOS-l/leg [RKX2427] 07/11/2011 09/05/2011 ASHD (arteriosclerotic heart disease) [I25.10] 05/27/2012 Lung nodule [R91.1] 06/17/2012 08/12/2015 Aortic aneurysm and dissection (HCC) [I71.00] 07/02/2012 07/17/2016 Thoracoabdominal aortic aneurysm (HCC) [I71.60] 07/31/2012 08/12/2015 Pre-op testing [Z01.818] 08/02/2015 08/10/2015 Pain, postoperative, acute [G89.18] 08/03/2015 01/31/2016 Postprocedural hypotension [I95.81] 08/03/2015 08/07/2015 Atelectasis [J98.11] 08/04/2015 07/17/2016 Acute kidney injury (HCC) [N17.9] 08/04/2015 01/31/2016 Thrombocytopenia (HCC) [D69.6] 08/06/2015 08/07/2015 Hypervolemia [E87.70] 08/07/2015 01/31/2016 SUMMARY 08/12/2015 06/22/2021 Essential hypertension with goal blood pressure*08/12/2015 Hyperlipidemia LDL goal <70 [E78.5] 08/12/2015 COPD (chronic obstructive pulmonary disease) (H*08/12/2015 Anorexia [R63.0] 09/12/2015 01/31/2016 Thoracoabdominal aortic aneurysm, without ruptu*09/12/2015 07/17/2016 SOB (shortness of breath) [R06.02] 09/13/2015 01/31/2016 Troponin level elevated [R77.8] 09/15/2015 01/31/2016 Wound dehiscence [T81.30XA] 10/06/2015 07/17/2016 Acute renal failure (HCC) [N17.9] 10/11/2015 03/13/2016 Slow transit constipation [K59.01] 10/12/2015 01/31/2016 Severe protein-calorie malnutrition (HCC) [E43] 10/14/2015 03/13/2016 Pleural effusion [J90] 10/16/2015 01/31/2016 Reactive depression [F32.9] 12/08/2015 06/22/2021 Acute deep vein thrombosis (DVT) of both lower *12/14/2015 03/13/2016 Obesity, Class II, BMI 35-39.9 [E66.9] 11/21/2017 Tubular adenoma of colon [D12.6] 01/02/2018 Upper back pain [M54.9] 01/02/2018 05/13/2018 Stricture of artery (HCC) [I77.1] 01/07/2018 06/27/2019 Diverticulosis of large intestine [K57.30] 01/07/2018 Steatosis of liver [K76.0] 01/07/2018 History of colonic polyps [Z86.010] 05/13/2018 GERD without esophagitis [K21.9] 05/13/2018 History of malignant melanoma [Z85.820] 05/13/2018 Mild dementia (HCC) [F03.A0] 06/27/2019 Recurrent major depressive disorder, in partial*10/09/2019 CKD (chronic kidney disease), stage III (HCC) [*12/31/2019 Hypertensive kidney disease with stage 3 chroni*06/22/2021 Encounter Status:Closed by PRISCILA RODRIGUEZ on 12/04/22[facility] 11-23-2022 NoteHNO ID: [id number] Author: Susu Angel Service: ? Author Type: ? Type: Progress Notes Filed: 11/23/2022 1:28 PM Note Text: POPULATION HEALTH NAVIGATION OUTREACH Action/FYI 1st attempt: Left message for patient including my direct number 2nd attempt: My Chart message sent HCC GAPS J44.9 - COPD (chronic obstructive pulmonary disease) (HCC) - [id number] Last Billed 12/22/2021 F03.A0 - Mild dementia (HCC) - [id number] Last Billed 12/22/2021 F33.41 - Recurrent major depressive disorder, in partial remission (HCC) - [id number] Last Billed 12/22/2021 Care Gaps Follow-up appointment Breast Cancer screening Patient Identified by Name and : NO Outreach Outcome/Action Unable to reach patient: Left message MyChart message sent Did you use a PCP flex slot to schedule this appointment? N/A Reason for Outreach HCC or suspected condition Payer: Payor: MEDICARE / Plan: MEDICARE A AND B / Product Type: Medicare / Care Gap Reviewed:: Annual Wellness visit Breast Cancer screening Reminder: Reminder note to check Health Maintenance for items below Health Maintenance items due: ALPHA-1 ANTITRYPSIN DEFICIENCY SCREENING Never done SHINGRIX VACCINE(2 of 3) due on 05/24/2016 DTAP,TDAP,TD(2 - Td or Tdap) due on 05/05/2019 COVID-19 VACCINE(4 - Booster for Moderna series) due on 07/29/2021 MAMMOGRAM due on 12/29/2021 ADVANCE DIRECTIVE DISCUSSION Never done LDL CHOLESTEROL due on 12/14/2022 Navigation Signature: Susu Angel November 23, 2022 1:27 [facility]06-15-2023 NotePatient Outreach (NETNAV) GREG FELIX ([id number]) 1950 F Date Time Provider Department 11/23/22 SUSU ANGEL During your visit today, we recorded the following information about you: Susu Angel 11/23/2022 1:28 PM Signed POPULATION HEALTH NAVIGATION OUTREACH Action/ 1st attempt: Left message for patient including my direct number 2nd attempt: My Chart message sent HCC GAPS J44.9 - COPD (chronic obstructive pulmonary disease) (HCC) - [id number] Last Billed 12/22/2021 F03.A0 - Mild dementia ([facility]) - [id number] Last Billed 12/22/2021 F33.41 - Recurrent major depressive disorder, in partial remission ([facility]) - [id number] Last Billed 12/22/2021 Care Gaps Follow-up appointment Breast Cancer screening Patient Identified by Name and : NO Outreach Outcome/Action Unable to reach patient: Left message [employer] message sent Did you use a PCP flex slot to schedule this appointment? N/A Reason for Outreach HCC or suspected condition Payer: Payor: MEDICARE / Plan: MEDICARE A AND B / Product Type: Medicare / Care Gap Reviewed:: Annual Wellness visit Breast Cancer screening Reminder: Reminder note to check Health Maintenance for items below Health Maintenance items due: ALPHA-1 ANTITRYPSIN DEFICIENCY SCREENING Never done SHINGRIX VACCINE(2 of 3) due on 05/24/2016 DTAP,TDAP,TD(2 - Td or Tdap) due on 05/05/2019 COVID-19 VACCINE(4 - Booster for Moderna series) due on 07/29/2021 MAMMOGRAM due on 12/29/2021 ADVANCE DIRECTIVE DISCUSSION Never done LDL CHOLESTEROL due on 12/14/2022 Navigation Signature: Susu Angel November 23, 2022 1:27 PM Allergies As of Date: 11/23/2022 (No Known Allergies) Date Reviewed: 12/22/2021 Reviewed by: Doris Delgado Ma - Fully Assessed Reason for Visit: Population Health Navigation Outreach [3910] Cmt: [facility] Gaps Prescriptions as of 11/23/2022 - tiotropium bromide (SPIRIVA RESPIMAT) 2.5 mcg/actuation inhaler INHALE 2 PUFFS INSTRUCTED ONCE DAILY - donepezil (ARICEPT) 5 mg tablet Take 1 tablet by mouth daily at bedtime. - omeprazole (PRILOSEC) 20 mg capsule Take 1 capsule by mouth twice daily. - carvedilol (COREG) 6.25 mg tablet Take 1 tablet by mouth twice daily with meals. - amLODIPine (NORVASC) 5 mg tablet Take 1 tablet by mouth once daily. - sertraline (ZOLOFT) 50 mg tablet Take 1 tablet by mouth once daily. - atorvastatin (LIPITOR) 40 mg tablet Take 1 tablet by mouth once daily. - naltrexone-bupropion (CONTRAVE) 8-90 mg ER tablet Take one pill daily for 7 days, then take one pill twice a day for 7 days, then take 2 pills in AM and one in PM for 7 days, then take 2 pills twice daily - albuterol HFA (PROVENTIL HFA) 90 mcg/actuation inhaler Inhale 2 Puffs as instructed every 4 hours as needed (for shortness of breath and wheezing.). - naproxen (NAPROSYN) 500 mg tablet Take 1 tablet by mouth twice daily as needed. Take with food. - acetaminophen (TYLENOL) 325 mg tablet Take 1-2 tablets by mouth every 6 hours as needed for Pain. Problem List As Of Date 11/23/2022 Noted Resolved Pure hyperglyceridemia [E78.1] 04/29/2007 08/12/2015 Tobacco use disorder [F17.200] 04/29/2007 02/06/2013 Knee internal derangement [M23.90] 05/05/2009 07/11/2011 Osteoarthritis, knee [M17.9] 04/19/2010 07/11/2011 Knee pain [M25.569] 04/27/2011 05/27/2012 Abnormality of gait [R26.9] 04/27/2011 05/27/2012 Osteoarth NOS-l/leg [NOJ5918] 07/11/2011 09/05/2011 ASHD (arteriosclerotic heart disease) [I25.10] 05/27/2012 Lung nodule [R91.1] 06/17/2012 08/12/2015 Aortic aneurysm and dissection (HCC) [I71.00] 07/02/2012 07/17/2016 Thoracoabdominal aortic aneurysm (HCC) [I71.60] 07/31/2012 08/12/2015 Pre-op testing [Z01.818] 08/02/2015 08/10/2015 Pain, postoperative, acute [G89.18] 08/03/2015 01/31/2016 Postprocedural hypotension [I95.81] 08/03/2015 08/07/2015 Atelectasis [J98.11] 08/04/2015 07/17/2016 Acute kidney injury (HCC) [N17.9] 08/04/2015 01/31/2016 Thrombocytopenia (HCC) [D69.6] 08/06/2015 08/07/2015 Hypervolemia [E87.70] 08/07/2015 01/31/2016 SUMMARY 08/12/2015 06/22/2021 Essential hypertension with goal blood pressure*08/12/2015 Hyperlipidemia LDL goal <70 [E78.5] 08/12/2015 COPD (chronic obstructive pulmonary disease) (H*08/12/2015 Anorexia [R63.0] 09/12/2015 01/31/2016 Thoracoabdominal aortic aneurysm, without ruptu*09/12/2015 07/17/2016 SOB (shortness of breath) [R06.02] 09/13/2015 01/31/2016 Troponin level elevated [R77.8] 09/15/2015 01/31/2016 Wound dehiscence [T81.30XA] 10/06/2015 07/17/2016 Acute renal failure (HCC) [N17.9] 10/11/2015 03/13/2016 Slow transit constipation [K59.01] 10/12/2015 01/31/2016 Severe protein-calorie malnutrition (HCC) [E43] 10/14/2015 03/13/2016 Pleural effusion [J90] 10/16/2015 01/31/2016 Reactive depression [F32.9] 12/08/2015 06/22/2021 Acute deep vein thrombosis (DVT) of both lower *12/14/2015 (more content not included)...[facility]06-15-2023 History of Present illness Narrative* Susu Angel - 11/23/2022 1:27 PM EDT POPULATION HEALTH NAVIGATION OUTREACH Action/FYI 1st attempt: Left message for patient including my direct number 2nd attempt: My Chart message sent HCC GAPS J44.9 - COPD (chronic obstructive pulmonary disease) (HCC) - [id number] Last Billed 12/22/2021 F03.A0 - Mild dementia (HCC) - [id number] Last Billed 12/22/2021 F33.41 - Recurrent major depressive disorder, in partial remission (HCC) - [id number] Last Billed 12/22/2021 Care Gaps Follow-up appointment Breast Cancer screening Patient Identified by Name and : NO Outreach Outcome/Action Unable to reach patient: Left message MyChart message sent Did you use a PCP flex slot to schedule this appointment? N/A Reason for Outreach HCC or suspected condition Payer: Payor: MEDICARE / Plan: MEDICARE A AND B / Product Type: Medicare / Care Gap Reviewed:: Annual Wellness visit Breast Cancer screening Reminder: Reminder note to check Health Maintenance for items below Health Maintenance items due: ALPHA-1 ANTITRYPSIN DEFICIENCY SCREENING Never done SHINGRIX VACCINE(2 of 3) due on 05/24/2016 DTAP,TDAP,TD(2 - Td or Tdap) due on 05/05/2019 COVID-19 VACCINE(4 - Booster for Moderna series) due on 07/29/2021 MAMMOGRAM due on 12/29/2021 ADVANCE DIRECTIVE DISCUSSION Never done LDL CHOLESTEROL due on 12/14/2022 Navigation Signature: Susu Angel November 23, 2022 1:27 PM documented in this encounterKind[facility]01-27-[facility]23 Miscellaneous Notes* Telephone Encounter - Katie Abdullahi MD - 07/07/2022 1:32 PM EST OK to refill as ordered Katie Abdullahi MD * Telephone Encounter - Skye Reyes - 07/07/2022 1:06 PM ESTSummary: Refill Patient has been identified by name and date of : Yes Last office visit in this department: 12/22/2021 RX INSTRUCTIONS: Patient aware RX will be sent to pharmacy. No need to notify patient. Patient phones requesting refills as follows: Requested Prescriptions Pending Prescriptions Disp Refills tiotropium bromide (SPIRIVA RESPIMAT) 2.5 mcg/actuation inhaler 12 g 3 Sig: INHALE 2 PUFFS INSTRUCTED ONCE DAILY KING-12/22/21 Labs-12/14/21 NOV-none med filled 06/24/21 Please review and advise. Skye Reyes documented in this encounterKindred [facility]11-11-2022 Miscellaneous Notes* Telephone Encounter - Avel Bustos APRN.CNP - 04/21/2022 11:48 AM EST The following approved medication requests have been transmitted electronically. Requested Prescriptions Pending Prescriptions Disp Refills donepezil (ARICEPT) 5 mg tablet 90 tablet 3 Sig: Take 1 tablet by mouth daily at bedtime. omeprazole (PRILOSEC) 20 mg capsule 180 capsule 3 Sig: Take 1 capsule by mouth twice daily. Avel Bustos APRN.CNP * Telephone Encounter - Laura Arita MA - 04/21/2022 11:07 AM EST Patient has been identified by name and date of : Yes Requested Prescriptions Pending Prescriptions Disp Refills donepezil (ARICEPT) 5 mg tablet 90 tablet 3 Sig: Take 1 tablet by mouth daily at bedtime. omeprazole (PRILOSEC) 20 mg capsule 180 capsule 3 Sig: Take 1 capsule by mouth twice daily. RX INSTRUCTIONS: Patient aware RX will be sent to pharmacy. No need to notify patient. Laura Arita MA King: 12/2021 No appointment scheduled Last refill: 06/2021 * Telephone Encounter - Skye Rai - 04/21/2022 9:41 AM EST Patient has been identified by name and date of : Yes Patient phones for refill(s): Requested Prescriptions Pending Prescriptions Disp Refills donepezil (ARICEPT) 5 mg tablet 90 tablet 3 Sig: Take 1 tablet by mouth daily at bedtime. omeprazole (PRILOSEC) 20 mg capsule 180 capsule 3 Sig: Take 1 capsule by mouth twice daily. Date of last office visit in primary care: 12/22/2021 Last 2 Encounter Wt Readings: Date: Wt: 12/22/2021 96.6 kg (213 lb) 06/24/2021 97.5 kg (215 lb) Previous labs/tests for medication: Not applicable Please advise. Thank you. Skye Rai documented in this encounterKindred [facility]09-19-2022 Miscellaneous Notes* Telephone Encounter - Katie Abdullahi MD - 02/27/2022 5:58 PM EDT Noted Katie Abdullahi MD * Telephone Encounter - Anu Ayala RN - 02/17/2022 9:46 AM EDT Nasreen with [facility] calls to let provider know that patient will have a missed visit this week for SN d/t staff shortage. Nasreen also wants to let provider know that she will be sending over an order to update POC with an earlier discharge from [facility] services d/t patient doing well and services aren't going to be needed as long originally thought. Anu Ayala RN documented in this encounterKindred Hospital [place]09-19-2022 Miscellaneous Notes* Telephone Encounter - Doris Delgado Ma - 02/27/2022 4:30 PM EDT The following approved medication requests have been transmitted electronically. Requested Prescriptions Signed Prescriptions Disp Refills amLODIPine (NORVASC) 5 mg tablet 90 tablet 3 Sig: Take 1 tablet by mouth once daily. Authorizing Provider: KATIE ABDULLAHI Ma * Telephone Encounter - Katie Abdullahi MD - 02/27/2022 4:16 PM EDT New Rx done Katie Abudllahi MD * Telephone Encounter - Tangela Rick - 02/27/2022 2:09 PM EDT [facility] is calling Katie Abdullahi MD today. He spoke to Pianpian jany today and they do not have a current script on file for the amlodipine A year supply was issued to pharmacy in October. Please contact pharmacy or resubmit new script amLODIPine (NORVASC) 5 mg tablet 90 tablet 3 10/25/2021 Sig: TAKE 1 TABLET BY MOUTH ONCE DAILY AT BEDTIME Sent to pharmacy as: amLODIPine (NORVASC) 5 mg tablet Class: Normal Order: [id number] documented in this encounterKindred [facility]09-19-2022 Miscellaneous Notes* Telephone Encounter - Avel Bustos APRN.CNP - 02/27/2022 10:57 AM EDT The following approved medication requests have been transmitted electronically. Requested Prescriptions Pending Prescriptions Disp Refills carvedilol (COREG) 6.25 mg tablet 180 tablet 3 Sig: Take 1 tablet by mouth twice daily with meals. Avel Bustos APRN.CNP * Telephone Encounter - Jenna Duran LPN - 02/27/2022 10:22 AM EDT Patient phones requesting refills as follows: Requested Prescriptions Pending Prescriptions Disp Refills carvedilol (COREG) 6.25 mg tablet 180 tablet 3 Sig: Take 1 tablet by mouth twice daily with meals. KING-7/14/22 Labs-12/14/21 NOV-03/28/22 med filled 10/25/21 Please review and advise. Jenna Duran LPN * Telephone Encounter - Gayle Mckeon Pss - 02/27/2022 8:02 AM EDT Patient has been identified by name and date of : Yes Requested Prescriptions Pending Prescriptions Disp Refills carvedilol (COREG) 6.25 mg tablet 180 tablet 3 Sig: Take 1 tablet by mouth twice daily with meals. amLODIPine (NORVASC) 5 mg tablet 90 tablet 3 Sig: Take 1 tablet by mouth daily at bedtime. RX INSTRUCTIONS: patient taking last amlodipine tonight Patient aware RX will be sent to pharmacy. No need to notify patient. Gayle Mckeon Pss documented in this encounterKindred [facility]08-26-2022 Miscellaneous Notes* Telephone Encounter - Katie Abdullahi MD - 02/03/2022 2:28 PM EDT Noted and agree Katie Abdullahi MD * Telephone Encounter - Ayse Jack LPN - 02/03/2022 1:57 PM EDT [facility] completed admission today and nursing will be seeing patient until 03/13/22. No need to contact back. documented in this encounterKindred Hospital [facility]08-10-2022 History of Present illness Narrative* Doris Delgado Ma - 01/18/2022 1:09 PM EDT Scan on 01/18/2022 11:28 AM by External Provider: X-ray Doris Delgado Ma documented in this encounterKindred [facility]07-14-2022 History of Present illness Narrative* Katie Abdullahi MD - 12/22/2021 9:40 AM EDT Chief Complaint Patient presents with: F/U 6 Month HPI Greg Felix is a 71 year old female who presents here today for 6 month follow up. Pt here today for a 6 month follow up. Here today with her Hermilo. GERD - Reflux sx still occur at times with Prilosec 20 mg BID. States this is her own fault due to eating too late. Memory: Stable to slightly worse. No trouble sleeping. Taking Aricept 5 mg daily. Depression: Doing well on Zoloft 50 mg daily. NO SI/HI. states that she is doing better nowthen when she was young. COPD: Former smoker. Breathing over all doing well on Spiriva inhaler and Albuterol inhaler. Not able to do to much activity due to sob. HTN: Denies checking BP at home, no chest pains or dizziness. Chronic sob due to COPD. On Coreg 6.25 mg BID and Norvasc 5 mg daily. Lipid & ASHD: Tries to watch diet, doesn't drink pop but drinks water, powerade, coffee and occasional beer. Denies much exercise. Taking Lipitor 40 mg daily, Tolerating well. She is interested in losing weight, wants to discuss Contrave as she's read about the medication. Spasms - Right sided rib and abdominal muscle spasms over the past 1-2 months. Pt states that this occurs intermittently, unable to tell what brings this on but bothers her at most at night. now that he thinks about it could of been a result from falling and hitting her treadmill. Reports 1 fall about 2 months ago when she tripped over treadmill. Denies anything being broken. Uses a cane when walking long distance. Does have a walker and wheelchair at home, but haven't been using it. This was used when she had her aorta replaced. HM - Living Will/Adv Dir scanned into chart. Declines Hep C screening. Past medical history, appointments, medications, allergies reviewed. Previous Medical History PAST MEDICAL HISTORY Diagnosis Date Abnormal ECG ASHD (arteriosclerotic heart disease) 05/27/2012 Celiac artery stenosis (HCC) Diverticulosis of sigmoid colon Essential hypertension, benign Fatty liver GERD without esophagitis 05/13/2018 History of tobacco use Hyperlipemia Hyperplastic polyp of transverse colon 2017 Lung nodule 06/17/2012 Malignant melanoma (HCC) 02/12/2018 left thigh Obesity, Class II, BMI 35-39.9 11/21/2017 Osteoarthritis, knee 04/19/2010 Other severe protein-calorie malnutrition Personal history of colonic polyps Reactive depression 12/08/2015 Stricture of artery (HCC) 01/07/2018 celiac artery stenosis 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 Tubular adenoma of colon 01/02/2018 hepatic flexure Upper back pain 01/02/2018 Previous Surgical History PAST SURGICAL HISTORY Procedure Laterality Date ARTHRP KNE CONDYLE&PLATU MEDIAL&LAT COMPARTMENTS 04/17/2011 Knee replacement, total right ARTHRP KNE CONDYLE&PLATU MEDIAL&LAT COMPARTMENTS 05/29/2011 Knee replacement, total left BLEPHAROPLASTY EXTENSIVE 2011 bilateral COLSC FLX W/REMOVAL LESION BY HOT BX FORCEPS 08/14/2016 COLSC FLX W/RMVL OF TUMOR POLYP LESION SNARE TQ N/A 01/14/2018 [facility]2021 CORONARY ARTERY ANGIO S&I 07/19/15 EXCISION GANGLION WRIST DORSAL/VOLAR PRIMARY HEART SURGERY HX NOSE SURGERY HX 1985/1986 Deviated septum PAST SURGICAL HISTORY OF 2007 right knee meniscus repair PAST SURGICAL HISTORY OF 08/02/[address] repair PL[address] GASTROSTOMY TUBE,PERCUTAN 11/15/2015 Family History FAMILY HISTORY Problem Relation Age of Onset other (liver disease) Mother Alzheimer's Disease Father other (Uterine Cancer) Paternal Grandmother Diabetes Maternal [...] Lymph% 12/14/2021 23.8 Abs Lymph 12/14/2021 1.57 [place]% 12/14/2021 10.2 Abs [place] 12/14/2021 0.67 E[place]% 12/14/2021 3.3 Abs Eosin [...] disease, unspecified whether stage 3a or3b CKD ([facility]) - ICD9: 403.90, 585.3, ICD10: I12.9, N18.30 - good control - Continue current medication(s) - Recommended regular aerobic exercise. - Recommend home blood pressure monitoring, to bring results in on next visit - Goal of BP <130/80 4. Recurrent major depressive disorder, in partial remission ([facility]) - ICD9: 296.35, ICD10: F33.41 - Stable [...] Past Histories independently gathered by the clinical customer support executive and the remaining scribed note accurately describes [...] AM. Doris Delgado Ma documented in this encounterKindred [facility]07-30-2018 History of Past illness Narrative* Problem Noted Date Resolved Date 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 Small right pleural effusion. on 10/11 DISHTANK OPERATOR note - No IR guided drain to [...] improving daily, reglan tid with meals. KUB /- multiple loops of nondilated air-filled bowel, Residual contrast. +BS, +BM - Urinary retention, howard replaced 10/13. dc'd 10/17, voiding well. no residual urine after bladder scanned. + UTI- prelim UC +Ecoli, No ATBx tx indicated for positive urine culture, asymptomatic bacteriuria that likely represents colonization and not infection - mild cognitive impairment, no dementia- [facility] following. B12 wnl Dispo -from [place]. PT recom SNF. CM following. DC to [facility] 10/20/2015- [facility] with wound VAC Hypervolemia 08/07/2015 01/31/2016 Overview: [...] of this encounter (statuses as of 12/22/2021) [facility] History of Past illness Narrative* Problem Noted Date Resolved Date 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 Small right pleural effusion. on 10/11 DISHTANK OPERATOR note - No IR guided drain to [...] [facility] following. B12 wnl Dispo -from [place]. PT recom SNF. CM following. DC to SNF 10/20/2015- [facility] with wound VAC Hypervolemia 08/07/2015 01/31/2016 Overview: [...] of this encounter (statuses as of 01/18/2022) [facility] of Past illness Narrative* Problem Noted Date Resolved Date 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 Small right pleural effusion. on 10/11 DISHTANK OPERATOR note - No IR guided drain to [...] [facility] following. B12 wnl Dispo -from [place] PT recom SNF. CM following. DC to [facility] 10/20/2015- [facility] with wound VAC Hypervolemia 08/07/2015 01/31/2016 Overview: [...] 218 INR 0.9 CREAT 1.04 UA: Neg 2/22/16 HCG:N/A ABO/ABO Confirmed: Yes Blood ordered: No [...] of this encounter (statuses as of 02/03/2022) [facility] History of Past illness Narrative* Problem Noted Date Resolved Date 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 Small right pleural effusion. on 10/11 DISHTANK OPERATOR note - No IR guided drain to [...] [facility] following. B12 wnl Dispo -from [place] PT recom SNF. CM following. DC to [facility] 10/20/2015- [facility] with wound VAC Hypervolemia 08/07/2015 01/31/2016 Overview: [...] of this encounter (statuses as of 02/27/2022) [facility] of Past illness Narrative* Problem Noted Date Resolved Date 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 Small right pleural effusion. on 10/11 DISHTANK OPERATOR note - No IR guided drain to [...] [facility] psych following. B12 wnl Dispo -from [place] PT recom SNF. CM following. DC to [facility] 10/20/2015- [facility] with wound VAC Hypervolemia 08/07/2015 01/31/2016 Overview: [...] of this encounter (statuses as of 02/27/2022) [facility] of [facility] illness Narrative* Problem Noted Date Resolved Date 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 Small right pleural effusion. on 10/11 DISHTANK OPERATOR note - No IR guided drain to [...] on 10/15 Troponin level elevated 09/15/2015 01/31/20 Overview: Have been higher in past marquez [...] [facility] psych following. B12 wnl Dispo -from [place] PT recom SNF. CM following. DC to SNF 10/20/2015- [facility] with wound VAC Hypervolemia 08/07/2015 01/31/2016 Overview: [...] of this encounter (statuses as of 04/21/2022) [facility] of Past illness Narrative* Problem Noted Date Resolved Date 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 Small right pleural effusion. on 10/11 DISHTANK OPERATOR note - No IR guided drain to [...] [facility] psych following. B12 wnl Dispo -from [place] PT recom SNF. CM following. DC to [facility] 10/20/2015- [facility] with wound VAC Hypervolemia 08/07/2015 01/31/2016 Overview: [...] of this encounter (statuses as of 07/07/2022) [facility] of [facility] illness Narrative* Problem Noted Date Resolved Date 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 Small right pleural effusion. on 10/11 DISHTANK OPERATOR note - No IR guided drain to [...] [facility] psych following. B12 wnl Dispo -from [place] PT recom SNF. CM following. DC to SNF 10/20/2015- [facility] with wound VAC Hypervolemia 08/07/2015 01/31/2016 Overview: [...] preop weight Plan: BPH & diuresis; u/s 08/10 with insufficient fluid for tap. Acute kidney [...] of this encounter (statuses as of 11/23/2022) [facility] of Past illness Narrative* Problem Noted Date Resolved Date 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 Small right pleural effusion. on 10/11 DISHTANK OPERATOR note - No IR guided drain to [...] [facility] psych following. B12 wnl Dispo -from [place] PT recom SNF. CM following. DC to SNF 10/20/2015- [facility] with wound VAC Hypervolemia 08/07/2015 01/31/2016 Overview: [...] of this encounter (statuses as of 12/04/2022) [facility] of Past illness Narrative* Problem Noted [...] fluid. Small right pleural effusion. on 10/11 DISHTANK OPERATOR note - No IR guided drain to [...] [facility] psych following. B12 wnl Dispo -from [place] PT recom SNF. CM following. DC to SNF 10/20/2015- [facility] with wound VAC Hypervolemia 08/07/2015 01/31/2016 Overview: [...] of this encounter (statuses as of 01/05/2023) [facility] of [facility] illness Narrative* Problem Noted Date Diagnosed Date Resolved Date Stricture of artery 01/07/2018 06/27/19 Overview: celiac artery stenosis Upper back pain 01/02/2018 05/13/2018 Acute deep vein thrombosis ( DVT) of both lower extremities 12/14/2015 03/13/2016 Reactive depression 12/08/2015 06/22/19 22 Pleural effusion 10/16/2015 01/31/2016 Overview: History: post op UC Chest 10/10 - Small-moderate left pleural fluid. Small right pleural effusion. on 10/11 DISHTANK OPERATOR note - No IR guided drain to [...] off on 10/15 Troponin level elevated 09/15/2015 08/2 07/2015 Overview: Have been higher in past marquez [...] [facility] psych following. B12 wnl Dispo -from [place] PT recom SNF. CM following. DC to SNF 10/20/2015- [facility] with wound VAC Hypervolemia 08/07/2015 01/31/2016 Overview: [...] preop weight Plan: BPH & diuresis; u/s 08/10 with insufficient fluid for tap. Acute kidney [...] of this encounter (statuses as of 01/16/2023) [facility] of Past illness Narrative* Problem Noted [...] fluid. Small right pleural effusion. on 10/11 DISHTANK OPERATOR note - No IR guided drain to [...] [facility] psych following. B12 wnl Dispo -from [place] PT recom SNF. CM following. DC to SNF 10/20/2015- [facility] with wound VAC Hypervolemia 08/07/2015 01/31/2016 Overview: [...] preop weight Plan: BPH & diuresis; u/s 08/10 with insufficient fluid for tap. Acute kidney [...] of this encounter (statuses as of 01/23/2023) [facility] History of Past illness Narrative* Problem Noted [...] fluid. Small right pleural effusion. on 10/11 DISHTANK OPERATOR note - No IR guided drain to [...] [facility] psych following. B12 wnl Dispo -from [place] PT recom SNF. CM following. DC to [facility] 10/20/2015- [facility] with wound VAC Hypervolemia 08/07/2015 01/31/2016 Overview: [...] of this encounter (statuses as of 02/28/2023) [facility] History of Past illness Narrative* Problem Noted [...] fluid. Small right pleural effusion. on 10/11 DISHTANK OPERATOR note - No IR guided drain to [...] improving daily, reglan tid with meals. KUB /- multiple loops of nondilated air-filled bowel, Residual contrast. +BS, +BM - Urinary retention, howard replaced 10/13. dc'd 10/17, voiding well. no residual urine after bladder scanned. + UTI- prelim UC +Ecoli, No ATBx tx indicated for positive urine culture, asymptomatic bacteriuria that likely represents colonization and not infection - mild cognitive impairment, no dementia- [facility] following. B12 wnl Dispo -from [place] PT recom SNF. CM following. DC to [facility] 10/20/2015- [facility] with wound VAC Hypervolemia 08/07/2015 01/31/2016 Overview: [...] of this encounter (statuses as of 04/13/2023) [facility] of Past illness Narrative* Problem Noted [...] fluid. Small right pleural effusion. on 10/11 DISHTANK OPERATOR note - No IR guided drain to [...] [facility] psych following. B12 wnl Dispo -from [place] PT recom SNF. CM following. DC to [facility] 10/20/2015- [facility] with wound VAC Hypervolemia 08/07/2015 01/31/2016 Overview: [...] of this encounter (statuses as of 05/26/2023) [facility]07-[facility]-2018 History of Past illness Narrative* Problem Noted [...] fluid. Small right pleural effusion. on 10/11 DISHTANK OPERATOR note - No IR guided drain to [...] spinal drainage, intrathecal papaverine. Was discharged from [facility] on 08/14/15 to SNF. Was readmitted to [...] Residual contrast. +BS, +BM - Urinary retention, hwoard replaced 10/13. dc'd 10/17, voiding well. no residual urine after bladder scanned. + UTI- prelim UC +Ecoli, No ATBx tx indicated for positive urine culture, asymptomatic bacteriuria that likely represents colonization and not infection - mild cognitive impairment, no dementia- [facility] psych following. B12 wnl Dispo -from [place], [place]. PT recom SNF. CM following. DC to SNF 10/20/2015- [facility] with wound VAC Hypervolemia 08/07/2015 01/31/2016 Overview: [...] preop weight Plan: BPH & diuresis; u/s 08/10 with insufficient fluid for tap. Acute kidney [...] of this encounter (statuses as of 07/20/2023) [facility]07-[facility]-2018 History of Past illness Narrative* Problem Noted [...] fluid. Small right pleural effusion. on 10/11 DISHTANK OPERATOR note - No IR guided drain to [...] wound dehiscence LVEF: 55% RVF: Normal Cards: eDn PMH/PSH: copd, ex-smoker, cad (60% RCA), htn, [...] BP management - Wound dehiscence - s/p /6 wound debridement & VAC. ID followed - [...] [facility] psych following. B12 wnl Dispo -from [place], [place]. PT recom SNF. CM following. DC to SNF 10/20/2015- [facility] with wound VAC Hypervolemia 08/07/2015 01/31/2016 Overview: [...] of this encounter (statuses as of 07/28/2023) [facility] Diagnosis Essential hypertension with goal blood [...] Other screening mamm[facility] Diagnosis GERD without esophagitis Esophageal reflux [facility] Diagnosis Pulmonary emphysema, unspecified emphysema type (HCC) [facility] Diagnosis Encounter for screening mammogram for breast cancer [facility]* Diagnosis Recurrent major depressive disorder, in partial remission (HCC) Hyperlipidemia LDL goal <70 Other and unspecified hyperlipidemia [facility]* Diagnosis Medicare annual wellness visit, subsequent- [...] or anxiety (HCC) [facility] Diagnosis Encounter for screening mammogram for breast cancer [facility] Diagnosis 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 documented in this encounter [facility] for referral (narrative)* Diagnostic Procedure Only (Routine) - Pending Review Specialty Diagnoses / Procedures Referred By Devon t Referred To Contact [facility] Diagnoses Encounter for screening mammogram for malignant neoplasm of breast Procedures FRANKLIN SCREENING SCREENING MAMMOGRAPHY BI 2-VIEW BREAST INC Katie Flor MD [address] [place] [address] [facility] [address] [place] [address] Referral ID Status Reason Start Date Expiration Date Visits Requested Visits Authorized [id number] Pending Review Auto-Generat ed Referral 12/22/2021 01/21/2023 1 1 T [facility] for referral (narrative)* Diagnostic Procedure Only (Routine) - Pending Review Specialty Diagnoses / Procedures Referred By Devon suarez Referred To Contact [facility] Diagnoses Encounter for screening mammogram for breast cancer Procedures FRANKLIN SCREENING SCREENING MAMMOGRAPHY BI 2-VIEW BREAST INC Katie Flor MD [address] [place] [address] [facility] [address] [place] [address] Referral ID Status Reason Start Date Expiration Date Visits Requested Visits Authorized [id number] Pending Review Auto-Generat ed Referral 11/29/2022 12/29/2023 1 1 [facility] for referral (narrative)* Diagnostic Procedure Only (Routine) - Closed Specialty Diagnoses / Procedures Referred By Devon t Referred To Contact [facility] Diagnoses Encounter for screening mammogram for breast cancer Procedures FRANKLIN SCREENING SCREENING MAMMOGRAPHY BI 2-VIEW BREAST INC Katie Flor MD [address] [place] [address] [facility] [address] [place] [address] Referral ID Status Reason Start Date Expiration Date V isits Requested Visits Authorized [id number] Closed Auto-Generate d Referral 11/29/2022 12/29/2023 1 1 [facility] for visit Narrative* Diagnostic Procedure Only (Routine) - Closed Specialty Diagnoses / Procedures Referred By Devon suarez Referred To Contact [facility] Diagnoses Encounter for screening mammogram for breast cancer Procedures FRANKLIN SCREENING SCREENING MAMMOGRAPHY BI 2-VIEW BREAST INC Katie Flor MD [address] [place] [address] [facility] [address] [place] [address] Referral ID Status Reason Start Date Expiration Date V isits Requested Visits Authorized [id number] Closed Auto-Generate d Referral 11/29/2022 12/29/2023 1 1 [facility] Advance Directives No Advanced Directives Records FoundDocuments on File Type 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) Advance Directive(s) 08/14/2016 1:55 PM Advance Directive(s) 10/06/2015 1:12 PM Advance Directive(s) 09/25/2015 4:39 PM Advance Directive(s) 09/12/2015 1:01 PM Advance Directive(s) 08/06/2015 4:45 PM Advance Directive(s) 05/31/2012 9:01 PM Documents on File Type 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) 05/31/2012 9:01 PM Documents on File Type 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) 05/31/2012 9:01 PM [...] or prosecute any alcohol or drug abuse patient.[facility] the event this information is protected by the Federal Confidentiality of Alcohol and Drug Abuse Patient Records regulations: The Federal rules restrict any use of the information to criminally investigate or prosecute any alcohol or drug abuse patient.[facility] the event this information is protected by the Federal Confidentiality of Alcohol and Drug Abuse Patient Records regulations: The Federal rules restrict any use of the information to criminally investigate or prosecute any alcohol or drug abuse patient.[facility] the event this information is protected by the Federal Confidentiality of Alcohol and Drug Abuse Patient Records regulations: The Federal rules restrict any use of the information to criminally investigate or prosecute any alcohol or drug abuse patient.[facility] the event this information is protected by the Federal Confidentiality of Alcohol and Drug Abuse Patient Records regulations: The Federal rules restrict any use of the information to criminally investigate or prosecute any alcohol or drug abuse patient.[facility] the event this information is protected by the Federal Confidentiality of Alcohol and Drug Abuse Patient Records regulations: The Federal rules restrict any use of the information to criminally investigate or prosecute any alcohol or drug abuse patient.[facility] the event this information is protected by the Federal Confidentiality of Alcohol and Drug Abuse Patient Records regulations: The Federal rules restrict any use of the information to criminally investigate or prosecute any alcohol or drug abuse patient.[facility] the event this information is protected by the Federal Confidentiality of Alcohol and Drug Abuse Patient Records regulations: The Federal rules restrict any use of the information to criminally investigate or prosecute any alcohol or drug abuse patient.[facility] the event this information is protected by the Federal Confidentiality of Alcohol and Drug Abuse Patient Records regulations: The Federal rules restrict any use of the information to criminally investigate or prosecute any alcohol or drug abuse patient.[facility] the event this information is protected by the Federal Confidentiality of Alcohol and Drug Abuse Patient Records regulations: The Federal rules restrict any use of the information to criminally investigate or prosecute any alcohol or drug abuse patient.[facility] the event this information is protected by the Federal Confidentiality of Alcohol and Drug Abuse Patient Records regulations: The Federal rules restrict any use of the information to criminally investigate or prosecute any alcohol or drug abuse patient.[facility] the event this information is protected by the Federal Confidentiality of Alcohol and Drug Abuse Patient Records regulations: The Federal rules restrict any use of the information to criminally investigate or prosecute any alcohol or drug abuse patient.[facility] the event this information is protected by the Federal Confidentiality of Alcohol and Drug Abuse Patient Records regulations: The Federal rules restrict any use of the information to criminally investigate or prosecute any alcohol or drug abuse patient.[facility] the event this information is protected by the Federal Confidentiality of Alcohol and Drug Abuse Patient Records regulations: The Federal rules restrict any use of the information to criminally investigate or prosecute any alcohol or drug abuse patient.[facility] the event this information is protected by the Federal Confidentiality of Alcohol and Drug Abuse Patient Records regulations: The Federal rules restrict any use of the information to criminally investigate or prosecute any alcohol or drug abuse patient.[facility] the event this information is protected by the Federal Confidentiality of Alcohol and Drug Abuse Patient Records regulations: The Federal rules restrict any use of the information to criminally investigate or prosecute any alcohol or drug abuse patient.[facility] the event this information is protected by the Federal Confidentiality of Alcohol and Drug Abuse Patient Records regulations: The Federal rules restrict any use of the information to criminally investigate or prosecute any alcohol or drug abuse patient.[facility] the event this information is protected by the Federal Confidentiality of Alcohol and Drug Abuse Patient Records regulations: The Federal rules restrict any use of the information to criminally investigate or prosecute any alcohol or drug abuse patient.[facility] Reason for Visit (unrecogniz ed section and [...] Care Teams (unrecognized sec tion and content) Supervisor Fabrication Relationship Specialty Start Date End Date Katie Abdullahi MD [address] [place] [place], [place] [id number] PCP - General Family Practice 01/27/21 Devika Crenshaw MD [address] [place] [address] Primary Staff Physician Cardiology 08/27/18 Supervisor Fabrication Relationship Specialty Start Date End Date Katie Abdullahi MD [address] [place] [address] PCP - General Family Practice 01/27/21 Devika Crenshaw MD [address] [place] [address] Primary Staff Physician Cardiology 08/27/18 Supervisor Fabrication Relationship Specialty Start Date End Date Katie Abdullahi MD [address] [place] [address] PCP - General Family Practice 01/27/21 Devika Crenshaw MD [address] [place] [address] Primary Staff Physician Cardiology 08/27/18 Supervisor Fabrication Relationship Specialty Start Date End Date Katie Abdullahi MD [address] [place] [address] PCP - General Family Medicine 01/27/21 Devika Crenshaw MD [address] [place] [address] Primary Staff Physician Cardiology 08/27/18 Supervisor Fabrication Relationship Specialty Start Date End Date Katie Abdullahi MD [address] [place] [address] PCP - General Family Medicine 01/27/21 Devika Crenshaw MD [address] [place] [address] Primary Staff Physician Cardiology 08/27/18 Supervisor Fabrication Relationship Specialty Start Date End Date Katie Abdullahi MD [address] [place] [place], [place] [address] PCP - General Family Medicine 01/27/21 Devika Crenshaw MD [address], [place] [id number] Primary Staff Physician Cardiology 08/27/18 Supervisor Fabrication Relationship Specialty Start Date End Date Katie Abdullahi MD [address] [place] [address] PCP - General Family Medicine 01/27/21 Devika Crenshaw MD [address] [place] [address] Primary Staff Physician Cardiology 08/27/18 Supervisor Fabrication Relationship Specialty Start Date End Date Katie Abdullahi MD [address] [place] [address] PCP - General Family Medicine 01/27/21 Devika Crenshaw MD [address] [place] [address] Primary Staff Physician Cardiology 08/27/18 Supervisor Fabrication Relationship Specialty Start Date End Date Katie Abdullahi MD [address] [place] [address] PCP - General Family Medicine 01/27/21 Devika Crenshaw MD [address] [place] [address] Primary Staff Physician Cardiology 08/27/18 Supervisor Fabrication Relationship Specialty Start Date End Date Katie Abdullahi MD [address] [place], [place] [address] PCP - General Family Medicine 01/27/21 Devika Crenshaw MD [address] [place], [place] [id number] Primary Staff Physician Cardiology 08/27/18 Supervisor Fabrication Relationship Specialty Start Date End Date Katie Abdullahi MD [address] [place] [place], [place] [address] PCP - General Family Medicine 01/27/21 Devika Crenshaw MD [address] [place] [address] Primary Staff Physician Cardiology 08/27/18 Supervisor Fabrication Relationship Specialty Start Date End Date Katie Abdullahi MD [address] [place] [address] PCP - General Family Medicine 01/27/21 Devika Crenshaw MD [address] [place] [address] Primary Staff Physician Cardiology 08/27/18 Supervisor Fabrication Relationship Specialty Start Date End Date Katie Abdullahi MD [address] [place] [place], [place] [address] PCP - General Family Medicine 01/27/21 Devika Crenshaw MD [address] [place] [address] Primary Staff Physician Cardiology 08/27/18 Supervisor Fabrication Relationship Specialty Start Date End Date Katie Abdullahi MD [address] [place] [place], [place] [id number] PCP - General Family Medicine 01/27/21 Devika Crenshaw MD [address] [place] [address] Primary Staff Physician Cardiology 08/27/18 INFORMATION SOURCE [...] BE BASED ON THE PRIMARY CLINICAL RECORDS. [employer] [facility]. provides no warranty or guarantee of the accuracy or completeness of information in this document.
[2023-08-11] MEDS: 0.9% Normal Saline (1000mL) 1,000 ML 150 ML IV (16:16)
[2023-08-11] MEDS: Carbamide Peroxide 15 ML Bottle 5 DRP OTIC (16:19)
[2023-08-11] MEDS: Ipratropium 0.5 MG/2.5 ML SOLUTION INHALATION (19:44)
[2023-08-11] MEDS: Donepezil HCl 5 MG Tablet PO (22:50)
[2023-08-11] MEDS: Carvedilol 6.25 MG Tablet PO (22:51)
[2023-08-11] MEDS: Pantoprazole Sodium 20 MG Tablet PO (22:51)
[2023-08-11] MEDS: Atorvastatin Calcium 40 MG Tablet PO (22:51)
[2023-08-11] MEDS: amLODIPine 5 MG Tablet PO (22:51)
[2023-08-12] VITALS (7 sets, daily range): BP systolic 119–154; BP diastolic 44–59; PULSE 53–65; RESP 16–20; TEMP 36.7–37.4; O2SAT 91–97
[2023-08-12 06:39] LABS: Absolute Neutrophil Count 6.8 X10^3/uL (2.0-7.7); Basophil# 0.03 X10^3/uL; Basophil% 0.4 % (0-1); Eosinophil# 0.04 X10^3/uL; Eosinophils% 0.5 % (0-5); Hematocrit 29.4 % (37-47); Hemoglobin 9.5 g/dL (12.0-15.0); Lymphocyte % 6.3 % (19-41); Mean Corp Hgb Conc 32.3 g/dL (32-36); Mean Corpuscular Hgb 29.8 pg (27.0-32.0); Mean Corpuscular Volume 92.2 fL (81-99); Mean Platelet Vol. 10.4 fl (6.2-12.0); Monocyte# 0.58 X10^3/uL; Monocyte% 7.3 % (0-10); NRBC Flagged by Analyzer 0 % (0-5); Neutrophil # 6.76 X10^3/uL (2.7-7.7); Neutrophil % 85.1 % (47-70); POSITIVE DIFFERENTIAL YES; Platelet Count 160 K/mm3 (150-450); RBC Distribution Width SD 43.8 fl (35.1-43.9); Red Blood Count 3.19 M/mm3 (4.2-5.4); White Blood Count 7.9 K/mm3 (4.4-11.0)
[2023-08-12 07:06] LABS: Anion Gap 5 (5-15); BUN 24 mg/dL (7-18); BUN/Creat Ratio 20.7 RATIO (10-20); Calcium,Total 9.2 mg/dL (8.5-10.1); Chloride 111 mmol/L (98-107); Creatinine, Serum 1.16 mg/dL (0.55-1.02); EST Glomerular Filtration Rate 48 mL/min (>60); Est Glom Filt Rate - Afr Amer 59 mL/min (>60); Glucose 122 mg/dL (74-106); Potassium 3.9 mmol/L (3.5-5.1); Sodium Level 137 mmol/L (136-145)
[2023-08-12] MEDS: Ipratropium 0.5 MG/2.5 ML SOLUTION INHALATION ×3 (07:08→19:54)
--- NOTE | 2023-08-12 07:47 | PN.HOSP_ITS ---
Reason for Visit Reason for Visit: Diagnoses Weakness (08/11/23) Subjective Subjective Feels much better today. No further ear pain. Objective Data Objective Data Vital Signs: Vital Signs Temp Pulse Resp BP Pulse Ox O2 Del Method 37.2 C 65 20 H 148/44 H 91 Room Air 08/12/23 02:30 08/12/23 07:09 08/12/23 07:09 08/12/23 02:30 08/12/23 07:09 08/12/23 07:09 Oxygen Delivery Method Room Air Weight: 94.12 kg Body Mass Index (BMI) 36.7 Intake & Output: Intake and Output for Last 24 Hours 08/10/23 08/11/23 08/12/23 23:59 23:59 23:59 Intake Total 2250 / 2550 550 / 550 Balance 2250 / 2550 550 / 550 Lab / Micro Data 08/12/23 06:16 08/12/23 06:16 Labs: Laboratory Results - last 24 hr 08/11/23 10:35: WBC 14.5 H, RBC 3.96 L, Hgb 11.7 L, Hct 35.9 L, MCV 90.7, MCH 29.5, MCHC 32.6, RDW Std Deviation 42.5, RDW Coeff of Columba 12.9, Plt Count 192, MPV 10.0, Immature Gran % (Auto) 0.600, Neut % (Auto) 81.3 H, Lymph % (Auto) 2.2 L, Harlan % (Auto) 8.6, Eos % (Auto) 7.0 H, Baso % (Auto) 0.3, Absolute Neuts ( auto) 11.8 H, Absolute Lymphs (auto) 0.32 L, Nucleated RBC % 0, Differential Comment SCANNED, Sodium 135 L, Potassium 4.2, Chloride 105, Carbon Dioxide 24.0, Anion Gap 6, BUN 23 H, Creatinine 1.32 H, Estim Creat Clear Calc 38.07, Est GFR (MDRD) Af Amer 50 L, Est GFR (MDRD) Non-Af 42 L, BUN/Creatinine Ratio 17.4, Glucose 163 H, Lactic Acid 1.2, Calcium 9.2 08/11/23 10:49: Urine Color Yellow, Urine Clarity Clear, Urine pH 6.0, Ur Specific [place] 1.015, Urine Protein 500 H, Urine Glucose (UA) Normal, Urine Ketones 5 H, Urine Occult Blood 150 H, Urine Nitrite Negative, Urine Bilirubin Negative, Urine Urobilinogen 1 H, Ur Leukocyte Esterase Negative, Urine RBC 5-10 SEEN, Urine WBC 0 SEEN, Ur Squamous Epith Cells 0 SEEN, Urine Bacteria 0 SEEN, Urine Mucus 0 SEEN 08/12/23 06:16: WBC 7.9, RBC 3.19 L, Hgb 9.5 L, Hct 29.4 L, MCV 92.2, MCH 29.8, MCHC 32.3, RDW Std Deviation 43.8, RDW Coeff of Columba 13.0, Plt Count 160, MPV 10.4, Immature Gran % (Auto) 0.400, Neut % (Auto) 85.1 H, Lymph % (Auto) 6.3 L, Harlan % (Auto) 7.3, Eos % (Auto) 0.5, Baso % (Auto) 0.4, Absolute Neuts (auto) 6.8, Absolute Lymphs (auto) 0.50 L, Nucleated RBC % 0, Sodium 137, Potassium 3.9, Chloride 111 H, Carbon Dioxide 21.0, Anion Gap 5, BUN 24 H, Creatinine 1.16 H, Estim Creat Clear Calc 45.70, Est GFR (MDRD) Af Amer 59 L, Est GFR (MDRD) Non-Af 48 L, BUN/Creatinine Ratio 20.7 H, Glucose 122 H, Calcium 9.2 Micro: Microbiology 08/11/23 10:45 Mucosa - Nose SARS-CoV-2, Influenza & RSV (PCR) - Final Radiography Diagnostic Testing: Radiology Impression Chest X-Ray 08/11/23 11:05 IMPRESSION: No acute cardiopulmonary abnormality. Aneurysm of the aortic arch. Stable hiatal hernia. Electronically Signed: Tutu Ann MD at 11:40 EST , Rhythm Strip Rhythm Strip: Sinus Rhythm Rate: 61 Ectopy: None Physical Exam Const alert and no apparent distress HEENT head/scalp atraumatic HEENT Narrative: Still with wax in the ear canals despite the [place]. Was able to visualize these parts of the tympanic membranes bilaterally and there is no injection or erythema involving the tympanic membranes nor any obvious fluid that I can appreciate. Resp normal respiratory effort Assessment & Plan Assessment/Plan (1) Weakness: PLAN: Plan Weakness * patient been acutely weak over the past acute couple days. * Workup in the emergency room was unremarkable with exception of a leukocytosis. COVID, influenza and RSV were negative * Is possible the patient may have had a viral gastroenteritis. * Patient at risk for returning home and requires further intervention with IV fluids, therapy evaluation. Patient is at risk for further falls and's severe injury if not adequately assessed therefore patient will be admitted. * Additionally, patient does appear to be dehydrated. Creatinine is up slightly but not to the point of acute kidney injury. IV fluids * PT OT evaluate and treat. Case management to assist on evaluation for residential facility. Leukocytosis * Resolved * No clear source of infection at this time though she does complain of ear pain. * No additional workup at this time. Chronic conditions * CAD/PAD: Stable. * Cognitive impairment: Unclear type. Patient was started empirically on donezepil without formal diagnosis of dementia. Continue with donezepil for now. * Hypertension: Stable continue with amlodipine VTE prophylaxis with enoxaparin CODE STATUS: Addressed with the patient and her . Patient is to be full code. Disposition: To be determined. Patient be evaluated therapy services and will receive IV fluids. Not sure the patient will get strong enough to be able to go home safely without intervention or if she may require residential facility. Charges/Coding Visit Charges Inpatient E&M: 07011 Subs Hosp L2
[2023-08-12] MEDS: Enoxaparin 40 MG/0.4 ML Syringe SC (08:10)
[2023-08-12] MEDS: Carvedilol 6.25 MG Tablet PO ×2 (08:10→23:34)
[2023-08-12] MEDS: Pantoprazole Sodium 20 MG Tablet PO ×2 (08:10→23:34)
[2023-08-12] MEDS: Sertraline 50 MG Tablet PO (08:11)
[2023-08-12] MEDS: Atorvastatin Calcium 40 MG Tablet PO (23:33)
[2023-08-12] MEDS: Donepezil HCl 5 MG Tablet PO (23:34)
[2023-08-12] MEDS: amLODIPine 5 MG Tablet PO (23:34)
[2023-08-12] MEDS: 0.9% Saline Lock 10 ML Syringe IV (23:35)
[2023-08-13] VITALS (8 sets, daily range): BP systolic 139–169; BP diastolic 43–55; PULSE 55–62; RESP 15–20; TEMP 36.7–37.2; O2SAT 92–95
[2023-08-13] MEDS: Ipratropium 0.5 MG/2.5 ML SOLUTION INHALATION ×2 (07:24→18:57)
--- NOTE | 2023-08-13 09:07 | PN.HOSP_ITS ---
Reason for Visit Reason for Visit: Diagnoses Weakness (08/11/23) Subjective Subjective Patient is a 73-year-old lady admitted with progressive generalized weakness associated nausea and vomiting and decreased oral intake. Infectious workup is so far been negative to date Objective Data Objective Data Vital Signs: Vital Signs Temp Pulse Resp BP Pulse Ox O2 Del Method 98.2 F 58 L 17 169/55 H 92 Room Air 08/13/23 05:47 08/13/23 07:24 08/13/23 07:24 08/13/23 05:47 08/13/23 07:24 08/13/23 07:24 Oxygen Delivery Method Room Air Weight: 94.12 kg Body Mass Index (BMI) 36.7 Intake & Output: Intake and Output for Last 24 Hours 08/11/23 08/12/23 08/13/23 23:59 23:59 23:59 Intake Total 2250 / 2550 1650 / 1650 Balance 2250 / 2550 1650 / 1650 Lab / Micro Data 08/12/23 06:16 08/12/23 06:16 Micro: Microbiology 08/11/23 10:45 Mucosa - Nose SARS-CoV-2, Influenza & RSV (PCR) - Final Rhythm Strip Rhythm Strip: Sinus Rhythm Rate: 61 Ectopy: None Physical Exam Narrative GENERAL: cooperative HEENT: Atraumatic; normocephalic EYES; Anicteric, Normal Conjunctiva NECK; supple, normal thyroid, RESPIRATORY: Diminished to auscultation CARDIOVASCULAR: Regular S1 S2, GI: soft, normoactive bowel sounds, : No Renal angle tenderness; EXTREMITIES: No edema, no clubbing, MUSCULOSKELETAL: no muscle wasting NEURO: Awake; no lateralizing signs. SKIN: No Rash PSYCH; Flat affect Assessment & Plan Assessment/Plan (1) Weakness: PLAN: Plan Patient is a 73-year-old lady admitted with progressive generalized weakness associated nausea and vomiting and decreased oral intake. Infectious workup is so far been negative to date 1. Adult failure to thrive ? Admitted to the regular nursing floor managed with rehydration requested for PT OT eval and outreach and education social worker to assist with discharge planning 2. Dehydration ? With acute renal insufficiency management IV fluid with subsequent monitoring of electrolyte 3. Anemia - Secondary to chronic disorder monitoring H&H and transfuse if patient becomes symptomatic or hemoglobin falls below 7 4. Hypertension - Blood pressure controlled, home medications continued with dose adjustment as needed 5. Dyslipidemia -Patient is on statin therapy, continued at home dose 6. Peripheral arterial disease ??On atorvastatin 7. GERD ? On PPI 8. Depression ? Patient is on sertraline 9. Mild cognitive impairment ? Patient is on donepezil 10. DVT prophylaxis ? Enoxaparin Time spent in the patient's overall evaluation,decision-making process, review o f diagnostic data, adjustment of management, discussion with other providers, nursing nursing and ancillary staff involved in patient's care documentation,35 Minutes Charges/Coding Visit Charges Inpatient E&M: 27654 Subs Hosp L2
[2023-08-13 09:44] LABS: Vitamin B12 231 pg/mL (211-911)
--- NOTE | 2023-08-13 09:55 | CASEMGMT ---
SHAI PERAZA Assessment: Face to Face with pt for initial transition planning/care coordination assessment. SHAI PERAZA introduced self and role at [facility], pt voices understanding and consents to assessment. Pt is A&O x4 and answers all questions appropriately at this time. Pt lying in bed in no distress. arrived mid assessment. Care providers, pharmacy, and demographics verified/updated. Admitting Dx: fall, debility PCP:Ady Specialists:Denies Preferred Pharmacy:[facility] Insurance: [facility], [facility] Prescription Benefit: yes LNOK: Hermilo Suggs, ; Federica Nevarez, dtr Living Arrangements: Pt lives with in a mobile home with a ramp to enter. Pt reports she is I in ADL's. Pt does cooking and cleaning tasks. Pt denies concerns at home. Transportation: Pt drives self and denies concerns with transportation. DME:shower chair, crutches, w/c, walker x2, cane HHC/SNF: Pt has had [facility] in the past and has been to [facility]. Pt states no concerns with going home at time of dc. Discussed therapy recommendations with patient and . Pt reports pt did not fall at home, she slid out of bed. Pt states her strength is good now. She declines the need for any home or outpt therapy. Pt states no further concerns/needs. CM to follow. Advised pt to ask CM if any further question/concerns/needs arise, voices understanding. Pt Goal: Home Plan: Home, follow therapy Sherly GIBBONS CM
[2023-08-13 10:02] LABS: Ferritin 175 ng/mL (8-252); Iron 13 ug/dL (50-170); Iron Binding Capacity,Total 339 ug/dL (250-450); PERCENT IRON SATURATION 3.8 % (15.0-55.0)
[2023-08-13] MEDS: Pantoprazole Sodium 20 MG Tablet PO ×2 (10:32→21:22)
[2023-08-13] MEDS: Sertraline 50 MG Tablet PO (10:32)
[2023-08-13] MEDS: Enoxaparin 40 MG/0.4 ML Syringe SC (10:33)
[2023-08-13] MEDS: Carvedilol 6.25 MG Tablet PO ×2 (10:33→21:22)
--- NOTE | 2023-08-13 13:02 | CASEMGMT ---
Addendum entered by Zulay Odonnell 08/13/23 17:35: Social Work Pt's family brought Advance Directives in and they were placed on pt's chart. CONOR Palomo Original Note: Social Work SW met with pt to discuss advance directives.? Pt confirms she has completed a living will and health care POA naming her Hermilo Suggs.? Pt notified that documents are not on file at [facility] and SW requested they be brought in for scanning into the EMR.? CONOR Palomo
[2023-08-13] MEDS: Albuterol 2.5 MG/3 ML VIAL.NEB. INHALATION (16:55)
[2023-08-13] MEDS: amLODIPine 5 MG Tablet PO (21:22)
[2023-08-13] MEDS: Donepezil HCl 5 MG Tablet PO (21:22)
[2023-08-13] MEDS: Atorvastatin Calcium 40 MG Tablet PO (21:22)
[2023-08-14] MEDS: Ceftriaxone 1 GM/50 ML BAG IV (00:44)
[2023-08-14 03:42] VITALS: BP 166/45; PULSE 59; RESP 15; TEMP 36.8; O2SAT 95
[2023-08-14 04:00] VITALS: RESP 15; O2SAT 95
[2023-08-14 06:58] LABS: Absolute Neutrophil Count 6.5 X10^3/uL (2.0-7.7); Basophil# 0.05 X10^3/uL; Basophil% 0.6 % (0-1); Eosinophil# 0.12 X10^3/uL; Eosinophils% 1.4 % (0-5); Hematocrit 30.3 % (37-47); Hemoglobin 10.1 g/dL (12.0-15.0); Lymphocyte % 11.5 % (19-41); Mean Corp Hgb Conc 33.3 g/dL (32-36); Mean Corpuscular Hgb 29.7 pg (27.0-32.0); Mean Corpuscular Volume 89.1 fL (81-99); Mean Platelet Vol. 10.3 fl (6.2-12.0); Monocyte# 0.99 X10^3/uL; Monocyte% 11.4 % (0-10); NRBC Flagged by Analyzer 0 % (0-5); Neutrophil # 6.49 X10^3/uL (2.7-7.7); Neutrophil % 74.5 % (47-70); Platelet Count 192 K/mm3 (150-450); RBC Distribution Width CV 12.6 % (11.6-14.6); RBC Distribution Width SD 41.6 fl (35.1-43.9); White Blood Count 8.7 K/mm3 (4.4-11.0)
--- NOTE | 2023-08-14 07:48 | PN.HOSP_ITS ---
Reason for Visit Reason for Visit: Diagnoses Weakness (08/11/23) Objective Data Objective Data Vital Signs: Vital Signs Temp Pulse Resp BP Pulse Ox O2 Del Method 98.2 F 59 L 15 166/45 H 95 Room Air 08/14/23 03:42 08/14/23 03:42 08/14/23 04:00 08/14/23 03:42 08/14/23 04:00 08/14/23 04:00 Oxygen Delivery Method Room Air Weight: 94.12 kg Body Mass Index (BMI) 36.7 Intake & Output: Intake and Output for Last 24 Hours 08/12/23 08/13/23 08/14/23 23:59 23:59 23:59 Intake Total 1650 / 1650 350 / 350 Balance 1650 / 1650 350 / 350 Lab / Micro Data 08/14/23 06:30 08/14/23 06:30 Labs: Laboratory Results - last 24 hr 08/12/23 06:16: Iron 13 L, TIBC 339, Iron Saturation 3.8 L, Ferritin 175, Vitamin B12 231 08/14/23 06:30: WBC 8.7, RBC 3.40 L, Hgb 10.1 L, Hct 30.3 L, MCV 89.1, MCH 29.7, MCHC 33.3, RDW Std Deviation 41.6, RDW Coeff of [place] 12.6, Plt Count 192, MPV 10.3, Immature Gran % (Auto) 0.600, Neut % (Auto) 74.5 H, Lymph % (Auto) 11.5 L, [place] % (Auto) 11.4 H, Eos % (Auto) 1.4, Baso % (Auto) 0.6, Absolute Neuts (auto) 6.5, Absolute Lymphs (auto) 1.00, Nucleated RBC % 0 Micro: Microbiology 08/11/23 10:35 Blood Culture (Wb) - Right Wrist Blood Culture - Preliminary 08/11/23 10:45 Mucosa - Nose SARS-CoV-2, Influenza & RSV (PCR) - Final Rhythm Strip Rhythm Strip: Sinus Rhythm Rate: 61 Ectopy: None Physical Exam Narrative GENERAL: cooperative HEENT: Atraumatic; normocephalic EYES; Anicteric, Normal Conjunctiva NECK; supple, normal thyroid, RESPIRATORY: Diminished to auscultation CARDIOVASCULAR: Regular S1 S2, GI: soft, normoactive bowel sounds, : No Renal angle tenderness; EXTREMITIES: No edema, no clubbing, MUSCULOSKELETAL: no muscle wasting NEURO: Awake; no lateralizing signs. SKIN: No Rash PSYCH; Flat affect Assessment & Plan Assessment/Plan (1) Weakness: PLAN: Plan Patient is a 73-year-old lady admitted with progressive generalized weakness associated nausea and vomiting and decreased oral intake. Infectious workup is so far been negative to date 1. Adult failure to thrive ? Admitted to the regular nursing floor managed with rehydration requested for PT OT eval and perinatal social worker to assist with discharge planning 2. Dehydration ? With acute renal insufficiency management IV fluid with subsequent monitoring of electrolyte 3. Anemia - Secondary to chronic disorder monitoring H&H and transfuse if patient becomes symptomatic or hemoglobin falls below 7 4. Hypertension - Blood pressure controlled, home medications continued with dose adjustment as needed 5. Dyslipidemia -Patient is on statin therapy, continued at home dose 6. Peripheral arterial disease ??On atorvastatin 7. GERD ? On PPI 8. Depression ? Patient is on sertraline 9. Mild cognitive impairment ? Patient is on donepezil 10. DVT prophylaxis ? Enoxaparin Time spent in the patient's overall evaluation,decision-making process, review of diagnostic data, adjustment of management, discussion with other providers, nursing nursing and ancillary staff involved in patient's care documentation,35 Minutes
[2023-08-14 08:12] LABS: Anion Gap 5 (5-15); BUN 15 mg/dL (7-18); BUN/Creat Ratio 14.3 RATIO (10-20); Calcium,Total 9.2 mg/dL (8.5-10.1); Chloride 109 mmol/L (98-107); Creatinine, Serum 1.05 mg/dL (0.55-1.02); EST Glomerular Filtration Rate 54 mL/min (>60); Est Glom Filt Rate - Afr Amer 66 mL/min (>60); Estimated Creatinine Clearance 50.49 ml/min; Glucose 117 mg/dL (74-106); Magnesium 1.9 mg/dL (1.6-2.6); Phosphorus 3.2 mg/dL (2.5-4.9); Potassium 3.6 mmol/L (3.5-5.1); Sodium Level 138 mmol/L (136-145)
--- NOTE | 2023-08-14 08:30 | PCM.DC.SUM ---
Providers Date of Admission: 08/11/23 Date of Discharge: 08/14/23 Primary Care Physician: Dr. Palomo Garsia MD Reason For Visit: FALL, DEBILITY Diagnosis Discharge Diagnosis (1) Weakness: Status: Resolved Code(s): R53.1 - Weakness Plan Patient is a 73-year-old lady admitted with progressive generalized weakness associated nausea and vomiting and decreased oral intake. Infectious workup is so far been negative to date 1. Adult failure to thrive ? Admitted to the regular nursing floor managed with rehydration requested for PT OT eval and social media community manager to assist with discharge planning 2. Dehydration ? With acute renal insufficiency management IV fluid with subsequent monitoring of electrolyte 3. Anemia - Secondary to chronic disorder monitoring H&H and transfuse if patient becomes symptomatic or hemoglobin falls below 7 4. Hypertension - Blood pressure controlled, home medications continued with dose adjustment as needed 5. Dyslipidemia -Patient is on statin therapy, continued at home dose 6. Peripheral arterial disease ??On atorvastatin 7. GERD ? On PPI 8. Depression ? Patient is on sertraline 9. Mild cognitive impairment ? Patient is on donepezil 10. DVT prophylaxis ? Enoxaparin Time spent in the patient's overall evaluation,decision-making process, review of diagnostic data, adjustment of management, discussion with other providers, nursing nursing and ancillary staff involved in patient's care documentation,35 Minutes Medications at Discharge Home Medications atorvastatin 40 mg tablet 40 mg PO QHS CHOLESTEROL 10/30/16 albuterol sulfate 90 mcg/actuation breath activated powder inhaler 2 puff inhalation Q6H PRN Sob &/Or Wheezing 01/11/18 sertraline 50 mg tablet 50 mg PO DAILY 01/11/18 donepezil 5 mg tablet 5 mg PO QHS 07/09/19 amlodipine 5 mg tablet 5 mg PO QHS BLOOD PRESSURE 01/16/21 carvedilol 6.25 mg tablet 6.25 mg PO BID BLOOD PRESSURE 08/11/23 omeprazole 20 mg capsule,delayed release 20 mg PO BID ACID REFLUX 08/11/23 tiotropium bromide 2.5 mcg/actuation mist for inhalation (Spiriva Respimat) 2 inh inhalation DAILY SOB 08/11/23 Hospital Course Summary of Care Provided Minutes Spent on Discharge: 35 Physical Exam Narrative GENERAL: cooperative HEENT: Atraumatic; normocephalic EYES; Anicteric, Normal Conjunctiva NECK; supple, normal thyroid, RESPIRATORY: Diminished to auscultation CARDIOVASCULAR: Regular S1 S2, GI: soft, normoactive bowel sounds, : No Renal angle tenderness; EXTREMITIES: No edema, no clubbing, MUSCULOSKELETAL: no muscle wasting NEURO: Awake; no lateralizing signs. SKIN: No Rash PSYCH; Flat affect Weight / BMI Weight Weight: 94.12 kg Body Mass Index (BMI) 36.7 ABG / Lab / Microbiology Data 08/14/23 06:30 08/14/23 06:30 Laboratory: Laboratory Results - last 24 hr 08/12/23 06:16: Iron 13 L, TIBC 339, Iron Saturation 3.8 L, Ferritin 175, Vitamin B12 231 08/14/23 06:30: WBC 8.7, RBC 3.40 L, Hgb 10.1 L, Hct 30.3 L, MCV 89.1, MCH 29.7, MCHC 33.3, RDW Std Deviation 41.6, RDW Coeff of [place] 12.6, Plt Count 192, MPV 10.3, Immature Gran % (Auto) 0.600, Neut % (Auto) 74.5 H, Lymph % (Auto) 11.5 L, [place] % (Auto) 11.4 H, Eos % (Auto) 1.4, Baso % (Auto) 0.6, Absolute Neuts (auto) 6.5, Absolute Lymphs (auto) 1.00, Nucleated RBC % 0, Sodium 138, Potassium 3.6, Chloride 109 H, Carbon Dioxide 24.0, Anion Gap 5, BUN 15, Creatinine 1.05 H, Estim Creat Clear Calc 50.49, Est GFR (MDRD) Af Amer 66, Est GFR (MDRD) Non-Af 54 L, BUN/Creatinine Ratio 14.3, Glucose 117 H, Calcium 9.2, Phosphorus 3.2, Magnesium 1.9 Microbiology: Microbiology 08/11/23 10:35 Blood Culture (Wb) - Right Wrist Blood Culture - Preliminary 08/11/23 10:45 Mucosa - Nose SARS-CoV-2, Influenza & RSV (PCR) - Final D/C Instructions Discharge Diet: No restrictions Discharge Activity: Return to Normal Activity Call your doctor if you observe: Fever of 101 or Higher, Shortness of breath, Fainting spells and Chest pain Meaningful Use Info Meaningful Use Diagnoses (Choose all that apply): None applicable Discharge Plan Admission Admit Date/Time: 08/11/23 13:55 Attending Provider: Aniket Estrada Primary Care Provider: Palomo Garsia Consulting Providers: Efren Thompson Discharge Orders/Prescriptions Prescriptions: Continued albuterol sulfate 90 mcg/actuation aerosol powdr breath activated 2 puff INHALATION Q6H PRN (Reason: Sob &/Or Wheezing) atorvastatin 40 MG tablet 40 mg PO QHS Patient Comments: sertraline 50 MG tablet 50 mg PO DAILY donepezil 5 MG tablet 5 mg PO QHS amlodipine 5 mg tablet 5 mg PO QHS Spiriva Respimat 2.5 mcg/actuation mist 2 inh INHALATION DAILY Rx Instructions: USE IN THE AM carvedilol 6.25 mg tablet 6.25 mg PO BID Rx Instructions: PT TAKES IN AM AND AT DINNER TIME omeprazole 20 mg capsule,delayed release(DR/EC) 20 mg PO BID Rx Instructions: PT TAKES IN AM AND AT DINNER TIME Referrals / Follow Up: Palomo Garsia MD [Primary Care Provider] - Disposition Disposition (needs filled in before D/C Order can be placed): Home Health Service Charges/Coding Visit Charges Inpatient E&M: 13559 Disch Hosp >30min
[2023-08-14] MEDS: Enoxaparin 40 MG/0.4 ML Syringe SC (08:45)
[2023-08-14] MEDS: Sertraline 50 MG Tablet PO (08:45)
[2023-08-14] MEDS: Pantoprazole Sodium 20 MG Tablet PO (08:45)
[2023-08-14] MEDS: Carvedilol 6.25 MG Tablet PO (08:45)
[2023-08-14 08:49] VITALS: BP 151/50; PULSE 55; RESP 16; TEMP 36.9; O2SAT 97
--- NOTE | 2023-08-14 09:27 | CASEMGMT ---
SHAI CM into pt room, pt still declining any homegoing needs at this time. Pt states she feels her strength is good and is ready for dc.
[2023-08-14] MEDS: Ipratropium 0.5 MG/2.5 ML SOLUTION INHALATION (11:14)
[2023-08-14 11:17] VITALS: BP 153/49; PULSE 58; RESP 16; TEMP 36.8; O2SAT 97
[2023-08-14 11:25] VITALS: PULSE 61; RESP 19
== END 2023-08-14 13:00 | disposition home or self-care (01) | DRG 641 ==
LOC: ED 13:55 → MS3 14:03
PROVIDERS: Emergency Provider Emergency Medicine; PCP Family Medicine; Visit Provider Internal Medicine
DX: E86.0 Dehydration (principal); R62.7 Adult failure to thrive; J44.9 Chronic obstructive pulmonary disease, unspecified; I73.9 Peripheral vascular disease, unspecified; I10 Essential (primary) hypertension; F32.A Depression, unspecified; E78.5 Hyperlipidemia, unspecified; I25.10 Atherosclerotic heart disease of native coronary artery without angina pectoris; G31.84 Mild cognitive impairment of uncertain or unknown etiology; K21.9 Gastro-esophageal reflux disease without esophagitis; Z68.36 Body mass index [BMI] 36.0-36.9, adult; R53.1 Weakness; Z87.891 Personal history of nicotine dependence
CPT/HCPCS: 36415; 71045; 80048; 81001; 82607; 82728; 83540; 83550; 83605; 83735; 84100; 85025; 87040; 87077; 87186; 87631; 93005; 94640; 97112; 97116; 97162; 97166; 97530; 99285; J7030; P9612; A4216; J2405